=== PATIENT | female | born 1950 | race Caucasian/White ===

== ENCOUNTER 2020-05-06 20:04 | Inpatient (IN) | payer MEDICARE, BC ==
[2020-05-06] MEDS ORDERED: solu-MEDROL 125 MG IV ONE (20:13)
[2020-05-06] MEDS ORDERED: DUONEB 0.5-3 MG/3 ml Neb IH ONE ×2 (20:13→20:20)
--- NOTE | 2020-05-06 20:18 | ERPHSYRPT ---
- History of Present Illness Time Seen by Provider: 05/06/20 20:10 Source: patient, EMS Exam Limitations: no limitations Physician History: 69 years old female with history of atrial fibrillation, congestive heart failure, COPD presented to the ER with 2 days history of progressively increasing shortness of breath. Patient report initially started as a upper respiratory/nasal/sinus congestion followed by cough productive of initially clear but currently yellow-green sputum copious in amount with progressive worsening. She has been using neb treatments at home with no significant relief. She has subjective feeling of fever and chills. Because of repeated coughing her whole chest is feeling sore. Denies any extremity swelling or sick contact. Timing/Duration: day(s) (2), gradual onset, worse Activities at Onset: rest Severity of Dyspnea-Max: severe Severity of Dyspnea-Current: moderate Modifying Factors: Improves With: coughing Associated Symptoms: cough, chest pain/discomfort, wheezing, productive cough, No fever, No lightheadedness, No leg swelling, No muscle spasms feet, No muscle spasms hands, No painful breathing Allergies/Adverse Reactions: Sulfa (Sulfonamide Antibiotics) Allergy (Severe, Verified 05/06/20 20:15) Itching pollen extracts Allergy (Mild, Verified 05/06/20 20:15) Home Medications: Apixaban [Eliquis] 1 tab PO BID 05/06/20 [History] Atorvastatin Calcium 1 tab PO DAILY 05/06/20 [History] Brexpiprazole [Rexulti] 1 tab PO HS 05/06/20 [History] Diltiazem HCl [Cartia Xt] 0.5 tab PO DAILY 05/06/20 [History] Ergocalciferol (Vitamin D2) [Vitamin D] 1 cap PO WEEKLY 05/06/20 [History] Ezetimibe 10 mg [Zetia 10 MG] 1 tab PO DAILY 05/06/20 [History] Levothyroxine Sodium [Euthyrox] 1 tab PO DAILY 05/06/20 [History] Lisdexamfetamine Dimesylate [Vyvanse] 1 cap PO DAILY 05/06/20 [History] Ropinirole 2Mg [Requip 2Mg Tab] 1 tab PO HS 05/06/20 [History] Torsemide 20 mg [Demadex 20 mg] 1 tab PO DAILY 05/06/20 [History] Vilazodone HCl [Viibryd] 40 mg PO DAILY 05/06/20 [History] - Review of Systems Constitutional: Fever, Chills, Fatigue, Malaise Eyes: No Symptoms Ears, Nose, & Throat: Nose Congestion, Sinus Drainage Respiratory: Cough, Dyspnea, Wheezing Cardiac: Chest Pain Abdominal/Gastrointestinal: No Symptoms Genitourinary Symptoms: No Symptoms Musculoskeletal: No Symptoms Skin: No Symptoms Neurological: No Symptoms Psychological: No Symptoms Endocrine: No Symptoms Hematologic/Lymphatic: No Symptoms Immunological/Allergic: No Symptoms - Nursing Vital Signs Nursing Vital Signs: Initial Vital Signs Respiratory Rate 28 H 05/06/20 20:04 Blood Pressure 155/66 05/06/20 20:04 O2 Sat by Pulse Oximetry 98 05/06/20 20:04 Pain Scale Pain Intensity 4 - Physical Exam General Appearance: no apparent distress, alert Eye Exam: PERRL/EOMI, eyes nml inspection Ears, Nose, Throat Exam: hearing grossly normal, nasal congestion, pharyngeal erythema Neck Exam: normal inspection, non-tender, supple, full range of motion Respiratory Exam: accessory muscle use, rhonchi, wheezing Cardiovascular/Chest Exam: normal heart sounds Abdominal/Gastrointestinal Exam: soft, normal bowel sounds, No tenderness Extremity Exam: non-tender, normal range of motion Neurologic Exam: alert, oriented x 3, cooperative Skin Exam: normal color SpO2 Interpretation: normal O2 Delivery: Room Air - Course Nursing assessment & vital signs reviewed: Yes EKG Interpreted by Me: RATE ([id number]), A-fib, Right [place] Deviation, NORMAL INTERVALS, Non-specific ST Changes Ordered Tests: Active Orders 24 hr Category Date Time Status 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 Engineering 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 STAT Care 05/06/20 20:14 Active EKG-ER Only STAT Care 05/06/20 20:13 Active IV Insertion STAT Care 05/06/20 20:13 Active Oxygen-ED Only Nasal Cannula 2 lpm Care 05/06/20 20:13 Active CHEST 1 VIEW (PORTABLE) Stat Exams 05/06/20 20:14 Taken BLOOD CULTURE Stat Lab 05/06/20 20:38 Received CBC W DIFF Stat Lab 05/06/20 20:38 Completed CMP Stat Lab 05/06/20 20:38 Completed Lactic Acid Stat Lab 05/06/20 20:26 Completed MAGNESIUM Stat Lab 05/06/20 20:38 Completed NT PRO BNP Stat Lab 05/06/20 20:38 Completed TROPONIN Q3H Lab 05/06/20 20:38 Completed TROPONIN Q3H Lab 05/06/20 23:25 Completed TROPONIN Q3H Lab 05/07/20 02:15 Ordered TROPONIN Q3H Lab 05/07/20 05:15 Ordered TROPONIN Q3H Lab 05/07/20 08:15 Ordered UA W/RFX UR CULTURE Stat Lab 05/06/20 21:30 Completed Peak Expiratory Flow Rate ONCE RT 05/06/20 20:33 Active Respiratory Therapy Assessment DAILY RT 05/06/20 20:33 Active Transfer Order Routine Transfer 05/06/20 Ordered Medication Summary Discontinued Medications Generic Name Dose Route Start Last Admin Trade Name Freq PRN Reason Stop Dose Admin Albuterol/Ipratropium 3 ml 05/06/20 20:13 05/06/20 20:36 Duoneb 0.5-3 Mg/3 Ml Neb IH 05/06/20 20:14 3 ml STAT ONE Administration Albuterol/Ipratropium Confirm 05/06/20 20:20 Duoneb 0.5-3 Mg/3 Ml Neb Administered 05/06/20 20:21 Dose 3 ml IH .STK-MED ONE Aspirin 324 mg 05/06/20 21:29 05/06/20 21:46 Baby Aspirin 81 Mg Chew PO 05/06/20 21:30 324 mg STAT ONE Administration Aspirin Confirm 05/06/20 21:42 Baby Aspirin 81 Mg Chew Administered 05/06/20 21:43 Dose 81 mg .ROUTE .STK-MED ONE Ceftriaxone Sodium/Dextrose 1 g in 50 mls @ 100 mls/hr 05/06/20 21:38 05/06/20 22:26 Rocephin 1 Gm-D5w 50 Ml Bag IV 05/06/20 22:07 Infused STAT STA Infusion Azithromycin 500 mg in 250 mls @ 250 mls/hr 05/06/20 21:38 05/06/20 22:31 Zithromax 500 Mg/ 250 Ml Nacl Premix IV 05/06/20 22:37 250 mls/hr STAT STA 250 mls/hr Administration Azithromycin Confirm 05/06/20 21:42 Zithromax 500 Mg/ 250 Ml Nacl Premix Administered 05/06/20 21:43 Dose 500 mg in 250 mls @ ud IV .STK-MED ONE Ceftriaxone Sodium/Dextrose Confirm 05/06/20 21:42 Rocephin 1 Gm-D5w 50 Ml Bag Administered 05/06/20 21:43 Dose 1 g in 50 mls @ ud IV .STK-MED ONE Methylprednisolone Sodium Succinate 125 mg 05/06/20 20:13 05/06/20 20:24 Solu-Medrol 125 Mg IV 05/06/20 20:14 125 mg STAT ONE Administration Methylprednisolone Sodium Succinate Confirm 05/06/20 20:19 Solu-Medrol 125 Mg Administered 05/06/20 20:20 Dose 125 mg .ROUTE .STK-MED ONE Morphine Sulfate 4 mg 05/06/20 21:29 05/06/20 21:45 Morphine Sulfate 4 Mg Inj IV 05/06/20 21:30 4 mg STAT ONE Administration Morphine Sulfate Confirm 05/06/20 21:42 Morphine Sulfate 4 Mg Inj Administered 05/06/20 21:43 Dose 4 mg .ROUTE .STK-MED ONE Ondansetron HCl 4 mg 05/06/20 21:29 05/06/20 21:45 Zofran 4 Mg/2 Ml Vial IV 05/06/20 21:30 4 mg STAT ONE Administration Ondansetron HCl Confirm 05/06/20 21:42 Zofran 4 Mg/2 Ml Vial Administered 05/06/20 21:43 Dose 4 mg .ROUTE .STK-MED ONE Lab/Rad Data: Laboratory Result Diagrams 05/06/20 20:38 05/06/20 20:38 Laboratory Results 05/06/20 05/06/20 05/06/20 Range/Units 23:25 21:30 20:38 WBC (4.0-10.5) K/mm3 RBC (4.1-5.4) M/mm3 Hgb (12.0-16.0) gm/dl Hct (35-47) % MCV (78-100) fl MCH (26-32) pg MCHC (32-36) g/dl RDW (11.5-14.0) % Plt Count (150-450) K/mm3 MPV (7.5-11.0) fl Gran % (36.0-66.0) % Eos # (Auto) (0-0.5) Absolute Lymphs (auto) (1.0-4.6) Absolute Monos (auto) (0.0-1.3) Lymphocytes % (24.0-44.0) % Monocytes % (0.0-12.0) % Eosinophils % (0.00-5.0) % Basophils % (0.0-0.4) % Absolute Granulocytes (1.4-6.9) Basophils # (0-0.4) Sodium (137-145) mmol/L Potassium (3.5-5.1) mmol/L Chloride (98-107) mmol/L Carbon Dioxide (22-30) mmol/L Anion Gap (5-15) MEQ/L BUN (7-17) mg/dL Creatinine (0.52-1.04) mg/dL Estimated GFR ML/MIN Glucose (74-106) mg/dL Lactic Acid (0.4-2.0) Calcium (8.4-10.2) mg/dL Magnesium (1.6-2.3) mg/dL Total Bilirubin (0.2-1.3) mg/dL AST (14-36) U/L ALT (0-35) U/L Alkaline Phosphatase (38-126) U/L Troponin I < 0.012 (0.000-0.034) ng/mL NT-Pro-B Natriuret Pep (0-900) pg/mL Serum Total Protein (6.3-8.2) g/dL Albumin (3.5-5.0) g/dL Urine Color [place] (YELLOW) Urine Appearance CLEAR (CLEAR) Urine pH 6.0 (5-6) Ur Specific [place] 1.028 (1.005-1.025) Urine Protein 100 (Negative) Urine Ketones NEGATIVE (NEGATIVE) Urine Blood NEGATIVE (0-5) Tom/ul Urine Nitrite NEGATIVE (NEGATIVE) Urine Bilirubin NEGATIVE (NEGATIVE) Urine Urobilinogen 2 (0-1) mg/dL Ur Leukocyte Esterase NEGATIVE (NEGATIVE) Urine WBC (Auto) NONE (0-5) /HPF Urine RBC (Auto) 3-5 (0-2) /HPF U Epithel Cells (Auto) NONE (FEW) /HPF Urine Bacteria (Auto) NONE SEEN (NEGATIVE) /HPF Urine Mucus (Auto) SLIGHT (NEGATIVE) /HPF Urine Culture Reflexed NO (NO) Urine Glucose NEGATIVE (NEGATIVE) mg/dL Influenza Type A Ag NEGATIVE (NEGATIVE) Influenza Type B Ag NEGATIVE (NEGATIVE) RSV (PCR) NEGATIVE (Negative) SARS-CoV-2 (PCR) (NEGATIVE) 05/06/20 05/06/20 05/06/20 Range/Units 20:38 20:38 20:38 WBC 13.4 H (4.0-10.5) K/mm3 RBC 4.75 (4.1-5.4) M/mm3 Hgb 14.8 (12.0-16.0) gm/dl Hct 44.0 (35-47) % MCV 92.6 (78-100) fl MCH 31.2 (26-32) pg MCHC 33.6 (32-36) g/dl RDW 12.9 (11.5-14.0) % Plt Count 279 (150-450) K/mm3 MPV 9.9 (7.5-11.0) fl Gran % 83.9 H (36.0-66.0) % Eos # (Auto) 0.43 (0-0.5) Absolute Lymphs (auto) 1.09 (1.0-4.6) Absolute Monos (auto) 0.58 (0.0-1.3) Lymphocytes % 8.1 L (24.0-44.0) % Monocytes % 4.3 (0.0-12.0) % Eosinophils % 3.2 (0.00-5.0) % Basophils % 0.5 (0.0-0.4) % Absolute Granulocytes 11.24 H (1.4-6.9) Basophils # 0.07 (0-0.4) Sodium 128 L (137-145) mmol/L Potassium 3.8 (3.5-5.1) mmol/L Chloride 92 L (98-107) mmol/L Carbon Dioxide 28 (22-30) mmol/L Anion Gap 12.5 (5-15) MEQ/L BUN 9 (7-17) mg/dL Creatinine 0.59 (0.52-1.04) mg/dL Estimated GFR > 60.0 ML/MIN Glucose 133 H (74-106) mg/dL Lactic Acid (0.4-2.0) Calcium 9.4 (8.4-10.2) mg/dL Magnesium 1.5 L (1.6-2.3) mg/dL Total Bilirubin 1.10 (0.2-1.3) mg/dL AST 57 H (14-36) U/L ALT 47 H (0-35) U/L Alkaline Phosphatase 161 H (38-126) U/L Troponin I < 0.012 (0.000-0.034) ng/mL NT-Pro-B Natriuret Pep 520 (0-900) pg/mL Serum Total Protein 8.1 (6.3-8.2) g/dL Albumin 4.5 (3.5-5.0) g/dL Urine Color (YELLOW) Urine Appearance (CLEAR) Urine pH (5-6) Ur Specific [place] (1.005-1.025) Urine Protein (Negative) Urine Ketones (NEGATIVE) Urine Blood (0-5) Tom/ul Urine Nitrite (NEGATIVE) Urine Bilirubin (NEGATIVE) Urine Urobilinogen (0-1) mg/dL Ur Leukocyte Esterase (NEGATIVE) Urine WBC (Auto) (0-5) /HPF Urine RBC (Auto) (0-2) /HPF U Epithel Cells (Auto) (FEW) /HPF Urine Bacteria (Auto) (NEGATIVE) /HPF Urine Mucus (Auto) (NEGATIVE) /HPF Urine Culture Reflexed (NO) Urine Glucose (NEGATIVE) mg/dL Influenza Type A Ag (NEGATIVE) Influenza Type B Ag (NEGATIVE) RSV (PCR) (Negative) SARS-CoV-2 (PCR) (NEGATIVE) 05/06/20 05/06/20 Range/Units 20:30 20:26 WBC (4.0-10.5) K/mm3 RBC (4.1-5.4) M/mm3 Hgb (12.0-16.0) gm/dl Hct (35-47) % MCV (78-100) fl MCH (26-32) pg MCHC (32-36) g/dl RDW (11.5-14.0) % Plt Count (150-450) K/mm3 MPV (7.5-11.0) fl Gran % (36.0-66.0) % Eos # (Auto) (0-0.5) Absolute Lymphs (auto) (1.0-4.6) Absolute Monos (auto) (0.0-1.3) Lymphocytes % (24.0-44.0) % Monocytes % (0.0-12.0) % Eosinophils % (0.00-5.0) % Basophils % (0.0-0.4) % Absolute Granulocytes (1.4-6.9) Basophils # (0-0.4) Sodium (137-145) mmol/L Potassium (3.5-5.1) mmol/L Chloride (98-107) mmol/L Carbon Dioxide (22-30) mmol/L Anion Gap (5-15) MEQ/L BUN (7-17) mg/dL Creatinine (0.52-1.04) mg/dL Estimated GFR ML/MIN Glucose (74-106) mg/dL Lactic Acid 1.3 (0.4-2.0) Calcium (8.4-10.2) mg/dL Magnesium (1.6-2.3) mg/dL Total Bilirubin (0.2-1.3) mg/dL AST (14-36) U/L ALT (0-35) U/L Alkaline Phosphatase (38-126) U/L Troponin I (0.000-0.034) ng/mL NT-Pro-B Natriuret Pep (0-900) pg/mL Serum Total Protein (6.3-8.2) g/dL Albumin (3.5-5.0) g/dL Urine Color (YELLOW) Urine Appearance (CLEAR) Urine pH (5-6) Ur Specific [place] (1.005-1.025) Urine Protein (Negative) Urine Ketones (NEGATIVE) Urine Blood (0-5) Tom/ul Urine Nitrite (NEGATIVE) Urine Bilirubin (NEGATIVE) Urine Urobilinogen (0-1) mg/dL Ur Leukocyte Esterase (NEGATIVE) Urine WBC (Auto) (0-5) /HPF Urine RBC (Auto) (0-2) /HPF U Epithel Cells (Auto) (FEW) /HPF Urine Bacteria (Auto) (NEGATIVE) /HPF Urine Mucus (Auto) (NEGATIVE) /HPF Urine Culture Reflexed (NO) Urine Glucose (NEGATIVE) mg/dL Influenza Type A Ag (NEGATIVE) Influenza Type B Ag (NEGATIVE) RSV (PCR) (Negative) SARS-CoV-2 (PCR) NEGATIVE (NEGATIVE) - Progress Progress: improved, re-examined Air Movement: good Progress Note: 05/06/20 22:37 69 years old is evaluated for increasing shortness of breath and productive cough. Patient was using accessory muscle and mild respiratory distress on presentation. She is given DuoNeb and Solu-Medrol, on reevaluation feeling better. She has a white count of 13, lactate of 1.3. Chest x-ray showed left lower lobe pneumonia, started on Rocephin/Zithromax. She also has mild hyponatremia and will give gentle hydration. Discussed with Dr. Franklin and patient is being admitted Blood Culture(s) Obtained: Yes Antibiotics given: Yes Discussed with : Riki Will see patient in: hospital (observation) Counseled pt/family regarding: lab results, diagnosis, rad results - Departure Departure Disposition: Observation Clinical Impression: Hyponatremia Pneumonia Qualifiers: Pneumonia type: due to unspecified organism Laterality: left Lung location: lower lobe of lung Qualified Code(s): J18.9 - Pneumonia, unspecified organism Condition: Stable Critical Care Time: Yes Critical Care Time(excluding separately billable procedures): Critical 30-74 mins
[2020-05-06] MEDS ORDERED: solu-MEDROL 125 MG ONE (20:19)
[2020-05-06 20:42] LABS: Absolute Neutrophil Ct (ANC) 11.24 (1.4-6.9); BASOPHIL % 0.5 % (0.0-0.4); Basophil (Absolute #) 0.07 (0-0.4); Eosinophil % 3.2 % (0.00-5.0); Eosinophil (Absolute #) 0.43 (0-0.5); Hemoglobin 14.8 gm/dl (12.0-16.0); Lymphocyte (Absolute #) 1.09 (1.0-4.6); Lymphocytes % 8.1 % (24.0-44.0); Mean Cell Volume 92.6 fl (78-100); Mean Corpuscular Hemoglobin 31.2 pg (26-32); Mean Corpuscular Hgb Concent. 33.6 g/dl (32-36); Mean Platelet Volume 9.9 fl (7.5-11.0); Monocyte (Absolute #) 0.58 (0.0-1.3); Monocytes % 4.3 % (0.0-12.0); Neutrophil % 83.9 % (36.0-66.0); Platelet Count 279 K/mm3 (150-450); Red Blood Count 4.75 M/mm3 (4.1-5.4); Red Cell Distribution Width 12.9 % (11.5-14.0); White Blood Count 13.4 K/mm3 (4.0-10.5)
[2020-05-06 21:02] LABS: ALBUMIN 4.5 g/dL (3.5-5.0); ALKALINE PHOSPHATASE 161 U/L (38-126); ANION GAP 12.5 MEQ/L (5-15); BLOOD UREA NITROGEN 9 mg/dL (7-17); CHLORIDE 92 mmol/L (98-107); Calcium 9.4 mg/dL (8.4-10.2); Carbon Dioxide 28 mmol/L (22-30); Creatinine 1 0.59 mg/dL (0.52-1.04); EST GLOMERULAR FILTRATION RATE > 60.0 ML/MIN; Glucose 133 mg/dL (74-106); MAGNESIUM 1.5 mg/dL (1.6-2.3); NT PRO BNP 520 pg/mL (0-900); Potassium 3.8 mmol/L (3.5-5.1); SGOT/AST 57 U/L (14-36); SGPT/ALT 47 U/L (0-35); SODIUM 128 mmol/L (137-145); Total Protein 8.1 g/dL (6.3-8.2)
[2020-05-06 21:16] LABS: INFLUENZA A NEGATIVE (NEGATIVE); INFLUENZA B NEGATIVE (NEGATIVE); RESPIRATORY SYNCTIAL VIRUS NEGATIVE (Negative)
[2020-05-06] MEDS ORDERED: Zofran 4 MG/2 ML VIAL IV ONE (21:29)
[2020-05-06] MEDS ORDERED: MORPHINE SULFATE 4 MG INJ IV ONE (21:29)
[2020-05-06] MEDS ORDERED: BABY ASPIRIN 81 MG CHEW PO ONE (21:29)
[2020-05-06] MEDS ORDERED: Zithromax 500 MG/ 250 ML NaCl Premix 500 MG/250 ML IVPB IV STA (21:38)
[2020-05-06] MEDS ORDERED: ROCEPHIN 1 Gm-D5w 50 ml Bag** 1 G/50 ML IVPB IV STA (21:38)
[2020-05-06 21:42] LABS: Appearance CLEAR (CLEAR); Bacteria NONE SEEN /HPF (NEGATIVE); Bilirubin NEGATIVE (NEGATIVE); Blood NEGATIVE Ery/ul (0-5); Glucose NEGATIVE (NEGATIVE); Ketones NEGATIVE (NEGATIVE); Leukocyte Esterase NEGATIVE (NEGATIVE); Mucus SLIGHT /HPF (NEGATIVE); Nitrite NEGATIVE (NEGATIVE); Protein,Urine Dip 100 (Negative); Specific Gravity 1.028 (1.005-1.025); Urobilinogen 2 mg/dL (0-1)
[2020-05-06] MEDS ORDERED: Zofran 4 MG/2 ML VIAL ONE (21:42)
[2020-05-06] MEDS ORDERED: Zithromax 500 MG/ 250 ML NaCl Premix 500 MG/250 ML IVPB IV ONE (21:42)
[2020-05-06] MEDS ORDERED: MORPHINE SULFATE 4 MG INJ ONE (21:42)
[2020-05-06] MEDS ORDERED: ROCEPHIN 1 Gm-D5w 50 ml Bag** 1 G/50 ML IVPB IV ONE (21:42)
[2020-05-06] MEDS ORDERED: BABY ASPIRIN 81 MG CHEW ONE (21:42)
[2020-05-07] MEDS: solu-MEDROL 125 MG IV SCH ×5 (00:10→23:55)
[2020-05-07] MEDS: DUONEB 0.5-3 MG/3 ml Neb IH SCH ×4 (01:20→19:23)
[2020-05-07] MEDS: Tussionex Pennkinetic Susp PO PRN ×2 (03:38→15:40)
[2020-05-07] MEDS: Sodium Chloride 0.9% W/ 20 mEq KCl/LITER 1,000 ML IV SCH ×2 (03:40→07:17)
[2020-05-07] MEDS ORDERED: Sodium Chloride 0.9% 1000 ML 1,000 ML ONE (03:42)
[2020-05-07 06:29] LABS: Absolute Neutrophil Ct (ANC) 11.06 (1.4-6.9); BASOPHIL % 0.3 % (0.0-0.4); Basophil (Absolute #) 0.03 (0-0.4); Eosinophil (Absolute #) 0 (0-0.5); Hematocrit 41.9 % (35-47); Hemoglobin 13.8 gm/dl (12.0-16.0); Lymphocyte (Absolute #) 0.32 (1.0-4.6); Lymphocytes % 2.8 % (24.0-44.0); Mean Cell Volume 93.9 fl (78-100); Mean Corpuscular Hemoglobin 30.9 pg (26-32); Mean Corpuscular Hgb Concent. 32.9 g/dl (32-36); Mean Platelet Volume 10.1 fl (7.5-11.0); Monocyte (Absolute #) 0.05 (0.0-1.3); Monocytes % 0.4 % (0.0-12.0); Neutrophil % 96.5 % (36.0-66.0); Platelet Count 268 K/mm3 (150-450); Red Blood Count 4.46 M/mm3 (4.1-5.4); Red Cell Distribution Width 12.9 % (11.5-14.0); White Blood Count 11.5 K/mm3 (4.0-10.5)
[2020-05-07 06:43] LABS: ALBUMIN 4.3 g/dL (3.5-5.0); ALKALINE PHOSPHATASE 131 U/L (38-126); BLOOD UREA NITROGEN 10 mg/dL (7-17); Calcium 9.2 mg/dL (8.4-10.2); Carbon Dioxide 29 mmol/L (22-30); Creatinine 1 0.65 mg/dL (0.52-1.04); EST GLOMERULAR FILTRATION RATE > 60.0 ML/MIN; Glucose 232 mg/dL (74-106); Potassium 4.3 mmol/L (3.5-5.1); SGOT/AST 51 U/L (14-36); SGPT/ALT 41 U/L (0-35); SODIUM 131 mmol/L (137-145); Total Protein 7.8 g/dL (6.3-8.2)
[2020-05-07 06:44] LABS: CHLORIDE 95 mmol/L (98-107)
[2020-05-07 06:45] LABS: ANION GAP 11.3 MEQ/L (5-15)
[2020-05-07] MEDS: TYLENOL 325 MG PO PRN (07:21)
--- NOTE | 2020-05-07 07:47 | XRAY ---
Indication: Cough and congestion. CHF. Comparison: July 02, 2015. Portable chest again demonstrates chronic lung markings without focal infiltrate, consolidation, or large effusion. Heart is not enlarged for AP portable technique with stable left dual-lead pacemaker. Bony thorax intact again with mild osteopenia, degenerative changes, scoliosis, and bilateral calcified breast implants. Impression: Continued nonacute chest with chronic features.
[2020-05-07 08:21] LABS: Slide Review 1 YES
[2020-05-07] MEDS ORDERED: FLUZONE HIGH-DOSE QUAD 2020-21 IM ONE (10:00)
[2020-05-07] MEDS: NORCO 5/325 MG PO PRN ×3 (10:25→20:35)
[2020-05-07] MEDS: Pepcid 20 MG VIAL IV SCH ×2 (10:27→20:37)
[2020-05-07] MEDS ORDERED: MEDICATION INTERVENTION MC SCH ×2 (11:15)
[2020-05-07] MEDS: ELIQUIS 2.5 MG TABLET PO SCH ×2 (11:26→20:36)
[2020-05-07] MEDS: DEMADEX 20 MG PO SCH (11:26)
[2020-05-07] MEDS: Cardizem CD 120 MG PO SCH (11:26)
[2020-05-07] MEDS: SYNTHROID 112 MCG PO SCH (11:27)
--- NOTE | 2020-05-07 11:36 | PCM.HP ---
History of Present Illness - Chief Complaint Chief Complaint: LLL Pneumonia, hypo natrenia History of Present Illness: is a 69 year old female who presented with cough, chills and green sputum production. she has a history of chf, no severe swelling or other symptoms present, she is short of breath with her cough. Medications & Allergies Home Medications: Home Medication List Apixaban [Eliquis] 1 tab PO BID 05/06/20 [History Confirmed 05/06/20] Atorvastatin Calcium 1 tab PO DAILY 05/06/20 [History Confirmed 05/06/20] Brexpiprazole [Rexulti] 1 tab PO HS 05/06/20 [History Confirmed 05/06/20] Diltiazem HCl [Cartia Xt] 0.5 tab PO DAILY 05/06/20 [History Confirmed 05/06/20] Ergocalciferol (Vitamin D2) [Vitamin D] 1 cap PO WEEKLY 05/06/20 [History Confirmed 05/06/20] Ezetimibe 10 mg [Zetia 10 MG] 1 tab PO DAILY 05/06/20 [History Confirmed 05/06/20] Levothyroxine Sodium [Euthyrox] 1 tab PO DAILY 05/06/20 [History Confirmed 05/06/20] Lisdexamfetamine Dimesylate [Vyvanse] 1 cap PO DAILY 05/06/20 [History Confirmed 05/06/20] Ropinirole 2Mg [Requip 2Mg Tab] 1 tab PO HS 05/06/20 [History Confirmed 05/06/20] Torsemide 20 mg [Demadex 20 mg] 1 tab PO DAILY 05/06/20 [History Confirmed 05/06/20] Vilazodone HCl [Viibryd] 40 mg PO DAILY 05/06/20 [History Confirmed 05/06/20] Sodium Chloride [Saline Nasal [place]] 45 ml NS UD PRN 05/07/20 [History Confirmed 05/07/20] Allergies/Adverse Reactions: Allergies Allergy/AdvReac Type Severity Reaction Status Date / Time Sulfa (Sulfonamide Allergy Severe Itching Verified 05/06/20 20:15 Antibiotics) pollen extracts Allergy Mild Verified 05/06/20 20:15 - Past Medical History Past Medical History: Yes Neurological History: Migraines ENT History: No Pertinent History Cardiac History: Arrhythmia, Congestive Heart Failure, High Cholesterol, Hypertension Respiratory History: Bronchitis, CHF, Pneumonia Endocrine Medical History: Hypothyroidism Musculoskelatal History: Arthritis GI Medical History: No Pertinent History History: No Pertinent History Pyscho-Social History: Anxiety, Depression Reproductive Disorders: No Pertinent History Comment: pulmunary fibrosis - Female History Are you now?: No - Past Surgical History Past Surgical History: Yes Cardiac History: Pacemaker, Other GI Surgical History: No Pertinent History Genitourinary Surgical Hx: No Pertinent History Musculskeletal Surgical Hx: No Pertinent History Female Surgical History: No Pertinent History Other Surgical History: ablasion not completed due to complications, had pacemaker placed instead, (cardiac arrest during heart surgery) - Social History Smoking Status: Former smoker Exposure to second hand smoke: No Alcohol: None Drug Use: none - Physical Exam Vital Signs: Vital Signs - 24 hr Temp Pulse Resp BP Pulse Ox 05/07/20 07:50 72 18 93 L 05/07/20 07:12 98.1 F 67 18 136/63 92 L 05/07/20 04:00 98.0 F 66 18 124/60 93 L 05/07/20 01:20 64 20 92 L 05/07/20 00:49 98.3 F 74 20 133/60 94 L 05/07/20 00:01 68 16 95 05/06/20 22:28 67 122/54 95 05/06/20 21:15 65 20 111/62 96 05/06/20 20:36 66 18 99 05/06/20 20:04 28 H 155/66 98 General Appearance: no apparent distress, obese Neurologic Exam: alert, oriented x 3 Neck Exam: normal inspection, non-tender, supple, full range of motion Respiratory Exam: rhonchi Cardiovascular Exam: regular rate/rhythm, normal heart sounds, normal peripheral pulses Gastrointestinal/Abdomen Exam: soft, normal bowel sounds, No tenderness, No mass Extremity Exam: normal inspection, normal range of motion, pelvis stable Skin Exam: normal color, warm, dry, No rash Results - Labs Lab/Micro Results: Lab Results-Last 24 Hours 05/06/20 05/06/20 05/06/20 Range/Units 20:26 20:30 20:38 WBC 13.4 H (4.0-10.5) K/mm3 RBC 4.75 (4.1-5.4) M/mm3 Hgb 14.8 (12.0-16.0) gm/dl Hct 44.0 (35-47) % MCV 92.6 (78-100) fl MCH 31.2 (26-32) pg MCHC 33.6 (32-36) g/dl RDW 12.9 (11.5-14.0) % Plt Count 279 (150-450) K/mm3 MPV 9.9 (7.5-11.0) fl Gran % 83.9 H (36.0-66.0) % Eos # (Auto) 0.43 (0-0.5) Absolute Lymphs (auto) 1.09 (1.0-4.6) Absolute Monos (auto) 0.58 (0.0-1.3) Lymphocytes % 8.1 L (24.0-44.0) % Monocytes % 4.3 (0.0-12.0) % Eosinophils % 3.2 (0.00-5.0) % Basophils % 0.5 (0.0-0.4) % Absolute Granulocytes 11.24 H (1.4-6.9) Basophils # 0.07 (0-0.4) Sodium (137-145) mmol/L Potassium (3.5-5.1) mmol/L Chloride (98-107) mmol/L Carbon Dioxide (22-30) mmol/L Anion Gap (5-15) MEQ/L BUN (7-17) mg/dL Creatinine (0.52-1.04) mg/dL Estimated GFR ML/MIN Glucose (74-106) mg/dL Lactic Acid 1.3 (0.4-2.0) Calcium (8.4-10.2) mg/dL Magnesium (1.6-2.3) mg/dL Total Bilirubin (0.2-1.3) mg/dL AST (14-36) U/L ALT (0-35) U/L Alkaline Phosphatase (38-126) U/L Troponin I (0.000-0.034) ng/mL NT-Pro-B Natriuret Pep (0-900) pg/mL Serum Total Protein (6.3-8.2) g/dL Albumin (3.5-5.0) g/dL Urine Color (YELLOW) Urine Appearance (CLEAR) Urine pH (5-6) Ur Specific Goessel (1.005-1.025) Urine Protein (Negative) Urine Ketones (NEGATIVE) Urine Blood (0-5) Tom/ul Urine Nitrite (NEGATIVE) Urine Bilirubin (NEGATIVE) Urine Urobilinogen (0-1) mg/dL Ur Leukocyte Esterase (NEGATIVE) Urine WBC (Auto) (0-5) /HPF Urine RBC (Auto) (0-2) /HPF U Epithel Cells (Auto) (FEW) /HPF Urine Bacteria (Auto) (NEGATIVE) /HPF Urine Mucus (Auto) (NEGATIVE) /HPF Urine Culture Reflexed (NO) Urine Glucose (NEGATIVE) mg/dL Influenza Type A Ag (NEGATIVE) Influenza Type B Ag (NEGATIVE) RSV (PCR) (Negative) SARS-CoV-2 (PCR) NEGATIVE (NEGATIVE) Slides for Path Review 05/06/20 05/06/20 05/06/20 Range/Units 20:38 20:38 20:38 WBC (4.0-10.5) K/mm3 RBC (4.1-5.4) M/mm3 Hgb (12.0-16.0) gm/dl Hct (35-47) % MCV (78-100) fl MCH (26-32) pg MCHC (32-36) g/dl RDW (11.5-14.0) % Plt Count (150-450) K/mm3 MPV (7.5-11.0) fl Gran % (36.0-66.0) % Eos # (Auto) (0-0.5) Absolute Lymphs (auto) (1.0-4.6) Absolute Monos (auto) (0.0-1.3) Lymphocytes % (24.0-44.0) % Monocytes % (0.0-12.0) % Eosinophils % (0.00-5.0) % Basophils % (0.0-0.4) % Absolute Granulocytes (1.4-6.9) Basophils # (0-0.4) Sodium 128 L (137-145) mmol/L Potassium 3.8 (3.5-5.1) mmol/L Chloride 92 L (98-107) mmol/L Carbon Dioxide 28 (22-30) mmol/L Anion Gap 12.5 (5-15) MEQ/L BUN 9 (7-17) mg/dL Creatinine 0.59 (0.52-1.04) mg/dL Estimated GFR > 60.0 ML/MIN Glucose 133 H (74-106) mg/dL Lactic Acid (0.4-2.0) Calcium 9.4 (8.4-10.2) mg/dL Magnesium 1.5 L (1.6-2.3) mg/dL Total Bilirubin 1.10 (0.2-1.3) mg/dL AST 57 H (14-36) U/L ALT 47 H (0-35) U/L Alkaline Phosphatase 161 H (38-126) U/L Troponin I < 0.012 (0.000-0.034) ng/mL NT-Pro-B Natriuret Pep 520 (0-900) pg/mL Serum Total Protein 8.1 (6.3-8.2) g/dL Albumin 4.5 (3.5-5.0) g/dL Urine Color (YELLOW) Urine Appearance (CLEAR) Urine pH (5-6) Ur Specific Goessel (1.005-1.025) Urine Protein (Negative) Urine Ketones (NEGATIVE) Urine Blood (0-5) Tom/ul Urine Nitrite (NEGATIVE) Urine Bilirubin (NEGATIVE) Urine Urobilinogen (0-1) mg/dL Ur Leukocyte Esterase (NEGATIVE) Urine WBC (Auto) (0-5) /HPF Urine RBC (Auto) (0-2) /HPF U Epithel Cells (Auto) (FEW) /HPF Urine Bacteria (Auto) (NEGATIVE) /HPF Urine Mucus (Auto) (NEGATIVE) /HPF Urine Culture Reflexed (NO) Urine Glucose (NEGATIVE) mg/dL Influenza Type A Ag NEGATIVE (NEGATIVE) Influenza Type B Ag NEGATIVE (NEGATIVE) RSV (PCR) NEGATIVE (Negative) SARS-CoV-2 (PCR) (NEGATIVE) Slides for Path Review 05/06/20 05/06/20 05/07/20 Range/Units 21:30 23:25 02:23 WBC (4.0-10.5) K/mm3 RBC (4.1-5.4) M/mm3 Hgb (12.0-16.0) gm/dl Hct (35-47) % MCV (78-100) fl MCH (26-32) pg MCHC (32-36) g/dl RDW (11.5-14.0) % Plt Count (150-450) K/mm3 MPV (7.5-11.0) fl Gran % (36.0-66.0) % Eos # (Auto) (0-0.5) Absolute Lymphs (auto) (1.0-4.6) Absolute Monos (auto) (0.0-1.3) Lymphocytes % (24.0-44.0) % Monocytes % (0.0-12.0) % Eosinophils % (0.00-5.0) % Basophils % (0.0-0.4) % Absolute Granulocytes (1.4-6.9) Basophils # (0-0.4) Sodium (137-145) mmol/L Potassium (3.5-5.1) mmol/L Chloride (98-107) mmol/L Carbon Dioxide (22-30) mmol/L Anion Gap (5-15) MEQ/L BUN (7-17) mg/dL Creatinine (0.52-1.04) mg/dL Estimated GFR ML/MIN Glucose (74-106) mg/dL Lactic Acid (0.4-2.0) Calcium (8.4-10.2) mg/dL Magnesium (1.6-2.3) mg/dL Total Bilirubin (0.2-1.3) mg/dL AST (14-36) U/L ALT (0-35) U/L Alkaline Phosphatase (38-126) U/L Troponin I < 0.012 < 0.012 (0.000-0.034) ng/mL NT-Pro-B Natriuret Pep (0-900) pg/mL Serum Total Protein (6.3-8.2) g/dL Albumin (3.5-5.0) g/dL Urine Color NAMITA (YELLOW) Urine Appearance CLEAR (CLEAR) Urine pH 6.0 (5-6) Ur Specific Goessel 1.028 (1.005-1.025) Urine Protein 100 (Negative) Urine Ketones NEGATIVE (NEGATIVE) Urine Blood NEGATIVE (0-5) Tom/ul Urine Nitrite NEGATIVE (NEGATIVE) Urine Bilirubin NEGATIVE (NEGATIVE) Urine Urobilinogen 2 (0-1) mg/dL Ur Leukocyte Esterase NEGATIVE (NEGATIVE) Urine WBC (Auto) NONE (0-5) /HPF Urine RBC (Auto) 3-5 (0-2) /HPF U Epithel Cells (Auto) NONE (FEW) /HPF Urine Bacteria (Auto) NONE SEEN (NEGATIVE) /HPF Urine Mucus (Auto) SLIGHT (NEGATIVE) /HPF Urine Culture Reflexed NO (NO) Urine Glucose NEGATIVE (NEGATIVE) mg/dL Influenza Type A Ag (NEGATIVE) Influenza Type B Ag (NEGATIVE) RSV (PCR) (Negative) SARS-CoV-2 (PCR) (NEGATIVE) Slides for Path Review 05/07/20 05/07/20 05/07/20 Range/Units 06:20 06:20 06:20 WBC 11.5 H (4.0-10.5) K/mm3 RBC 4.46 (4.1-5.4) M/mm3 Hgb 13.8 (12.0-16.0) gm/dl Hct 41.9 (35-47) % MCV 93.9 (78-100) fl MCH 30.9 (26-32) pg MCHC 32.9 (32-36) g/dl RDW 12.9 (11.5-14.0) % Plt Count 268 (150-450) K/mm3 MPV 10.1 (7.5-11.0) fl Gran % 96.5 H (36.0-66.0) % Eos # (Auto) 0 (0-0.5) Absolute Lymphs (auto) 0.32 L (1.0-4.6) Absolute Monos (auto) 0.05 (0.0-1.3) Lymphocytes % 2.8 L (24.0-44.0) % Monocytes % 0.4 (0.0-12.0) % Eosinophils % 0.0 (0.00-5.0) % Basophils % 0.3 (0.0-0.4) % Absolute Granulocytes 11.06 H (1.4-6.9) Basophils # 0.03 (0-0.4) Sodium 131 L (137-145) mmol/L Potassium 4.3 (3.5-5.1) mmol/L Chloride 95 L (98-107) mmol/L Carbon Dioxide 29 (22-30) mmol/L Anion Gap 11.3 (5-15) MEQ/L BUN 10 (7-17) mg/dL Creatinine 0.65 (0.52-1.04) mg/dL Estimated GFR > 60.0 ML/MIN Glucose 232 H (74-106) mg/dL Lactic Acid (0.4-2.0) Calcium 9.2 (8.4-10.2) mg/dL Magnesium (1.6-2.3) mg/dL Total Bilirubin 0.40 (0.2-1.3) mg/dL AST 51 H (14-36) U/L ALT 41 H (0-35) U/L Alkaline Phosphatase 131 H (38-126) U/L Troponin I < 0.012 (0.000-0.034) ng/mL NT-Pro-B Natriuret Pep (0-900) pg/mL Serum Total Protein 7.8 (6.3-8.2) g/dL Albumin 4.3 (3.5-5.0) g/dL Urine Color (YELLOW) Urine Appearance (CLEAR) Urine pH (5-6) Ur Specific Goessel (1.005-1.025) Urine Protein (Negative) Urine Ketones (NEGATIVE) Urine Blood (0-5) Tom/ul Urine Nitrite (NEGATIVE) Urine Bilirubin (NEGATIVE) Urine Urobilinogen (0-1) mg/dL Ur Leukocyte Esterase (NEGATIVE) Urine WBC (Auto) (0-5) /HPF Urine RBC (Auto) (0-2) /HPF U Epithel Cells (Auto) (FEW) /HPF Urine Bacteria (Auto) (NEGATIVE) /HPF Urine Mucus (Auto) (NEGATIVE) /HPF Urine Culture Reflexed (NO) Urine Glucose (NEGATIVE) mg/dL Influenza Type A Ag (NEGATIVE) Influenza Type B Ag (NEGATIVE) RSV (PCR) (Negative) SARS-CoV-2 (PCR) (NEGATIVE) Slides for Path Review YES 05/07/20 Range/Units 07:50 WBC (4.0-10.5) K/mm3 RBC (4.1-5.4) M/mm3 Hgb (12.0-16.0) gm/dl Hct (35-47) % MCV (78-100) fl MCH (26-32) pg MCHC (32-36) g/dl RDW (11.5-14.0) % Plt Count (150-450) K/mm3 MPV (7.5-11.0) fl Gran % (36.0-66.0) % Eos # (Auto) (0-0.5) Absolute Lymphs (auto) (1.0-4.6) Absolute Monos (auto) (0.0-1.3) Lymphocytes % (24.0-44.0) % Monocytes % (0.0-12.0) % Eosinophils % (0.00-5.0) % Basophils % (0.0-0.4) % Absolute Granulocytes (1.4-6.9) Basophils # (0-0.4) Sodium (137-145) mmol/L Potassium (3.5-5.1) mmol/L Chloride (98-107) mmol/L Carbon Dioxide (22-30) mmol/L Anion Gap (5-15) MEQ/L BUN (7-17) mg/dL Creatinine (0.52-1.04) mg/dL Estimated GFR ML/MIN Glucose (74-106) mg/dL Lactic Acid (0.4-2.0) Calcium (8.4-10.2) mg/dL Magnesium (1.6-2.3) mg/dL Total Bilirubin (0.2-1.3) mg/dL AST (14-36) U/L ALT (0-35) U/L Alkaline Phosphatase (38-126) U/L Troponin I < 0.012 (0.000-0.034) ng/mL NT-Pro-B Natriuret Pep (0-900) pg/mL Serum Total Protein (6.3-8.2) g/dL Albumin (3.5-5.0) g/dL Urine Color (YELLOW) Urine Appearance (CLEAR) Urine pH (5-6) Ur Specific Goessel (1.005-1.025) Urine Protein (Negative) Urine Ketones (NEGATIVE) Urine Blood (0-5) Tom/ul Urine Nitrite (NEGATIVE) Urine Bilirubin (NEGATIVE) Urine Urobilinogen (0-1) mg/dL Ur Leukocyte Esterase (NEGATIVE) Urine WBC (Auto) (0-5) /HPF Urine RBC (Auto) (0-2) /HPF U Epithel Cells (Auto) (FEW) /HPF Urine Bacteria (Auto) (NEGATIVE) /HPF Urine Mucus (Auto) (NEGATIVE) /HPF Urine Culture Reflexed (NO) Urine Glucose (NEGATIVE) mg/dL Influenza Type A Ag (NEGATIVE) Influenza Type B Ag (NEGATIVE) RSV (PCR) (Negative) SARS-CoV-2 (PCR) (NEGATIVE) Slides for Path Review - Radiology Impressions Radiology Exams & Impressions: Radiology Procedures Category Date Time Status CHEST 1 VIEW (PORTABLE) Stat Exams 05/06/20 20:14 Completed - Other Procedures and Tests Respiratory Therapy 05/06/20 20:33 Peak Expiratory Flow Rate ONCE Respiratory Therapy Assessment DAILY 05/07/20 01:28 RT Screen per Nursing Assess ONCE Assessment/Plan (1) Pneumonia Current Visit: Yes Status: Acute Qualifiers: Pneumonia type: due to unspecified organism Laterality: left Lung location: lower lobe of lung Qualified Code(s): J18.9 - Pneumonia, unspecified organism Assessment & Plan: on rocephin and zithromax, oxygen as needed, nebs and supportive care Code(s): J18.9 - PNEUMONIA, UNSPECIFIED ORGANISM
[2020-05-07] MEDS: REQUIP 2MG TAB PO SCH (20:36)
[2020-05-07] MEDS: ZOCOR 20MG PO SCH (20:37)
[2020-05-07] MEDS: ROCEPHIN 1 Gm-D5w 50 ml Bag** 1 G/50 ML IVPB IV SCH (20:37)
[2020-05-07] MEDS ORDERED: BREXPIPRAZOLE PO SCH (22:00)
[2020-05-07] MEDS ORDERED: APIXABAN PO SCH (22:00)
[2020-05-07] MEDS: Zithromax 500 MG/ 250 ML NaCl Premix 500 MG/250 ML IVPB IV SCH (22:45)
[2020-05-08] MEDS: NORCO 5/325 MG PO PRN ×4 (00:04→22:22)
[2020-05-08] MEDS: Sodium Chloride 0.9% W/ 20 mEq KCl/LITER 1,000 ML IV SCH ×2 (01:22→01:23)
[2020-05-08] MEDS: solu-MEDROL 125 MG IV SCH ×3 (05:18→17:20)
[2020-05-08 05:34] LABS: Absolute Neutrophil Ct (ANC) 14.08 (1.4-6.9); BASOPHIL % 0.1 % (0.0-0.4); Basophil (Absolute #) 0.02 (0-0.4); Eosinophil % 0.1 % (0.00-5.0); Eosinophil (Absolute #) 0.01 (0-0.5); Hematocrit 39.2 % (35-47); Hemoglobin 12.8 gm/dl (12.0-16.0); Lymphocyte (Absolute #) 0.49 (1.0-4.6); Lymphocytes % 3.3 % (24.0-44.0); Mean Cell Volume 95.8 fl (78-100); Mean Corpuscular Hemoglobin 31.3 pg (26-32); Mean Corpuscular Hgb Concent. 32.7 g/dl (32-36); Mean Platelet Volume 10.1 fl (7.5-11.0); Monocytes % 2.7 % (0.0-12.0); Neutrophil % 93.8 % (36.0-66.0); Platelet Count 294 K/mm3 (150-450); Red Blood Count 4.09 M/mm3 (4.1-5.4)
[2020-05-08] MEDS: Tussionex Pennkinetic Susp PO PRN (05:44)
[2020-05-08 05:49] LABS: ANION GAP 12.2 MEQ/L (5-15); BLOOD UREA NITROGEN 16 mg/dL (7-17); CHLORIDE 94 mmol/L (98-107); Calcium 8.8 mg/dL (8.4-10.2); Carbon Dioxide 31 mmol/L (22-30); Creatinine 1 0.69 mg/dL (0.52-1.04); EST GLOMERULAR FILTRATION RATE > 60.0 ML/MIN; Glucose 273 mg/dL (74-106); Potassium 4.8 mmol/L (3.5-5.1); SODIUM 132 mmol/L (137-145)
[2020-05-08 06:31] LABS: Slide Review 1 YES
[2020-05-08] MEDS: DUONEB 0.5-3 MG/3 ml Neb IH SCH ×4 (06:41→18:44)
--- NOTE | 2020-05-08 09:43 | XRAY ---
Indication: Pneumonia. Comparison: May 06, 2020. PA/lateral chest again hyperinflated with chronic lung markings, borderline cardiomegaly, left pacemaker, bilateral calcified breast implants, and chronic bony findings. No new/acute cardiopulmonary abnormalities.
[2020-05-08] MEDS: Tessalon Perles 100 MG PO SCH ×3 (09:49→21:43)
[2020-05-08] MEDS: SYNTHROID 112 MCG PO SCH (09:49)
[2020-05-08] MEDS: DEMADEX 20 MG PO SCH (09:50)
[2020-05-08] MEDS: Cardizem CD 120 MG PO SCH (09:50)
[2020-05-08] MEDS: ELIQUIS 2.5 MG TABLET PO SCH ×2 (09:50→21:43)
[2020-05-08] MEDS: Pepcid 20 MG VIAL IV SCH ×2 (09:50→21:43)
[2020-05-08] MEDS ORDERED: NON-FORMULARY ITEM (Atorvastatin Calcium [Atorvastatin Calcium] 1 TAB) PO SCH (10:00)
[2020-05-08] MEDS ORDERED: DILTIAZEM HCL PO SCH (10:00)
[2020-05-08] MEDS: Robitussin AC Syrup Unit Dose Cup PO PRN ×2 (10:00→14:46)
[2020-05-08] MEDS ORDERED: VILAZODONE HCL 40 MG PO SCH (10:00)
--- NOTE | 2020-05-08 10:08 | PCM.NOTE ---
Date and Time: 05/08/20 1008 Subjective Assessment: Patient reports that she is very short of breath this am. She reports that she was doing better yesterday. She has been coughing more and its been productive. She reports feeling sweaty overnight. She was unsure if she had fevers overnight. Patient denies any chest pain but does report pain with coughing. No other reported concerns. - Review of Systems Constitutional: Night Sweats, No Fever Eyes: No Symptoms Respiratory: Cough, Short Of Breath, No Wheezing Cardiac: No Symptoms, No Chest Pain, No Edema Abdominal/Gastrointestinal: No Abdominal Pain, No Nausea, No Vomiting, No Diarrhea, No Constipation Musculoskeletal: No Symptoms Skin: No Symptoms Neurological: No Symptoms Psychological: No Symptoms Objective Exam General Appearance: moderate distress, alert, anxiety, obese Neurologic Exam: alert, oriented x 3, cooperative, depressed mood/affect Skin Exam: normal color, warm, dry, No rash Respiratory Exam: respiratory distress, diminished breath sounds, accessory muscle use, No crackles/rales, No wheezing Cardiovascular Exam: regular rate/rhythm, normal heart sounds, murmur, No friction rub, No gallop Gastrointestinal/Abdomen Exam: soft, normal bowel sounds, No tenderness, No distention Extremity Exam: normal inspection, No pedal edema, No swelling OBJECTIVE DATA Vital Signs: Vital Signs - 24 hr Temp Pulse Resp BP Pulse Ox 05/08/20 08:00 98.0 F 65 16 155/69 93 L 05/08/20 06:46 64 14 90 L 05/08/20 04:57 97.9 F 73 20 132/74 98 05/08/20 00:00 98.2 F 65 20 109/52 94 L 05/07/20 20:00 98.1 F 66 17 120/61 93 L 05/07/20 19:23 64 14 93 L 05/07/20 16:00 98.0 F 69 18 123/56 96 05/07/20 13:09 74 18 95 05/07/20 12:00 98.0 F 67 18 131/61 94 L Pain Assessment - Last Documented Pain Intensity 7 Pain Scale Used 0-10 Pain Scale Intake and Output: Intake & Output 05/05/20 05/06/20 05/07/20 05/08/20 11:59 11:59 11:59 11:59 Intake Total 960 3812 Balance 960 3812 Weight 83.6 kg Lab Results: Lab Results-Last 24 Hours 05/08/20 05/08/20 Range/Units 05:10 05:10 WBC 15.0 H (4.0-10.5) K/mm3 RBC 4.09 L (4.1-5.4) M/mm3 Hgb 12.8 (12.0-16.0) gm/dl Hct 39.2 (35-47) % MCV 95.8 (78-100) fl MCH 31.3 (26-32) pg MCHC 32.7 (32-36) g/dl RDW 13.0 (11.5-14.0) % Plt Count 294 (150-450) K/mm3 MPV 10.1 (7.5-11.0) fl Gran % 93.8 H (36.0-66.0) % Eos # (Auto) 0.01 (0-0.5) Absolute Lymphs (auto) 0.49 L (1.0-4.6) Absolute Monos (auto) 0.40 (0.0-1.3) Lymphocytes % 3.3 L (24.0-44.0) % Monocytes % 2.7 (0.0-12.0) % Eosinophils % 0.1 (0.00-5.0) % Basophils % 0.1 (0.0-0.4) % Absolute Granulocytes 14.08 H (1.4-6.9) Basophils # 0.02 (0-0.4) Sodium 132 L (137-145) mmol/L Potassium 4.8 (3.5-5.1) mmol/L Chloride 94 L (98-107) mmol/L Carbon Dioxide 31 H (22-30) mmol/L Anion Gap 12.2 (5-15) MEQ/L BUN 16 (7-17) mg/dL Creatinine 0.69 (0.52-1.04) mg/dL Estimated GFR > 60.0 ML/MIN Glucose 273 H (74-106) mg/dL Calcium 8.8 (8.4-10.2) mg/dL Slides for Path Review YES Radiology Exams: Radiology Procedures Category Date Time Status CHEST 1 VIEW (PORTABLE) Stat Exams 05/06/20 20:14 Completed CHEST 2 VIEWS (PA AND LAT) Urgent Exams 05/08/20 09:33 Completed Assessment/Plan (1) Pneumonia Current Visit: Yes Status: Acute Qualifiers: Pneumonia type: due to unspecified organism Laterality: left Lung location: lower lobe of lung Qualified Code(s): J18.9 - Pneumonia, unspecified organism Assessment & Plan: 69 yr old female with pneumonia. Patient was started on azith and rocephin. Due to worsening SOB will get a repeat chest xray. Will readdress antibiotics if necessary. Code(s): J18.9 - PNEUMONIA, UNSPECIFIED ORGANISM (2) COPD exacerbation Current Visit: Yes Status: Acute Assessment & Plan: Patient appears to be having acute on chronic copd exacerbation. She is on steroids q6h and duonebs QID. Will add flutter therapy and incentive spirometry. Code(s): J44.1 - CHRONIC OBSTRUCTIVE PULMONARY DISEASE W (ACUTE) EXACERBATION (3) Hyponatremia Current Visit: Yes Status: Acute Assessment & Plan: Sodium has been trending up. Will get repeat BMP in am. Patient was on NS at 100 ml/hour which has since been discontinued due to concerns for patient becoming fluid overloaded. Will continue to trend NA Code(s): E87.1 - HYPO-OSMOLALITY AND HYPONATREMIA
[2020-05-08] MEDS: ROCEPHIN 1 Gm-D5w 50 ml Bag** 1 G/50 ML IVPB IV SCH (21:43)
[2020-05-08] MEDS: ZOCOR 20MG PO SCH (21:43)
[2020-05-08] MEDS: REQUIP 2MG TAB PO SCH (21:43)
[2020-05-08] MEDS: Zithromax 500 MG/ 250 ML NaCl Premix 500 MG/250 ML IVPB IV SCH (21:49)
[2020-05-09] MEDS: solu-MEDROL 125 MG IV SCH ×5 (00:33→23:21)
[2020-05-09] MEDS: Robitussin AC Syrup Unit Dose Cup PO PRN ×5 (01:16→20:47)
[2020-05-09] MEDS: DUONEB 0.5-3 MG/3 ml Neb IH SCH ×4 (07:05→19:16)
[2020-05-09] MEDS: NORCO 5/325 MG PO PRN ×4 (08:06→21:09)
[2020-05-09] MEDS: Tessalon Perles 100 MG PO SCH ×3 (10:20→20:53)
[2020-05-09] MEDS: SYNTHROID 112 MCG PO SCH (10:20)
[2020-05-09] MEDS: Pepcid 20 MG VIAL IV SCH ×2 (10:21→20:55)
[2020-05-09] MEDS: ELIQUIS 2.5 MG TABLET PO SCH ×2 (10:21→20:53)
[2020-05-09] MEDS: DEMADEX 20 MG PO SCH (10:21)
[2020-05-09] MEDS: Cardizem CD 120 MG PO SCH (10:21)
[2020-05-09] MEDS: MOTRIN 600 MG PO PRN ×2 (10:26→20:54)
--- NOTE | 2020-05-09 19:35 | PCM.NOTE ---
Date and Time: 05/09/201932 Subjective Assessment: 69 yr female seen and examined this am. Patient reports that she still does not feel well today. She reports she is coughing and short of breath. She reports she is anxious. OBJECTIVE DATA Vital Signs: Vital Signs - 24 hr Temp Pulse Resp BP Pulse Ox 05/09/20 19:20 79 20 90 L 05/09/20 15:36 98.0 F 65 18 139/62 94 L 05/09/20 14:56 68 20 05/09/20 12:00 97.6 F 65 17 144/70 92 L 05/09/20 10:14 79 22 94 L 05/09/20 07:37 98.0 F 68 16 157/70 92 L 05/09/20 07:09 76 18 91 L 05/09/20 04:00 98.1 F 65 22 138/63 93 L 05/09/20 00:00 98.9 F 64 24 127/59 92 L 05/08/20 20:00 98.3 F 69 145/61 93 L Pain Assessment - Last Documented Pain Intensity 4 Pain Scale Used 0-10 Pain Scale Intake and Output: Intake & Output 05/07/20 05/08/20 05/09/20 05/10/20 11:59 11:59 11:59 11:59 Intake Total 960 4292 2847 860 Balance 960 4292 2847 860 Weight 83.6 kg Radiology Exams: Radiology Procedures Category Date Time Status CHEST 2 VIEWS (PA AND LAT) Urgent Exams 05/08/20 09:33 Completed Multi-Disciplinary Progress Notes: Multi-Disciplinary Progress Notes 05/09/20 10:26 Case Management Note by Emerald Alberts PER NURSING REPORT PATIENT NOT FEELING WELL TODAY. WILL CONTINUE TO FOLLOW FOR ANY DC NEEDS. STILL DO NOT ANTICIPATE ANY NEEDS AT THIS TIME Initialized on 05/09/20 10:26 - END OF NOTE Assessment/Plan (1) Pneumonia Current Visit: Yes Status: Acute Qualifiers: Pneumonia type: due to unspecified organism Laterality: left Lung location: lower lobe of lung Qualified Code(s): J18.9 - Pneumonia, unspecified organism Code(s): J18.9 - PNEUMONIA, UNSPECIFIED ORGANISM (2) COPD exacerbation Current Visit: Yes Status: Acute Code(s): J44.1 - CHRONIC OBSTRUCTIVE PULMONARY DISEASE W (ACUTE) EXACERBATION (3) Hyponatremia Current Visit: Yes Status: Acute Code(s): E87.1 - HYPO-OSMOLALITY AND HYPONATREMIA
[2020-05-09] MEDS: ZOCOR 20MG PO SCH (20:54)
[2020-05-09] MEDS: REQUIP 2MG TAB PO SCH (20:54)
[2020-05-09] MEDS: ROCEPHIN 1 Gm-D5w 50 ml Bag** 1 G/50 ML IVPB IV SCH (21:04)
[2020-05-09] MEDS: Zithromax 500 MG/ 250 ML NaCl Premix 500 MG/250 ML IVPB IV SCH (21:58)
[2020-05-10] MEDS: NORCO 5/325 MG PO PRN (04:54)
[2020-05-10] MEDS: solu-MEDROL 125 MG IV SCH ×3 (04:54→18:06)
[2020-05-10] MEDS ORDERED: Robitussin AC Syrup Unit Dose Cup ONE (04:56)
[2020-05-10] MEDS: Robitussin AC Syrup Unit Dose Cup PO PRN (05:04)
[2020-05-10] MEDS: DUONEB 0.5-3 MG/3 ml Neb IH SCH ×4 (06:27→20:22)
[2020-05-10] MEDS ORDERED: PHARMACY DOSING REQUEST MC ONE (08:45)
[2020-05-10] MEDS ORDERED: Aminophylline 500 MG/20 ML*** 500 MG in Sodium Chloride 0.9% 500 ML 500 ML IV SCH (09:00)
--- NOTE | 2020-05-10 09:46 | PCM.NOTE ---
Date and Time: 05/10/20945 Subjective Assessment: 69 yr old female seen this am. She still reports she is not feeling well. She continue to have cough and shortness of breath. She continues to have KIRK. She reports increasing anxiety and reports she needs to have her medication for ADHD. - Review of Systems Constitutional: No Fever, No Weakness Eyes: No Symptoms Ears, Nose, & Throat: No Symptoms Respiratory: Cough, Short Of Breath, No Wheezing Cardiac: No Chest Pain, No Edema Abdominal/Gastrointestinal: No Abdominal Pain, No Nausea, No Vomiting, No Diarrhea, No Constipation, No Appetite Changes Genitourinary Symptoms: No Symptoms Musculoskeletal: Back Pain (chronic) Neurological: Headache Psychological: Anxiety, Depression, Mood Changes Objective Exam General Appearance: moderate distress, obese Neurologic Exam: alert, oriented x 3, cooperative, depressed mood/affect (patient was teary eyed during exam today) Skin Exam: normal color, warm, dry, No rash Eye Exam: No scleral icterus Ears, Nose, Throat Exam: moist mucous membranes Neck Exam: normal inspection Respiratory Exam: diminished breath sounds, crackles/rales, wheezing, No chest tenderness Cardiovascular Exam: regular rate/rhythm (pacemaker), normal heart sounds, No murmur, No friction rub, No gallop, No edema Gastrointestinal/Abdomen Exam: soft, normal bowel sounds, No tenderness, No distention Extremity Exam: No pedal edema, No swelling OBJECTIVE DATA Vital Signs: Vital Signs - 24 hr Temp Pulse Resp BP BP Pulse Ox 05/10/20 07:45 98.6 F 65 16 138/66 93 L 05/10/20 06:27 80 18 92 L 05/10/20 04:00 97.9 F 78 20 170/77 93 L 05/09/20 23:36 98.2 F 69 20 138/69 92 L 05/09/20 19:55 98.2 F 65 20 147/70 96 05/09/20 19:20 79 20 90 L 05/09/20 15:36 98.0 F 65 18 139/62 94 L 05/09/20 14:56 68 20 05/09/20 12:00 97.6 F 65 17 144/70 92 L 05/09/20 10:14 79 22 94 L Pain Assessment - Last Documented Pain Intensity 2 Pain Scale Used 0-10 Pain Scale Intake and Output: Intake & Output 0905/08/20 05/09/20 05/10/20 11:59 11:59 11:59 11:59 Intake Total 960 4292 2847 1560 Balance 960 4292 2847 1560 Weight 83.6 kg Radiology Exams: Radiology Procedures Category Date Time Status CHEST 2 VIEWS (PA AND LAT) Urgent Exams 05/08/20 09:33 Completed Multi-Disciplinary Progress Notes: Multi-Disciplinary Progress Notes 05/09/20 10:26 Case Management Note by Emerald Alberts PER NURSING REPORT PATIENT NOT FEELING WELL TODAY. WILL CONTINUE TO FOLLOW FOR ANY DC NEEDS. STILL DO NOT ANTICIPATE ANY NEEDS AT THIS TIME Initialized on 05/09/20 10:26 - END OF NOTE Assessment/Plan (1) Pneumonia Current Visit: Yes Status: Acute Qualifiers: Pneumonia type: due to unspecified organism Laterality: left Lung location: lower lobe of lung Qualified Code(s): J18.9 - Pneumonia, unspecified organism Assessment & Plan: Patient will continue on antibiotics. Repeat cxr did not show a pneumonia. Patient has been afebrile. She does have a cough which she reports as dry. Code(s): J18.9 - PNEUMONIA, UNSPECIFIED ORGANISM (2) COPD exacerbation Current Visit: Yes Status: Acute Code(s): J44.1 - CHRONIC OBSTRUCTIVE PULMONARY DISEASE W (ACUTE) EXACERBATION (3) Hyponatremia Current Visit: Yes Status: Acute Code(s): E87.1 - HYPO-OSMOLALITY AND HYPO NATREMIA (4) Afib Current Visit: Yes Status: Acute Assessment & Plan: Patient has pacemaker and is on eliquis. She is rate and rhythm controlled. Code(s): I48.91 - UNSPECIFIED ATRIAL FIBRILLATION (5) CHF (congestive heart failure) Current Visit: Yes Status: Acute Assessment & Plan: Patient is on medication for chf at home. She does not have lower extremity edema. Code(s): I50.9 - HEART FAILURE, UNSPECIFIED (6) Headache Current Visit: Yes Status: Acute Assessment & Plan: Patient has been getting ibuprofen and tylenol for HAs. Code(s): R51 - HEADACHE (7) Hypertension Current Visit: Yes Status: Acute Code(s): I10 - ESSENTIAL (PRIMARY) HYPERTENSION (8) Hypokalemia Current Visit: Yes Status: Acute Code(s): E87.6 - HYPOKALEMIA (9) Leukocytosis Current Visit: Yes Status: Acute Code(s): D72.829 - ELEVATED WHITE BLOOD CELL COUNT, UNSPECIFIED (10) Pulmonary fibrosis Current Visit: Yes Status: Acute Code(s): J84.10 - PULMONARY FIBROSIS, UNSPECIFIED
[2020-05-10] MEDS ORDERED: NON-FORMULARY BULK ITEM PO SCH (10:00)
[2020-05-10] MEDS ORDERED: NON-FORMULARY ITEM PO SCH (10:00)
[2020-05-10] MEDS: Tessalon Perles 100 MG PO SCH ×3 (10:32→20:55)
[2020-05-10] MEDS: SYNTHROID 112 MCG PO SCH (10:32)
[2020-05-10] MEDS: DEMADEX 20 MG PO SCH (10:33)
[2020-05-10] MEDS: Cardizem CD 120 MG PO SCH (10:33)
[2020-05-10] MEDS: COUGH DM PO SCH ×2 (10:33→20:54)
[2020-05-10] MEDS: ELIQUIS 2.5 MG TABLET PO SCH ×2 (10:33→20:55)
[2020-05-10] MEDS: Pepcid 20 MG VIAL IV SCH ×2 (10:46→20:58)
[2020-05-10] MEDS ORDERED: Sodium Chloride 0.9% 1000 ML 1,000 ML IV SCH (11:00)
[2020-05-10] MEDS ORDERED: Sodium Chloride 0.9% 500 ML 500 ML IV ONE (11:06)
[2020-05-10] MEDS: HUMALOG SQ PRN ×2 (12:43→21:31)
[2020-05-10] MEDS: MOTRIN 600 MG PO PRN (13:52)
[2020-05-10] MEDS: PATIENT OWN MEDICATION PO SCH ×2 (13:53→20:57)
[2020-05-10] MEDS: ZOCOR 20MG PO SCH (20:55)
[2020-05-10] MEDS: REQUIP 2MG TAB PO SCH (20:55)
[2020-05-10] MEDS: ROCEPHIN 1 Gm-D5w 50 ml Bag** 1 G/50 ML IVPB IV SCH (20:58)
[2020-05-11] MEDS: solu-MEDROL 125 MG IV SCH ×2 (00:20→05:52)
[2020-05-11] MEDS: PATIENT OWN MEDICATION PO SCH ×4 (00:21→21:54)
[2020-05-11] MEDS: Zithromax 500 MG/ 250 ML NaCl Premix 500 MG/250 ML IVPB IV SCH (00:22)
[2020-05-11] MEDS: Robitussin AC Syrup Unit Dose Cup PO PRN ×3 (00:36→18:52)
[2020-05-11] MEDS: PROVENTIL 2.5 MG/3 ML NEB IH PRN (01:09)
[2020-05-11 05:07] LABS: Hematocrit 42.2 % (35-47); Hemoglobin 14.2 gm/dl (12.0-16.0); Mean Cell Volume 92.1 fl (78-100); Mean Corpuscular Hgb Concent. 33.6 g/dl (32-36); Mean Platelet Volume 10.3 fl (7.5-11.0); Platelet Count 307 K/mm3 (150-450); Red Blood Count 4.58 M/mm3 (4.1-5.4); Red Cell Distribution Width 12.4 % (11.5-14.0)
[2020-05-11 05:22] LABS: ANION GAP 12.7 MEQ/L (5-15); BLOOD UREA NITROGEN 27 mg/dL (7-17); CHLORIDE 81 mmol/L (98-107); Calcium 8.6 mg/dL (8.4-10.2); Carbon Dioxide 38 mmol/L (22-30); Creatinine 1 0.62 mg/dL (0.52-1.04); EST GLOMERULAR FILTRATION RATE > 60.0 ML/MIN; Glucose 313 mg/dL (74-106); NT PRO BNP 1890 pg/mL (0-900); SODIUM 128 mmol/L (137-145)
[2020-05-11 05:25] LABS: Potassium 2.5 mmol/L (3.5-5.1)
[2020-05-11] MEDS ORDERED: POTASSIUM CHLORIDE 20 mEq IN WATER 100ML 200 ML IV ONE (05:43)
[2020-05-11] MEDS: POTASSIUM CHLORIDE 20 mEq IN WATER 100ML 20 MEQ/100 ML BAG IV SCH ×2 (05:56→07:52)
[2020-05-11] MEDS: MOTRIN 600 MG PO PRN ×3 (06:05→20:49)
[2020-05-11] MEDS: DUONEB 0.5-3 MG/3 ml Neb IH SCH ×4 (07:19→19:03)
[2020-05-11] MEDS: HUMALOG SQ PRN ×4 (07:47→21:02)
[2020-05-11] MEDS ORDERED: Klor Con 10 MEQ PO ONE (08:02)
[2020-05-11] MEDS ORDERED: Zofran 4 MG/2 ML VIAL IV PRN (08:02)
[2020-05-11] MEDS ORDERED: Lasix 20 MG/2 ML IV ONE (08:04)
[2020-05-11] MEDS: TYLENOL 325 MG PO PRN ×2 (08:05→17:08)
[2020-05-11] MEDS ORDERED: MORPHINE SULFATE 2 MG INJ IV ONE (08:11)
[2020-05-11] MEDS: COUGH DM PO SCH ×2 (09:00→21:50)
[2020-05-11] MEDS: ELIQUIS 2.5 MG TABLET PO SCH ×2 (09:01→21:50)
[2020-05-11] MEDS: Pepcid 20 MG VIAL IV SCH ×2 (09:01→21:50)
[2020-05-11] MEDS: SYNTHROID 112 MCG PO SCH (09:01)
[2020-05-11] MEDS: DEMADEX 20 MG PO SCH (09:01)
[2020-05-11] MEDS: Tessalon Perles 100 MG PO SCH ×3 (09:01→21:49)
[2020-05-11] MEDS: Cardizem CD 120 MG PO SCH (09:02)
[2020-05-11] MEDS: solu-MEDROL 40 MG IV SCH ×2 (11:43→18:10)
--- NOTE | 2020-05-11 12:15 | PCM.NOTE ---
Date and Time: 05/11/20 1207 Subjective Assessment: 69 yr old female seen and examined this am. She reports that she feels that she is slowly improving. She reports that the chest pressure she was having this am has improved. She reports that she hasnt been coughing as much but when she lays down she coughs a lot which prevents her from sleeping. She continues to have headaches. - Review of Systems Constitutional: No Fever, No Chills Eyes: No Symptoms Respiratory: Cough (Dry ), Wheezing, No Short Of Breath Cardiac: Chest Pain, No Edema Abdominal/Gastrointestinal: No Abdominal Pain, No Nausea, No Vomiting, No Herlinda rrhea, No Constipation Genitourinary Symptoms: No Symptoms Skin: No Rash Neurological: Headache Psychological: Anxiety, Depression, Mood Changes, Other (ADHD) Objective Exam General Appearance: mild distress, alert, anxiety Neurologic Exam: alert, oriented x 3, cooperative, normal mood/affect Skin Exam: normal color, warm, dry, No rash Eye Exam: No scleral icterus Ears, Nose, Throat Exam: moist mucous membranes Neck Exam: normal inspection Respiratory Exam: crackles/rales, wheezing, other (cough dry persistant), No normal breath sounds, No lungs clear Cardiovascular Exam: other (distant heart sounds), No murmur, No friction rub, No gallop, No edema Gastrointestinal/Abdomen Exam: soft, normal bowel sounds, No tenderness, No distention Extremity Exam: No pedal edema, No swelling, No tenderness OBJECTIVE DATA Vital Signs: Vital Signs - 24 hr Temp Pulse Resp BP Pulse Ox 05/11/20 11:50 173/87 05/11/20 11:16 97.5 F 84 20 180/86 90 L 05/11/20 11:14 69 22 90 L 05/11/20 07:22 64 18 91 L 05/11/20 07:13 98.1 F 65 14 165/78 90 L 05/11/20 04:00 98.0 F 67 19 175/82 93 L 05/11/20 01:09 72 16 92 L 05/10/20 23:47 97.7 F 65 18 140/78 94 L 05/10/20 20:22 82 17 92 L 05/10/20 20:00 97.8 F 66 20 169/77 93 L 05/10/20 16:00 97.9 F 61 16 145/75 94 L 05/10/20 14:39 67 20 92 L Pain Assessment - Last Documented Pain Intensity 0 Pain Scale Used 0-10 Pain Scale Intake and Output: Intake & Output 05/09/20 05/10/20 05/11/20 05/12/20 11:59 11:59 11:59 11:59 Intake Total 2840 3355 Output Total 1450 Balance [id number] 1905 Weight 86.8 kg Lab Results: Lab Results-Last 24 Hours 05/10/20 05/10/20 05/10/20 Range/Units 12:15 16:42 20:35 WBC (4.0-10.5) K/mm3 RBC (4.1-5.4) M/mm3 Hgb (12.0-16.0) gm/dl Hct (35-47) % MCV (78-100) fl MCH (26-32) pg MCHC (32-36) g/dl RDW (11.5-14.0) % Plt Count (150-450) K/mm3 MPV (7.5-11.0) fl Sodium (137-145) mmol/L Potassium (3.5-5.1) mmol/L Chloride (98-107) mmol/L Carbon Dioxide (22-30) mmol/L Anion Gap (5-15) MEQ/L BUN (7-17) mg/dL Creatinine (0.52-1.04) mg/dL Estimated GFR ML/MIN Glucose (74-106) mg/dL POC Glucometer 273 H 281 H 274 H (74 to 106) mg/dL Calcium (8.4-10.2) mg/dL Magnesium (1.6-2.3) mg/dL Troponin I (0.000-0.034) ng/mL NT-Pro-B Natriuret Pep (0-900) pg/mL Theophylline (10-20) ug/mL 05/11/20 05/11/20 05/11/20 Range/Units 04:20 04:30 04:45 WBC 13.0 H (4.0-10.5) K/mm3 RBC 4.58 (4.1-5.4) M/mm3 Hgb 14.2 (12.0-16.0) gm/dl Hct 42.2 (35-47) % MCV 92.1 (78-100) fl MCH 31.0 (26-32) pg MCHC 33.6 (32-36) g/dl RDW 12.4 (11.5-14.0) % Plt Count 307 (150-450) K/mm3 MPV 10.3 (7.5-11.0) fl Sodium 128 L (137-145) mmol/L Potassium 2.5 L* (3.5-5.1) mmol/L Chloride 81 L (98-107) mmol/L Carbon Dioxide 38 H (22-30) mmol/L Anion Gap 12.7 (5-15) MEQ/L BUN 27 H (7-17) mg/dL Creatinine 0.62 (0.52-1.04) mg/dL Estimated GFR > 60.0 ML/MIN Glucose 313 H (74-106) mg/dL POC Glucometer (74 to 106) mg/dL Calcium 8.6 (8.4-10.2) mg/dL Magnesium 1.8 (1.6-2.3) mg/dL Troponin I (0.000-0.034) ng/mL NT-Pro-B Natriuret Pep 1890 H (0-900) pg/mL Theophylline (10-20) ug/mL 05/11/20 05/11/20 05/11/20 Range/Units 04:45 06:53 08:14 WBC (4.0-10.5) K/mm3 RBC (4.1-5.4) M/mm3 Hgb (12.0-16.0) gm/dl Hct (35-47) % MCV (78-100) fl MCH (26-32) pg MCHC (32-36) g/dl RDW (11.5-14.0) % Plt Count (150-450) K/mm3 MPV (7.5-11.0) fl Sodium (137-145) mmol/L Potassium (3.5-5.1) mmol/L Chloride (98-107) mmol/L Carbon Dioxide (22-30) mmol/L Anion Gap (5-15) MEQ/L BUN (7-17) mg/dL Creatinine (0.52-1.04) mg/dL Estimated GFR ML/MIN Glucose (74-106) mg/dL POC Glucometer 246 H (74 to 106) mg/dL Calcium (8.4-10.2) mg/dL Magnesium (1.6-2.3) mg/dL Troponin I 0.023 (0.000-0.034) ng/mL NT-Pro-B Natriuret Pep (0-900) pg/mL Theophylline 5.7 L (10-20) ug/mL 05/11/20 Range/Units 11:12 WBC (4.0-10.5) K/mm3 RBC (4.1-5.4) M/mm3 Hgb (12.0-16.0) gm/dl Hct (35-47) % MCV (78-100) fl MCH (26-32) pg MCHC (32-36) g/dl RDW (11.5-14.0) % Plt Count (150-450) K/mm3 MPV (7.5-11.0) fl Sodium (137-145) mmol/L Potassium (3.5-5.1) mmol/L Chloride (98-107) mmol/L Carbon Dioxide (22-30) mmol/L Anion Gap (5-15) MEQ/L BUN (7-17) mg/dL Creatinine (0.52-1.04) mg/dL Estimated GFR ML/MIN Glucose (74-106) mg/dL POC Glucometer 270 H (74 to 106) mg/dL Calcium (8.4-10.2) mg/dL Magnesium (1.6-2.3) mg/dL Troponin I (0.000-0.034) ng/mL NT-Pro-B Natriuret Pep (0-900) pg/mL Theophylline (10-20) ug/mL Radiology Exams: Radiology Procedures Category Date Time Status ECHO W/2D AND DOPPLER [US] Routine Exams 05/11/20 08:05 Taken Multi-Disciplinary Progress Notes: Multi-Disciplinary Progress Notes 05/11/20 08:48 Case Management Note by Emerald Alberts PATIENT STILL ACUTELY ILL, PLANS TO SWING WHEN MEDICALLY READY Initialized on 05/11/20 08:48 - END OF NOTE Assessment/Plan (1) Pneumonia Status: Acute Qualifiers: Pneumonia type: due to unspecified organism Laterality: left Lung location: lower lobe of lung Qualified Code(s): J18.9 - Pneumonia, unspecified organism Code(s): J18.9 - PNEUMONIA, UNSPECIFIED ORGANISM (2) COPD exacerbation Status: Acute Code(s): J44.1 - CHRONIC OBSTRUCTIVE PULMONARY DISEASE W (ACUTE) EXACERBATION (3) Hyponatremia Status: Acute Code(s): E87.1 - HYPO-OSMOLALITY AND HYPONATREMIA (4) Hypokalemia Status: Acute Assessment & Plan: This could be related to patient being on torsemide without potassium supplementation or theophylline. Patient got 40 meq IV and additional 20 meq PO Code(s): E87.6 - HYPOKALEMIA (5) CHF exacerbation Status: Acute Assessment & Plan: Patient had elevated bnp. Will get echo start on IV lasix. Patient is on torsemide as home medication. Will continue to monitor VS. Will get repeat labs in am. Code(s): I50.9 - HEART FAILURE, UNSPECIFIED (6) Afib Status: Acute Code(s): I48.91 - UNSPECIFIED ATRIAL FIBRILLATION (7) Anxiety Status: Acute Code(s): F41.9 - ANXIETY DISORDER, UNSPECIFIED (8) Headache Status: Acute Code(s): R51 - HEADACHE (9) Hypertension Status: Acute Code(s): I10 - ESSENTIAL (PRIMARY) HYPERTENSION (10) Pulmonary fibrosis Status: Acute Code(s): J84.10 - PULMONARY FIBROSIS, UNSPECIFIED
[2020-05-11] MEDS: Colace 100 MG PO SCH ×2 (16:09→21:49)
--- NOTE | 2020-05-11 16:41 | XRAY ---
Exam: CT of the chest with IV contrast per PE protocol from 05/11/2020. CTDI: 17.43 mGy Comparison: 2 view chest radiograph series from 05/08/2020. Indication: Rule out PE, mildly elevated d-dimer of 573. Findings: Post-IV contrast axial images were obtained through the chest using the PE protocol. Reconstructed coronal and sagittal images were created and reviewed. The pulmonary arteries are well-opacified revealing no filling defects to suggest clot/emboli. Nor do I see evidence of thoracic aortic dissection or aneurysm. The heart size is mildly enlarged. No definite pericardial effusion is seen. A left-sided cardiac pacemaker is seen with dual transvenous leads in place. There appears to be some mild left atrial enlargement. No abnormal lymphadenopathy is seen within the mediastinum or monika. The peripheral lung martino reveal minimal subpleural fibrosis within the upper lobes anteriorly. I also note mild bronchiectasis extending into the lower lobes with some bullous changes and fibrotic scarring. I see no pneumothorax, suspicious soft tissue lung nodule, or pleural effusion. Bilateral breast implants with intense surface calcifications are seen. The bone window images reveal a mild anterior wedge compression fracture deformity of T6. There is also moderate focal central compression of the superior vertebral endplate of T6. There is a more pronounced at least moderate wedge fracture deformity involving T8 which is likely old. I note a mild anterior wedge fracture deformity of T12 which I believe is old. Degenerative disc disease with vacuum disc phenomena is seen at T7-T8, T8-T9, T9-T10, T11-T12, and T12-L1. A posterior lateral right seventh rib fracture deformity is seen. This appears old. Impression: 1. I see no evidence of acute pulmonary embolus, thoracic aortic aneurysm, or thoracic aortic dissection. 2. The heart size size is mildly enlarged with left atrial enlargement. No pericardial effusion or acute cardiac decompensation is seen. A left-sided cardiac pacemaker is noted. 3. I see some pulmonary fibrosis, predominantly at the posterior lung bases. I also note some bronchiectasis and occasional bulla/blebs within both lower lobes. 4. No other active lung disease is seen. 5. Lower thoracic spondylosis with some chronic-appearing compression fracture deformities involving T6, T8, and T12. I also note an apparent old fracture deformity of the posterior-lateral right seventh rib. 6. Heavy surface calcification is seen on bilateral breast implants.
[2020-05-11] MEDS: Klor Con 10 MEQ PO SCH (17:03)
[2020-05-11] MEDS: ZOCOR 20MG PO SCH (21:49)
[2020-05-11] MEDS: REQUIP 2MG TAB PO SCH (21:49)
[2020-05-12] MEDS: solu-MEDROL 40 MG IV SCH ×4 (00:31→18:00)
[2020-05-12] MEDS: TYLENOL 325 MG PO PRN ×3 (00:33→20:03)
[2020-05-12] MEDS: MOTRIN 600 MG PO PRN (03:20)
[2020-05-12 05:26] LABS: MAGNESIUM 2.1 mg/dL (1.6-2.3); Potassium 3.4 mmol/L (3.5-5.1)
[2020-05-12] MEDS: Robitussin AC Syrup Unit Dose Cup PO PRN ×2 (06:06→16:02)
[2020-05-12] MEDS: DUONEB 0.5-3 MG/3 ml Neb IH SCH ×4 (07:05→19:33)
[2020-05-12] MEDS: Klor Con 10 MEQ PO SCH ×2 (08:46→22:19)
[2020-05-12] MEDS: Cardizem CD 120 MG PO SCH ×2 (08:46→22:17)
[2020-05-12] MEDS: Colace 100 MG PO SCH ×2 (08:47→22:17)
[2020-05-12] MEDS: ELIQUIS 2.5 MG TABLET PO SCH ×2 (08:47→22:19)
[2020-05-12] MEDS: SYNTHROID 112 MCG PO SCH (08:47)
[2020-05-12] MEDS: Tessalon Perles 100 MG PO SCH ×3 (08:47→22:19)
[2020-05-12] MEDS: COUGH DM PO SCH ×2 (08:47→22:18)
[2020-05-12] MEDS: DEMADEX 20 MG PO SCH (08:47)
[2020-05-12] MEDS: Pepcid 20 MG VIAL IV SCH ×2 (08:48→22:19)
[2020-05-12] MEDS: PATIENT OWN MEDICATION PO SCH ×2 (08:48)
[2020-05-12] MEDS: HUMALOG SQ PRN ×4 (08:57→22:20)
[2020-05-12 09:00] LABS: Hematocrit 40.8 % (35-47); Hemoglobin 13.6 gm/dl (12.0-16.0); Mean Cell Volume 93.4 fl (78-100); Mean Corpuscular Hemoglobin 31.1 pg (26-32); Mean Corpuscular Hgb Concent. 33.3 g/dl (32-36); Platelet Count 315 K/mm3 (150-450); Red Blood Count 4.37 M/mm3 (4.1-5.4); Red Cell Distribution Width 12.4 % (11.5-14.0); White Blood Count 15.9 K/mm3 (4.0-10.5)
[2020-05-12 09:17] LABS: BAND 1 % (0.0-2.0); Lymphocytes 11 % (24-44); Monocyte 2 % (0.0-12.0); Neutrophils 86 % (36.0-66.0); Platelet Estimate NORMAL (NORMAL); Total Cells Counted 100
--- NOTE | 2020-05-12 09:30 | PCM.NOTE ---
Date and Time: 05/12/20905 Subjective Assessment: 69 yr old female seen an examined this am. She reports she still feels some chest tightness. She reports that she is unable to sleep due to cough. She reports that she is coughing up some sputum now but it is clear in color. She reports that she has had daily headaches. She feels she has some lower extremity edema which is not normal for her. She reports that she also does not normally require oxygen. She still has not had all of her home medications for anxiety and depression. Still feels short of breath and breathing tx do not help - Review of Systems Constitutional: No Fever Eyes: No Symptoms Ears, Nose, & Throat: No Symptoms Respiratory: Cough (productive of clear sputum), Short Of Breath, No Wheezing Cardiac: Chest Pain, Edema, Other (hx of afib with defib) Abdominal/Gastrointestinal: No Symptoms Genitourinary Symptoms: No Symptoms Musculoskeletal: Back Pain Skin: No Symptoms Neurological: Headache Psychological: Anxiety, Depression, Mood Changes Objective Exam General Appearance: moderate distress, obese Neurologic Exam: alert, oriented x 3, cooperative, depressed mood/affect, No confusion, No agitation, No uncooperative Skin Exam: normal color, warm, dry Eye Exam: No scleral icterus Ears, Nose, Throat Exam: moist mucous membranes Neck Exam: normal inspection Respiratory Exam: diminished breath sounds, No accessory muscle use, No crackles/rales, No wheezing Cardiovascular Exam: regular rate/rhythm, normal heart sounds, edema (+1), No murmur, No friction rub, No gallop Gastrointestinal/Abdomen Exam: soft, normal bowel sounds, No tenderness, No di stention, No mass, No guarding Extremity Exam: pedal edema, No swelling OBJECTIVE DATA Vital Signs: Vital Signs - 24 hr Temp Pulse Resp BP Pulse Ox 05/12/20 07:28 80 18 96 05/12/20 07:00 98.1 F 94 H 17 143/92 94 L 05/12/20 03:00 98.3 F 65 19 172/86 96 05/11/20 23:00 98.2 F 67 19 172/83 97 05/11/20 20:00 22 05/11/20 19:03 64 18 95 05/11/20 15:35 98.6 F 84 18 139/71 98 05/11/20 15:25 78 18 95 05/11/20 11:50 173/87 05/11/20 11:16 97.5 F 84 20 180/86 90 L 05/11/20 11:14 69 22 90 L Oxygen-Last 24 hours Oxygen Flowrate (L/min)-RT 2 Pain Assessment - Last Documented Pain Intensity 3 Pain Scale Used 0-10 Pain Scale Intake and Output: Intake & Output 05/09/20 05/10/20 05/11/20 05/12/20 11:59 11:59 11:59 11:59 Intake Total 2847 2040 3355 600 Output Total 1450 Balance 2847 2040 1905 600 Weight 86.8 kg 88.3 kg Lab Results: Lab Results-Last 24 Hours 05/11/20 05/11/20 05/11/20 Range/Units 05:00 11:12 13:20 WBC (4.0-10.5) K/mm3 RBC (4.1-5.4) M/mm3 Hgb (12.0-16.0) gm/dl Hct (35-47) % MCV (78-100) fl MCH (26-32) pg MCHC (32-36) g/dl RDW (11.5-14.0) % Plt Count (150-450) K/mm3 MPV (7.5-11.0) fl D-Dimer 573 H* (215-500) ng/mL Potassium 3.2 L D (3.5-5.1) mmol/L POC Glucometer 270 H (74 to 106) mg/dL Magnesium (1.6-2.3) mg/dL Theophylline (10-20) ug/mL 05/11/20 05/11/20 05/12/20 Range/Units 16:08 20:29 04:47 WBC (4.0-10.5) K/mm3 RBC (4.1-5.4) M/mm3 Hgb (12.0-16.0) gm/dl Hct (35-47) % MCV (78-100) fl MCH (26-32) pg MCHC (32-36) g/dl RDW (11.5-14.0) % Plt Count (150-450) K/mm3 MPV (7.5-11.0) fl D-Dimer (215-500) ng/mL Potassium (3.5-5.1) mmol/L POC Glucometer 270 H 287 H (74 to 106) mg/dL Magnesium (1.6-2.3) mg/dL Theophylline 3.6 L (10-20) ug/mL 05/12/20 05/12/20 05/12/20 Range/Units 04:47 06:30 07:30 WBC 15.9 H (4.0-10.5) K/mm3 RBC 4.37 (4.1-5.4) M/mm3 Hgb 13.6 (12.0-16.0) gm/dl Hct 40.8 (35-47) % MCV 93.4 (78-100) fl MCH 31.1 (26-32) pg MCHC 33.3 (32-36) g/dl RDW 12.4 (11.5-14.0) % Plt Count 315 (150-450) K/mm3 MPV 11.0 (7.5-11.0) fl D-Dimer (215-500) ng/mL Potassium 3.4 L (3.5-5.1) mmol/L POC Glucometer 233 H (74 to 106) mg/dL Magnesium 2.1 (1.6-2.3) mg/dL Theophylline (10-20) ug/mL Radiology Exams: Radiology Procedures Category Date Time Status CHEST WITH CONTRAST [CT] Stat Exams 05/11/20 14:54 Completed ECHO W/2D AND DOPPLER [US] Routine Exams 05/11/20 08:05 Taken Assessment/Plan (1) Pulmonary fibrosis Current Visit: Yes Status: Acute Assessment & Plan: Patient reports hx of pulm fibrosis and was seeing a interlacer in [facility] for this. She reports that re-evaluation had shown her PF was stable. CT evaluation for PE showed blebs and bronchiectasis. Patient had been on treatment for COPD exacerbation which patient denies. Patient is now requiring oxygen in hospital which is not baseline for her. Requested for records from pul. Will get pulm consult and follow recs. Patient may require swing bed if improved but not well enough to go home. Code(s): J84.10 - PULMONARY FIBROSIS, UNSPECIFIED (2) Pneumonia Current Visit: Yes Status: Acute Qualifiers: Pneumonia type: due to unspecified organism Laterality: left Lung location: lower lobe of lung Qualified Code(s): J18.9 - Pneumonia, unspecified organism Assessment & Plan: Patient has since completed course of antibiotics. She has had repeat imaging that does not demonstrate a pneumonia. Patient has been afebrile. Will continue to monitor for fevers or worsening symptoms. Code(s): J18.9 - PNEUMONIA, UNSPECIFIED ORGANISM (3) COPD exacerbation Current Visit: Yes Status: Acute Assessment & Plan: Patient indicates she has not been diagnosed with copd. She has been getting breathing tx and steroids as well. We started tapering steroids from 80 mg every 6 hours to 40 every 6 hours. Will continue to taper steroids. Code(s): J44.1 - CHRONIC OBSTRUCTIVE PULMONARY DISEASE W (ACUTE) EXACERBATION (4) Hyponatremia Current Visit: Yes Status: Acute Assessment & Plan: Patient was getting IV fluids for hyponatremia. She became fluid overloaded and they were discontinued. She was also started on heart healthy diet which has since been discontinued. We will likely have to start her on salt tablets as patient is complaining of edema this am and starting even on gentle hydration may exacerbate this. Code(s): E87.1 - HYPO-OSMOLALITY AND HYPONATREMIA (5) Hypokalemia Current Visit: Yes Status: Acute Assessment & Plan: Patient is on torsemide at home and denies being on potassium supplementation. Patient was started on Theophylline for suspected worsening COPD however this can cause some electrolyte abnormalities. It was discontinued. Patient was given potassium repletion IV and PO. Will continue to trend Code(s): E87.6 - HYPOKALEMIA (6) CHF exacerbation Current Visit: Yes Status: Acute Assessment & Plan: Patient was initially started on IV fluids for hyponatremia. These were discontinued. She had crackles on exam. Echo was performed results still pending. Bnp was elevated. Patient given one dose of lasix. Repeat bnp showed improvement. Will continue to trend. Patient is reporting lower extremity edema this am. Code(s): I50.9 - HEART FAILURE, UNSPECIFIED (7) Afib Current Visit: Yes Status: Acute Assessment & Plan: Patient is on eliquis and has a pacemaker. Code(s): I48.91 - UNSPECIFIED ATRIAL FIBRILLATION (8) Hypertension Current Visit: Yes Status: Acute Assessment & Plan: Patient has had elevated bp likely due to the steroids she is being given. Patient will get an additional dose of carvedilol daily until bp trends down. She will likely go home on her routine home dose. Code(s): I10 - ESSENTIAL (PRIMARY) HYPERTENSION (9) Headache Current Visit: Yes Status: Acute Assessment & Plan: More likely related to elevated bp due to steroids that patient was started on for COPD exacerbation. Patient is tapering on steroids. Her carvedilol was increased temporarily. She has PRN medication for headaches. Code(s): R51 - HEADACHE (10) Anxiety Current Visit: Yes Status: Acute Assessment & Plan: Patient has been very anxious and has been needing her medications from home which we have been trying to family bring to the hospital.Will resume home meds for anxiety Code(s): F41.9 - ANXIETY DISORDER, UNSPECIFIED
[2020-05-12 09:36] LABS: BLOOD UREA NITROGEN 27 mg/dL (7-17); CHLORIDE 80 mmol/L (98-107); Calcium 8.8 mg/dL (8.4-10.2); Creatinine 1 0.74 mg/dL (0.52-1.04); EST GLOMERULAR FILTRATION RATE > 60.0 ML/MIN; Glucose 243 mg/dL (74-106); NT PRO BNP 677 pg/mL (0-900); Potassium 3.4 mmol/L (3.5-5.1); SODIUM 129 mmol/L (137-145)
[2020-05-12 09:53] LABS: Carbon Dioxide 38 mmol/L (22-30)
[2020-05-12 09:55] LABS: ANION GAP 14.4 MEQ/L (5-15)
--- NOTE | 2020-05-12 15:16 | CONS ---
CONSULT DATE: 05/12/2020 REASON FOR CONSULT: Evaluation of shortness of breath, abnormal CT scan with pulmonary fibrosis/bronchiectasis. HISTORY: Luma Sebastian is a 69 year old [place] woman who has been hospitalized under the care of Dr. Brewer. The patient reportedly came to the emergency room at [facility] with complaints of cough and shortness of breath that was gradually getting worse for two days. The patient has been hospitalized and is currently being treated with antibiotics along with other supportive care. Her lab work showed a mildly positive D-dimer. A CT chest was obtained that was negative for pulmonary embolism but did show evidence of pulmonary fibrosis predominantly involving lower lobe, mild bronchiectatic changes were also noted. The patient has been requiring supplemental oxygen at 2 liters. The patient reports that she was diagnosed as having pulmonary fibrosis in [address] Mandujano at [facility]. She also has significant cardiac problems. She has not followed up with Dr. Mandujano since. She has seen a winder hand [facility] [place] who implanted a pacemaker about a year and a half ago. She has been poor with cardiac follow up as well. She has also been experiencing progressive decline in her effort tolerance along with leg swelling. She had an echo performed yesterday the results of which are currently pending. PAST MEDICAL HISTORY: Besides history of pulmonary problems, she has history of atrial fibrillation, hypertension, diabetes and restless leg syndrome. PAST SURGICAL HISTORY: No recent surgery. PERSONAL AND SOCIAL HISTORY: The patient is a former smoker who quit smoking 22 years ago. She currently lives alone but is fairly independent although does get winded and tired with activity. MEDICATIONS: Her home medications showed she was on Eliquis, atorvastatin, Rexulti, Cartia XT, vitamin D2, Zetia, Vyvanse, Requip, Demadex, Viibryd. Her current medications were reviewed. ALLERGIES: SULFA. PHYSICAL EXAMINATION: This is an elderly woman who appears comfortable, able to speak without difficulty. Vital signs noted. HEENT: Normocephalic. The patient is edentulous. NECK: Supple. CVS: First and second heart sounds mildly irregular. RESPIRATORY: Diminished breath sounds, crackles are heard at lung base. ABDOMEN: Obese. EXTREMITIES: 1 to +2 leg edema is noted. LABORATORY DATA AND TESTS: Sodium 129, potassium 3.4, chloride 80, bicarb 38, glucose 243, BUN 27, creatinine 0.7. White count 15.9, hemoglobin 13.6, hematocrit 40.8, PLT 315,000. Theophylline level 3.6. D-dimer 573. CT chest report reviewed, actual films reviewed as well. Echo is pending. ASSESSMENT: This is a 69 year old woman diagnosed with pulmonary fibrosis, appears to have gradually declining pulmonary effort tolerance is now admitted with: 1) Acute exacerbation of idiopathic pulmonary fibrosis. 2) Acute bronchitis. 3) Hypoxemia and also chemistry suggests possible hypercapnia. 4) History of atrial fibrillation. 5) Coronary artery disease. 6) Hypertension. 7) Diabetes. 8) Comorbid as listed above. RECOMMENDATIONS: 1) The patient appears to be improving on current therapy. 2) Gradually reduce steroids. 3) The patient does not have significant clinical bronchospasm and maybe taken off of Theophylline which particularly with underlying atrial fibrillation can only make cardiac rhythm worse. 4) I explained to the patient that she will probably need to be evaluated to qualify for home oxygen therapy. 5) Polysomnography in view of hypercapnia? 6) PFT as outpatient. 7) Cautious diuresis. Will benefit from changing Demadex to p.o./IV Bumex. 8) Correction of electrolytes. 9) Deep venous thrombosis. The patient is on anticoagulation with Eliquis. 10) Further recommendations with clinical improvement. I will follow up in outpatient setting upon discharge. Discussed the plan of care with patient. Thank you, Dr. Brewer, for allowing me to participate in the care of Miss Sebastian.
[2020-05-12] MEDS: ROCEPHIN 1 Gm-D5w 50 ml Bag** 1 G/50 ML IVPB IV SCH (15:55)
[2020-05-12] MEDS: BUMEX 1 MG IV SCH (18:00)
[2020-05-12] MEDS: Advair Hfa 230/21 Mcg COMMON CANISTER IH SCH (19:33)
[2020-05-12] MEDS: Abilify 10 MG PO SCH (22:16)
[2020-05-12] MEDS: REQUIP 2MG TAB PO SCH (22:19)
[2020-05-12] MEDS: ZOCOR 20MG PO SCH (22:20)
[2020-05-13] MEDS: solu-MEDROL 40 MG IV SCH ×4 (00:05→21:38)
[2020-05-13] MEDS: Robitussin AC Syrup Unit Dose Cup PO PRN ×2 (00:10→11:08)
[2020-05-13] MEDS: BUMEX 1 MG IV SCH ×2 (05:59→17:47)
[2020-05-13] MEDS: Advair Hfa 230/21 Mcg COMMON CANISTER IH SCH ×2 (06:53→19:35)
[2020-05-13] MEDS: DUONEB 0.5-3 MG/3 ml Neb IH SCH ×4 (06:53→19:35)
[2020-05-13] MEDS: Klor Con 10 MEQ PO SCH ×2 (09:04→21:40)
[2020-05-13] MEDS: Tessalon Perles 100 MG PO SCH ×3 (09:05→21:41)
[2020-05-13] MEDS: Pepcid 20 MG VIAL IV SCH ×2 (09:05→21:38)
[2020-05-13] MEDS: Colace 100 MG PO SCH ×2 (09:05→21:40)
[2020-05-13] MEDS: ELIQUIS 2.5 MG TABLET PO SCH ×2 (09:05→21:41)
[2020-05-13] MEDS: Cardizem CD 120 MG PO SCH ×2 (09:06→21:40)
[2020-05-13] MEDS: COUGH DM PO SCH ×2 (09:08→21:38)
[2020-05-13] MEDS: PATIENT OWN MEDICATION PO SCH (09:09)
[2020-05-13] MEDS: SYNTHROID 112 MCG PO SCH (09:09)
[2020-05-13] MEDS: ROCEPHIN 1 Gm-D5w 50 ml Bag** 1 G/50 ML IVPB IV SCH (09:10)
[2020-05-13] MEDS: MOTRIN 600 MG PO PRN ×2 (09:17→17:57)
[2020-05-13] MEDS: Zithromax 500 MG/ 250 ML NaCl Premix 500 MG/250 ML IVPB IV SCH (11:08)
[2020-05-13] MEDS: HUMALOG SQ PRN ×3 (11:08→21:35)
[2020-05-13] MEDS: Nystatin SUSPENSION 60 ML PO SCH ×3 (12:36→21:39)
[2020-05-13] MEDS: TYLENOL 325 MG PO PRN (18:52)
[2020-05-13] MEDS: REQUIP 2MG TAB PO SCH (21:40)
[2020-05-13] MEDS: ZOCOR 20MG PO SCH (21:41)
[2020-05-13] MEDS: Abilify 10 MG PO SCH (21:41)
[2020-05-14] MEDS: Robitussin AC Syrup Unit Dose Cup PO PRN (02:04)
[2020-05-14] MEDS: BUMEX 1 MG IV SCH ×2 (05:39→18:04)
[2020-05-14] MEDS: solu-MEDROL 40 MG IV SCH (05:39)
[2020-05-14] MEDS: MOTRIN 600 MG PO PRN (06:04)
[2020-05-14 06:15] LABS: Hematocrit 34.6 % (35-47); Hemoglobin 11.5 gm/dl (12.0-16.0); Mean Corpuscular Hemoglobin 31.3 pg (26-32); Mean Corpuscular Hgb Concent. 33.2 g/dl (32-36); Mean Platelet Volume 10.2 fl (7.5-11.0); Platelet Count 242 K/mm3 (150-450); Red Blood Count 3.68 M/mm3 (4.1-5.4); Red Cell Distribution Width 12.3 % (11.5-14.0); White Blood Count 15.4 K/mm3 (4.0-10.5)
[2020-05-14 06:24] LABS: ALBUMIN 3.3 g/dL (3.5-5.0); ALKALINE PHOSPHATASE 65 U/L (38-126); BLOOD UREA NITROGEN 25 mg/dL (7-17); CHLORIDE 80 mmol/L (98-107); Calcium 8.2 mg/dL (8.4-10.2); Creatinine 1 0.63 mg/dL (0.52-1.04); EST GLOMERULAR FILTRATION RATE > 60.0 ML/MIN; Glucose 235 mg/dL (74-106); Potassium 3.5 mmol/L (3.5-5.1); SGOT/AST 44 U/L (14-36); SGPT/ALT 46 U/L (0-35); SODIUM 127 mmol/L (137-145); Total Protein 5.7 g/dL (6.3-8.2)
[2020-05-14 06:32] LABS: Carbon Dioxide 43 mmol/L (22-30)
[2020-05-14 06:35] LABS: ANION GAP 7.5 MEQ/L (5-15)
[2020-05-14] MEDS: DUONEB 0.5-3 MG/3 ml Neb IH SCH ×4 (06:56→18:54)
[2020-05-14] MEDS: Advair Hfa 230/21 Mcg COMMON CANISTER IH SCH ×2 (06:56→18:55)
[2020-05-14 07:21] LABS: BAND 2 % (0.0-2.0); Lymphocytes 9 % (24-44); Monocyte 6 % (0.0-12.0); Neutrophils 83 % (36.0-66.0); Platelet Estimate NORMAL (NORMAL); Total Cells Counted 100
[2020-05-14] MEDS: HUMALOG SQ PRN ×3 (09:23→18:05)
[2020-05-14] MEDS: Klor Con 10 MEQ PO SCH ×2 (09:25→22:25)
[2020-05-14] MEDS: Pepcid 20 MG VIAL IV SCH ×2 (09:25→22:25)
[2020-05-14] MEDS: Tessalon Perles 100 MG PO SCH ×3 (09:26→22:28)
[2020-05-14] MEDS: Cardizem CD 120 MG PO SCH ×2 (09:26→22:33)
[2020-05-14] MEDS: Colace 100 MG PO SCH ×2 (09:26→22:28)
[2020-05-14] MEDS: ELIQUIS 2.5 MG TABLET PO SCH ×2 (09:26→22:28)
[2020-05-14] MEDS: ROCEPHIN 1 Gm-D5w 50 ml Bag** 1 G/50 ML IVPB IV SCH (09:27)
[2020-05-14] MEDS: Zithromax 500 MG/ 250 ML NaCl Premix 500 MG/250 ML IVPB IV SCH (10:06)
[2020-05-14] MEDS: Nystatin SUSPENSION 60 ML PO SCH ×4 (10:22→22:28)
[2020-05-14] MEDS: COUGH DM PO SCH ×2 (10:22→22:29)
[2020-05-14] MEDS: PATIENT OWN MEDICATION PO SCH ×2 (10:23→22:30)
[2020-05-14] MEDS: SYNTHROID 112 MCG PO SCH (10:23)
[2020-05-14] MEDS: DELTASONE 10 MG PO SCH (12:34)
[2020-05-14] MEDS ORDERED: DULCOLAX 5 MG PO ONE (16:22)
[2020-05-14] MEDS: REQUIP 2MG TAB PO SCH (22:26)
[2020-05-14] MEDS: Abilify 10 MG PO SCH (22:26)
[2020-05-14] MEDS: ZOCOR 20MG PO SCH (22:27)
[2020-05-15] MEDS: Robitussin AC Syrup Unit Dose Cup PO PRN ×3 (04:45→21:44)
[2020-05-15 05:56] LABS: Hematocrit 34.6 % (35-47); Hemoglobin 11.5 gm/dl (12.0-16.0); Mean Cell Volume 94.5 fl (78-100); Mean Corpuscular Hemoglobin 31.4 pg (26-32); Mean Corpuscular Hgb Concent. 33.2 g/dl (32-36); Mean Platelet Volume 10.5 fl (7.5-11.0); Platelet Count 249 K/mm3 (150-450); Red Blood Count 3.66 M/mm3 (4.1-5.4); Red Cell Distribution Width 12.4 % (11.5-14.0); White Blood Count 22.7 K/mm3 (4.0-10.5)
[2020-05-15] MEDS: BUMEX 1 MG IV SCH ×2 (05:56→17:18)
[2020-05-15] MEDS: Sodium Chloride 0.9% 10 ML FLUSH Syringe IV SCH ×3 (05:56→21:31)
[2020-05-15 06:11] LABS: BLOOD UREA NITROGEN 27 mg/dL (7-17); CHLORIDE 80 mmol/L (98-107); Calcium 8.8 mg/dL (8.4-10.2); Creatinine 1 0.71 mg/dL (0.52-1.04); EST GLOMERULAR FILTRATION RATE > 60.0 ML/MIN; Glucose 203 mg/dL (74-106); Potassium 3.7 mmol/L (3.5-5.1); SODIUM 128 mmol/L (137-145)
[2020-05-15 06:22] LABS: ANION GAP 10.7 MEQ/L (5-15); Carbon Dioxide 41 mmol/L (22-30)
[2020-05-15] MEDS: DUONEB 0.5-3 MG/3 ml Neb IH SCH ×4 (06:45→18:58)
[2020-05-15] MEDS: Advair Hfa 230/21 Mcg COMMON CANISTER IH SCH ×2 (06:52→19:00)
[2020-05-15] MEDS: HUMALOG SQ PRN ×4 (07:32→21:28)
--- NOTE | 2020-05-15 08:41 | PCM.NOTE ---
Date and Time: 05/15/20839 Subjective Assessment: 69 yr old female seen and examined this am. Patient reports that she is doing better but is unsure she feels well enough to go home. She reports her headache is gone. No reported swelling in lower extremities or cough. No reports of feeling short of breath. - Review of Systems Constitutional: No Fever Eyes: No Symptoms Ears, Nose, & Throat: No Symptoms Respiratory: Cough, Short Of Breath, No Wheezing Cardiac: No Chest Pain, No Edema Abdominal/Gastrointestinal: Abdominal Pain, Constipation, No Vomiting, No Diarrhea Genitourinary Symptoms: No Symptoms Musculoskeletal: No Symptoms Skin: No Symptoms Neurological: No Headache Psychological: Anxiety, Depression, Mood Changes Objective Exam General Appearance: no apparent distress (Patient was resting comfortably in bed. She had to be woken up for exam. No coughing noted during exam.) Neurologic Exam: alert, oriented x 3, cooperative, depressed mood/affect Skin Exam: normal color, warm, dry, No rash Ears, Nose, Throat Exam: moist mucous membranes Respiratory Exam: diminished breath sounds, No normal breath sounds, No respiratory distress, No wheezing Cardiovascular Exam: regular rate/rhythm (Patient has pacemaker.), normal heart sounds, No murmur, No friction rub, No gallop Gastrointestinal/Abdomen Exam: soft, normal bowel sounds, tenderness (mild with palpation), No distention, No mass, No guarding, No rebound OBJECTIVE DATA Vital Signs: Vital Signs - 24 hr Temp Pulse Resp BP Pulse Ox 05/15/20 07:38 97.8 F 66 18 117/57 95 05/15/20 06:45 64 18 95 05/15/20 04:00 98.5 F 85 20 144/87 97 05/14/20 23:49 97.9 F 76 20 157/84 97 05/14/20 19:53 97.8 F 74 24 131/80 93 L 05/14/20 18:54 72 24 93 L 05/14/20 16:00 98.3 F 73 18 169/75 97 05/14/20 14:53 67 18 94 L 05/14/20 12:00 98.2 F 71 18 140/66 94 L 05/14/20 11:11 71 18 98 Pain Assessment - Last Documented Pain Intensity 0 Pain Scale Used 0-10 Pain Scale Intake and Output: Intake & Output 09/2505/13/20 05/14/20 05/15/20 11:59 11:59 11:59 11:59 Intake Total 600 9858 1849 840 Output Total 1400 450 Balance 090 961 1104 840 Weight 88.3 kg 89.3 kg 91.7 kg Lab Results: Lab Results-Last 24 Hours 05/14/20 05/14/20 05/14/20 Range/Units 11:28 15:36 21:02 WBC (4.0-10.5) K/mm3 RBC (4.1-5.4) M/mm3 Hgb (12.0-16.0) gm/dl Hct (35-47) % MCV (78-100) fl MCH (26-32) pg MCHC (32-36) g/dl RDW (11.5-14.0) % Plt Count (150-450) K/mm3 MPV (7.5-11.0) fl Sodium (137-145) mmol/L Potassium (3.5-5.1) mmol/L Chloride (98-107) mmol/L Carbon Dioxide (22-30) mmol/L Anion Gap (5-15) MEQ/L BUN (7-17) mg/dL Creatinine (0.52-1.04) mg/dL Estimated GFR ML/MIN Glucose (74-106) mg/dL POC Glucometer 318 H 265 H 253 H (74 to 106) mg/dL Calcium (8.4-10.2) mg/dL 05/15/20 05/15/20 05/15/20 Range/Units 05:08 05:08 07:08 WBC 22.7 H (4.0-10.5) K/mm3 RBC 3.66 L (4.1-5.4) M/mm3 Hgb 11.5 L (12.0-16.0) gm/dl Hct 34.6 L (35-47) % MCV 94.5 (78-100) fl MCH 31.4 (26-32) pg MCHC 33.2 (32-36) g/dl RDW 12.4 (11.5-14.0) % Plt Count 249 (150-450) K/mm3 MPV 10.5 (7.5-11.0) fl Sodium 128 L (137-145) mmol/L Potassium 3.7 (3.5-5.1) mmol/L Chloride 80 L (98-107) mmol/L Carbon Dioxide 41 H (22-30) mmol/L Anion Gap 10.7 (5-15) MEQ/L BUN 27 H (7-17) mg/dL Creatinine 0.71 (0.52-1.04) mg/dL Estimated GFR > 60.0 ML/MIN Glucose 203 H (74-106) mg/dL POC Glucometer 203 H (74 to 106) mg/dL Calcium 8.8 (8.4-10.2) mg/dL Assessment/Plan (1) Pulmonary fibrosis Current Visit: Yes Status: Acute Assessment & Plan: Patient will follow up with Dr Freeman as outpatient for pulm fibrosis. She is requiring oxygen by DC and may need to go home on oxygen. Code(s): J84.10 - PULMONARY FIBROSIS, UNSPECIFIED (2) Pneumonia Current Visit: Yes Status: Acute Qualifiers: Pneumonia type: due to unspecified organism Laterality: left Lung location: lower lobe of lung Qualified Code(s): J18.9 - Pneumonia, unspecified organism Assessment & Plan: Patient's was started on antibiotics for suspected pneumonia. Antibiotics were then discontinued as her imaging did not mention infiltrate. Patient did have an elevated white count and it was trending down and then spiked again this am. Patient had been on azith and rocephin. She was put back on azith yesterday and her white jumped up. Patient was switched to levaquin. Will monitor patient's tele as this can affect patient's heart rhythm. Code(s): J18.9 - PNEUMONIA, UNSPECIFIED ORGANISM (3) COPD exacerbation Current Visit: Yes Status: Acute Assessment & Plan: Patient denies hx of COPD. Will continue tx for COPD until patient can follow up with pulm as outpatient to have additional testing to evaluate for COPD. Then patient will need to start on medication for this as outpatient Code(s): J44.1 - CHRONIC OBSTRUCTIVE PULMONARY DISEASE W (ACUTE) EXACERBATION (4) Hyponatremia Current Visit: Yes Status: Acute Assessment & Plan: Unsure what is causing patient's hyponatremia. She was on NS which caused fluid overload. This was discontinued but patient's sodium has stayed the about the same. She will be getting salt tablets. Will get repeat labs in am. She may need further work up for causes of hyponatremia. Code(s): E87.1 - HYPO-OSMOLALITY AND HYPONATREMIA (5) Hypokalemia Current Visit: Yes Status: Acute Assessment & Plan: Patient was treated for hypokalemia. She is on bumex. She is on potassium supplementation. Will continue monitoring this. Code(s): E87.6 - HYPOKALEMIA (6) CHF exacerbation Current Visit: Yes Status: Acute Assessment & Plan: Still awaiting echo results. Patient is on medication for CHF. Will continue to monitor for SOB and swelling. Code(s): I50.9 - HEART FAILURE, UNSPECIFIED (7) Afib Current Visit: Yes Status: Acute Assessment & Plan: Patient has afib. She has a defibrillator. She is on blood thinner. Code(s): I48.91 - UNSPECIFIED ATRIAL FIBRILLATION (8) Hypertension Current Visit: Yes Status: Acute Assessment & Plan: Patient has had to have increase in her bp meds. Code(s): I10 - ESSENTIAL (PRIMARY) HYPERTENSION (9) Headache Current Visit: Yes Status: Acute Assessment & Plan: Patient's bp has been elevated. Will increase her dose of bp meds to see if that helps correct her KIRK Code(s): R51 - HEADACHE
[2020-05-15] MEDS: DELTASONE 10 MG PO SCH (09:28)
[2020-05-15] MEDS: Tessalon Perles 100 MG PO SCH ×4 (09:28→21:45)
[2020-05-15] MEDS: Cardizem CD 120 MG PO SCH ×2 (09:28→21:29)
[2020-05-15] MEDS: Klor Con 10 MEQ PO SCH ×2 (09:28→21:29)
[2020-05-15] MEDS: SYNTHROID 112 MCG PO SCH (09:28)
[2020-05-15] MEDS: Colace 100 MG PO SCH ×2 (09:29→21:29)
[2020-05-15] MEDS: Pepcid 20 MG VIAL IV SCH ×2 (09:29→21:28)
[2020-05-15] MEDS: COUGH DM PO SCH ×2 (09:29→21:31)
[2020-05-15] MEDS: PATIENT OWN MEDICATION PO SCH ×2 (09:30→21:30)
[2020-05-15] MEDS: Nystatin SUSPENSION 60 ML PO SCH ×4 (09:31→21:28)
[2020-05-15] MEDS: NON-FORMULARY ITEM PO SCH (09:43)
[2020-05-15] MEDS: Levofloxacin 500MG/100ML D5W 500 MG/100 ML BAG IV SCH (09:43)
[2020-05-15] MEDS: ELIQUIS 2.5 MG TABLET PO SCH ×2 (09:43→21:30)
[2020-05-15] MEDS: solu-MEDROL 40 MG IV SCH ×2 (10:09→17:18)
[2020-05-15 10:41] LABS: Lymphocytes 14 % (24-44); Monocyte 1 % (0.0-12.0); Neutrophils 85 % (36.0-66.0); Platelet Estimate NORMAL (NORMAL); Total Cells Counted 100
[2020-05-15] MEDS: MOTRIN 600 MG PO PRN ×2 (13:44→23:58)
[2020-05-15] MEDS: REQUIP 2MG TAB PO SCH (21:28)
[2020-05-15] MEDS: Abilify 10 MG PO SCH (21:29)
[2020-05-15] MEDS: ZOCOR 20MG PO SCH (21:29)
[2020-05-15] MEDS: PROVENTIL 2.5 MG/3 ML NEB IH PRN (22:41)
[2020-05-16] MEDS: solu-MEDROL 40 MG IV SCH ×3 (01:26→18:04)
[2020-05-16] MEDS: TYLENOL 325 MG PO PRN (03:13)
[2020-05-16] MEDS: BUMEX 1 MG IV SCH ×2 (05:10→18:05)
[2020-05-16] MEDS: Sodium Chloride 0.9% 10 ML FLUSH Syringe IV SCH ×3 (05:10→22:00)
[2020-05-16] MEDS: Tessalon Perles 100 MG PO SCH ×3 (05:15→21:53)
[2020-05-16] MEDS: DUONEB 0.5-3 MG/3 ml Neb IH SCH ×4 (07:13→19:36)
[2020-05-16] MEDS: Advair Hfa 230/21 Mcg COMMON CANISTER IH SCH ×2 (07:15→19:37)
[2020-05-16] MEDS: HUMALOG SQ PRN ×3 (08:36→21:55)
[2020-05-16] MEDS: Cardizem CD 120 MG PO SCH ×2 (08:53→21:53)
[2020-05-16] MEDS: ELIQUIS 2.5 MG TABLET PO SCH ×2 (08:54→21:53)
[2020-05-16] MEDS: Colace 100 MG PO SCH ×2 (08:54→21:53)
[2020-05-16] MEDS: COUGH DM PO SCH ×2 (08:54→21:54)
[2020-05-16] MEDS: Klor Con 10 MEQ PO SCH ×2 (08:54→21:11)
[2020-05-16] MEDS: DELTASONE 10 MG PO SCH (08:54)
[2020-05-16] MEDS: NON-FORMULARY ITEM PO SCH (08:55)
[2020-05-16] MEDS: Nystatin SUSPENSION 60 ML PO SCH ×4 (08:55→21:54)
[2020-05-16] MEDS: Pepcid 20 MG VIAL IV SCH ×2 (08:56→21:54)
[2020-05-16] MEDS: PATIENT OWN MEDICATION PO SCH ×2 (08:56→21:54)
[2020-05-16] MEDS: SYNTHROID 112 MCG PO SCH (08:57)
[2020-05-16 09:20] LABS: Hematocrit 31.4 % (35-47); Hemoglobin 10.2 gm/dl (12.0-16.0); Mean Cell Volume 96.6 fl (78-100); Mean Corpuscular Hemoglobin 31.4 pg (26-32); Mean Corpuscular Hgb Concent. 32.5 g/dl (32-36); Mean Platelet Volume 10.5 fl (7.5-11.0); Platelet Count 134 K/mm3 (150-450); Red Blood Count 3.25 M/mm3 (4.1-5.4); Red Cell Distribution Width 12.8 % (11.5-14.0)
[2020-05-16 09:26] LABS: White Blood Count 26.7 K/mm3 (4.0-10.5)
[2020-05-16 09:42] LABS: Lymphocytes 17 % (24-44); Neutrophils 83 % (36.0-66.0); Platelet Estimate NORMAL (NORMAL); Total Cells Counted 100
[2020-05-16 10:01] LABS: ANION GAP 12.5 MEQ/L (5-15); BLOOD UREA NITROGEN 22 mg/dL (7-17); CHLORIDE 82 mmol/L (98-107); Calcium 8.5 mg/dL (8.4-10.2); Carbon Dioxide 35 mmol/L (22-30); Creatinine 1 0.69 mg/dL (0.52-1.04); EST GLOMERULAR FILTRATION RATE > 60.0 ML/MIN; Glucose 264 mg/dL (74-106); Potassium 3.4 mmol/L (3.5-5.1); SODIUM 126 mmol/L (137-145)
[2020-05-16] MEDS: Sodium Chloride 0.9% 500 ML 500 ML IV SCH ×2 (11:27→22:27)
[2020-05-16] MEDS: Levofloxacin 500MG/100ML D5W 500 MG/100 ML BAG IV SCH (11:31)
--- NOTE | 2020-05-16 13:23 | ECHO ---
Transthoracic echocardiographic examination and color Doppler was done on 05/11/2020. INDICATION: History of hypertension, hyperlipidemia. IMPRESSION: 1) NO DEFINITE REGIONAL WALL MOTION ABNORMALITY. ESTIMATED GLOBAL LEFT VENTRICULAR EJECTION FRACTION OF AROUND 50-55%. 2) TRACE TRICUSPID REGURGITATION. RIGHT VENTRICULAR SYSTOLIC PRESSURE OF 41 MM OF MERCURY. 3) TRACE MITRAL REGURGITATION. 4) BIATRIAL ENLARGEMENT. 5) LEFT VENTRICULAR HYPERTROPHY. The left ventricle was partially visualized but this demonstrated adequate contractility. Estimated global left ventricular ejection fraction around 50-55%. There is mild left ventricular hypertrophy. The mitral valve is thickened but opens adequately. There is trace mitral regurgitation. Left atrium is normal. The aortic valve is also sclerotic. There is no significant gradient across the left ventricular outflow tract. The right side chambers are normal. There is trace to mild tricuspid regurgitation. The right ventricular systolic pressure of 41 mm of Mercury. The right atrium is mildly enlarged.
[2020-05-16] MEDS: MOTRIN 600 MG PO PRN (16:09)
[2020-05-16] MEDS ORDERED: NORCO 5/325 MG PO ONE (17:50)
[2020-05-16 20:19] LABS: Appearance CLEAR (CLEAR); Bilirubin NEGATIVE (NEGATIVE); Blood NEGATIVE Ery/ul (0-5); Glucose 50 mg/dL (NEGATIVE); Ketones NEGATIVE (NEGATIVE); Leukocyte Esterase NEGATIVE (NEGATIVE); Mucus SLIGHT /HPF (NEGATIVE); Nitrite NEGATIVE (NEGATIVE); Protein,Urine Dip NEGATIVE (Negative); Specific Gravity 1.011 (1.005-1.025); Urobilinogen NEGATIVE mg/dL (0-1)
[2020-05-16 20:23] LABS: Bacteria NONE SEEN /HPF (NEGATIVE)
[2020-05-16] MEDS ORDERED: Klor Con 10 MEQ PO ONE (21:08)
[2020-05-16] MEDS: REQUIP 2MG TAB PO SCH (21:53)
[2020-05-16] MEDS: Abilify 10 MG PO SCH (21:53)
[2020-05-16] MEDS: ZOCOR 20MG PO SCH (21:54)
[2020-05-17] MEDS: solu-MEDROL 40 MG IV SCH (02:08)
[2020-05-17] MEDS: TYLENOL 325 MG PO PRN ×2 (04:55→18:31)
[2020-05-17] MEDS: Sodium Chloride 0.9% 10 ML FLUSH Syringe IV SCH ×3 (05:05→21:14)
[2020-05-17] MEDS: DUONEB 0.5-3 MG/3 ml Neb IH SCH ×4 (06:49→19:40)
[2020-05-17] MEDS: Advair Hfa 230/21 Mcg COMMON CANISTER IH SCH ×2 (06:50→19:40)
[2020-05-17 07:54] LABS: Hemoglobin 8.6 gm/dl (12.0-16.0); Mean Cell Volume 95.2 fl (78-100); Mean Corpuscular Hemoglobin 31.5 pg (26-32); Mean Corpuscular Hgb Concent. 33.1 g/dl (32-36); Mean Platelet Volume 10.5 fl (7.5-11.0); Platelet Count 208 K/mm3 (150-450); Red Blood Count 2.73 M/mm3 (4.1-5.4); Red Cell Distribution Width 12.5 % (11.5-14.0)
[2020-05-17] MEDS: HUMALOG SQ PRN ×3 (08:12→21:13)
[2020-05-17 08:20] LABS: White Blood Count 26.3 K/mm3 (4.0-10.5)
[2020-05-17] MEDS ORDERED: DULCOLAX 5 MG PO PRN (08:53)
[2020-05-17] MEDS ORDERED: Mucinex 600MG ER Tabs PO PRN (08:55)
[2020-05-17 09:37] LABS: ALBUMIN 3.5 g/dL (3.5-5.0); ALKALINE PHOSPHATASE 58 U/L (38-126); ANION GAP 10.8 MEQ/L (5-15); BLOOD UREA NITROGEN 22 mg/dL (7-17); CHLORIDE 88 mmol/L (98-107); Calcium 8.7 mg/dL (8.4-10.2); Carbon Dioxide 32 mmol/L (22-30); Creatinine 1 0.59 mg/dL (0.52-1.04); EST GLOMERULAR FILTRATION RATE > 60.0 ML/MIN; Glucose 242 mg/dL (74-106); MAGNESIUM 1.9 mg/dL (1.6-2.3); Potassium 4.6 mmol/L (3.5-5.1); SGOT/AST 35 U/L (14-36); SGPT/ALT 30 U/L (0-35); SODIUM 126 mmol/L (137-145); TSH, 3RD Generation 0.057 mIU/L (0.47-4.68); Total Protein 5.6 g/dL (6.3-8.2)
--- NOTE | 2020-05-17 09:50 | CONS ---
CONSULT DATE: 05/16/2020 REASON FOR CONSULT: Hyponatremia. HISTORY: The patient is a 69 year old lady who apparently has been hospitalized for the last ten days. She presented to [facility] with increased problems with shortness of breath and was gradually getting worse for two days. She has been hospitalized and treated with antibiotics and supportive care. Her lab work showed sodium of 126 today so nephrology was consulted. Over the last few days since she has been hospitalized her sodium has been between 128 and 126 and down from about 130. She also had some mildly positive D-dimer. CT chest was obtained which was negative for pulmonary embolism and did show evidence of pulmonary fibrosis. She has been on supplemental oxygen 2 liters. The patient said she was diagnosed with pulmonary fibrosis in 2016. She gives some vague cardiac history and has seen [facility]. She had a pacemaker placed in the past and close follow up. She had progressive decline in her effort tolerance and leg swelling. She had an echo which showed normal ejection fraction. She has been on Torsemide at home and NSAID PRN here. Her Torsemide was reduced. She denies any urinary difficulties, any chest pain, active vomiting or diarrhea. She was started on fluids this evening. REVIEW OF SYSTEMS: Increasing shortness of breath, increased generalized weakness. No vomiting or diarrhea. All other systems were reviewed and negative except as stated above. PAST MEDICAL HISTORY: Pulmonary fibrosis. Atrial fibrillation. Hypertension. Diabetes mellitus type II. Restless leg syndrome. PAST SURGICAL HISTORY: No recent surgery. MEDICATIONS: Home medications and medicines in the hospital were reviewed per the medication sheet. The home medicines included Demadex, Viibryd along with other medications were reviewed. ALLERGIES: SULFA. SOCIAL HISTORY: Former smoker quit smoking a few years ago, lives alone. Denies any substance abuse. FAMILY HISTORY: She denies any history of kidney problem in the family. PHYSICAL EXAMINATION: The patient is awake, alert, oriented, not in any acute distress. Vital signs reviewed at bedside. HEENT: Head normocephalic. Eyes nonicteric. ENT mucosa moist. NECK: No JVD. CHEST: Occasional rhonchi and wheeze. No respiratory distress. CVS: Appears regular. EXTREMITIES: No peripheral edema. ABDOMEN: Soft, nontender, positive bowel sounds. No palpable edema. NEUROLOGIC: Awake, alert, oriented x3. Following commands and answering all questions appropriately. PSYCHIATRIC: Appropriate mood and affect. SKIN: Warm and dry. LAB DATA AND TESTS: Sodium 126, potassium 3.4, BUN 27, creatinine 0.6. Hemoglobin 13.6. Chest CT and echo reviewed. D-dimer was 573. ASSESSMENT AND PLAN: A 69 year old lady with medical problems: 1) Hyponatremia likely due to combination of increased ADH (antidiuretic hormone) due to pulmonary fibrosis, some due to diuresis with Demadex, some due to NSAID's of Motrin and some mild pseudo-hyponatremia component due to high blood sugars as well. At this time I will hold her diuretics. I agree with gentle hydration. If her sodium does not improve she will likely require SAMSCA. I will check urine sodium osmolality, TSH and serum cortisol level. I recommend stopping NSAID's. I will monitor sodium level closely as this may be contributing to her hyponatremia as well. 2) Acute exacerbation of idiopathic pulmonary fibrosis. 3) Acute bronchitis with hypoxemia, management per pulmonology. 4) Atrial fibrillation. 5) Coronary artery disease with history of pacemaker, management per cardiology. 6) Hypertension, continue present medication. Avoid hydrochlorothiazide. 7) Diabetes mellitus type II, well controlled, per primary team. 8) Hypokalemia, replace potassium and monitor closely. Thank you for this consultation on this patient. Please do not hesitate to contact me if there are any questions.
--- NOTE | 2020-05-17 09:52 | XRAY ---
Indication: Productive cough. Comparison: May 08, 2020. PA/lateral chest again demonstrates scattered fibrosis/scarring greatest lung bases. No focal infiltrate, consolidation, or large effusion. Heart remains borderline enlarged again with left dual-lead pacemaker. Bony thorax intact again with osteopenia, degenerative changes, scoliosis, and bilateral calcified breast implants. Impression: Continued nonacute chest with chronic features.
[2020-05-17] MEDS: PROTONIX 40 MG IV IV SCH (10:19)
[2020-05-17] MEDS: Levofloxacin 500MG/100ML D5W 500 MG/100 ML BAG IV SCH (10:21)
[2020-05-17] MEDS: Tessalon Perles 100 MG PO SCH ×3 (10:21→21:12)
[2020-05-17] MEDS: Klor Con 10 MEQ PO SCH (10:22)
[2020-05-17] MEDS: Cardizem CD 120 MG PO SCH ×2 (10:22→21:13)
[2020-05-17] MEDS: DELTASONE 10 MG PO SCH (10:22)
[2020-05-17] MEDS: FEOSOL 325 MG PO SCH (10:22)
[2020-05-17] MEDS: ELIQUIS 2.5 MG TABLET PO SCH ×2 (10:22→21:12)
[2020-05-17] MEDS: Colace 100 MG PO SCH ×2 (10:22→21:23)
[2020-05-17] MEDS: Pepcid 20 MG VIAL IV SCH ×2 (10:23→21:11)
[2020-05-17] MEDS: PATIENT OWN MEDICATION PO SCH ×2 (10:24→21:10)
[2020-05-17] MEDS: NON-FORMULARY ITEM PO SCH (10:32)
[2020-05-17] MEDS: Nystatin SUSPENSION 60 ML PO SCH ×4 (10:34→21:09)
[2020-05-17] MEDS: SYNTHROID 112 MCG PO SCH (10:34)
[2020-05-17] MEDS: Carafate 1 GM PO SCH ×3 (11:42→21:12)
[2020-05-17 14:22] LABS: ANISOCYTOSIS 1+; Lymphocytes 17 % (24-44); Monocyte 1 % (0.0-12.0); Neutrophils 82 % (36.0-66.0); Platelet Estimate NORMAL (NORMAL); Total Cells Counted 100
[2020-05-17] MEDS: COUGH DM PO SCH ×2 (14:22→21:10)
[2020-05-17] MEDS ORDERED: NON-FORMULARY ITEM PO SCH (16:00)
[2020-05-17] MEDS ORDERED: SAMSCA 15 MG PO ONE (16:00)
[2020-05-17] MEDS: Abilify 10 MG PO SCH (21:11)
[2020-05-17] MEDS: REQUIP 2MG TAB PO SCH (21:12)
[2020-05-17] MEDS: ZOCOR 20MG PO SCH (21:13)
--- NOTE | 2020-05-17 21:21 | PCM.NOTE ---
Date and Time: 05/17/202120 Subjective Assessment: 69 yr old female seen and examined this am. Patient reports that she is less short of breath. She denies chest pain. She denies productive cough. She reports that she is feeling better. She has some bruising on her left torso that she states has happened before when she has had severe cough. Patient denies swelling in her legs. No other reported concerns - Review of Systems Constitutional: No Fever Eyes: No Symptoms Ears, Nose, & Throat: No Symptoms Respiratory: Cough (improved non productive), Short Of Breath (improved), No Stridor, No Wheezing Cardiac: No Chest Pain, No Edema Abdominal/Gastrointestinal: Abdominal Pain, Constipation, No Nausea, No Vomiting, No Diarrhea, No Appetite Changes Genitourinary Symptoms: No Symptoms Musculoskeletal: Back Pain (chronic) Skin: Other (ecchymosis) Neurological: No Headache Psychological: Anxiety, Depression, Mood Changes Hematologic/Lymphatic: Easy Bruising Objective Exam General Appearance: no apparent distress (Patient sitting up eating breakfast), obese Neurologic Exam: alert, oriented x 3, cooperative, normal mood/affect, No disoriented, No confusion, No agitation Skin Exam: warm, dry, ecchymosis (large ecchymosis on torso) Ears, Nose, Throat Exam: moist mucous membranes Neck Exam: normal inspection Respiratory Exam: diminished breath sounds, No lungs clear, No respiratory distress, No accessory muscle use, No crackles/rales, No wheezing Cardiovascular Exam: regular rate/rhythm (pacemaker), normal heart sounds, No murmur, No friction rub, No gallop, No edema Gastrointestinal/Abdomen Exam: normal bowel sounds, tenderness (mildly tender with palpation) Extremity Exam: No pedal edema, No swelling Back Exam: other (Ecchymosis on torso) OBJECTIVE DATA Vital Signs: Vital Signs - 24 hr Temp Pulse Resp BP Pulse Ox 05/17/20 20:01 98.2 F 70 18 132/60 96 05/17/20 19:41 65 18 95 05/17/20 16:00 97.6 F 66 18 138/63 96 05/17/20 12:00 98.7 F 63 17 119/84 95 05/17/20 11:12 65 18 95 05/17/20 07:30 97.7 F 78 18 135/59 98 05/17/20 06:56 78 18 98 05/17/20 04:10 98.6 F 66 22 130/60 94 L 05/16/20 23:39 98.3 F 65 20 118/57 93 L Pain Assessment - Last Documented Pain Intensity 6 Pain Scale Used 0-10 Pain Scale Intake and Output: Intake & Output 05/15/20 05/16/20 05/17/20 05/18/20 11:59 11:59 11:59 11:59 Intake Total 916 876 9603 540 Output Total 1900 1000 Balance 840 840 -03 -460 Weight 91.7 kg 90 kg 88.7 kg Lab Results: Lab Results-Last 24 Hours 05/16/20 05/17/20 05/17/20 Range/Units 18:25 04:00 04:00 WBC 26.3 H* (4.0-10.5) K/mm3 RBC 2.73 L (4.1-5.4) M/mm3 Hgb 8.6 L (12.0-16.0) gm/dl Hct 26.0 L (35-47) % MCV 95.2 (78-100) fl MCH 31.5 (26-32) pg MCHC 33.1 (32-36) g/dl RDW 12.5 (11.5-14.0) % Plt Count 208 D (150-450) K/mm3 MPV 10.5 (7.5-11.0) fl Segmented Neutrophils 82 H (36.0-66.0) % Lymphocytes (Manual) 17 L (24-44) % Monocytes (Manual) 1 (0.0-12.0) % Platelet Estimate NORMAL (NORMAL) RBC Morphology ABNORMAL Anisocytosis 1+ Sodium 126 L (137-145) mmol/L Potassium 4.6 D (3.5-5.1) mmol/L Chloride 88 L (98-107) mmol/L Carbon Dioxide 32 H (22-30) mmol/L Anion Gap 10.8 (5-15) MEQ/L BUN 22 H (7-17) mg/dL Creatinine 0.59 (0.52-1.04) mg/dL Estimated GFR > 60.0 ML/MIN Glucose 242 H (74-106) mg/dL POC Glucometer (74 to 106) mg/dL Calcium 8.7 (8.4-10.2) mg/dL Magnesium 1.9 (1.6-2.3) mg/dL Total Bilirubin 1.20 (0.2-1.3) mg/dL AST 35 (14-36) U/L ALT 30 (0-35) U/L Alkaline Phosphatase 58 (38-126) U/L Serum Total Protein 5.6 L (6.3-8.2) g/dL Albumin 3.5 (3.5-5.0) g/dL TSH 3rd Generation 0.057 L (0.47-4.68) mIU/L Urine Sodium 88 (30-90) mmol/L 05/17/20 05/17/20 05/17/20 Range/Units 07:09 11:23 16:42 WBC (4.0-10.5) K/mm3 RBC (4.1-5.4) M/mm3 Hgb (12.0-16.0) gm/dl Hct (35-47) % MCV (78-100) fl MCH (26-32) pg MCHC (32-36) g/dl RDW (11.5-14.0) % Plt Count (150-450) K/mm3 MPV (7.5-11.0) fl Segmented Neutrophils (36.0-66.0) % Lymphocytes (Manual) (24-44) % Monocytes (Manual) (0.0-12.0) % Platelet Estimate (NORMAL) RBC Morphology Anisocytosis Sodium (137-145) mmol/L Potassium (3.5-5.1) mmol/L Chloride (98-107) mmol/L Carbon Dioxide (22-30) mmol/L Anion Gap (5-15) MEQ/L BUN (7-17) mg/dL Creatinine (0.52-1.04) mg/dL Estimated GFR ML/MIN Glucose (74-106) mg/dL POC Glucometer 245 H 217 H 253 H (74 to 106) mg/dL Calcium (8.4-10.2) mg/dL Magnesium (1.6-2.3) mg/dL Total Bilirubin (0.2-1.3) mg/dL AST (14-36) U/L ALT (0-35) U/L Alkaline Phosphatase (38-126) U/L Serum Total Protein (6.3-8.2) g/dL Albumin (3.5-5.0) g/dL TSH 3rd Generation (0.47-4.68) mIU/L Urine Sodium (30-90) mmol/L 05/17/20 Range/Units 20:56 WBC (4.0-10.5) K/mm3 RBC (4.1-5.4) M/mm3 Hgb (12.0-16.0) gm/dl Hct (35-47) % MCV (78-100) fl MCH (26-32) pg MCHC (32-36) g/dl RDW (11.5-14.0) % Plt Count (150-450) K/mm3 MPV (7.5-11.0) fl Segmented Neutrophils (36.0-66.0) % Lymphocytes (Manual) (24-44) % Monocytes (Manual) (0.0-12.0) % Platelet Estimate (NORMAL) RBC Morphology Anisocytosis Sodium (137-145) mmol/L Potassium (3.5-5.1) mmol/L Chloride (98-107) mmol/L Carbon Dioxide (22-30) mmol/L Anion Gap (5-15) MEQ/L BUN (7-17) mg/dL Creatinine (0.52-1.04) mg/dL Estimated GFR ML/MIN Glucose (74-106) mg/dL POC Glucometer 267 H (74 to 106) mg/dL Calcium (8.4-10.2) mg/dL Magnesium (1.6-2.3) mg/dL Total Bilirubin (0.2-1.3) mg/dL AST (14-36) U/L ALT (0-35) U/L Alkaline Phosphatase (38-126) U/L Serum Total Protein (6.3-8.2) g/dL Albumin (3.5-5.0) g/dL TSH 3rd Generation (0.47-4.68) mIU/L Urine Sodium (30-90) mmol/L Radiology Exams: Radiology Procedures Category Date Time Status CHEST 2 VIEWS (PA AND LAT) Urgent Exams 05/17/20 09:27 Completed Multi-Disciplinary Progress Notes: Multi-Disciplinary Progress Notes 05/17/20 16:29 Nutrition Note by Allison Allen F/u note: House regular diet con't with 75-100% po intake. adm weight 88.3kg; current weight 88.7kg. Labs: Na 126, BUN 22, glu 217, alb wnl, hgb 8.6, hct 26.0. Goal of po intake >=75% met and ongoing; goal of decreasing +fluid balance met - currently 600 mls. Recommend to con't with current diet. Will con't to monitor and f/u prn. [id number] Initialized on 05/17/20 16:29 - END OF NOTE 05/17/20 10:36 Case Management Note by Emerald Alberts DR. REPORTS THIS AM- SHE BELIEVES THE CRITICAL WBC COUNT IS D/T STEROIDS. SHE S/W HOSPITALIST AT [facility] AND PATIENT IS NOT A CANIDATE FOR TRANSFER D/T BEING STABLE Initialized on 05/17/20 10:36 - END OF NOTE 05/17/20 10:34 Case Management Note by Emerald Alberts PATIENT TO WORK WITH PT TODAY. WILL SEE WHAT THEIR EVAL SAYS TO SEE ID PATIENT WILL NEED SWINGBED AT THIS TIME TIME OR IF SAFE TO RETURN HOME. WBC ALSO STILL CRITICAL- WILL CONTINUE TO MONITOR Initialized on 05/17/20 10:34 - END OF NOTE Assessment/Plan (1) Pulmonary fibrosis Current Visit: Yes Status: Acute Assessment & Plan: Patient was evaluated for this in [facility] by pulmonogist as reported by patient in 2016. Patient reported 1 follow up where she was told that her lungs were unchanged. She did not continue with follow up. Patient is not on any treatment and has not been following with any pulmonologists. Plan for patient to follow up with Dr Freeman following discharge. Patient has been weened off of her oxygen Code(s): J84.10 - PULMONARY FIBROSIS, UNSPECIFIED (2) Pneumonia Current Visit: Yes Status: Acute Qualifiers: Pneumonia type: due to unspecified organism Laterality: left Lung location: lower lobe of lung Qualified Code(s): J18.9 - Pneumonia, unspecified organism Assessment & Plan: Patient is on levaquin. WBC is trending down slowly. She is afebrile. Non productive cough. Not require oxygen. CXR and CT did not demonstrate infiltrate or lobar pneumonia. Will continue on levaquin to complete course Code(s): J18.9 - PNEUMONIA, UNSPECIFIED ORGANISM (3) COPD exacerbation Current Visit: Yes Status: Acute Assessment & Plan: Patient will need to follow up with Pulm to be evaluated for COPD. Code(s): J44.1 - CHRONIC OBSTRUCTIVE PULMONARY DISEASE W (ACUTE) EXACERBATION (4) Hyponatremia Current Visit: Yes Status: Acute Assessment & Plan: Nephrology consulted. Patient was discontinued on IV fluids and diuretics. He r ecommended samsca x2 doses. He recommended additional labs as well. Will follow recs. Code(s): E87.1 - HYPO-OSMOLALITY AND HYPONATREMIA (5) Hypokalemia Current Visit: Yes Status: Acute Assessment & Plan: resolved. Patient will be discontinued on potassium as her diuretic is being held. Code(s): E87.6 - HYPOKALEMIA (6) CHF exacerbation Current Visit: Yes Status: Acute Assessment & Plan: Echo showed normal EF. Patient is on torsemide at home. Will resume home med upon discharge Code(s): I50.9 - HEART FAILURE, UNSPECIFIED (7) Afib Current Visit: Yes Status: Acute Assessment & Plan: Patient has been rhythm and rate controlled. She has pacemaker and is on eliquis at home. Code(s): I48.91 - UNSPECIFIED ATRIAL FIBRILLATION (8) Hypertension Current Visit: Yes Status: Acute Assessment & Plan: Patient's HTN has improved with increasing her bp meds while in hospital. Will need to reassess on discharge as patient's bp was likely affected by steroids. Code(s): I10 - ESSENTIAL (PRIMARY) HYPERTENSION (9) Headache Current Visit: Yes Status: Acute Assessment & Plan: Resolved following corrected of her elevated bp Code(s): R51 - HEADACHE (10) Anemia Current Visit: Yes Status: Acute Assessment & Plan: Will continue to trend. Patient is likely having bleeding as she is on eliquis and steroids. She has large ecchymosis on torso. Patient was started on protonix and carafate for GI prophylaxis Code(s): D64.9 - ANEMIA, UNSPECIFIED (11) Constipation Current Visit: Yes Status: Acute Code(s): K59.00 - CONSTIPATION, UNSPECIFIED (12) Elevated d-dimer Current Visit: Yes Status: Acute Assessment & Plan: CTA done and PE was ruled out Code(s): R79.89 - OTHER SPECIFIED ABNORMAL FINDINGS OF BLOOD CHEMISTRY (13) Leukocytosis Current Visit: Yes Status: Acute Assessment & Plan: Patient's white count is starting to trend down slowly. Will continue to trend. She is still on steroid taper to avoid adrenal crisis and is still on antibiotics. She is afebrile. Repeat CXR blood cultures and urine neg for infectious process. Code(s): D72.829 - ELEVATED WHITE BLOOD CELL COUNT, UNSPECIFIED
[2020-05-18] MEDS: TYLENOL 325 MG PO PRN ×3 (00:32→15:26)
[2020-05-18 05:31] LABS: Hematocrit 24.4 % (35-47); Hemoglobin 7.8 gm/dl (12.0-16.0); Mean Cell Volume 97.2 fl (78-100); Mean Corpuscular Hemoglobin 31.1 pg (26-32); Mean Platelet Volume 9.9 fl (7.5-11.0); Platelet Count 225 K/mm3 (150-450); Red Blood Count 2.51 M/mm3 (4.1-5.4)
[2020-05-18 05:57] LABS: ALBUMIN 3.2 g/dL (3.5-5.0); ALKALINE PHOSPHATASE 49 U/L (38-126); ANION GAP 6.4 MEQ/L (5-15); BLOOD UREA NITROGEN 20 mg/dL (7-17); CHLORIDE 95 mmol/L (98-107); Calcium 8.7 mg/dL (8.4-10.2); Carbon Dioxide 32 mmol/L (22-30); Creatinine 1 0.61 mg/dL (0.52-1.04); EST GLOMERULAR FILTRATION RATE > 60.0 ML/MIN; Glucose 208 mg/dL (74-106); Potassium 3.7 mmol/L (3.5-5.1); SGOT/AST 33 U/L (14-36); SGPT/ALT 26 U/L (0-35); SODIUM 130 mmol/L (137-145); Total Protein 5.5 g/dL (6.3-8.2)
[2020-05-18] MEDS: Sodium Chloride 0.9% 10 ML FLUSH Syringe IV SCH ×3 (05:58→21:06)
[2020-05-18 06:05] LABS: White Blood Count 25.4 K/mm3 (4.0-10.5)
[2020-05-18 06:16] LABS: Eosinophil 1 % (0.00-3.0); Lymphocytes 14 % (24-44); Monocyte 7 % (0.0-12.0); Neutrophils 78 % (36.0-66.0); Total Cells Counted 100
[2020-05-18 06:17] LABS: ANISOCYTOSIS 1+; Nucleated Red Blood Cell 1 %; Platelet Estimate NORMAL (NORMAL); Poikilocytosis 1+; Polychromasia 1+
[2020-05-18] MEDS: Carafate 1 GM PO SCH ×5 (06:24→21:04)
[2020-05-18] MEDS: DUONEB 0.5-3 MG/3 ml Neb IH SCH ×4 (07:10→19:30)
[2020-05-18] MEDS: Advair Hfa 230/21 Mcg COMMON CANISTER IH SCH ×2 (07:10→19:31)
--- NOTE | 2020-05-18 09:08 | PCM.NOTE ---
Date and Time: 05/18/20900 Subjective Assessment: 69 yr old female seen and examined this am. Patient reports that she feels much better today. She did get up with PT yesterday and reports shortness of breath with ambulation. She denies fatigue. She reports constipation and would like something for her bowels. - Review of Systems Constitutional: Weakness, No Fever Eyes: No Symptoms Ears, Nose, & Throat: No Symptoms Respiratory: Cough (improved non productive), Short Of Breath (Mainly with walking) Cardiac: Other (afib with pacemaker), No Chest Pain, No Edema Abdominal/Gastrointestinal: Abdominal Pain, Constipation, No Nausea, No Vomiting, No Appetite Changes Genitourinary Symptoms: No Symptoms Musculoskeletal: Back Pain (chronic) Skin: Other (Ecchymosis left side abdomen/back which patient states has happened when she coughs a lot) Neurological: No Headache Psychological: Anxiety, Depression, Mood Changes Endocrine: No Symptoms Hematologic/Lymphatic: Easy Bruising Objective Exam General Appearance: no apparent distress, obese Neurologic Exam: alert, oriented x 3, cooperative, normal mood/affect, No disoriented, No confusion Skin Exam: normal color, warm, dry, ecchymosis (Significant ecchymosis left sided abdomen and back. Likely dependent as patient is laying on left side anytime she is in bed) Eye Exam: EOMI, No scleral icterus Ears, Nose, Throat Exam: normal ENT inspection, moist mucous membranes, other (poor dentition) Neck Exam: normal inspection Respiratory Exam: diminished breath sounds, No normal breath sounds, No respiratory distress, No accessory muscle use, No crackles/rales, No rhonchi, No wheezing, No stridor Cardiovascular Exam: regular rate/rhythm (pacemaker), normal heart sounds, No murmur, No friction rub, No gallop Gastrointestinal/Abdomen Exam: normal bowel sounds, tenderness (mild with palpation), distention, ecchymosis, No mass, No guarding Extremity Exam: normal inspection, No pedal edema, No swelling Back Exam: other (Ecchymosis on left side of back) OBJECTIVE DATA Vital Signs: Vital Signs - 24 hr Temp Pulse Resp BP Pulse Ox 05/18/20 07:46 98.3 F 66 18 132/61 92 L 05/18/20 07:12 63 18 93 L 05/18/20 03:49 98.5 F 65 22 137/58 94 L 05/17/20 23:35 98.1 F 80 20 119/57 94 L 05/17/20 20:01 98.2 F 70 18 132/60 96 05/17/20 19:41 65 18 95 05/17/20 16:00 97.6 F 66 18 138/63 96 05/17/20 12:00 98.7 F 63 17 119/84 95 05/17/20 11:12 65 18 95 Pain Assessment - Last Documented Pain Intensity 6 Pain Scale Used 0-10 Pain Scale Intake and Output: Intake & Output 05/15/20 05/16/20 05/17/20 05/18/20 11:59 11:59 11:59 11:59 Intake Total 429 175 9036 940 Output Total 1900 3000 Balance 840 Weight 91.7 kg 90 kg 88.7 kg Lab Results: Lab Results-Last 24 Hours 05/17/20 05/17/20 05/17/20 Range/Units 04:00 04:00 11:23 WBC (4.0-10.5) K/mm3 RBC (4.1-5.4) M/mm3 Hgb (12.0-16.0) gm/dl Hct (35-47) % MCV (78-100) fl MCH (26-32) pg MCHC (32-36) g/dl RDW (11.5-14.0) % Plt Count (150-450) K/mm3 MPV (7.5-11.0) fl Segmented Neutrophils 82 H (36.0-66.0) % Lymphocytes (Manual) 17 L (24-44) % Monocytes (Manual) 1 (0.0-12.0) % Eosinophils (Manual) (0.00-3.0) % Nucleated RBCs % Platelet Estimate NORMAL (NORMAL) RBC Morphology ABNORMAL Polychromasia Poikilocytosis Anisocytosis 1+ Sodium 126 L (137-145) mmol/L Potassium 4.6 D (3.5-5.1) mmol/L Chloride 88 L (98-107) mmol/L Carbon Dioxide 32 H (22-30) mmol/L Anion Gap 10.8 (5-15) MEQ/L BUN 22 H (7-17) mg/dL Creatinine 0.59 (0.52-1.04) mg/dL Estimated GFR > 60.0 ML/MIN Glucose 242 H (74-106) mg/dL POC Glucometer 217 H (74 to 106) mg/dL Calcium 8.7 (8.4-10.2) mg/dL Magnesium 1.9 (1.6-2.3) mg/dL Total Bilirubin 1.20 (0.2-1.3) mg/dL AST 35 (14-36) U/L ALT 30 (0-35) U/L Alkaline Phosphatase 58 (38-126) U/L Serum Total Protein 5.6 L (6.3-8.2) g/dL Albumin 3.5 (3.5-5.0) g/dL TSH 3rd Generation 0.057 L (0.47-4.68) mIU/L 05/17/20 05/17/20 05/18/20 Range/Units 16:42 20:56 05:10 WBC 25.4 H* (4.0-10.5) K/mm3 RBC 2.51 L (4.1-5.4) M/mm3 Hgb 7.8 L (12.0-16.0) gm/dl Hct 24.4 L (35-47) % MCV 97.2 (78-100) fl MCH 31.1 (26-32) pg MCHC 32.0 (32-36) g/dl RDW 13.0 (11.5-14.0) % Plt Count 225 (150-450) K/mm3 MPV 9.9 (7.5-11.0) fl Segmented Neutrophils 78 H (36.0-66.0) % Lymphocytes (Manual) 14 L (24-44) % Monocytes (Manual) 7 (0.0-12.0) % Eosinophils (Manual) 1 (0.00-3.0) % Nucleated RBCs 1 % Platelet Estimate NORMAL (NORMAL) RBC Morphology ABNORMAL Polychromasia 1+ Poikilocytosis 1+ Anisocytosis 1+ Sodium (137-145) mmol/L Potassium (3.5-5.1) mmol/L Chloride (98-107) mmol/L Carbon Dioxide (22-30) mmol/L Anion Gap (5-15) MEQ/L BUN (7-17) mg/dL Creatinine (0.52-1.04) mg/dL Estimated GFR ML/MIN Glucose (74-106) mg/dL POC Glucometer 253 H 267 H (74 to 106) mg/dL Calcium (8.4-10.2) mg/dL Magnesium (1.6-2.3) mg/dL Total Bilirubin (0.2-1.3) mg/dL AST (14-36) U/L ALT (0-35) U/L Alkaline Phosphatase (38-126) U/L Serum Total Protein (6.3-8.2) g/dL Albumin (3.5-5.0) g/dL TSH 3rd Generation (0.47-4.68) mIU/L 05/18/20 05/18/20 Range/Units 05:10 07:14 WBC (4.0-10.5) K/mm3 RBC (4.1-5.4) M/mm3 Hgb (12.0-16.0) gm/dl Hct (35-47) % MCV (78-100) fl MCH (26-32) pg MCHC (32-36) g/dl RDW (11.5-14.0) % Plt Count (150-450) K/mm3 MPV (7.5-11.0) fl Segmented Neutrophils (36.0-66.0) % Lymphocytes (Manual) (24-44) % Monocytes (Manual) (0.0-12.0) % Eosinophils (Manual) (0.00-3.0) % Nucleated RBCs % Platelet Estimate (NORMAL) RBC Morphology Polychromasia Poikilocytosis Anisocytosis Sodium 130 L (137-145) mmol/L Potassium 3.7 (3.5-5.1) mmol/L Chloride 95 L (98-107) mmol/L Carbon Dioxide 32 H (22-30) mmol/L Anion Gap 6.4 (5-15) MEQ/L BUN 20 H (7-17) mg/dL Creatinine 0.61 (0.52-1.04) mg/dL Estimated GFR > 60.0 ML/MIN Glucose 208 H (74-106) mg/dL POC Glucometer 164 H (74 to 106) mg/dL Calcium 8.7 (8.4-10.2) mg/dL Magnesium (1.6-2.3) mg/dL Total Bilirubin 1.00 (0.2-1.3) mg/dL AST 33 (14-36) U/L ALT 26 (0-35) U/L Alkaline Phosphatase 49 (38-126) U/L Serum Total Protein 5.5 L (6.3-8.2) g/dL Albumin 3.2 L (3.5-5.0) g/dL TSH 3rd Generation (0.47-4.68) mIU/L Radiology Exams: Radiology Procedures Category Date Time Status ABDOMEN AND PELVIS W CONTRAST [CT] DAILY Exams 05/18/20 08:45 Ordered CHEST 2 VIEWS (PA AND LAT) Urgent Exams 05/17/20 09:27 Completed Multi-Disciplinary Progress Notes: Multi-Disciplinary Progress Notes 05/17/20 16:29 Nutrition Note by Allison Allen F/u note: House regular diet con't with 75-100% po intake. adm weight 88.3kg; current weight 88.7kg. Labs: Na 126, BUN 22, glu 217, alb wnl, hgb 8.6, hct 26.0. Goal of po intake >=75% met and ongoing; goal of decreasing +fluid balance met - currently 600 mls. Recommend to con't with current diet. Will con't to monitor and f/u prn. T.WILBERTO AllenCD Initialized on 05/17/20 16:29 - END OF NOTE 05/17/20 10:36 Case Management Note by Emerald Alberts DR. REPORTS THIS AM- SHE BELIEVES THE CRITICAL WBC COUNT IS D/T STEROIDS. SHE S/W HOSPITALIST AT [facility] AND PATIENT IS NOT A CANIDATE FOR TRANSFER D/T BEING STABLE Initialized on 05/17/20 10:36 - END OF NOTE 05/17/20 10:34 Case Management Note by Emerald Alberts PATIENT TO WORK WITH PT TODAY. WILL SEE WHAT THEIR EVAL SAYS TO SEE ID PATIENT WILL NEED SWINGBED AT THIS TIME TIME OR IF SAFE TO RETURN HOME. WBC ALSO STILL CRITICAL- WILL CONTINUE TO MONITOR Initialized on 05/17/20 10:34 - END OF NOTE Assessment/Plan (1) Pulmonary fibrosis Current Visit: Yes Status: Acute Assessment & Plan: Patient is actually feeling better. She reports less shortness of breath. Patient was evaluated for this in [facility] by pulmonogist as reported by patient in 2016. Patient reported 1 follow up where she was told that her lungs were unchanged. She did not continue with follow up. Patient is not on any treatment and has not been routinely following with pulmonologists. Plan for patient to follow up with Dr Freeman following discharge. Code(s): J84.10 - PULMONARY FIBROSIS, UNSPECIFIED (2) Pneumonia Current Visit: Yes Status: Acute Qualifiers: Pneumonia type: due to unspecified organism Laterality: left Lung location: lower lobe of lung Qualified Code(s): J18.9 - Pneumonia, unspecified organism Assessment & Plan: Patient was diagnosed with pneumonia on admission. Was started on rocephin and azith. She was then transitioned to levaquin. She is on day 4 of levaquin. She has been afebrile and non productive cough. Repeat cxr and CT do not demonstrate a pneumonia. Would continue on levaquin for 3 more days then discontinue. Sputum culture sample was rejected due to contamination Code(s): J18.9 - PNEUMONIA, UNSPECIFIED ORGANISM (3) COPD exacerbation Current Visit: Yes Status: Acute Assessment & Plan: Patient denies diagnosis of COPD. She is not on routine home meds for COPD that I can see but reported to ER doctor her breathing tx werent helping. She will need to follow up with Dr Freeman for PFT testing as outpatient. She was a former smoker. She has been on duonebs steroids and antibiotics for this however she is reporting the duonebs dont help much. She is tapering off of steroids. She is now on 20 mg PO predisone. She will continue to taper on steroids Code(s): J44.1 - CHRONIC OBSTRUCTIVE PULMONARY DISEASE W (ACUTE) EXACERBATION (4) Hyponatremia Current Visit: Yes Status: Acute Assessment & Plan: Patient was not responding to normal saline or increasing PO sodium to correct hyponatremia. Nephro consulted and following discussion with Dr Nunez her hyponatremia was felt to be the result of abnormal levels of ADH related to her pulmonary fibrosis exacerbation. Patient was started on Samsca and received 2 doses. This improved patient's sodium level from 126 to 130 and has remained stable at 130. Additional workup for hyponatremia including urine/serum sodium studies were ordered as well. Nephro also recommended testing for thyroid and cortisol levels. TSH was low and will need to be worked up further which can be done as outpatient. Code(s): E87.1 - HYPO-OSMOLALITY AND HYPONATREMIA (5) Hypokalemia Current Visit: Yes Status: Acute Assessment & Plan: Resolved. Patient was getting home medication of torsemide and did not have potassium supplementation. She was repleted with IV potassium and PO potassium. She was also started on medication that likely lowered her potassium which was discontinued. She will need to go home on potassium along with torsemide for routine home meds. Code(s): E87.6 - HYPOKALEMIA (6) CHF exacerbation Current Visit: Yes Status: Acute Assessment & Plan: Echo did not show reduced EF. Patient was complaining of edema which was likely related to IV fluids and fluid retention from increasing PO sodium. Patient was started on Bumex at the hospital. Patient is on torsemide at home. Code(s): I50.9 - HEART FAILURE, UNSPECIFIED (7) Afib Current Visit: Yes Status: Acute Assessment & Plan: Rate and rhythm controlled. Patient has pacemaker and is on eliquis. Eliquis was held today as patient has low hgb and has large ecchymosis on left side of torso. Code(s): I48.91 - UNSPECIFIED ATRIAL FIBRILLATION (8) Hypertension Current Visit: Yes Status: Acute Assessment & Plan: Patient is on routine home meds for HTN. Increased her dose of bp meds as patient was having elevated bps likely as a result of steroids. Patient's bp has been closer to wnl on higher dosing. Will consider lowering dose back to her usual dosing if bps start are lower than desired. Code(s): I10 - ESSENTIAL (PRIMARY) HYPERTENSION (9) Headache Current Visit: Yes Status: Acute Assessment & Plan: Patient had some elevated bps which were likely causing the HAs. BP meds were increased and patient has not had a KIRK since. Code(s): R51 - HEADACHE (10) Anemia Current Visit: Yes Status: Acute Assessment & Plan: Anemia is related to some bleeding that she has had again related to steroids and being on eliquis. Patient was transfused one unit today. Eliquis was held. Hgb trended up after unit of blood. Second unit on hold and will be given if hgb trends down. Patient was also started on iron PO. Patient denied fatigued however after unit of blood was given she reports feeling much better. Code(s): D64.9 - ANEMIA, UNSPECIFIED (11) Leukocytosis Current Visit: Yes Status: Acute Assessment & Plan: This is likely caused by steroids however patient had CT abdomen/pel today that showed some colitis possibly inflammatory or infectious. Will trend CBC with diff. If still trending down we can plan to transfer patient to swing bed. If trending up then will need to order cdiff. Patient remains afebrile. Blood cultures neg x2. Urine neg. Sputum culture was rejected. VSS patient is not septic or toxic appearing Code(s): D72.829 - ELEVATED WHITE BLOOD CELL COUNT, UNSPECIFIED (12) Elevated d-dimer Current Visit: Yes Status: Acute Assessment & Plan: CTA done and was neg for PE Code(s): R79.89 - OTHER SPECIFIED ABNORMAL FINDINGS OF BLOOD CHEMISTRY (13) Constipation Current Visit: Yes Status: Acute Assessment & Plan: Patient was complaining of constipation. She was on stool softener prn. She was given mag citrate which was successful for patient. Code(s): K59.00 - CONSTIPATION, UNSPECIFIED (14) Abdominal pain Current Visit: Yes Status: Acute Assessment & Plan: Patient's abdomen was tender with palpation. Will ct abd/pel with contrast. Concern that patient is constipated and with steroids she is at risk for perforation Code(s): R10.9 - UNSPECIFIED ABDOMINAL PAIN
[2020-05-18] MEDS: Robitussin AC Syrup Unit Dose Cup PO PRN ×2 (09:12→21:19)
[2020-05-18] MEDS: PROTONIX 40 MG IV IV SCH (09:13)
[2020-05-18] MEDS: Levofloxacin 500MG/100ML D5W 500 MG/100 ML BAG IV SCH (09:14)
[2020-05-18] MEDS: Pepcid 20 MG VIAL IV SCH ×2 (09:15→21:05)
[2020-05-18] MEDS: Tessalon Perles 100 MG PO SCH ×3 (09:16→21:06)
[2020-05-18] MEDS: DELTASONE 10 MG PO SCH (09:16)
[2020-05-18] MEDS: SYNTHROID 75 MCG PO SCH (09:16)
[2020-05-18] MEDS: Colace 100 MG PO SCH ×2 (09:16→21:05)
[2020-05-18] MEDS: Cardizem CD 120 MG PO SCH ×2 (09:16→21:05)
[2020-05-18] MEDS: ELIQUIS 2.5 MG TABLET PO SCH ×2 (09:17→21:11)
[2020-05-18] MEDS: FEOSOL 325 MG PO SCH (09:17)
[2020-05-18] MEDS: COUGH DM PO SCH ×2 (09:18→21:27)
[2020-05-18] MEDS: PATIENT OWN MEDICATION PO SCH ×2 (09:18→21:11)
[2020-05-18] MEDS: Nystatin SUSPENSION 60 ML PO SCH ×4 (09:18→21:11)
[2020-05-18] MEDS: NON-FORMULARY ITEM PO SCH (09:18)
[2020-05-18 11:52] LABS: ABO TYPING A; Antibody Screen NEGATIVE (NEGATIVE); RH TYPING POSITIVE
[2020-05-18 11:56] LABS: CROSS MATCH (PRBC) COMPATIBLE (COMPATIBLE)
[2020-05-18] MEDS ORDERED: Sodium Chloride 0.9% 500 ML 500 ML IV ONE (11:57)
--- NOTE | 2020-05-18 12:10 | XRAY ---
Indication: Left abdomen/pelvis/back hematoma. Constipation. Multiple contiguous axial images obtained through the abdomen and pelvis using 80 cc Isovue 370 contrast only. Comparison: None Lung bases demonstrates scattered bilateral fibrosis/scarring and bibasilar dependent atelectasis. Heart is enlarged with incompletely visualized pacer leads. Partially visualized bilateral calcified breast implants. Stomach is distended with food/fluid. Noncontrasted stomach and bowel loops appear nonobstructed. There is mild/moderate diffuse scattered colonic fecal debris throughout including rectum. 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 No free fluid/air. Both kidneys enhance and excrete with left upper renal cortical scarring. Urinary bladder markedly distended concerning for neurogenic bladder versus outlet obstruction. Gallbladder moderately distended without gallstones or biliary distention. Remaining liver, gallbladder, pancreas, spleen, adrenal glands, kidneys, ureters, and uterus appear unremarkable. Minimal aortic calcifications. No AAA or pathologic retroperitoneal lymphadenopathy. Osseous structures demonstrate osteopenia, mild/moderate multilevel thoracolumbar degenerative spondylosis, and 7 mm L5 spondylolisthesis without spondylolysis. Also remote appearing superior T9 endplate fracture with 25-50% height loss and old ununited right 7 rib fracture. Mid to lower anterior abdominal wall demonstrates cutaneous/subcutaneous induration presumed inflammatory/infectious. No suspicious fluid collection or subcutaneous emphysema. Incidental small fatty umbilical hernia. Impression: 1. Diffuse fecal stasis without obstruction. 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 2. Markedly distended urinary bladder. Rule out neurogenic bladder versus outlet obstruction. 3. Distended gallbladder without gallstones. Gallbladder sonogram may yield further information if clinically warranted. 4. Mid to lower anterior abdominal wall cutaneous/subcutaneous changes induration presumed inflammatory/infectious. Incidental small fatty umbilical hernia. 5. Osteopenia, multilevel degenerative spondylosis, grade 1 L5 spondylolisthesis, remote T9 endplate fracture, and remote right 7 rib fracture. 6. Cardiomegaly.
[2020-05-18 16:54] LABS: Hematocrit 29.9 % (35-47)
[2020-05-18 16:58] LABS: Hemoglobin 9.9 gm/dl (12.0-16.0)
[2020-05-18] MEDS ORDERED: CITROMA 296 ML PO ONE (17:07)
[2020-05-18] MEDS: HUMALOG SQ PRN (21:02)
[2020-05-18] MEDS: REQUIP 2MG TAB PO SCH (21:05)
[2020-05-18] MEDS: ZOCOR 20MG PO SCH (21:06)
[2020-05-18] MEDS ORDERED: PATIENT OWN MEDICATION PO SCH (22:00)
[2020-05-19] MEDS: TYLENOL 325 MG PO PRN ×2 (03:53→16:50)
[2020-05-19] MEDS: Sodium Chloride 0.9% 10 ML FLUSH Syringe IV SCH ×2 (05:35→13:32)
[2020-05-19 05:44] LABS: ALBUMIN 3.4 g/dL (3.5-5.0); ALKALINE PHOSPHATASE 58 U/L (38-126); ANION GAP 7.7 MEQ/L (5-15); BLOOD UREA NITROGEN 16 mg/dL (7-17); CHLORIDE 97 mmol/L (98-107); Calcium 8.6 mg/dL (8.4-10.2); Carbon Dioxide 29 mmol/L (22-30); Creatinine 1 0.53 mg/dL (0.52-1.04); EST GLOMERULAR FILTRATION RATE > 60.0 ML/MIN; Glucose 183 mg/dL (74-106); Potassium 4.2 mmol/L (3.5-5.1); SGOT/AST 39 U/L (14-36); SGPT/ALT 27 U/L (0-35); SODIUM 130 mmol/L (137-145); Total Protein 5.7 g/dL (6.3-8.2)
[2020-05-19] MEDS: Advair Hfa 230/21 Mcg COMMON CANISTER IH SCH (07:05)
[2020-05-19] MEDS: DUONEB 0.5-3 MG/3 ml Neb IH SCH ×3 (07:05→15:03)
[2020-05-19] MEDS: Carafate 1 GM PO SCH ×2 (08:00→11:31)
[2020-05-19 08:35] LABS: Hematocrit 30.1 % (35-47); Hemoglobin 9.8 gm/dl (12.0-16.0); Mean Cell Volume 96.2 fl (78-100); Mean Corpuscular Hemoglobin 31.3 pg (26-32); Mean Corpuscular Hgb Concent. 32.6 g/dl (32-36); Mean Platelet Volume 9.6 fl (7.5-11.0); Platelet Count 235 K/mm3 (150-450); Red Blood Count 3.13 M/mm3 (4.1-5.4); Red Cell Distribution Width 13.9 % (11.5-14.0)
[2020-05-19 08:40] LABS: White Blood Count 28.4 K/mm3 (4.0-10.5)
[2020-05-19 08:59] LABS: BAND 7 % (0.0-2.0); Lymphocytes 17 % (24-44); Metamyelocyte 2 %; Neutrophils 74 % (36.0-66.0); Nucleated Red Blood Cell 2 %; Total Cells Counted 100
[2020-05-19 09:00] LABS: ANISOCYTOSIS 1+; Macrocytosis 1+; Platelet Estimate NORMAL (NORMAL); Polychromasia 2+
[2020-05-19 09:01] LABS: Absolute Neutrophil Ct (ANC) 23.03 (1.4-6.9)
[2020-05-19] MEDS: Colace 100 MG PO SCH (09:32)
[2020-05-19] MEDS: FEOSOL 325 MG PO SCH (09:32)
[2020-05-19] MEDS: Cardizem CD 120 MG PO SCH (09:32)
[2020-05-19] MEDS: SYNTHROID 75 MCG PO SCH (09:33)
[2020-05-19] MEDS: Tessalon Perles 100 MG PO SCH (09:33)
[2020-05-19] MEDS: ELIQUIS 2.5 MG TABLET PO SCH (09:33)
[2020-05-19] MEDS: PROTONIX 40 MG IV IV SCH (09:34)
[2020-05-19] MEDS: Pepcid 20 MG VIAL IV SCH (09:34)
[2020-05-19] MEDS: PATIENT OWN MEDICATION PO SCH (09:34)
[2020-05-19] MEDS: Levofloxacin 500MG/100ML D5W 500 MG/100 ML BAG IV SCH (09:35)
[2020-05-19] MEDS: COUGH DM PO SCH (09:35)
[2020-05-19] MEDS: NON-FORMULARY ITEM PO SCH (09:35)
[2020-05-19] MEDS: Nystatin SUSPENSION 60 ML PO SCH ×2 (09:40→13:31)
[2020-05-19] MEDS ORDERED: DELTASONE 10 MG PO SCH (10:00)
--- NOTE | 2020-05-19 10:34 | PCM.DS ---
Discharge Summary Date of Admission: 05/08/20 10:08 Date of Discharge: 05/19/2020 Admitting Physician: ASHLEY CLARK MD Consults: Consults on Case 05/12/20 08:49 Consult Pulmonology ROUTINE 05/16/20 15:12 Consult Nephrology ROUTINE Primary Care Provider: ASHLEY CLARK MD Allergies Allergies Sulfa (Sulfonamide Antibiotics) Allergy (Severe, Verified 05/06/20 20:15) Itching pollen extracts Allergy (Mild, Verified 05/06/20 20:15) Hospital Summary - Hospital Course Hospital Course: 69 years old female with history of atrial fibrillation, congestive heart failure, idiopathic pulmonary fibrosis presented to the ER with 2 days history of progressively increasing shortness of breath. Patient report initially started as a upper respiratory/nasal/sinus congestion followed by cough pro ductive of initially clear but currently yellow-green sputum copious in amount with progressive worsening. She has been using neb treatments at home with no significant relief. She has subjective feeling of fever and chills. Denies any extremity swelling or sick contact. Patient was admitted for COPD pneumonia and hyponatremia. Patient was started on breathing treatments and IV steroids and was continued on antibiotics. She was also started on tessalon perles, dextromethorphan and mucinex with codeine. Patient was reporting more of a dry cough vs productive following admission. She was started on chest physiotherapy and incentive spirometry. Repeat chest xray did not indicate pneumonia. Patient had gotten 5 days of rocephin and azith so they were discontinued. IV fluids were discontinued as patient started reporting swelling and patient had crackles on lung exam. Patient developed hypokalemia from diuresis which was repleted and has remained corrected. Patient had bumex added for diuresis as her home torsemide did not appear to be helping. She was started on theophylline for geovanna pected COPD that was not improving which was then discontinued due to concerns of afib comorbidity. Patient was still reporting shortness of breath so d-dimer was ordered. D-dimer was elevated and CT scan was performed to rule out PE. CT scan indicated bronchiectasis, blebs and did not comment on presence of pneumonia. PE was ruled out. Pulmonology was consulted please refer to Dr Freeman's note. Again due to shortness of breath Echo was ordered and EF was wnl. Attempted to start weening off IV steroids however patient was seen by different provider over the weekend and was restarted on azith and additional PO steroids. Patient had [place] [address] [place] [address] which was lik migel related to PO steroids. Patient was switched to levaquin and continued taper off of IV steroids. Patient was also being treated for hyponatremia during this admission and was started on NS and salt tablets. Sodium did not correct and was trending down. Nephrology was consulted. Diuretics were discontinued as well as IV fluids and salt tablets. Patient was then started on samsca x2 doses. Patient was feeling better. She then started trending down with her hemoglobin and developed a significant ecchymosis on the left side of torso likely from steroids coughing and laying on left side. She was transfused one unit of PRBCs which brought her hgb up from 7 to 9. [place] [address]. Blood cultures were redrawn UA was obtained which were neg. Patient was already on levaquin[place] [address] [place] [address] abd and pelvis obtained yesterday indicated possible colitis of unknown etiology. Cdiff was ordered this am. Patient's sodium has stayed stable at 130 following samsca. Patient's vitals signs have been stable and patient has reported feeling better and less short of breath. PT and OT were ordered for deconditioning. Protonix and carafate were ordered as well for GI prophylaxis. PO steroids were being still being tapered down. Probiotic was ordered this am. Eliquis was held yesterday due to drop in hgb. Patient has hx of anxiety and depression and mood disorder treated with meds that had to be brought from home. Due to worsening leukocytosis plan is to transfer patient to tertiary hospital for further workup and management. - Vitals & Intake/Output Vital Signs: Vital Signs Temperature 98 F 05/19/20 06:57 Pulse Rate 68 05/19/20 07:07 Respiratory Rate 20 05/19/20 07:07 Blood Pressure 136/61 05/19/20 06:57 O2 Sat by Pulse Oximetry 95 05/19/20 07:07 Intake & Output: Intake & Output 05/16/20 05/17/20 05/18/20 05/19/20 11:59 11:59 11:59 11:59 Intake Total 840 6759 099 4850 Output Total 1900 3000 1000 Balance 260 Weight 90 kg 88.7 kg 90.1 kg 89.6 kg - Lab Result Diagrams: 05/19/20 08:25 05/19/20 04:00 Lab Results-Last 24 Hrs: Lab Results-Last 24 Hours 05/18/20 05/18/20 05/18/20 Range/Units 06:55 06:55 06:55 WBC (4.0-10.5) K/mm3 RBC (4.1-5.4) M/mm3 Hgb (12.0-16.0) gm/dl Hct (35-47) % MCV (78-100) fl MCH (26-32) pg MCHC (32-36) g/dl RDW (11.5-14.0) % Plt Count (150-450) K/mm3 MPV (7.5-11.0) fl Absolute Granulocytes (1.4-6.9) Segmented Neutrophils (36.0-66.0) % Band Neutrophils (0.0-2.0) % Lymphocytes (Manual) (24-44) % Metamyelocytes % Nucleated RBCs % Platelet Estimate (NORMAL) RBC Morphology Polychromasia Anisocytosis Macrocytosis Smear Path Review Sodium (137-145) mmol/L Potassium (3.5-5.1) mmol/L Chloride (98-107) mmol/L Carbon Dioxide (22-30) mmol/L Anion Gap (5-15) MEQ/L BUN (7-17) mg/dL Creatinine (0.52-1.04) mg/dL Estimated GFR ML/MIN Glucose (74-106) mg/dL POC Glucometer (74 to 106) mg/dL Calcium (8.4-10.2) mg/dL Total Bilirubin (0.2-1.3) mg/dL AST (14-36) U/L ALT (0-35) U/L Alkaline Phosphatase (38-126) U/L Serum Total Protein (6.3-8.2) g/dL Albumin (3.5-5.0) g/dL ABO Group A Rh Factor POSITIVE Antibody Screen NEGATIVE (NEGATIVE) Crossmatch COMPATIBLE COMPATIBLE (COMPATIBLE) 05/18/20 05/18/20 05/18/20 Range/Units 11:12 16:28 16:50 WBC (4.0-10.5) K/mm3 RBC (4.1-5.4) M/mm3 Hgb 9.9 L D (12.0-16.0) gm/dl Hct 29.9 L (35-47) % MCV (78-100) fl MCH (26-32) pg MCHC (32-36) g/dl RDW (11.5-14.0) % Plt Count (150-450) K/mm3 MPV (7.5-11.0) fl Absolute Granulocytes (1.4-6.9) Segmented Neutrophils (36.0-66.0) % Band Neutrophils (0.0-2.0) % Lymphocytes (Manual) (24-44) % Metamyelocytes % Nucleated RBCs % Platelet Estimate (NORMAL) RBC Morphology Polychromasia Anisocytosis Macrocytosis Smear Path Review Sodium (137-145) mmol/L Potassium (3.5-5.1) mmol/L Chloride (98-107) mmol/L Carbon Dioxide (22-30) mmol/L Anion Gap (5-15) MEQ/L BUN (7-17) mg/dL Creatinine (0.52-1.04) mg/dL Estimated GFR ML/MIN Glucose (74-106) mg/dL POC Glucometer 174 H 236 H (74 to 106) mg/dL Calcium (8.4-10.2) mg/dL Total Bilirubin (0.2-1.3) mg/dL AST (14-36) U/L ALT (0-35) U/L Alkaline Phosphatase (38-126) U/L Serum Total Protein (6.3-8.2) g/dL Albumin (3.5-5.0) g/dL ABO Group Rh Factor Antibody Screen (NEGATIVE) Crossmatch (COMPATIBLE) 05/18/20 05/19/20 05/19/20 Range/Units 20:55 04:00 06:33 WBC (4.0-10.5) K/mm3 RBC (4.1-5.4) M/mm3 Hgb (12.0-16.0) gm/dl Hct (35-47) % MCV (78-100) fl MCH (26-32) pg MCHC (32-36) g/dl RDW (11.5-14.0) % Plt Count (150-450) K/mm3 MPV (7.5-11.0) fl Absolute Granulocytes (1.4-6.9) Segmented Neutrophils (36.0-66.0) % Band Neutrophils (0.0-2.0) % Lymphocytes (Manual) (24-44) % Metamyelocytes % Nucleated RBCs % Platelet Estimate (NORMAL) RBC Morphology Polychromasia Anisocytosis Macrocytosis Smear Path Review Sodium 130 L (137-145) mmol/L Potassium 4.2 (3.5-5.1) mmol/L Chloride 97 L (98-107) mmol/L Carbon Dioxide 29 (22-30) mmol/L Anion Gap 7.7 (5-15) MEQ/L BUN 16 (7-17) mg/dL Creatinine 0.53 (0.52-1.04) mg/dL Estimated GFR > 60.0 ML/MIN Glucose 183 H (74-106) mg/dL POC Glucometer 263 H 142 H (74 to 106) mg/dL Calcium 8.6 (8.4-10.2) mg/dL Total Bilirubin 1.40 H (0.2-1.3) mg/dL AST 39 H (14-36) U/L ALT 27 (0-35) U/L Alkaline Phosphatase 58 (38-126) U/L Serum Total Protein 5.7 L (6.3-8.2) g/dL Albumin 3.4 L (3.5-5.0) g/dL ABO Group Rh Factor Antibody Screen (NEGATIVE) Crossmatch (COMPATIBLE) 05/19/20 Range/Units 08:25 WBC 28.4 H* (4.0-10.5) K/mm3 RBC 3.13 L (4.1-5.4) M/mm3 Hgb 9.8 L (12.0-16.0) gm/dl Hct 30.1 L (35-47) % MCV 96.2 (78-100) fl MCH 31.3 (26-32) pg MCHC 32.6 (32-36) g/dl RDW 13.9 (11.5-14.0) % Plt Count 235 (150-450) K/mm3 MPV 9.6 (7.5-11.0) fl Absolute Granulocytes 23.03 H (1.4-6.9) Segmented Neutrophils 74 H (36.0-66.0) % Band Neutrophils 7 H (0.0-2.0) % Lymphocytes (Manual) 17 L (24-44) % Metamyelocytes 2 % Nucleated RBCs 2 % Platelet Estimate NORMAL (NORMAL) RBC Morphology ABNORMAL Polychromasia 2+ Anisocytosis 1+ Macrocytosis 1+ Smear Path Review Pending Sodium (137-145) mmol/L Potassium (3.5-5.1) mmol/L Chloride (98-107) mmol/L Carbon Dioxide (22-30) mmol/L Anion Gap (5-15) MEQ/L BUN (7-17) mg/dL Creatinine (0.52-1.04) mg/dL Estimated GFR ML/MIN Glucose (74-106) mg/dL POC Glucometer (74 to 106) mg/dL Calcium (8.4-10.2) mg/dL Total Bilirubin (0.2-1.3) mg/dL AST (14-36) U/L ALT (0-35) U/L Alkaline Phosphatase (38-126) U/L Serum Total Protein (6.3-8.2) g/dL Albumin (3.5-5.0) g/dL ABO Group Rh Factor Antibody Screen (NEGATIVE) Crossmatch (COMPATIBLE) Micro Results-Entire Visit: Microbiology 05/16/20 10:40 Blood Culture Gram Stain - Final Blood Blood Culture - Preliminary No growth. 05/16/20 20:53 Urine Culture - Final Urine, Void NO GROWTH 05/16/20 10:25 Blood Culture - Preliminary Blood NO GROWTH TO DATE 05/06/20 20:38 Blood Culture Gram Stain - Final Blood Not Reportable Blood Culture - Final NO GROWTH 05/06/20 20:38 Blood Culture Gram Stain - Final Blood Not Reportable Blood Culture - Final NO GROWTH Accuchecks Date 05/19/20 Date 05/18/20 Time 06:33 Time 16:30 - Radiology Exams Ordered Rad Exams-Entire Visit: Radiology Procedures Category Date Time Status ABDOMEN AND PELVIS W CONTRAST [CT] DAILY Exams 05/18/20 08:45 Completed - Procedures and Test Procedures and Tests throughout Hospitalization: Therapy Orders & Screens 05/06/20 20:33 Peak Expiratory Flow Rate ONCE Comment: Reason For Exam: Respiratory Therapy Assessment DAILY Comment: 05/07/20 01:28 RT Screen per Nursing Assess ONCE Comment: Protocol Order Physician Instructions: Greater than 3 points order RT Admission Screen Reason For Exam: Triggered on Admission Diagnosis: LLL Pneumonia, hypo natrenia Diagnosis: LLL Pneumonia, hypo natrenia Pneumonia: Yes Home O2: No Asthma: No CHF: Yes Home CPAP/BIPAP: No Home Nebs/MDI: Yes Total Points: 11 05/08/20 09:05 FLUTTER [Flutter Therapy] UD Comment: AFTER BREATHING TREAMENTS Diagnosis: LLL Pneumonia, hypo natrenia 05/08/20 11:00 Incentive Spirometry UD Comment: QID WITH BREATHING TREATMENTS Diagnosis: LLL Pneumonia, hypo natrenia 05/11/20 08:06 EKG ROUTINE Comment: Diagnosis: LLL Pneumonia, EXAC COPD 05/11/20 12:07 Oxygen Nasal Cannula 2 lpm Comment: Diagnosis: LLL Pneumonia, EXAC COPD 05/12/20 14:20 Respiratory MDI BID Comment: symbicort 160/4.5 2 puffs Diagnosis: LLL Pneumonia, EXAC COPD 05/16/20 17:44 OT Eval and Treat (MD Order) ONCE Comment: Consulting Provider: Physician Instructions: Reason For Exam: decreased functional strength Evaluate: Yes Treat: Yes Reason for Evaluation: decreased functional strength Diagnosis: LLL Pneumonia, EXAC COPD PT Eval & Treat (MD Order) ONCE Reason for Eval:: decreased functional strength Diagnosis: LLL Pneumonia, EXAC COPD Discharge Exam General Appearance: no apparent distress (Physical exam as reported by Dr Sullivan who saw patient today) Neurologic Exam: alert, oriented x 3, normal mood/affect, No confusion, No agitation Respiratory Exam: diminished breath sounds, No normal breath sounds, No lungs clear, No respiratory distress, No crackles/rales, No rhonchi, No wheezing Cardiovascular Exam: regular rate/rhythm, normal heart sounds, No murmur, No friction rub, No gallop, No edema Gastrointestinal/Abdomen Exam: soft, normal bowel sounds, ecchymosis, No tenderness, No distention Extremity Exam: normal inspection, No pedal edema, No swelling Skin Exam: warm, dry, ecchymosis Final Diagnosis/Problem List - Final Discharge Diagnosis/Problem (1) Pulmonary fibrosis Status: Acute Assessment & Plan: Patient is actually feeling better. She reports less shortness of breath. Patient was evaluated for this in [place] by pulmonogist as reported by patient in 2016. Patient reported 1 follow up where she was told that her lungs were unchanged. She did not continue with follow up. Patient is not on any treatment and has not been routinely following with pulmonologists. Patient will need to follow up with exchange mechanic Code(s): J84.10 - PULMONARY FIBROSIS, UNSPECIFIED (2) Leukocytosis Status: Acute Assessment & Plan: Patient's WBC trended up again. Likely related to steroids however patient did have colitis that showed up on CT imaging yesterday. Cdiff test ordered. Patient is afebrile. She is still trending down on steroids and is on 20 mg PO. Code(s): D72.829 - ELEVATED WHITE BLOOD CELL COUNT, UNSPECIFIED (3) Pneumonia Status: Acute Assessment & Plan: Patient was diagnosed with pneumonia on admission. Was started on rocephin and azith. She was then transitioned to levaquin. She is on day 5 of levaquin. She has been afebrile and non productive cough. Repeat cxr and CT do not demonstrate a pneumonia. Would continue on levaquin for 2 more days then discontinue. Sputum culture sample was rejected due to contamination Code(s): J18.9 - PNEUMONIA, UNSPECIFIED ORGANISM (4) COPD exacerbation Status: Acute Assessment & Plan: More of acute bronchitis. Patient has gotten breathing tx steroids and antibiotics. She was getting incentive spirometry and chest physiotherapy. Patient will need to have PFT when she is not acutely ill. Code(s): J44.1 - CHRONIC OBSTRUCTIVE PULMONARY DISEASE W (ACUTE) EXACERBATION (5) Hyponatremia Status: Acute Assessment & Plan: Patient was not responding to NS therapy to correct her hyponatremia. Nephro consulted and following discussion with Dr Doty her hyponatremia was felt to be related to altered levels of ADH levels as a result of her pulmonary fibrosis exacerbation. Patient was started on Samsca and received 2 doses. This improved patient's sodium level from 126 to 130 and has remained stable at 130. Additional workup for hyponatremia including urine/serum sodium studies. Nephro also recommended testing for thyroid and cortisol. TSH was low and will need to be worked up further which can be done as outpatient. Code(s): E87.1 - HYPO-OSMOLALITY AND HYPONATREMIA (6) CHF (congestive heart failure) Status: Acute Assessment & Plan: Patient had to have diuretics held because of the samsca acting as a diuretic. Will resume home diuretic when patient's sodium level is more stable. Code(s): I50.9 - HEART FAILURE, UNSPECIFIED (7) Afib Status: Acute Assessment & Plan: Patient has been rate and rhythm controlled. Patient is on eliquis which has had to be held due to bleeding. Patient has a pacemaker. Code(s): I48.91 - UNSPECIFIED ATRIAL FIBRILLATION (8) Anemia Status: Acute Assessment & Plan: Patient received blood products. Eliquis was held. She had repeat hgb which was stable. She continues to have ecchymosis on torso left side. She was given protonix and carafate for gi prophylaxis. Will continue to trend CBC Code(s): D64.9 - ANEMIA, UNSPECIFIED (9) Headache Status: Acute Code(s): R51 - HEADACHE (10) Hypertension Status: Acute Assessment & Plan: Patient is on bp meds. BP is better controlled on higher dose of bp meds. Will have to reevaluate dosing when discharging home. Code(s): I10 - ESSENTIAL (PRIMARY) HYPERTENSION (11) Hypokalemia Status: Acute Assessment & Plan: Resolved Code(s): E87.6 - HYPOKALEMIA (12) Constipation Status: Acute Assessment & Plan: Patient got mag citrate which resulted in large BM last night Code(s): K59.00 - CONSTIPATION, UNSPECIFIED (13) Elevated d-dimer Status: Acute Assessment & Plan: CTA was neg for PE. Code(s): R79.89 - OTHER SPECIFIED ABNORMAL FINDINGS OF BLOOD CHEMISTRY - Discharge Discharge Date: 05/19/20 Disposition: XFER OTHER Condition: Stable Prescriptions: No Action Diltiazem HCl [Cartia Xt] 0.5 tab PO DAILY Atorvastatin Calcium 1 tab PO DAILY Ergocalciferol (Vitamin D2) [Vitamin D] 1 cap PO WEEKLY Levothyroxine Sodium [Euthyrox] 1 tab PO DAILY Ezetimibe 10 mg [Zetia 10 MG] 1 tab PO DAILY Ropinirole 2Mg [Requip 2Mg Tab] 1 tab PO HS Torsemide 20 mg [Demadex 20 mg] 1 tab PO DAILY Apixaban [Eliquis] 1 tab PO BID Vilazodone HCl [Viibryd] 40 mg PO DAILY Lisdexamfetamine Dimesylate [Vyvanse] 1 cap PO DAILY Brexpiprazole [Rexulti] 1 tab PO HS Sodium Chloride [Saline Nasal [place]et] 45 ml NS UD PRN PRN Reason: Allergies Follow up with: ASHLEY CLARK MD [Primary Care Provider] - 1 Week ANNE MARIE LEVY [ACTIVE STAFF] - 1 Week (FOLLOW UP WITH DR LEVY 2 WEEKS AFTER DISCHARGE) AMELIA DOTY [CONSULTING PHYSICIAN] - 1 Week (1 WEEK FOLLOWUP UPON DISCHARGE) Forms: Ambulance Transport Record, Transfer Record [facility]
[2020-05-19 11:19] VITALS: O2SAT 94
--- NOTE | 2020-05-19 13:55 | PCM.NOTE ---
Date and Time: 05/16/20 1600 Subjective Assessment: 69 yr old female seen and examined. Patient was sleeping this am upon entering the room. She had no reported complaints this am. She denies feeling well enough to go home. - Review of Systems Constitutional: No Fever Respiratory: Cough, Short Of Breath Cardiac: No Chest Pain, No Edema Abdominal/Gastrointestinal: Constipation Skin: Other (ecchymosis) Psychological: Anxiety, Depression, Mood Changes Hematologic/Lymphatic: Easy Bruising All Other Systems: Unable due to condition (limited review of symptoms as patient was sleepy) Objective Exam General Appearance: no apparent distress (patient was resting comfortably), obese Neurologic Exam: alert, cooperative, normal mood/affect Skin Exam: warm, dry, other (Ecchymosis on torso), No rash Eye Exam: No scleral icterus Ears, Nose, Throat Exam: moist mucous membranes Neck Exam: normal inspection Respiratory Exam: diminished breath sounds, No lungs clear, No respiratory distress, No crackles/rales, No wheezing Cardiovascular Exam: regular rate/rhythm (pacemaker), normal heart sounds, No murmur, No friction rub, No gallop Gastrointestinal/Abdomen Exam: soft, normal bowel sounds, ecchymosis, No tenderness, No distention Extremity Exam: No pedal edema, No swelling Back Exam: other (ecchymosis left side) OBJECTIVE DATA Vital Signs: Vital Signs - 24 hr Temp Pulse Resp BP Pulse Ox 05/19/20 11:18 97.5 F 69 20 172/74 94 L 05/19/20 10:36 66 18 91 L 05/19/20 07:07 68 20 95 05/19/20 06:57 98 F 65 20 136/61 94 L 05/19/20 04:00 97.4 F 68 18 136/62 95 05/19/20 00:00 98.6 F 64 20 122/58 92 L 05/18/20 19:33 67 18 94 L 05/18/20 18:21 98.2 F 67 18 136/66 96 05/18/20 15:40 98.4 F 80 18 144/78 95 05/18/20 15:30 66 18 96 Pain Assessment - Last Documented Pain Intensity 6 Pain Scale Used 0-10 Pain Scale Intake and Output: Intake & Output 09/30/20 10/01/20 10/02/20 10/03/20 11:59 11:59 11:59 11:59 Intake Total 6140 666 1712 Output Total 1900 3000 1400 Balance - 100 Weight 88.7 kg 90.1 kg 89.6 kg Lab Results: Lab Results-Last 24 Hours 05/18/20 05/18/20 05/18/20 Range/Units 16:28 16:50 20:55 WBC (4.0-10.5) K/mm3 RBC (4.1-5.4) M/mm3 Hgb 9.9 L D (12.0-16.0) gm/dl Hct 29.9 L (35-47) % MCV (78-100) fl MCH (26-32) pg MCHC (32-36) g/dl RDW (11.5-14.0) % Plt Count (150-450) K/mm3 MPV (7.5-11.0) fl Absolute Granulocytes (1.4-6.9) Segmented Neutrophils (36.0-66.0) % Band Neutrophils (0.0-2.0) % Lymphocytes (Manual) (24-44) % Metamyelocytes % Nucleated RBCs % Platelet Estimate (NORMAL) RBC Morphology Polychromasia Anisocytosis Macrocytosis Smear Path Review Sodium (137-145) mmol/L Potassium (3.5-5.1) mmol/L Chloride (98-107) mmol/L Carbon Dioxide (22-30) mmol/L Anion Gap (5-15) MEQ/L BUN (7-17) mg/dL Creatinine (0.52-1.04) mg/dL Estimated GFR ML/MIN Glucose (74-106) mg/dL POC Glucometer 236 H 263 H (74 to 106) mg/dL Calcium (8.4-10.2) mg/dL Total Bilirubin (0.2-1.3) mg/dL AST (14-36) U/L ALT (0-35) U/L Alkaline Phosphatase (38-126) U/L Serum Total Protein (6.3-8.2) g/dL Albumin (3.5-5.0) g/dL 05/19/20 05/19/20 05/19/20 Range/Units 04:00 06:33 08:25 WBC 28.4 H* (4.0-10.5) K/mm3 RBC 3.13 L (4.1-5.4) M/mm3 Hgb 9.8 L (12.0-16.0) gm/dl Hct 30.1 L (35-47) % MCV 96.2 (78-100) fl MCH 31.3 (26-32) pg MCHC 32.6 (32-36) g/dl RDW 13.9 (11.5-14.0) % Plt Count 235 (150-450) K/mm3 MPV 9.6 (7.5-11.0) fl Absolute Granulocytes 23.03 H (1.4-6.9) Segmented Neutrophils 74 H (36.0-66.0) % Band Neutrophils 7 H (0.0-2.0) % Lymphocytes (Manual) 17 L (24-44) % Metamyelocytes 2 % Nucleated RBCs 2 % Platelet Estimate NORMAL (NORMAL) RBC Morphology ABNORMAL Polychromasia 2+ Anisocytosis 1+ Macrocytosis 1+ Smear Path Review Pending Sodium 130 L (137-145) mmol/L Potassium 4.2 (3.5-5.1) mmol/L Chloride 97 L (98-107) mmol/L Carbon Dioxide 29 (22-30) mmol/L Anion Gap 7.7 (5-15) MEQ/L BUN 16 (7-17) mg/dL Creatinine 0.53 (0.52-1.04) mg/dL Estimated GFR > 60.0 ML/MIN Glucose 183 H (74-106) mg/dL POC Glucometer 142 H (74 to 106) mg/dL Calcium 8.6 (8.4-10.2) mg/dL Total Bilirubin 1.40 H (0.2-1.3) mg/dL AST 39 H (14-36) U/L ALT 27 (0-35) U/L Alkaline Phosphatase 58 (38-126) U/L Serum Total Protein 5.7 L (6.3-8.2) g/dL Albumin 3.4 L (3.5-5.0) g/dL 05/19/20 Range/Units 11:16 WBC (4.0-10.5) K/mm3 RBC (4.1-5.4) M/mm3 Hgb (12.0-16.0) gm/dl Hct (35-47) % MCV (78-100) fl MCH (26-32) pg MCHC (32-36) g/dl RDW (11.5-14.0) % Plt Count (150-450) K/mm3 MPV (7.5-11.0) fl Absolute Granulocytes (1.4-6.9) Segmented Neutrophils (36.0-66.0) % Band Neutrophils (0.0-2.0) % Lymphocytes (Manual) (24-44) % Metamyelocytes % Nucleated RBCs % Platelet Estimate (NORMAL) RBC Morphology Polychromasia Anisocytosis Macrocytosis Smear Path Review Sodium (137-145) mmol/L Potassium (3.5-5.1) mmol/L Chloride (98-107) mmol/L Carbon Dioxide (22-30) mmol/L Anion Gap (5-15) MEQ/L BUN (7-17) mg/dL Creatinine (0.52-1.04) mg/dL Estimated GFR ML/MIN Glucose (74-106) mg/dL POC Glucometer 192 H (74 to 106) mg/dL Calcium (8.4-10.2) mg/dL Total Bilirubin (0.2-1.3) mg/dL AST (14-36) U/L ALT (0-35) U/L Alkaline Phosphatase (38-126) U/L Serum Total Protein (6.3-8.2) g/dL Albumin (3.5-5.0) g/dL Radiology Exams: Radiology Procedures Category Date Time Status ABDOMEN AND PELVIS W CONTRAST [CT] DAILY Exams 05/18/20 08:45 Completed Multi-Disciplinary Progress Notes: Multi-Disciplinary Progress Notes 05/19/20 12:41 Case Management Note by Emerald Alberts DR. PLANS TO TRANSFER PATIENT D/T CONT'D LEUKOCYTOSIS- PATIENT INITALLY WAS ACCEPTED AT [facility] HOWEVER PATIENT REFUSED TO GO TO [facility]. PATIENT REQUESTED TO GO TO [facility]- DR. CLARK WAS NOTIFIED. PER JOHN- PATIENT HAS BEEN ACCEPTED AT [facility] AND WE ARE WAITING FOR A BED Initialized on 05/19/20 12:41 - END OF NOTE Assessment/Plan (1) Pulmonary fibrosis Current Visit: Yes Status: Acute Assessment & Plan: Patient was evaluated for this in [facility] by pulmonogist as reported by patient in 2015. Patient reported 1 follow up where she was told that her lungs were unchanged. She did not continue with follow up. Patient is not on any treatment and has not been following with any pulmonologists. Plan for patient to follow up with Dr Freeman following discharge. Patient is being weened of 1 liter of oxygen Code(s): J84.10 - PULMONARY FIBROSIS, UNSPECIFIED (2) Pneumonia Current Visit: Yes Status: Acute Qualifiers: Pneumonia type: due to unspecified organism Laterality: left Lung location: lower lobe of lung Qualified Code(s): J18.9 - Pneumonia, unspecified organism Assessment & Plan: Patient has had imaging that does not report infiltrate or lobar pneumonia. Patient is on levaquin to complete the course of antibiotics. Code(s): J18.9 - PNEUMONIA, UNSPECIFIED ORGANISM (3) COPD exacerbation Current Visit: Yes Status: Acute Assessment & Plan: More likely acute bronchitis. Patient has gotten breathing tx steroids and antibiotics for suspected COPD upon admission Code(s): J44.1 - CHRONIC OBSTRUCTIVE PULMONARY DISEASE W (ACUTE) EXACERBATION (4) Hyponatremia Current Visit: Yes Status: Acute Assessment & Plan: Nephro is being consulted as patient has not responded to normal saline and salt tablets. Want to avoid fluid overloading as patient has hx of CHF Code(s): E87.1 - HYPO-OSMOLALITY AND HYPONATREMIA (5) Hypokalemia Current Visit: Yes Status: Acute Assessment & Plan: Resolved patient received potassium repletion. Code(s): E87.6 - HYPOKALEMIA (6) CHF exacerbation Current Visit: Yes Status: Acute Assessment & Plan: Patient was becoming fluid overloaded and received Bumex instead of torsemide She is less short of breath Code(s): I50.9 - HEART FAILURE, UNSPECIFIED (7) Afib Current Visit: Yes Status: Acute Assessment & Plan: Patient has pacemaker and is on eliquis Code(s): I48.91 - UNSPECIFIED ATRIAL FIBRILLATION (8) Hypertension Current Visit: Yes Status: Acute Assessment & Plan: Patient is on higher dose of HTN meds then her usual home dose. Her increased bp likely related to steroids Code(s): I10 - ESSENTIAL (PRIMARY) HYPERTENSION (9) Headache Current Visit: Yes Status: Acute Assessment & Plan: Resolved following correction of elevated bp Code(s): R51 - HEADACHE (10) Anemia Current Visit: Yes Status: Acute Assessment & Plan: Patient's hgb is starting to trend down. Will continue to monitor. Could be partially dilutional from IV fluids however will monitor. Will order FOBT if they continue to trend down. Code(s): D64.9 - ANEMIA, UNSPECIFIED (11) Constipation Current Visit: Yes Status: Acute Assessment & Plan: Patient is on PRN stool softener. This is likely from the pain medication that patient was getting for chronic low back pain. Code(s): K59.00 - CONSTIPATION, UNSPECIFIED (12) Elevated d-dimer Current Visit: Yes Status: Acute Assessment & Plan: CTA ordered and was neg for PE Code(s): R79.89 - OTHER SPECIFIED ABNORMAL FINDINGS OF BLOOD CHEMISTRY (13) Leukocytosis Current Visit: Yes Status: Acute Assessment & Plan: Patient had jump in white count. It was determined that patient was still on IV steroids and that PO steroids had been added over the weekend. Patient is being tapered off of IV steroids and then will require PO steroid taper as well. Code(s): D72.829 - ELEVATED WHITE BLOOD CELL COUNT, UNSPECIFIED (14) Anxiety Current Visit: Yes Status: Acute Assessment & Plan: Patient is home meds that are not formulary so family brought from home. Code(s): F41.9 - ANXIETY DISORDER, UNSPECIFIED
[2020-05-19 15:50] VITALS: BP 133/91; PULSE 68
[2020-05-20] MEDS ORDERED: DELTASONE 10 MG PO SCH (10:00)
== END 2020-05-19 17:20 | DRG 196 ==
LOC: ED 20:04 → MED SURG 23:51 → OBSVTOIN 05-08 10:08
PROVIDERS: ADMIT Family Medicine; ATTEND Family Medicine
DX: J84.112 Idiopathic pulmonary fibrosis (principal); J18.9 Pneumonia, unspecified organism; J44.1 Chronic obstructive pulmonary disease with (acute) exacerbation; E87.1 Hypo-osmolality and hyponatremia; Z79.01 Long term (current) use of anticoagulants; Z79.899 Other long term (current) drug therapy; I25.10 Atherosclerotic heart disease of native coronary artery without angina pectoris; I10 Essential (primary) hypertension; E11.9 Type 2 diabetes mellitus without complications; J20.9 Acute bronchitis, unspecified; I48.91 Unspecified atrial fibrillation; E87.6 Hypokalemia; D72.89 Other specified disorders of white blood cells; I50.9 Heart failure, unspecified; D64.9 Anemia, unspecified; R79.89 Other specified abnormal findings of blood chemistry; K59.00 Constipation, unspecified; F41.9 Anxiety disorder, unspecified
CPT/HCPCS: 36415; 36430; 71045; 71046; 71260; 74177; 80048; 80053; 80198; 81001; 82533; 82962; 83036; 83605; 83735; 83880; 84132; 84300; 84443; 84484; 85014; 85018; 85025; 85027; 85379; 86850; 86900; 86901; 86922; 87040; 87077; 87086; 87631; 93005; 93041; 93306; 94150; 94640; 94667; 94668; 94760; 94762; 96365; 96367; 96374; 96375; 97110; 97161; 97165; 97530; 99291; G0008; G0378; P9016; U0003; 36000; 83930; 83935; 87070; 90662; 99285; J0280; J0456; J0696; J1817; J1940; J1956; J2270; J2405; J2920; J2930; J3480; J7609; A9270-GY

== ENCOUNTER 2021-01-19 14:39 | Observation (INO) | payer BC ==
[2021-01-19] MEDS ORDERED: Sodium Chloride 0.9% 1000 ML 1,000 ML IV STA (14:59)
[2021-01-19 15:09] LABS: Hematocrit 45.4 % (35-47); Hemoglobin 14.9 gm/dl (12.0-16.0); Mean Cell Volume 95.4 fl (78-100); Mean Corpuscular Hemoglobin 31.3 pg (26-32); Mean Corpuscular Hgb Concent. 32.8 g/dl (32-36); Mean Platelet Volume 10.6 fl (7.5-11.0); Platelet Count 248 K/mm3 (150-450); Red Blood Count 4.76 M/mm3 (4.1-5.4); Red Cell Distribution Width 13.3 % (11.5-14.0); White Blood Count 8.4 K/mm3 (4.0-10.5)
[2021-01-19] MEDS ORDERED: Sodium Chloride 0.9% 1000 ML 1,000 ML ONE (15:14)
[2021-01-19 15:18] LABS: ALBUMIN 4.8 g/dL (3.5-5.0); ALKALINE PHOSPHATASE 125 U/L (38-126); ANION GAP 13.6 MEQ/L (5-15); BLOOD UREA NITROGEN 10 mg/dL (7-17); CHLORIDE 96 mmol/L (98-107); Carbon Dioxide 29 mmol/L (22-30); Creatinine 1 0.86 mg/dL (0.52-1.04); EST GLOMERULAR FILTRATION RATE > 60.0 ML/MIN; Glucose 107 mg/dL (74-106); MAGNESIUM 1.8 mg/dL (1.6-2.3); Potassium 4.3 mmol/L (3.5-5.1); SGOT/AST 65 U/L (14-36); SGPT/ALT 61 U/L (0-35); SODIUM 135 mmol/L (137-145); Total Protein 8.1 g/dL (6.3-8.2)
--- NOTE | 2021-01-19 15:19 | XRAY ---
Indication: Dizziness. Comparison: May 17, 2020. Portable chest unchanged again demonstrating scattered fibrosis/scarring greatest lung bases. Heart remains borderline enlarged with left dual-lead pacemaker. Bony thorax intact again with osteopenia, degenerative changes, scoliosis, old right rib fractures, and bilateral calcified breast implants. Impression: Continued nonacute chest with chronic features.
--- NOTE | 2021-01-19 15:24 | ERPHSYRPT ---
- History of Present Illness Time Seen by Provider: 01/19/21 14:41 Source: patient Exam Limitations: no limitations Patient Subjective Stated Complaint: pt here by ambulance for dizziness, nausea and shakiness at home. Triage Nursing Assessment: pt alert, face mask in place, resp easy, skin w/d/p, she states no dizziness when laying still, Physician History: 70 years old female with history of atrial fibrillation on Eliquis pacemaker placement, congestive heart failure, hypertension, hyperlipidemia, hypothyroidism recent bilateral pneumonia is presented in the ER with sudden onset dizziness/lightheadedness while she was sitting, felt sweaty with mild shortness of breath with feeling as if she was going to pass out. She denies any chest pain or palpitations. It lasted for almost 15 to 20 minutes and started to improve and currently feeling much better. He denies any focal numbness tingling or weakness. No difficulty speech. No blurry vision. Does have shortness of breath at her baseline which is not worse than usual. No fever chills or sick contacts reported. She is feeling now fatigued tired, heather ined with no energy. Timing/Duration: hour(s) (1), constant, sudden, improved Severity: moderate Modifying Factors: Improves With: rest Associated Symptoms: nausea, No shortness of breath, No chest pain, No syncope Allergies/Adverse Reactions: Sulfa (Sulfonamide Antibiotics) Allergy (Severe, Verified 01/19/21 21:07) Itching pollen extracts Allergy (Mild, Verified 01/19/21 21:07) bacitracin [From Neosporin ([id number])] Allergy (Verified 01/19/21 21:07) neomycin [From Neosporin ([id number])] Allergy (Verified 01/19/21 21:07) polymyxin B [From Neosporin ([id number])] Allergy (Verified 01/19/21 21:07) Home Medications: Apixaban [Eliquis] 1 tab PO BID 05/06/20 [History] Atorvastatin Calcium 1 tab PO DAILY 05/06/20 [History] Brexpiprazole [Rexulti] 1 tab PO HS 05/06/20 [History] Diltiazem HCl [Cartia Xt] 0.5 tab PO DAILY 05/06/20 [History] Levothyroxine Sodium [Euthyrox] 1 tab PO DAILY 05/06/20 [History] Ropinirole 2Mg [Requip 2Mg Tab] 1 tab PO HS 05/06/20 [History] Torsemide 20 mg [Demadex 20 mg] 1 tab PO DAILY 05/06/20 [History] Vilazodone HCl [Viibryd] 40 mg PO HS 05/06/20 [History] Sodium Chloride [Saline Nasal [place]] 45 ml NS UD PRN 05/07/20 [History] Aspirin EC 81 mg [Ecotrin 81 mg] 81 mg PO DAILY 01/19/21 [History] Calcium Carb/Vitamin D 500 mg* [Calcium 500MG W/Vit D Tablet] 1 tab PO DAILY 01/19/21 [History] Calcium Carbonate/Vitamin D3 [Calcium 1,000 + D3 Caplet] 2 each PO DAILY 01/19/21 [History] Multivit with Calcium,Iron,Min [Multiple Vitamins For Women] 1 tab PO DAILY 12/06 [History] Hx Tetanus, Diphtheria Vaccination/Date Given: Yes Hx Influenza Vaccination/Date Given: Yes Hx Pneumococcal Vaccination/Date Given: Yes Immunizations Up to Date: No Travel Risk - International Travel Have you traveled outside of the country in past 3 weeks: No - Coronavirus Screening Are you exhibiting any of the following symptoms?: No Close contact with a COVID-19 positive Pt in past 14-21 Days: No - Vaccine Status Have you recieved a Covid-19 vaccination: No - Review of Systems Constitutional: Fatigue, Weakness Eyes: No Symptoms Ears, Nose, & Throat: No Symptoms Respiratory: Dyspnea, Wheezing Cardiac: No Symptoms Abdominal/Gastrointestinal: Nausea Genitourinary Symptoms: No Symptoms Musculoskeletal: No Symptoms Skin: No Symptoms Neurological: Dizziness Psychological: No Symptoms Endocrine: No Symptoms Hematologic/Lymphatic: No Symptoms Immunological/Allergic: No Symptoms - Past Medical History Pertinent Past Medical History: Yes Neurological History: Migraines ENT History: No Pertinent History Cardiac History: Arrhythmia, Congestive Heart Failure, High Cholesterol, Hypertension Respiratory History: Bronchitis, CHF, Pneumonia Endocrine Medical History: Hypothyroidism Musculoskeletal History: Arthritis GI Medical History: No Pertinent History History: No Pertinent History Psycho-Social History: Anxiety, Depression Female Reproductive Disorders: No Pertinent History Other Medical History: pulmunary fibrosis - Past Surgical History Past Surgical History: Yes Cardiac: Pacemaker, Other Gastrointestinal: No Pertinent History Genitourinary: No Pertinent History Musculoskeletal: No Pertinent History Female Surgical History: No Pertinent History Other Surgical History: ablasion not completed due to complications, had pacem chris placed instead, (cardiac arrest during heart surgery) - Social History Smoking Status: Former smoker Exposure to second hand smoke: No Drug Use: none Patient Lives Alone: Yes - Female History Hx Last Menstrual Period: post Hx Now: No - Nursing Vital Signs Nursing Vital Signs: Initial Vital Signs Temperature 97.6 F 01/19/21 14:40 Pulse Rate 65 01/19/21 14:40 Respiratory Rate 18 01/19/21 14:40 Blood Pressure 121/64 01/19/21 14:40 O2 Sat by Pulse Oximetry 98 01/19/21 14:40 Pain Scale Pain Intensity 0 - Physical Exam General Appearance: no apparent distress, alert, anxiety Eye Exam: PERRL/EOMI, eyes nml inspection Ears, Nose, Throat Exam: normal ENT inspection, TMs normal, pharynx normal, moist mucous membranes Neck Exam: normal inspection, non-tender, full range of motion Respiratory Exam: diminished breath sounds, wheezing, No chest tenderness Cardiovascular Exam: normal heart sounds, irregular Gastrointestinal/Abdomen Exam: soft, normal bowel sounds Back Exam: normal inspection, normal range of motion Extremity Exam: normal range of motion, pelvis stable Neurologic Exam: alert, oriented x 3, cooperative, 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 as tested, nml cerebellar function, sensation nml, No normal mood/affect, No motor deficits, No sensory deficit Skin Exam: normal color SpO2 Interpretation: normal SpO2: 98 O2 Delivery: Room Air Ordered Tests: Medication Summary Discontinued Medications Generic Name Dose Route Start Last Admin Trade Name Freq PRN Reason Stop Dose Admin Acetaminophen 650 mg 01/19/21 20:58 01/19/21 22:42 Tylenol 325 Mg PO 02/18/21 20:57 650 mg Q4H PRN PRN Administration PAIN AND/OR FEVER Hydrocodone Bitart/Acetaminophen 1 tab 01/20/21 08:00 01/20/21 08:39 [place] 5/325 Mg PO 01/25/21 07:59 1 tab Q4H PRN PRN Administration PAIN Albuterol/Ipratropium 3 ml 01/19/21 20:58 Duoneb 0.5-3 Mg/3 Ml Neb IH 02/18/21 20:57 Q4HPRN PRN SHORTNESS OF BREATH/WHEEZING Apixaban 5 mg 01/19/21 22:11 01/20/21 09:38 Eliquis 2.5 Mg Tablet PO 02/18/21 22:10 5 mg BID JOCELYN Administration Aspirin 81 mg 01/20/21 13:30 Ecotrin 81 Mg PO 02/19/21 13:29 DAILY [facility] Atorvastatin Calcium 80 mg 01/20/21 22:00 Lipitor 40mg PO 02/19/21 21:59 HS [facility] Calcium Carbonate 1 tab 01/20/21 13:30 Calcium 500mg W/Vit D Tablet PO 02/19/21 13:29 DAILY [facility] Diltiazem HCl 120 mg 01/20/21 13:30 Cardizem Cd 120 Mg PO 02/19/21 13:29 DAILY [facility] Diphenhydramine HCl 25 mg 01/20/21 03:25 01/20/21 11:00 Benadryl 25 Mg Capsule PO 02/19/21 03:24 25 mg Q4H PRN PRN Administration ITCHING Sodium Chloride 1,000 mls @ 999 mls/hr 01/19/21 14:59 01/19/21 17:24 Sodium Chloride 0.9% 1000 Ml IV 01/19/21 15:59 Infused .Q1H1M STA Infusion Sodium Chloride Confirm 01/19/21 15:14 Sodium Chloride 0.9% 1000 Ml Administered 01/19/21 15:15 Dose 1,000 mls @ ud .ROUTE .STK-MED ONE Levothyroxine Sodium 112 mcg 01/20/21 13:30 Synthroid 112 Mcg PO 02/19/21 13:29 DAILY [facility] Miscellaneous Information 0 each 01/20/21 13:30 Medication Intervention 02/19/21 13:29 .RN TO CHECK WITH PT [facility] Miscellaneous Information 0 each 01/20/21 13:45 Medication Intervention 02/19/21 13:44 .RN TO CHECK WITH PT [facility] Multivitamins Therapeutic 1 tab 01/20/21 13:30 Theragran Multivitamin PO 02/19/21 13:29 DAILY [facility] Non-Formulary Medication 2 each 01/21/21 10:00 Calcium Carbonate/Vitamin D3 [Calcium 1,000 + D3 Caplet] PO 02/20/21 09:59 DAILY JOCELYN Pantoprazole Sodium 40 mg 01/20/21 10:00 01/20/21 09:38 Protonix 40 Mg Iv IV 02/19/21 09:59 40 mg Q24H10 JOCELYN Administration Ropinirole HCl 2 mg 01/19/21 22:13 01/19/21 22:42 Requip 2mg Tab PO 02/18/21 22:12 2 mg HS JOCELYN Administration Sodium Chloride 0 ml 01/20/21 13:16 [place] Nasal [place] NS 02/19/21 13:15 UD PRN ALLERGIES Torsemide 20 mg 01/20/21 13:30 Demadex 20 Mg PO 02/19/21 13:29 DAILY JOCELYN Lab/Rad Data: Laboratory Result Diagrams 01/19/21 14:55 01/19/21 14:55 Laboratory Results 01/19/21 01/19/21 01/19/21 Range/Units 18:20 18:01 15:43 WBC (4.0-10.5) K/mm3 RBC (4.1-5.4) M/mm3 Hgb (12.0-16.0) gm/dl Hct (35-47) % MCV (78-100) fl MCH (26-32) pg MCHC (32-36) g/dl RDW (11.5-14.0) % Plt Count (150-450) K/mm3 MPV (7.5-11.0) fl Absolute Granulocytes (1.4-6.9) Segmented Neutrophils (36.0-66.0) % Band Neutrophils (0.0-2.0) % Lymphocytes (Manual) (24-44) % Monocytes (Manual) (0.0-12.0) % Eosinophils (Manual) (0.00-3.0) % Platelet Estimate (NORMAL) RBC Morphology Sodium (137-145) mmol/L Potassium (3.5-5.1) mmol/L Chloride (98-107) mmol/L Carbon Dioxide (22-30) mmol/L Anion Gap (5-15) MEQ/L BUN (7-17) mg/dL Creatinine (0.52-1.04) mg/dL Estimated GFR ML/MIN Glucose (74-106) mg/dL Calcium (8.4-10.2) mg/dL Magnesium (1.6-2.3) mg/dL Total Bilirubin (0.2-1.3) mg/dL AST (14-36) U/L ALT (0-35) U/L Alkaline Phosphatase (38-126) U/L Troponin I < 0.012 (0.000-0.034) ng/mL NT-Pro-B Natriuret Pep 804 (0-900) pg/mL Serum Total Protein (6.3-8.2) g/dL Albumin (3.5-5.0) g/dL Urine Color (YELLOW) Urine Appearance (CLEAR) Urine pH (5-6) Ur Specific [place] (1.005-1.025) Urine Protein (Negative) Urine Ketones (NEGATIVE) Urine Blood (0-5) Tom/ul Urine Nitrite (NEGATIVE) Urine Bilirubin (NEGATIVE) Urine Urobilinogen (0-1) mg/dL Ur Leukocyte Esterase (NEGATIVE) Urine WBC (Auto) (0-5) /HPF Urine RBC (Auto) (0-2) /HPF U Hyaline Cast (Auto) (0-2) /LPF U Epithel Cells (Auto) (FEW) /HPF Urine Bacteria (Auto) (NEGATIVE) /HPF Granular Casts (Auto) (NEGATIVE) /LPF Urine Culture Reflexed (NO) Urine Glucose (NEGATIVE) mg/dL SARS-CoV-2 (PCR) NEGATIVE (NEGATIVE) 01/19/21 01/19/21 01/19/21 Range/Units 14:59 14:55 14:55 WBC (4.0-10.5) K/mm3 RBC (4.1-5.4) M/mm3 Hgb (12.0-16.0) gm/dl Hct (35-47) % MCV (78-100) fl MCH (26-32) pg MCHC (32-36) g/dl RDW (11.5-14.0) % Plt Count (150-450) K/mm3 MPV (7.5-11.0) fl Absolute Granulocytes (1.4-6.9) Segmented Neutrophils (36.0-66.0) % Band Neutrophils (0.0-2.0) % Lymphocytes (Manual) (24-44) % Monocytes (Manual) (0.0-12.0) % Eosinophils (Manual) (0.00-3.0) % Platelet Estimate (NORMAL) RBC Morphology Sodium 135 L (137-145) mmol/L Potassium 4.3 (3.5-5.1) mmol/L Chloride 96 L (98-107) mmol/L Carbon Dioxide 29 (22-30) mmol/L Anion Gap 13.6 (5-15) MEQ/L BUN 10 (7-17) mg/dL Creatinine 0.86 (0.52-1.04) mg/dL Estimated GFR > 60.0 ML/MIN Glucose 107 H (74-106) mg/dL Calcium 10.0 (8.4-10.2) mg/dL Magnesium 1.8 (1.6-2.3) mg/dL Total Bilirubin 0.80 (0.2-1.3) mg/dL AST 65 H (14-36) U/L ALT 61 H (0-35) U/L Alkaline Phosphatase 125 (38-126) U/L Troponin I < 0.012 (0.000-0.034) ng/mL NT-Pro-B Natriuret Pep (0-900) pg/mL Serum Total Protein 8.1 (6.3-8.2) g/dL Albumin 4.8 (3.5-5.0) g/dL Urine Color STRAW (YELLOW) Urine Appearance CLEAR (CLEAR) Urine pH 6.0 (5-6) Ur Specific [place] 1.005 (1.005-1.025) Urine Protein NEGATIVE (Negative) Urine Ketones NEGATIVE (NEGATIVE) Urine Blood NEGATIVE (0-5) Tom/ul Urine Nitrite NEGATIVE (NEGATIVE) Urine Bilirubin NEGATIVE (NEGATIVE) Urine Urobilinogen NEGATIVE (0-1) mg/dL Ur Leukocyte Esterase NEGATIVE (NEGATIVE) Urine WBC (Auto) NONE SEEN (0-5) /HPF Urine RBC (Auto) NONE (0-2) /HPF U Hyaline Cast (Auto) 6-10 (0-2) /LPF U Epithel Cells (Auto) NONE (FEW) /HPF Urine Bacteria (Auto) NONE (NEGATIVE) /HPF Granular Casts (Auto) 5-10 (NEGATIVE) /LPF Urine Culture Reflexed NO (NO) Urine Glucose NEGATIVE (NEGATIVE) mg/dL SARS-CoV-2 (PCR) (NEGATIVE) 01/19/21 Range/Units 14:55 WBC 8.4 (4.0-10.5) K/mm3 RBC 4.76 (4.1-5.4) M/mm3 Hgb 14.9 (12.0-16.0) gm/dl Hct 45.4 (35-47) % MCV 95.4 (78-100) fl MCH 31.3 (26-32) pg MCHC 32.8 (32-36) g/dl RDW 13.3 (11.5-14.0) % Plt Count 248 (150-450) K/mm3 MPV 10.6 (7.5-11.0) fl Absolute Granulocytes 7.08 H (1.4-6.9) Segmented Neutrophils 77 H (36.0-66.0) % Band Neutrophils 7 H (0.0-2.0) % Lymphocytes (Manual) 9 L (24-44) % Monocytes (Manual) 3 (0.0-12.0) % Eosinophils (Manual) 4 H (0.00-3.0) % Platelet Estimate NORMAL (NORMAL) RBC Morphology NORMAL Sodium (137-145) mmol/L Potassium (3.5-5.1) mmol/L Chloride (98-107) mmol/L Carbon Dioxide (22-30) mmol/L Anion Gap (5-15) MEQ/L BUN (7-17) mg/dL Creatinine (0.52-1.04) mg/dL Estimated GFR ML/MIN Glucose (74-106) mg/dL Calcium (8.4-10.2) mg/dL Magnesium (1.6-2.3) mg/dL Total Bilirubin (0.2-1.3) mg/dL AST (14-36) U/L ALT (0-35) U/L Alkaline Phosphatase (38-126) U/L Troponin I (0.000-0.034) ng/mL NT-Pro-B Natriuret Pep (0-900) pg/mL Serum Total Protein (6.3-8.2) g/dL Albumin (3.5-5.0) g/dL Urine Color (YELLOW) Urine Appearance (CLEAR) Urine pH (5-6) Ur Specific [place] (1.005-1.025) Urine Protein (Negative) Urine Ketones (NEGATIVE) Urine Blood (0-5) Tom/ul Urine Nitrite (NEGATIVE) Urine Bilirubin (NEGATIVE) Urine Urobilinogen (0-1) mg/dL Ur Leukocyte Esterase (NEGATIVE) Urine WBC (Auto) (0-5) /HPF Urine RBC (Auto) (0-2) /HPF U Hyaline Cast (Auto) (0-2) /LPF U Epithel Cells (Auto) (FEW) /HPF Urine Bacteria (Auto) (NEGATIVE) /HPF Granular Casts (Auto) (NEGATIVE) /LPF Urine Culture Reflexed (NO) Urine Glucose (NEGATIVE) mg/dL SARS-CoV-2 (PCR) (NEGATIVE) - Progress Progress: improved, re-examined Progress Note: 01/19/21 17:28 70 years old is evaluated for sudden onset dizziness/lightheadedness with some chest discomfort/shortness of breath. Patient symptoms were much improved on presentation. EKG showed no acute ST elevations and negative initial troponins. She has negative orthostatics. Given a fluid bolus, reevaluation feeling much better. I have obtained CT head which is negative chest x-ray negative for any acute cardiopulmonary findings. No obvious electrolyte abnormality, mildly elevated liver enzymes. Patient still not back to her baseline. This could be cardio neurogenic, would benefit with observation, trending cardiac enzyme. Discussed with Dr. Franklin and patient is accepted for admission. Discussed with .: Riki Will see patient in: hospital (observation) Counseled pt/family regarding: lab results, diagnosis, rad results - Departure Departure Disposition: Observation Clinical Impression: Dizziness Condition: Stable Critical Care Time: No
[2021-01-19 15:34] LABS: BAND 7 % (0.0-2.0); Eosinophil 4 % (0.00-3.0); Lymphocytes 9 % (24-44); Monocyte 3 % (0.0-12.0); Neutrophils 77 % (36.0-66.0); Platelet Estimate NORMAL (NORMAL); Total Cells Counted 100
[2021-01-19 15:35] LABS: Absolute Neutrophil Ct (ANC) 7.08 (1.4-6.9)
--- NOTE | 2021-01-19 15:50 | XRAY ---
Indication: Dizziness. Multiple contiguous axial images obtained through the head without contrast. Comparison: None Age-appropriate global atrophy and mild periventricular degenerative micro-ischemia bilaterally. Bilateral basal ganglia remote lacunar infarcts. No acute intracranial hemorrhage, abnormal extra-axial fluid collection, or mass effect. Bony calvarium intact. Mild mucosal thickening both ethmoid and inferior right maxilla sinuses with previous right maxillary antrectomy. Mastoid air cells are clear. Impression: 1. Atrophy and degenerative micro-ischemia within normal limits for patient's age. Bilateral basal ganglia remote lacunar infarcts. 2. No acute intracranial abnormalities. 3. Incidental paranasal sinus disease.
[2021-01-19 16:36] LABS: Appearance CLEAR (CLEAR); Bilirubin NEGATIVE (NEGATIVE); Blood NEGATIVE Ery/ul (0-5); Glucose NEGATIVE (NEGATIVE); Ketones NEGATIVE (NEGATIVE); Leukocyte Esterase NEGATIVE (NEGATIVE); Nitrite NEGATIVE (NEGATIVE); Protein,Urine Dip NEGATIVE (Negative); Specific Gravity 1.005 (1.005-1.025); Urobilinogen NEGATIVE mg/dL (0-1)
[2021-01-19 16:38] LABS: WBC NONE SEEN /HPF (0-5)
[2021-01-19] MEDS ORDERED: DUONEB 0.5-3 MG/3 ml Neb IH PRN (20:58)
[2021-01-19] MEDS ORDERED: TYLENOL 325 MG PO PRN (20:58)
[2021-01-19] MEDS ORDERED: REQUIP 2MG TAB PO SCH (22:13)
[2021-01-19] MEDS: ELIQUIS 2.5 MG TABLET PO SCH (22:42)
[2021-01-20] MEDS: BENADRYL 25 MG CAPSULE PO PRN ×2 (03:32→11:00)
[2021-01-20 03:58] LABS: ALBUMIN 4.2 g/dL (3.5-5.0); ALKALINE PHOSPHATASE 105 U/L (38-126); ANION GAP 11.1 MEQ/L (5-15); BLOOD UREA NITROGEN 11 mg/dL (7-17); CHLORIDE 99 mmol/L (98-107); Calcium 9.2 mg/dL (8.4-10.2); Carbon Dioxide 28 mmol/L (22-30); Creatinine 1 0.67 mg/dL (0.52-1.04); EST GLOMERULAR FILTRATION RATE > 60.0 ML/MIN; Glucose 101 mg/dL (74-106); Potassium 3.7 mmol/L (3.5-5.1); SGOT/AST 69 U/L (14-36); SGPT/ALT 56 U/L (0-35); SODIUM 134 mmol/L (137-145); Total Protein 7.2 g/dL (6.3-8.2)
[2021-01-20 04:05] LABS: Hematocrit 43.7 % (35-47); Hemoglobin 13.8 gm/dl (12.0-16.0); Mean Cell Volume 96.9 fl (78-100); Mean Corpuscular Hemoglobin 30.6 pg (26-32); Mean Corpuscular Hgb Concent. 31.6 g/dl (32-36); Mean Platelet Volume 10.6 fl (7.5-11.0); Platelet Count 256 K/mm3 (150-450); Red Blood Count 4.51 M/mm3 (4.1-5.4); Red Cell Distribution Width 13.5 % (11.5-14.0); White Blood Count 7.5 K/mm3 (4.0-10.5)
[2021-01-20 05:39] LABS: Eosinophil 9 % (0.00-3.0); Lymphocytes 28 % (24-44); Monocyte 4 % (0.0-12.0); Neutrophils 59 % (36.0-66.0); Platelet Estimate NORMAL (NORMAL); Total Cells Counted 100
[2021-01-20] MEDS ORDERED: NORCO 5/325 MG PO PRN (08:00)
[2021-01-20] MEDS: ELIQUIS 2.5 MG TABLET PO SCH (09:38)
[2021-01-20] MEDS ORDERED: PROTONIX 40 MG IV IV SCH (10:00)
[2021-01-20 11:47] VITALS: BP 146/71
--- NOTE | 2021-01-20 12:06 | PCM.SSS ---
History of Present Illness - Chief Complaint Chief Complaint: Dizziness History of Present Illness: is a 70 year old female who had an episode of feeling dizzy, hot and short of breath, it resolved after 10-15 minutes. there was no LOC, her symptoms began after a long spell being out in the heat and playing outside with a young grandchild. she denies any chest pain or shortness of breath. - Review of Systems Constitutional: No Fever, No Chills Respiratory: No Cough, No Short Of Breath Cardiac: No Chest Pain, No Edema, No Syncope Abdominal/Gastrointestinal: No Abdominal Pain, No Nausea, No Vomiting, No Diarrhea Neurological: Dizziness (resolved), No Focal Weakness, No Gait Changes All Other Systems: Reviewed and Negative Medications & Allergies Home Medications: Home Medication List Apixaban [Eliquis] 1 tab PO BID 05/06/20 [History Confirmed 01/19/21] Atorvastatin Calcium 1 tab PO DAILY 05/06/20 [History Confirmed 01/19/21] Brexpiprazole [Rexulti] 1 tab PO HS 05/06/20 [History Confirmed 01/19/21] Diltiazem HCl [Cartia Xt] 0.5 tab PO DAILY 05/06/20 [History Confirmed 01/19/21] Levothyroxine Sodium [Euthyrox] 1 tab PO DAILY 05/06/20 [History Confirmed 01/19/21] Ropinirole 2Mg [Requip 2Mg Tab] 1 tab PO HS 05/06/20 [History Confirmed 01/19/21] Torsemide 20 mg [Demadex 20 mg] 1 tab PO DAILY 05/06/20 [History Confirmed 01/19/21] Vilazodone HCl [Viibryd] 40 mg PO HS 05/06/20 [History Confirmed 01/19/21] Sodium Chloride [Saline Nasal Purlear] 45 ml NS UD PRN 05/07/20 [History Confirmed 01/19/21] Aspirin EC 81 mg [Ecotrin 81 mg] 81 mg PO DAILY 01/19/21 [History Confirmed 01/19/21] Calcium Carb/Vitamin D 500 mg* [Calcium 500MG W/Vit D Tablet] 1 tab PO DAILY 01/19/21 [History Confirmed 01/19/21] Calcium Carbonate/Vitamin D3 [Calcium 1,000 + D3 Caplet] 2 each PO DAILY 01/19/21 [History Confirmed 01/19/21] Multivit with Calcium,Iron,Min [Multiple Vitamins For Women] 1 tab PO DAILY 01/19/21 [History Confirmed 01/19/21] Allergies/Adverse Reactions: Allergies Allergy/AdvReac Type Severity Reaction Status Date / Time Sulfa (Sulfonamide Allergy Severe Itching Verified 01/19/21 21:07 Antibiotics) pollen extracts Allergy Mild Verified 01/19/21 21:07 bacitracin Allergy Verified 01/19/21 21:07 [From Neosporin ([id number])] neomycin Allergy Verified 01/19/21 21:07 [From Neosporin ([id number])] polymyxin B Allergy Verified 01/19/21 21:07 [From Neosporin ([id number])] - Past Medical History Past Medical History: Yes Neurological History: Migraines ENT History: No Pertinent History Cardiac History: Arrhythmia, Congestive Heart Failure, High Cholesterol, Hypertension Respiratory History: Bronchitis, CHF, Pneumonia Endocrine Medical History: Diabetes Type II, Hypothyroidism Musculoskelatal History: Arthritis, Fractures GI Medical History: No Pertinent History History: No Pertinent History Pyscho-Social History: Depression Reproductive Disorders: No Pertinent History Comment: pulmunary fibrosis, 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 - Female History Hx Last Menstrual Period: post Are you now?: No - Past Surgical History Past Surgical History: Yes Neuro Surgical History: No Pertinent History Cardiac History: Pacemaker, Other GI Surgical History: No Pertinent History Genitourinary Surgical Hx: No Pertinent History Musculskeletal Surgical Hx: No Pertinent History Female Surgical History: No Pertinent History Other Surgical History: ablasion not completed due to complications, had pacemaker placed instead, (cardiac arrest during heart surgery) - Social History Smoking Status: Former smoker Exposure to second hand smoke: No Alcohol: None Drug Use: none - Physical Exam Vital Signs: Vital Signs - 24 hr Temp Pulse Resp BP Pulse Ox 01/20/21 11:44 99.0 F 69 18 146/71 96 01/20/21 08:00 97.8 F 76 16 133/69 95 01/20/21 04:00 97.5 F 71 18 131/60 94 L 01/19/21 23:55 97.4 F 81 20 140/78 94 L 01/19/21 23:30 64 20 93 L 01/19/21 21:34 98.4 F 69 18 112/56 95 01/19/21 18:03 97.6 F 65 20 107/52 98 01/19/21 17:30 98 01/19/21 16:07 97.6 F 62 20 138/73 98 01/19/21 14:40 97.6 F 65 18 121/64 98 General Appearance: no apparent distress, alert Neurologic Exam: alert, oriented x 3, cooperative, normal mood/affect, nml cerebellar function, nml station & gait, sensation nml, No motor deficits Neck Exam: normal inspection, non-tender, supple, full range of motion Respiratory Exam: normal breath sounds, lungs clear, No respiratory distress Cardiovascular Exam: regular rate/rhythm, normal heart sounds, normal peripheral pulses Extremity Exam: normal inspection, normal range of motion, pelvis stable Skin Exam: normal color, warm, dry, No rash Results - Labs Lab/Micro Results: Lab Results-Last 24 Hours 01/19/21 01/19/21 01/19/21 Range/Units 14:55 14:55 14:55 WBC 8.4 (4.0-10.5) K/mm3 RBC 4.76 (4.1-5.4) M/mm3 Hgb 14.9 (12.0-16.0) gm/dl Hct 45.4 (35-47) % MCV 95.4 (78-100) fl MCH 31.3 (26-32) pg MCHC 32.8 (32-36) g/dl RDW 13.3 (11.5-14.0) % Plt Count 248 (150-450) K/mm3 MPV 10.6 (7.5-11.0) fl Absolute Granulocytes 7.08 H (1.4-6.9) Segmented Neutrophils 77 H (36.0-66.0) % Band Neutrophils 7 H (0.0-2.0) % Lymphocytes (Manual) 9 L (24-44) % Monocytes (Manual) 3 (0.0-12.0) % Eosinophils (Manual) 4 H (0.00-3.0) % Platelet Estimate NORMAL (NORMAL) RBC Morphology NORMAL Sodium 135 L (137-145) mmol/L Potassium 4.3 (3.5-5.1) mmol/L Chloride 96 L (98-107) mmol/L Carbon Dioxide 29 (22-30) mmol/L Anion Gap 13.6 (5-15) MEQ/L BUN 10 (7-17) mg/dL Creatinine 0.86 (0.52-1.04) mg/dL Estimated GFR > 60.0 ML/MIN Glucose 107 H (74-106) mg/dL POC Glucometer (74 to 106) mg/dL Calcium 10.0 (8.4-10.2) mg/dL Magnesium 1.8 (1.6-2.3) mg/dL Total Bilirubin 0.80 (0.2-1.3) mg/dL AST 65 H (14-36) U/L ALT 61 H (0-35) U/L Alkaline Phosphatase 125 (38-126) U/L Troponin I < 0.012 (0.000-0.034) ng/mL NT-Pro-B Natriuret Pep (0-900) pg/mL Serum Total Protein 8.1 (6.3-8.2) g/dL Albumin 4.8 (3.5-5.0) g/dL Urine Color (YELLOW) Urine Appearance (CLEAR) Urine pH (5-6) Ur Specific [place] (1.005-1.025) Urine Protein (Negative) Urine Ketones (NEGATIVE) Urine Blood (0-5) Tom/ul Urine Nitrite (NEGATIVE) Urine Bilirubin (NEGATIVE) Urine Urobilinogen (0-1) mg/dL Ur Leukocyte Esterase (NEGATIVE) Urine WBC (Auto) (0-5) /HPF Urine RBC (Auto) (0-2) /HPF U Hyaline Cast (Auto) (0-2) /LPF U Epithel Cells (Auto) (FEW) /HPF Urine Bacteria (Auto) (NEGATIVE) /HPF Granular Casts (Auto) (NEGATIVE) /LPF Urine Culture Reflexed (NO) Urine Glucose (NEGATIVE) mg/dL SARS-CoV-2 (PCR) (NEGATIVE) 01/19/21 01/19/21 01/19/21 Range/Units 14:59 15:43 18:01 WBC (4.0-10.5) K/mm3 RBC (4.1-5.4) M/mm3 Hgb (12.0-16.0) gm/dl Hct (35-47) % MCV (78-100) fl MCH (26-32) pg MCHC (32-36) g/dl RDW (11.5-14.0) % Plt Count (150-450) K/mm3 MPV (7.5-11.0) fl Absolute Granulocytes (1.4-6.9) Segmented Neutrophils (36.0-66.0) % Band Neutrophils (0.0-2.0) % Lymphocytes (Manual) (24-44) % Monocytes (Manual) (0.0-12.0) % Eosinophils (Manual) (0.00-3.0) % Platelet Estimate (NORMAL) RBC Morphology Sodium (137-145) mmol/L Potassium (3.5-5.1) mmol/L Chloride (98-107) mmol/L Carbon Dioxide (22-30) mmol/L Anion Gap (5-15) MEQ/L BUN (7-17) mg/dL Creatinine (0.52-1.04) mg/dL Estimated GFR ML/MIN Glucose (74-106) mg/dL POC Glucometer (74 to 106) mg/dL Calcium (8.4-10.2) mg/dL Magnesium (1.6-2.3) mg/dL Total Bilirubin (0.2-1.3) mg/dL AST (14-36) U/L ALT (0-35) U/L Alkaline Phosphatase (38-126) U/L Troponin I (0.000-0.034) ng/mL NT-Pro-B Natriuret Pep 804 (0-900) pg/mL Serum Total Protein (6.3-8.2) g/dL Albumin (3.5-5.0) g/dL Urine Color STRAW (YELLOW) Urine Appearance CLEAR (CLEAR) Urine pH 6.0 (5-6) Ur Specific [place] 1.005 (1.005-1.025) Urine Protein NEGATIVE (Negative) Urine Ketones NEGATIVE (NEGATIVE) Urine Blood NEGATIVE (0-5) Tom/ul Urine Nitrite NEGATIVE (NEGATIVE) Urine Bilirubin NEGATIVE (NEGATIVE) Urine Urobilinogen NEGATIVE (0-1) mg/dL Ur Leukocyte Esterase NEGATIVE (NEGATIVE) Urine WBC (Auto) NONE SEEN (0-5) /HPF Urine RBC (Auto) NONE (0-2) /HPF U Hyaline Cast (Auto) 6-10 (0-2) /LPF U Epithel Cells (Auto) NONE (FEW) /HPF Urine Bacteria (Auto) NONE (NEGATIVE) /HPF Granular Casts (Auto) 5-10 (NEGATIVE) /LPF Urine Culture Reflexed NO (NO) Urine Glucose NEGATIVE (NEGATIVE) mg/dL SARS-CoV-2 (PCR) NEGATIVE (NEGATIVE) 01/19/21 01/19/21 01/20/21 Range/Units 18:20 21:15 00:15 WBC (4.0-10.5) K/mm3 RBC (4.1-5.4) M/mm3 Hgb (12.0-16.0) gm/dl Hct (35-47) % MCV (78-100) fl MCH (26-32) pg MCHC (32-36) g/dl RDW (11.5-14.0) % Plt Count (150-450) K/mm3 MPV (7.5-11.0) fl Absolute Granulocytes (1.4-6.9) Segmented Neutrophils (36.0-66.0) % Band Neutrophils (0.0-2.0) % Lymphocytes (Manual) (24-44) % Monocytes (Manual) (0.0-12.0) % Eosinophils (Manual) (0.00-3.0) % Platelet Estimate (NORMAL) RBC Morphology Sodium (137-145) mmol/L Potassium (3.5-5.1) mmol/L Chloride (98-107) mmol/L Carbon Dioxide (22-30) mmol/L Anion Gap (5-15) MEQ/L BUN (7-17) mg/dL Creatinine (0.52-1.04) mg/dL Estimated GFR ML/MIN Glucose (74-106) mg/dL POC Glucometer (74 to 106) mg/dL Calcium (8.4-10.2) mg/dL Magnesium (1.6-2.3) mg/dL Total Bilirubin (0.2-1.3) mg/dL AST (14-36) U/L ALT (0-35) U/L Alkaline Phosphatase (38-126) U/L Troponin I < 0.012 < 0.012 < 0.012 (0.000-0.034) ng/mL NT-Pro-B Natriuret Pep (0-900) pg/mL Serum Total Protein (6.3-8.2) g/dL Albumin (3.5-5.0) g/dL Urine Color (YELLOW) Urine Appearance (CLEAR) Urine pH (5-6) Ur Specific [place] (1.005-1.025) Urine Protein (Negative) Urine Ketones (NEGATIVE) Urine Blood (0-5) Tom/ul Urine Nitrite (NEGATIVE) Urine Bilirubin (NEGATIVE) Urine Urobilinogen (0-1) mg/dL Ur Leukocyte Esterase (NEGATIVE) Urine WBC (Auto) (0-5) /HPF Urine RBC (Auto) (0-2) /HPF U Hyaline Cast (Auto) (0-2) /LPF U Epithel Cells (Auto) (FEW) /HPF Urine Bacteria (Auto) (NEGATIVE) /HPF Granular Casts (Auto) (NEGATIVE) /LPF Urine Culture Reflexed (NO) Urine Glucose (NEGATIVE) mg/dL SARS-CoV-2 (PCR) (NEGATIVE) 01/20/21 01/20/21 01/20/21 Range/Units 03:35 03:35 03:35 WBC 7.5 (4.0-10.5) K/mm3 RBC 4.51 (4.1-5.4) M/mm3 Hgb 13.8 (12.0-16.0) gm/dl Hct 43.7 (35-47) % MCV 96.9 (78-100) fl MCH 30.6 (26-32) pg MCHC 31.6 L (32-36) g/dl RDW 13.5 (11.5-14.0) % Plt Count 256 (150-450) K/mm3 MPV 10.6 (7.5-11.0) fl Absolute Granulocytes (1.4-6.9) Segmented Neutrophils 59 (36.0-66.0) % Band Neutrophils (0.0-2.0) % Lymphocytes (Manual) 28 (24-44) % Monocytes (Manual) 4 (0.0-12.0) % Eosinophils (Manual) 9 H (0.00-3.0) % Platelet Estimate NORMAL (NORMAL) RBC Morphology NORMAL Sodium 134 L (137-145) mmol/L Potassium 3.7 (3.5-5.1) mmol/L Chloride 99 (98-107) mmol/L Carbon Dioxide 28 (22-30) mmol/L Anion Gap 11.1 (5-15) MEQ/L BUN 11 (7-17) mg/dL Creatinine 0.67 (0.52-1.04) mg/dL Estimated GFR > 60.0 ML/MIN Glucose 101 (74-106) mg/dL POC Glucometer (74 to 106) mg/dL Calcium 9.2 (8.4-10.2) mg/dL Magnesium (1.6-2.3) mg/dL Total Bilirubin 0.40 (0.2-1.3) mg/dL AST 69 H (14-36) U/L ALT 56 H (0-35) U/L Alkaline Phosphatase 105 (38-126) U/L Troponin I < 0.012 (0.000-0.034) ng/mL NT-Pro-B Natriuret Pep (0-900) pg/mL Serum Total Protein 7.2 (6.3-8.2) g/dL Albumin 4.2 (3.5-5.0) g/dL Urine Color (YELLOW) Urine Appearance (CLEAR) Urine pH (5-6) Ur Specific [place] (1.005-1.025) Urine Protein (Negative) Urine Ketones (NEGATIVE) Urine Blood (0-5) Tom/ul Urine Nitrite (NEGATIVE) Urine Bilirubin (NEGATIVE) Urine Urobilinogen (0-1) mg/dL Ur Leukocyte Esterase (NEGATIVE) Urine WBC (Auto) (0-5) /HPF Urine RBC (Auto) (0-2) /HPF U Hyaline Cast (Auto) (0-2) /LPF U Epithel Cells (Auto) (FEW) /HPF Urine Bacteria (Auto) (NEGATIVE) /HPF Granular Casts (Auto) (NEGATIVE) /LPF Urine Culture Reflexed (NO) Urine Glucose (NEGATIVE) mg/dL SARS-CoV-2 (PCR) (NEGATIVE) 01/20/21 01/20/21 Range/Units 07:06 11:53 WBC (4.0-10.5) K/mm3 RBC (4.1-5.4) M/mm3 Hgb (12.0-16.0) gm/dl Hct (35-47) % MCV (78-100) fl MCH (26-32) pg MCHC (32-36) g/dl RDW (11.5-14.0) % Plt Count (150-450) K/mm3 MPV (7.5-11.0) fl Absolute Granulocytes (1.4-6.9) Segmented Neutrophils (36.0-66.0) % Band Neutrophils (0.0-2.0) % Lymphocytes (Manual) (24-44) % Monocytes (Manual) (0.0-12.0) % Eosinophils (Manual) (0.00-3.0) % Platelet Estimate (NORMAL) RBC Morphology Sodium (137-145) mmol/L Potassium (3.5-5.1) mmol/L Chloride (98-107) mmol/L Carbon Dioxide (22-30) mmol/L Anion Gap (5-15) MEQ/L BUN (7-17) mg/dL Creatinine (0.52-1.04) mg/dL Estimated GFR ML/MIN Glucose (74-106) mg/dL POC Glucometer 96 88 (74 to 106) mg/dL Calcium (8.4-10.2) mg/dL Magnesium (1.6-2.3) mg/dL Total Bilirubin (0.2-1.3) mg/dL AST (14-36) U/L ALT (0-35) U/L Alkaline Phosphatase (38-126) U/L Troponin I (0.000-0.034) ng/mL NT-Pro-B Natriuret Pep (0-900) pg/mL Serum Total Protein (6.3-8.2) g/dL Albumin (3.5-5.0) g/dL Urine Color (YELLOW) Urine Appearance (CLEAR) Urine pH (5-6) Ur Specific [place] (1.005-1.025) Urine Protein (Negative) Urine Ketones (NEGATIVE) Urine Blood (0-5) Tom/ul Urine Nitrite (NEGATIVE) Urine Bilirubin (NEGATIVE) Urine Urobilinogen (0-1) mg/dL Ur Leukocyte Esterase (NEGATIVE) Urine WBC (Auto) (0-5) /HPF Urine RBC (Auto) (0-2) /HPF U Hyaline Cast (Auto) (0-2) /LPF U Epithel Cells (Auto) (FEW) /HPF Urine Bacteria (Auto) (NEGATIVE) /HPF Granular Casts (Auto) (NEGATIVE) /LPF Urine Culture Reflexed (NO) Urine Glucose (NEGATIVE) mg/dL SARS-CoV-2 (PCR) (NEGATIVE) Accuchecks Date 01/20/21 Date 01/19/21 Time 14:30 - Radiology Impressions Radiology Exams & Impressions: Radiology Procedures Category Date Time Status CHEST 1 VIEW (PORTABLE) Stat Exams 01/19/21 14:59 Completed HEAD WITHOUT CONTRAST [CT] Stat Exams 01/19/21 15:39 Completed - Other Procedures and Tests Respiratory Therapy 01/20/21 00:30 Respiratory Therapy Assessment DAILY Assessment/Plan (1) Near syncope Current Visit: Yes Status: Acute Assessment & Plan: appears to be related to heat exposure in conjunction with diuretic use, rate has been stable and no problems or concerns today. advised to stay cool, push fluids and f/u with Dr Brewer this week in office (2) Dizziness Current Visit: Yes Status: Acute Code(s): R42 - DIZZINESS AND GIDDINESS (3) Afib Current Visit: No Status: Acute Assessment & Plan: rate controlled, paced rhythm and on eliquis. no changes Code(s): I48.91 - UNSPECIFIED ATRIAL FIBRILLATION (4) CHF (congestive heart failure) Current Visit: No Status: Acute Code(s): I50.9 - HEART FAILURE, UNSPECIFIED Hospital Summary - Vitals & Intake/Output Vital Signs: Vital Signs Temperature 99.0 F 01/20/21 11:44 Pulse Rate 69 01/20/21 11:44 Respiratory Rate 18 01/20/21 11:44 Blood Pressure 146/71 01/20/21 11:44 O2 Sat by Pulse Oximetry 96 01/20/21 11:44 Intake & Output: Intake & Output 01/18/21 01/19/21 01/20/21 01/21/21 11:59 11:59 11:59 11:59 Intake Total 920 Output Total 300 Balance 620 Weight 83.1 kg - Lab Result Diagrams: 01/20/21 03:35 01/20/21 03:35 Lab Results-Last 24 Hrs: Lab Results-Last 24 Hours 01/19/21 01/19/21 01/19/21 Range/Units 14:55 14:55 14:55 WBC 8.4 (4.0-10.5) K/mm3 RBC 4.76 (4.1-5.4) M/mm3 Hgb 14.9 (12.0-16.0) gm/dl Hct 45.4 (35-47) % MCV 95.4 (78-100) fl MCH 31.3 (26-32) pg MCHC 32.8 (32-36) g/dl RDW 13.3 (11.5-14.0) % Plt Count 248 (150-450) K/mm3 MPV 10.6 (7.5-11.0) fl Absolute Granulocytes 7.08 H (1.4-6.9) Segmented Neutrophils 77 H (36.0-66.0) % Band Neutrophils 7 H (0.0-2.0) % Lymphocytes (Manual) 9 L (24-44) % Monocytes (Manual) 3 (0.0-12.0) % Eosinophils (Manual) 4 H (0.00-3.0) % Platelet Estimate NORMAL (NORMAL) RBC Morphology NORMAL Sodium 135 L (137-145) mmol/L Potassium 4.3 (3.5-5.1) mmol/L Chloride 96 L (98-107) mmol/L Carbon Dioxide 29 (22-30) mmol/L Anion Gap 13.6 (5-15) MEQ/L BUN 10 (7-17) mg/dL Creatinine 0.86 (0.52-1.04) mg/dL Estimated GFR > 60.0 ML/MIN Glucose 107 H (74-106) mg/dL POC Glucometer (74 to 106) mg/dL Calcium 10.0 (8.4-10.2) mg/dL Magnesium 1.8 (1.6-2.3) mg/dL Total Bilirubin 0.80 (0.2-1.3) mg/dL AST 65 H (14-36) U/L ALT 61 H (0-35) U/L Alkaline Phosphatase 125 (38-126) U/L Troponin I < 0.012 (0.000-0.034) ng/mL NT-Pro-B Natriuret Pep (0-900) pg/mL Serum Total Protein 8.1 (6.3-8.2) g/dL Albumin 4.8 (3.5-5.0) g/dL Urine Color (YELLOW) Urine Appearance (CLEAR) Urine pH (5-6) Ur Specific [place] (1.005-1.025) Urine Protein (Negative) Urine Ketones (NEGATIVE) Urine Blood (0-5) Tom/ul Urine Nitrite (NEGATIVE) Urine Bilirubin (NEGATIVE) Urine Urobilinogen (0-1) mg/dL Ur Leukocyte Esterase (NEGATIVE) Urine WBC (Auto) (0-5) /HPF Urine RBC (Auto) (0-2) /HPF U Hyaline Cast (Auto) (0-2) /LPF U Epithel Cells (Auto) (FEW) /HPF Urine Bacteria (Auto) (NEGATIVE) /HPF Granular Casts (Auto) (NEGATIVE) /LPF Urine Culture Reflexed (NO) Urine Glucose (NEGATIVE) mg/dL SARS-CoV-2 (PCR) (NEGATIVE) 01/19/21 01/19/21 01/19/21 Range/Units 14:59 15:43 18:01 WBC (4.0-10.5) K/mm3 RBC (4.1-5.4) M/mm3 Hgb (12.0-16.0) gm/dl Hct (35-47) % MCV (78-100) fl MCH (26-32) pg MCHC (32-36) g/dl RDW (11.5-14.0) % Plt Count (150-450) K/mm3 MPV (7.5-11.0) fl Absolute Granulocytes (1.4-6.9) Segmented Neutrophils (36.0-66.0) % Band Neutrophils (0.0-2.0) % Lymphocytes (Manual) (24-44) % Monocytes (Manual) (0.0-12.0) % Eosinophils (Manual) (0.00-3.0) % Platelet Estimate (NORMAL) RBC Morphology Sodium (137-145) mmol/L Potassium (3.5-5.1) mmol/L Chloride (98-107) mmol/L Carbon Dioxide (22-30) mmol/L Anion Gap (5-15) MEQ/L BUN (7-17) mg/dL Creatinine (0.52-1.04) mg/dL Estimated GFR ML/MIN Glucose (74-106) mg/dL POC Glucometer (74 to 106) mg/dL Calcium (8.4-10.2) mg/dL Magnesium (1.6-2.3) mg/dL Total Bilirubin (0.2-1.3) mg/dL AST (14-36) U/L ALT (0-35) U/L Alkaline Phosphatase (38-126) U/L Troponin I (0.000-0.034) ng/mL NT-Pro-B Natriuret Pep 804 (0-900) pg/mL Serum Total Protein (6.3-8.2) g/dL Albumin (3.5-5.0) g/dL Urine Color STRAW (YELLOW) Urine Appearance CLEAR (CLEAR) Urine pH 6.0 (5-6) Ur Specific [place] 1.005 (1.005-1.025) Urine Protein NEGATIVE (Negative) Urine Ketones NEGATIVE (NEGATIVE) Urine Blood NEGATIVE (0-5) Tom/ul Urine Nitrite NEGATIVE (NEGATIVE) Urine Bilirubin NEGATIVE (NEGATIVE) Urine Urobilinogen NEGATIVE (0-1) mg/dL Ur Leukocyte Esterase NEGATIVE (NEGATIVE) Urine WBC (Auto) NONE SEEN (0-5) /HPF Urine RBC (Auto) NONE (0-2) /HPF U Hyaline Cast (Auto) 6-10 (0-2) /LPF U Epithel Cells (Auto) NONE (FEW) /HPF Urine Bacteria (Auto) NONE (NEGATIVE) /HPF Granular Casts (Auto) 5-10 (NEGATIVE) /LPF Urine Culture Reflexed NO (NO) Urine Glucose NEGATIVE (NEGATIVE) mg/dL SARS-CoV-2 (PCR) NEGATIVE (NEGATIVE) 01/19/21 01/19/21 01/20/21 Range/Units 18:20 21:15 00:15 WBC (4.0-10.5) K/mm3 RBC (4.1-5.4) M/mm3 Hgb (12.0-16.0) gm/dl Hct (35-47) % MCV (78-100) fl MCH (26-32) pg MCHC (32-36) g/dl RDW (11.5-14.0) % Plt Count (150-450) K/mm3 MPV (7.5-11.0) fl Absolute Granulocytes (1.4-6.9) Segmented Neutrophils (36.0-66.0) % Band Neutrophils (0.0-2.0) % Lymphocytes (Manual) (24-44) % Monocytes (Manual) (0.0-12.0) % Eosinophils (Manual) (0.00-3.0) % Platelet Estimate (NORMAL) RBC Morphology Sodium (137-145) mmol/L Potassium (3.5-5.1) mmol/L Chloride (98-107) mmol/L Carbon Dioxide (22-30) mmol/L Anion Gap (5-15) MEQ/L BUN (7-17) mg/dL Creatinine (0.52-1.04) mg/dL Estimated GFR ML/MIN Glucose (74-106) mg/dL POC Glucometer (74 to 106) mg/dL Calcium (8.4-10.2) mg/dL Magnesium (1.6-2.3) mg/dL Total Bilirubin (0.2-1.3) mg/dL AST (14-36) U/L ALT (0-35) U/L Alkaline Phosphatase (38-126) U/L Troponin I < 0.012 < 0.012 < 0.012 (0.000-0.034) ng/mL NT-Pro-B Natriuret Pep (0-900) pg/mL Serum Total Protein (6.3-8.2) g/dL Albumin (3.5-5.0) g/dL Urine Color (YELLOW) Urine Appearance (CLEAR) Urine pH (5-6) Ur Specific [place] (1.005-1.025) Urine Protein (Negative) Urine Ketones (NEGATIVE) Urine Blood (0-5) Tom/ul Urine Nitrite (NEGATIVE) Urine Bilirubin (NEGATIVE) Urine Urobilinogen (0-1) mg/dL Ur Leukocyte Esterase (NEGATIVE) Urine WBC (Auto) (0-5) /HPF Urine RBC (Auto) (0-2) /HPF U Hyaline Cast (Auto) (0-2) /LPF U Epithel Cells (Auto) (FEW) /HPF Urine Bacteria (Auto) (NEGATIVE) /HPF Granular Casts (Auto) (NEGATIVE) /LPF Urine Culture Reflexed (NO) Urine Glucose (NEGATIVE) mg/dL SARS-CoV-2 (PCR) (NEGATIVE) 01/20/21 01/20/21 01/20/21 Range/Units 03:35 03:35 03:35 WBC 7.5 (4.0-10.5) K/mm3 RBC 4.51 (4.1-5.4) M/mm3 Hgb 13.8 (12.0-16.0) gm/dl Hct 43.7 (35-47) % MCV 96.9 (78-100) fl MCH 30.6 (26-32) pg MCHC 31.6 L (32-36) g/dl RDW 13.5 (11.5-14.0) % Plt Count 256 (150-450) K/mm3 MPV 10.6 (7.5-11.0) fl Absolute Granulocytes (1.4-6.9) Segmented Neutrophils 59 (36.0-66.0) % Band Neutrophils (0.0-2.0) % Lymphocytes (Manual) 28 (24-44) % Monocytes (Manual) 4 (0.0-12.0) % Eosinophils (Manual) 9 H (0.00-3.0) % Platelet Estimate NORMAL (NORMAL) RBC Morphology NORMAL Sodium 134 L (137-145) mmol/L Potassium 3.7 (3.5-5.1) mmol/L Chloride 99 (98-107) mmol/L Carbon Dioxide 28 (22-30) mmol/L Anion Gap 11.1 (5-15) MEQ/L BUN 11 (7-17) mg/dL Creatinine 0.67 (0.52-1.04) mg/dL Estimated GFR > 60.0 ML/MIN Glucose 101 (74-106) mg/dL POC Glucometer (74 to 106) mg/dL Calcium 9.2 (8.4-10.2) mg/dL Magnesium (1.6-2.3) mg/dL Total Bilirubin 0.40 (0.2-1.3) mg/dL AST 69 H (14-36) U/L ALT 56 H (0-35) U/L Alkaline Phosphatase 105 (38-126) U/L Troponin I < 0.012 (0.000-0.034) ng/mL NT-Pro-B Natriuret Pep (0-900) pg/mL Serum Total Protein 7.2 (6.3-8.2) g/dL Albumin 4.2 (3.5-5.0) g/dL Urine Color (YELLOW) Urine Appearance (CLEAR) Urine pH (5-6) Ur Specific [place] (1.005-1.025) Urine Protein (Negative) Urine Ketones (NEGATIVE) Urine Blood (0-5) Tom/ul Urine Nitrite (NEGATIVE) Urine Bilirubin (NEGATIVE) Urine Urobilinogen (0-1) mg/dL Ur Leukocyte Esterase (NEGATIVE) Urine WBC (Auto) (0-5) /HPF Urine RBC (Auto) (0-2) /HPF U Hyaline Cast (Auto) (0-2) /LPF U Epithel Cells (Auto) (FEW) /HPF Urine Bacteria (Auto) (NEGATIVE) /HPF Granular Casts (Auto) (NEGATIVE) /LPF Urine Culture Reflexed (NO) Urine Glucose (NEGATIVE) mg/dL SARS-CoV-2 (PCR) (NEGATIVE) 01/20/21 01/20/21 Range/Units 07:06 11:53 WBC (4.0-10.5) K/mm3 RBC (4.1-5.4) M/mm3 Hgb (12.0-16.0) gm/dl Hct (35-47) % MCV (78-100) fl MCH (26-32) pg MCHC (32-36) g/dl RDW (11.5-14.0) % Plt Count (150-450) K/mm3 MPV (7.5-11.0) fl Absolute Granulocytes (1.4-6.9) Segmented Neutrophils (36.0-66.0) % Band Neutrophils (0.0-2.0) % Lymphocytes (Manual) (24-44) % Monocytes (Manual) (0.0-12.0) % Eosinophils (Manual) (0.00-3.0) % Platelet Estimate (NORMAL) RBC Morphology Sodium (137-145) mmol/L Potassium (3.5-5.1) mmol/L Chloride (98-107) mmol/L Carbon Dioxide (22-30) mmol/L Anion Gap (5-15) MEQ/L BUN (7-17) mg/dL Creatinine (0.52-1.04) mg/dL Estimated GFR ML/MIN Glucose (74-106) mg/dL POC Glucometer 96 88 (74 to 106) mg/dL Calcium (8.4-10.2) mg/dL Magnesium (1.6-2.3) mg/dL Total Bilirubin (0.2-1.3) mg/dL AST (14-36) U/L ALT (0-35) U/L Alkaline Phosphatase (38-126) U/L Troponin I (0.000-0.034) ng/mL NT-Pro-B Natriuret Pep (0-900) pg/mL Serum Total Protein (6.3-8.2) g/dL Albumin (3.5-5.0) g/dL Urine Color (YELLOW) Urine Appearance (CLEAR) Urine pH (5-6) Ur Specific [place] (1.005-1.025) Urine Protein (Negative) Urine Ketones (NEGATIVE) Urine Blood (0-5) Tom/ul Urine Nitrite (NEGATIVE) Urine Bilirubin (NEGATIVE) Urine Urobilinogen (0-1) mg/dL Ur Leukocyte Esterase (NEGATIVE) Urine WBC (Auto) (0-5) /HPF Urine RBC (Auto) (0-2) /HPF U Hyaline Cast (Auto) (0-2) /LPF U Epithel Cells (Auto) (FEW) /HPF Urine Bacteria (Auto) (NEGATIVE) /HPF Granular Casts (Auto) (NEGATIVE) /LPF Urine Culture Reflexed (NO) Urine Glucose (NEGATIVE) mg/dL SARS-CoV-2 (PCR) (NEGATIVE) Micro Results-Entire Visit: Accuchecks Date 01/20/21 Date 01/19/21 Time 14:30 - Radiology Exams Ordered Rad Exams-Entire Visit: Radiology Procedures Category Date Time Status CHEST 1 VIEW (PORTABLE) Stat Exams 01/19/21 14:59 Completed HEAD WITHOUT CONTRAST [CT] Stat Exams 01/19/21 15:39 Completed - Procedures and Test Procedures and Tests throughout Hospitalization: Therapy Orders & Screens 01/19/21 22:04 OT Screen per Nursing Assess ONCE Comment: Protocol Order Physician Instructions: Greater than 3 points order OT Admission Screening Reason For Exam: Triggered on Admission Diagnosis: Dizziness Open Wound/Cellutlitis/Pressure Ulcers: No Acute Fx/ORIF/Change in wt bearing status: No Severe MUSCULOSKELETAL pain: Yes ADL Dysfunction: No Acute CVA w/Hemiparesis/Hemiplegia: No Decreased Functional Mobility/Strength: No Sprain/Strain: No Acute Post-op Mobility Dysfunction: No Total Points: 5 PT Screen per Nursing Assess ONCE Comment: Protocol Order Physician Instructions: Greater than 3 points order PT Admission Screenin Reason For Exam: Triggered on Admission Diagnosis: Dizziness Open Wound/Cellutlitis/Pressure Ulcers: No Acute Fx/ORIF/Change in wt bearing status: No Severe MUSCULOSKELETAL pain: Yes ADL Dysfunction: No Acute CVA w/Hemiparesis/Hemiplegia: No Decreased Functional Mobility/Strength: No Sprain/Strain: No Acute Post-op Mobility Dysfunction: No Total Points: 5 RT Screen per Nursing Assess ONCE Comment: Protocol Order Physician Instructions: Greater than 3 points order RT Admission Screen Reason For Exam: Triggered on Admission Diagnosis: Dizziness Diagnosis: Dizziness Pneumonia: No Home O2: No Asthma: No CHF: Yes Home CPAP/BIPAP: No Home Nebs/MDI: Yes Total Points: 8 01/20/21 00:30 Respiratory Therapy Assessment DAILY Comment: Diagnosis: Dizziness - Discharge Disposition: Home, Self-Care Condition: Stable Prescriptions: Continue Diltiazem HCl [Cartia Xt] 0.5 tab PO DAILY Atorvastatin Calcium 1 tab PO DAILY Levothyroxine Sodium [Euthyrox] 1 tab PO DAILY Ropinirole 2Mg [Requip 2Mg Tab] 1 tab PO HS Torsemide 20 mg [Demadex 20 mg] 1 tab PO DAILY Apixaban [Eliquis] 1 tab PO BID Vilazodone HCl [Viibryd] 40 mg PO HS Brexpiprazole [Rexulti] 1 tab PO HS Sodium Chloride [Saline Nasal Purlear] 45 ml NS UD PRN PRN Reason: Allergies Multivit with Calcium,Iron,Min [Multiple Vitamins For Women] 1 tab PO DAILY Calcium Carbonate/Vitamin D3 [Calcium 1,000 + D3 Caplet] 2 each PO DAILY Calcium Carb/Vitamin D 500 mg* [Calcium 500MG W/Vit D Tablet] 1 tab PO DAILY Aspirin EC 81 mg [Ecotrin 81 mg] 81 mg PO DAILY Follow up with: ASHLEY BREWER MD [Primary Care Provider] - 1 Week
[2021-01-20 12:19] VITALS: PULSE 68
[2021-01-20] MEDS ORDERED: OCEAN Nasal Spray NS PRN (13:16)
[2021-01-20] MEDS ORDERED: DEMADEX 20 MG PO SCH (13:30)
[2021-01-20] MEDS ORDERED: Calcium 500MG W/Vit D Tablet PO SCH (13:30)
[2021-01-20] MEDS ORDERED: SYNTHROID 112 MCG PO SCH (13:30)
[2021-01-20] MEDS ORDERED: ECOTRIN 81 MG PO SCH (13:30)
[2021-01-20] MEDS ORDERED: Cardizem CD 120 MG PO SCH (13:30)
[2021-01-20] MEDS ORDERED: THERAGRAN MULTIVITAMIN PO SCH (13:30)
[2021-01-20] MEDS ORDERED: MEDICATION INTERVENTION MC SCH ×2 (13:30→13:45)
[2021-01-20] MEDS ORDERED: BREXPIPRAZOLE PO SCH (22:00)
[2021-01-20] MEDS ORDERED: VILAZODONE HCL 40 MG PO SCH (22:00)
[2021-01-20] MEDS ORDERED: LIPITOR 40MG PO SCH (22:00)
[2021-01-21] MEDS ORDERED: DILTIAZEM HCL PO SCH (10:00)
[2021-01-21] MEDS ORDERED: CALCIUM CARBONATE PO SCH (10:00)
[2021-01-21] MEDS ORDERED: MULTIVIT WITH CALCIUM IRON MIN PO SCH (10:00)
[2021-01-21] MEDS ORDERED: VITAMIN D3 PO SCH (10:00)
[2021-01-21] MEDS ORDERED: NON-FORMULARY ITEM (Atorvastatin Calcium [Atorvastatin Calcium] 1 TAB) PO SCH (10:00)
[2021-01-22 00:01] VITALS: O2SAT 98
== END 2021-01-20 13:45 | disposition home or self-care (01) ==
LOC: ED 14:39 → MED SURG 20:56
PROVIDERS: ADMIT Family Medicine; ATTEND Family Medicine
DX: R55 Syncope and collapse (principal); R42 Dizziness and giddiness; I11.0 Hypertensive heart disease with heart failure; I50.9 Heart failure, unspecified; I48.91 Unspecified atrial fibrillation; E78.5 Hyperlipidemia, unspecified; E11.9 Type 2 diabetes mellitus without complications; E03.9 Hypothyroidism, unspecified; Z79.899 Other long term (current) drug therapy; Z79.01 Long term (current) use of anticoagulants; R06.02 Shortness of breath; E78.00 Pure hypercholesterolemia, unspecified; Z20.828 Contact with and (suspected) exposure to other viral communicable diseases
CPT/HCPCS: 36000; 36415; 70450; 71045; 80053; 81001; 82947; 83735; 83880; 84484; 85025; 93005; 93041; 93268; 94760; 96360; 99284; G0378; U0003; A9270-GY

== ENCOUNTER 2021-03-08 14:13 | Observation (INO) | payer BC ==
[2021-03-08] MEDS ORDERED: DUONEB 0.5-3 MG/3 ml Neb IH ONE ×3 (14:40→22:57)
--- NOTE | 2021-03-08 15:02 | XRAY ---
Indication: Short of breath. Comparison: January 19, 2021. Portable chest again demonstrates bibasilar fibrosis/scarring. No focal infiltrate, consolidation, or large effusion. Heart not enlarged for AP portable technique again with left dual-lead pacemaker. Bony thorax intact again with osteopenia, degenerative changes, old right rib fractures, and bilateral calcified breast implants. Impression: Continued nonacute chest with chronic features.
[2021-03-08 15:25] LABS: Hematocrit 45.7 % (35-47); Hemoglobin 14.7 gm/dl (12.0-16.0); Mean Cell Volume 95.2 fl (78-100); Mean Corpuscular Hemoglobin 30.6 pg (26-32); Mean Corpuscular Hgb Concent. 32.2 g/dl (32-36); Mean Platelet Volume 10.4 fl (7.5-11.0); Platelet Count 293 K/mm3 (150-450); Red Cell Distribution Width 13.7 % (11.5-14.0); White Blood Count 7.5 K/mm3 (4.0-10.5)
[2021-03-08 15:36] LABS: ALBUMIN 4.4 g/dL (3.5-5.0); ALKALINE PHOSPHATASE 97 U/L (38-126); ANION GAP 15.8 MEQ/L (5-15); BLOOD UREA NITROGEN 10 mg/dL (7-17); CHLORIDE 99 mmol/L (98-107); Calcium 9.4 mg/dL (8.4-10.2); Carbon Dioxide 26 mmol/L (22-30); Creatinine 1 0.54 mg/dL (0.52-1.04); EST GLOMERULAR FILTRATION RATE > 60.0 ML/MIN; Glucose 88 mg/dL (74-106); MAGNESIUM 2.1 mg/dL (1.6-2.3); NT PRO BNP 679 pg/mL (0-900); Potassium 4.2 mmol/L (3.5-5.1); SGOT/AST 44 U/L (14-36); SGPT/ALT 36 U/L (0-35); SODIUM 137 mmol/L (137-145); Total Protein 7.6 g/dL (6.3-8.2)
--- NOTE | 2021-03-08 16:54 | ERPHSYRPT ---
- History of Present Illness Time Seen by Provider: 03/08/21 14:20 Source: patient Exam Limitations: no limitations Patient Subjective Stated Complaint: SOB Triage Nursing Assessment: pt to ED by EMS c/o SOB x 2 weeks worsening still. seen in quick care last week and given steriods, tessalon pearls, abx but has not seen much improvement. EMS reports upper wheezing noted and gave albuterol treatment and solumedrol 125mg IM which has seemed to improve wheezing. pt reports she is breathing easier now after treatment. denies CP Physician History: 70 years old female with history of pulmonary fibrosis, atrial fibrillation status post pacemaker placement on Xarelto, congestive heart failure presented in the ER with chief complaint of increasing shortness of breath and cough for last 2 weeks. She was evaluated outpatient and finished course of steroid and antibiotics yesterday but still having cough and shortness of breath which is worsening. Reports cough productive of clear to yellow moderate amount of sputum with associated chest tightness and soreness because of repeated coughing. Denies any fever or chills. No increased swelling in lower extremities. Timing/Duration: week(s) (2), constant, gradual onset, worse Activities at Onset: rest Severity of Dyspnea-Max: moderate Severity of Dyspnea-Current: moderate Possible Cause: occasional episodes Modifying Factors: Improves With: coughing Associated Symptoms: anxiety, cough, chest pain/discomfort, wheezing, heaviness, tightness Allergies/Adverse Reactions: Sulfa (Sulfonamide Antibiotics) Allergy (Severe, Verified 03/08/21 14:28) Itching pollen extracts Allergy (Mild, Verified 03/08/21 14:28) bacitracin [From Neosporin ([id number])] Allergy (Verified 03/08/21 14:28) neomycin [From Neosporin ([id number])] Allergy (Verified 03/08/21 14:28) polymyxin B [From Neosporin ([id number])] Allergy (Verified 03/08/21 14:28) Home Medications: Atorvastatin Calcium 1 tab PO DAILY 05/06/20 [History] Brexpiprazole [Rexulti] 1 tab PO HS 05/06/20 [History] Diltiazem HCl [Cartia Xt] 0.5 tab PO DAILY 05/06/20 [History] Levothyroxine Sodium [Euthyrox] 1 tab PO DAILY 05/06/20 [History] Ropinirole 2Mg [Requip 2Mg Tab] 1 tab PO HS 05/06/20 [History] Torsemide 20 mg [Demadex 20 mg] 1 tab PO DAILY 05/06/20 [History] Vilazodone HCl [Viibryd] 40 mg PO HS 05/06/20 [History] Aspirin EC 81 mg [Ecotrin 81 mg] 81 mg PO DAILY 01/19/21 [History] Calcium Carbonate/Vitamin D3 [Calcium 1,000 + D3 Caplet] 2 each PO DAILY 01/19/21 [History] Metformin HCl [Metformin HCl ER] 500 mg PO DAILY 03/08/21 [History] Rivaroxaban 10 mg Tablet [Xarelto 10 mg Tablet] 10 mg PO DAILY 03/08/21 [History] Hx Tetanus, Diphtheria Vaccination/Date Given: Yes Hx Influenza Vaccination/Date Given: Yes (coming up due) Hx Pneumococcal Vaccination/Date Given: Yes (coming due) Immunizations Up to Date: Yes Travel Risk - International Travel Have you traveled outside of the country in past 3 weeks: No - Coronavirus Screening Are you exhibiting any of the following symptoms?: Yes Symptoms: Shortness of Breath Close contact with a COVID-19 positive Pt in past 14-21 Days: No - Vaccine Status Have you recieved a Covid-19 vaccination: No - Review of Systems Constitutional: No Symptoms Eyes: No Symptoms Ears, Nose, & Throat: No Symptoms Respiratory: Cough, Dyspnea, Dyspnea on Exertion (MANZANO), Wheezing Cardiac: Chest Pain Abdominal/Gastrointestinal: No Symptoms Genitourinary Symptoms: No Symptoms Musculoskeletal: No Symptoms Skin: No Symptoms Neurological: No Symptoms Psychological: Anxiety Endocrine: No Symptoms Hematologic/Lymphatic: No Symptoms Immunological/Allergic: No Symptoms - Past Medical History Pertinent Past Medical History: Yes Neurological History: Migraines ENT History: No Pertinent History Cardiac History: Arrhythmia, Congestive Heart Failure, High Cholesterol, Hypertension Respiratory History: Bronchitis, CHF, Pneumonia Endocrine Medical History: Hypothyroidism Musculoskeletal History: Arthritis GI Medical History: No Pertinent History History: No Pertinent History Psycho-Social History: Anxiety, Depression Female Reproductive Disorders: No Pertinent History Other Medical History: pulmunary fibrosis - Past Surgical History Past Surgical History: Yes Neuro Surgical History: No Pertinent History Cardiac: Pacemaker, Other Gastrointestinal: No Pertinent History Genitourinary: No Pertinent History Musculoskeletal: No Pertinent History Female Surgical History: No Pertinent History Other Surgical History: ablasion not completed due to complications, had pacemaker placed instead, (cardiac arrest during heart surgery) - Social History Smoking Status: Former smoker Exposure to second hand smoke: No Drug Use: none Patient Lives Alone: Yes - Female History Hx Now: No - Nursing Vital Signs Nursing Vital Signs: Initial Vital Signs Temperature 97.0 F 03/08/21 14:22 Pulse Rate 65 03/08/21 14:22 Respiratory Rate 22 03/08/21 14:22 Blood Pressure 156/73 03/08/21 14:22 O2 Sat by Pulse Oximetry 95 03/08/21 14:22 Pain Scale Pain Intensity 0 - Physical Exam General Appearance: no apparent distress, alert Eye Exam: PERRL/EOMI, eyes nml inspection Ears, Nose, Throat Exam: hearing grossly normal, normal pharynx, pharyngeal erythema Neck Exam: normal inspection, non-tender, supple, full range of motion Respiratory Exam: normal breath sounds, rhonchi, wheezing Cardiovascular/Chest Exam: normal heart sounds, regular rate/rhythm Abdominal/Gastrointestinal Exam: soft, normal bowel sounds Extremity Exam: non-tender, normal range of motion Neurologic Exam: alert, oriented x 3, cooperative Skin Exam: normal color SpO2 Interpretation: normal SpO2: 95 O2 Delivery: Room Air - Course Nursing assessment & vital signs reviewed: Yes EKG Interpreted by Me: RATE (65), A-fib, Right [place] Deviation, NORMAL INTERVALS, Other (Paced rhythm) Ordered Tests: Active Orders 24 hr Category Date Time Status Bedrest ROUTINE Activity 03/08/21 21:02 Active Up With Assistance ROUTINE Activity 03/08/21 21:02 Active House Designer STAT Care 03/08/21 14:40 Completed Code Status Order ROUTINE Care 03/08/21 21:02 Active EKG-ER Only STAT Care 03/08/21 14:40 Completed Fall Protocol Q1H Care 03/08/21 21:02 Active IV Care Q6H Care 03/08/21 21:02 Active IV Insertion STAT Care 03/08/21 14:40 Completed POCT Glucose Check ACHS Care 03/08/21 21:[address] in Observation ROUTINE Care 03/08/21 21:02 Active Nichole Gomez ROUTINE Care 03/08/21 21:02 Active Weight,Daily 0600 Care 03/08/21 21:02 Active Heart-Healthy Diet Diet 03/08/21 Breakfast Active CHEST 1 VIEW (PORTABLE) Stat Exams 03/08/21 14:40 Completed BLOOD CULTURE Stat Lab 03/08/21 15:10 Received CBC W DIFF AM.LAB Lab 03/09/21 04:00 Ordered CBC W DIFF Stat Lab 03/08/21 14:25 Completed CMP AM.LAB Lab 03/09/21 04:00 Ordered CMP Stat Lab 03/08/21 14:25 Completed Lactic Acid Stat Lab 03/08/21 15:02 Completed MAGNESIUM Stat Lab 03/08/21 14:25 Completed Manual Differential NC Stat Lab 03/08/21 14:25 Completed NT PRO BNP Stat Lab 03/08/21 14:25 Completed TROPONIN Q3H Lab 03/08/21 14:25 Completed TROPONIN Q3H Lab 03/08/21 17:24 Completed TROPONIN Q3H Lab 03/08/21 20:30 Completed TROPONIN Q3H Lab 03/08/21 23:55 Received TROPONIN Q3H Lab 03/09/21 02:45 Ordered UA W/RFX UR CULTURE Stat Lab 03/08/21 16:53 Completed Oxygen Nasal Cannula 2 lpm RT 03/08/21 21:02 Active Respiratory Therapy Assessment DAILY RT 03/08/21 15:11 Active Transfer Order Routine Transfer 03/08/21 Completed Medication Summary Generic Name Dose Route Start Last Admin Trade Name Freq PRN Reason Stop Dose Admin Acetaminophen 650 mg 03/08/21 21:02 03/08/21 23:59 Tylenol 325 Mg PO 04/07/21 21:01 650 mg Q4H PRN PRN Administration PAIN AND/OR FEVER Albuterol/Ipratropium 3 ml 03/09/21 07:00 03/08/21 23:03 Duoneb 0.5-3 Mg/3 Ml Neb IH 04/08/21 06:59 3 ml QIDRT JOCELYN Administration Guaifenesin 1,200 mg 03/08/21 22:00 03/08/21 21:39 Mucinex 600mg Er Tabs PO 04/07/21 21:59 1,200 mg BID JOCELYN Administration Levofloxacin/Dextrose 500 mg in 100 mls @ 100 mls/hr 03/09/21 10:00 Levofloxacin 500mg/100ml D5w IV 04/08/21 09:59 Q24H10 JOCELYN Morphine Sulfate 2 mg 03/08/21 21:02 03/08/21 21:40 Morphine Sulfate 2 Mg Inj IV 03/13/21 21:01 2 mg Q4H PRN PRN Administration PAIN Ondansetron HCl 4 mg 03/08/21 21:02 Zofran 4 Mg/2 Ml Vial IV 04/07/21 21:01 Q6H PRN PRN NAUSEA/VOMITING Pantoprazole Sodium 40 mg 03/09/21 10:00 Protonix 40 Mg Iv IV 04/08/21 09:59 Q24H10 JOCELYN Prednisone 20 mg 03/09/21 10:00 Deltasone 20 Mg PO 04/08/21 09:59 DAILY JOCELYN Discontinued Medications Generic Name Dose Route Start Last Admin Trade Name Freq PRN Reason Stop Dose Admin Acetaminophen Confirm 03/08/21 17:56 Tylenol 325 Mg Administered 03/08/21 17:57 Dose 650 mg .ROUTE .STK-MED ONE Acetaminophen 650 mg 03/08/21 18:12 03/08/21 18:14 Tylenol 325 Mg PO 03/08/21 18:13 650 mg STAT STA Administration Albuterol/Ipratropium 3 ml 03/08/21 14:40 03/08/21 15:08 Duoneb 0.5-3 Mg/3 Ml Neb IH 03/08/21 14:41 3 ml STAT ONE Administration Albuterol/Ipratropium Confirm 03/08/21 14:58 Duoneb 0.5-3 Mg/3 Ml Neb Administered 03/08/21 14:59 Dose 3 ml IH .STK-MED ONE Albuterol/Ipratropium 3 ml 03/08/21 21:02 03/08/21 23:39 Duoneb 0.5-3 Mg/3 Ml Neb IH 04/07/21 21:01 Not Given Q6HRT JOCELYN Albuterol/Ipratropium Confirm 03/08/21 22:57 Duoneb 0.5-3 Mg/3 Ml Neb Administered 03/08/21 22:58 Dose 3 ml IH .STK-MED ONE Levofloxacin/Dextrose 750 mg in 150 mls @ 100 mls/hr 03/08/21 16:57 03/08/21 20:18 Levofloxacin 750mg/150ml D5w IV 03/08/21 18:26 Infused STAT STA Infusion Levofloxacin/Dextrose Confirm 03/08/21 18:12 Levofloxacin 750mg/150ml D5w Administered 03/08/21 18:13 Dose 750 mg in 150 mls @ ud IV .STK-MED ONE Lab/Rad Data: Laboratory Result Diagrams 03/08/21 14:25 03/08/21 14:25 Laboratory Results 03/08/21 03/08/21 03/08/21 Range/Units 20:30 18:09 17:24 WBC (4.0-10.5) K/mm3 RBC (4.1-5.4) M/mm3 Hgb (12.0-16.0) gm/dl Hct (35-47) % MCV (78-100) fl MCH (26-32) pg MCHC (32-36) g/dl RDW (11.5-14.0) % Plt Count (150-450) K/mm3 MPV (7.5-11.0) fl Segmented Neutrophils (36.0-66.0) % Lymphocytes (Manual) (24-44) % Monocytes (Manual) (0.0-12.0) % Eosinophils (Manual) (0.00-3.0) % Platelet Estimate (NORMAL) RBC Morphology Sodium (137-145) mmol/L Potassium (3.5-5.1) mmol/L Chloride (98-107) mmol/L Carbon Dioxide (22-30) mmol/L Anion Gap (5-15) MEQ/L BUN (7-17) mg/dL Creatinine (0.52-1.04) mg/dL Estimated GFR ML/MIN Glucose (74-106) mg/dL Lactic Acid (0.4-2.0) Calcium (8.4-10.2) mg/dL Magnesium (1.6-2.3) mg/dL Total Bilirubin (0.2-1.3) mg/dL AST (14-36) U/L ALT (0-35) U/L Alkaline Phosphatase (38-126) U/L Troponin I < 0.012 < 0.012 (0.000-0.034) ng/mL NT-Pro-B Natriuret Pep (0-900) pg/mL Serum Total Protein (6.3-8.2) g/dL Albumin (3.5-5.0) g/dL Urine Color (YELLOW) Urine Appearance (CLEAR) Urine pH (5-6) Ur Specific [place] (1.005-1.025) Urine Protein (Negative) Urine Ketones (NEGATIVE) Urine Blood (0-5) Tom/ul Urine Nitrite (NEGATIVE) Urine Bilirubin (NEGATIVE) Urine Urobilinogen (0-1) mg/dL Ur Leukocyte Esterase (NEGATIVE) Urine WBC (Auto) (0-5) /HPF Urine RBC (Auto) (0-2) /HPF Urine Culture Reflexed (NO) Urine Glucose (NEGATIVE) mg/dL SARS-CoV-2 (PCR) NEGATIVE (NEGATIVE) 03/08/21 03/08/21 03/08/21 Range/Units 16:53 15:02 14:25 WBC (4.0-10.5) K/mm3 RBC (4.1-5.4) M/mm3 Hgb (12.0-16.0) gm/dl Hct (35-47) % MCV (78-100) fl MCH (26-32) pg MCHC (32-36) g/dl RDW (11.5-14.0) % Plt Count (150-450) K/mm3 MPV (7.5-11.0) fl Segmented Neutrophils (36.0-66.0) % Lymphocytes (Manual) (24-44) % Monocytes (Manual) (0.0-12.0) % Eosinophils (Manual) (0.00-3.0) % Platelet Estimate (NORMAL) RBC Morphology Sodium (137-145) mmol/L Potassium (3.5-5.1) mmol/L Chloride (98-107) mmol/L Carbon Dioxide (22-30) mmol/L Anion Gap (5-15) MEQ/L BUN (7-17) mg/dL Creatinine (0.52-1.04) mg/dL Estimated GFR ML/MIN Glucose (74-106) mg/dL Lactic Acid 1.4 (0.4-2.0) Calcium (8.4-10.2) mg/dL Magnesium (1.6-2.3) mg/dL Total Bilirubin (0.2-1.3) mg/dL AST (14-36) U/L ALT (0-35) U/L Alkaline Phosphatase (38-126) U/L Troponin I < 0.012 (0.000-0.034) ng/mL NT-Pro-B Natriuret Pep (0-900) pg/mL Serum Total Protein (6.3-8.2) g/dL Albumin (3.5-5.0) g/dL Urine Color STRAW (YELLOW) Urine Appearance CLEAR (CLEAR) Urine pH 9.0 (5-6) Ur Specific [place] 1.006 (1.005-1.025) Urine Protein NEGATIVE (Negative) Urine Ketones NEGATIVE (NEGATIVE) Urine Blood NEGATIVE (0-5) Tom/ul Urine Nitrite NEGATIVE (NEGATIVE) Urine Bilirubin NEGATIVE (NEGATIVE) Urine Urobilinogen NEGATIVE (0-1) mg/dL Ur Leukocyte Esterase NEGATIVE (NEGATIVE) Urine WBC (Auto) NONE (0-5) /HPF Urine RBC (Auto) NONE (0-2) /HPF Urine Culture Reflexed NO (NO) Urine Glucose NEGATIVE (NEGATIVE) mg/dL SARS-CoV-2 (PCR) (NEGATIVE) 03/08/21 03/08/21 Range/Units 14:25 14:25 WBC 7.5 (4.0-10.5) K/mm3 RBC 4.80 (4.1-5.4) M/mm3 Hgb 14.7 (12.0-16.0) gm/dl Hct 45.7 (35-47) % MCV 95.2 (78-100) fl MCH 30.6 (26-32) pg MCHC 32.2 (32-36) g/dl RDW 13.7 (11.5-14.0) % Plt Count 293 (150-450) K/mm3 MPV 10.4 (7.5-11.0) fl Segmented Neutrophils 75 H (36.0-66.0) % Lymphocytes (Manual) 16 L (24-44) % Monocytes (Manual) 5 (0.0-12.0) % Eosinophils (Manual) 4 H (0.00-3.0) % Platelet Estimate NORMAL (NORMAL) RBC Morphology NORMAL Sodium 137 (137-145) mmol/L Potassium 4.2 (3.5-5.1) mmol/L Chloride 99 (98-107) mmol/L Carbon Dioxide 26 (22-30) mmol/L Anion Gap 15.8 H (5-15) MEQ/L BUN 10 (7-17) mg/dL Creatinine 0.54 (0.52-1.04) mg/dL Estimated GFR > 60.0 ML/MIN Glucose 88 (74-106) mg/dL Lactic Acid (0.4-2.0) Calcium 9.4 (8.4-10.2) mg/dL Magnesium 2.1 (1.6-2.3) mg/dL Total Bilirubin 0.50 (0.2-1.3) mg/dL AST 44 H (14-36) U/L ALT 36 H (0-35) U/L Alkaline Phosphatase 97 (38-126) U/L Troponin I (0.000-0.034) ng/mL NT-Pro-B Natriuret Pep 679 (0-900) pg/mL Serum Total Protein 7.6 (6.3-8.2) g/dL Albumin 4.4 (3.5-5.0) g/dL Urine Color (YELLOW) Urine Appearance (CLEAR) Urine pH (5-6) Ur Specific [place] (1.005-1.025) Urine Protein (Negative) Urine Ketones (NEGATIVE) Urine Blood (0-5) Tom/ul Urine Nitrite (NEGATIVE) Urine Bilirubin (NEGATIVE) Urine Urobilinogen (0-1) mg/dL Ur Leukocyte Esterase (NEGATIVE) Urine WBC (Auto) (0-5) /HPF Urine RBC (Auto) (0-2) /HPF Urine Culture Reflexed (NO) Urine Glucose (NEGATIVE) mg/dL SARS-CoV-2 (PCR) (NEGATIVE) - Progress Progress: improved Air Movement: good Progress Note: 03/08/21 17:05 70 years old is evaluated for increasing cough and shortness of breath despite receiving a course of antibiotic and steroids. She is given DuoNeb and steroid on the way to the ER. I have given her another DuoNeb. On reevaluation she is feeling better but still not back to baseline. Chest x-ray negative for any acu te infiltrative process. Normal white count, normal lactate and BNP/troponin. She is on Xarelto, low risk for PE. Discussed with Dr. Brewer, recommended starting her on Levaquin/20 mg of prednisone daily along with Mucinex/DuoNeb's every 6 hourly and patient is being admitted for observation. Blood Culture(s) Obtained: Yes Antibiotics given: Yes Discussed with : Ashley Will see patient in: hospital (observation) Counseled pt/family regarding: lab results, diagnosis, rad results - Departure Departure Disposition: Observation Clinical Impression: COPD exacerbation Condition: Stable Critical Care Time: No
[2021-03-08] MEDS ORDERED: LEVOFLOXACIN 750MG/150ML D5W 750 MG/150 ML BAG IV STA (16:57)
[2021-03-08 17:43] LABS: Appearance CLEAR (CLEAR); Bilirubin NEGATIVE (NEGATIVE); Blood NEGATIVE Ery/ul (0-5); Glucose NEGATIVE (NEGATIVE); Ketones NEGATIVE (NEGATIVE); Leukocyte Esterase NEGATIVE (NEGATIVE); Nitrite NEGATIVE (NEGATIVE); Protein,Urine Dip NEGATIVE (Negative); Specific Gravity 1.006 (1.005-1.025); Urobilinogen NEGATIVE mg/dL (0-1)
[2021-03-08] MEDS ORDERED: TYLENOL 325 MG ONE (17:56)
[2021-03-08] MEDS ORDERED: LEVOFLOXACIN 750MG/150ML D5W 750 MG/150 ML BAG IV ONE (18:12)
[2021-03-08] MEDS ORDERED: TYLENOL 325 MG PO STA (18:12)
[2021-03-08] MEDS ORDERED: DUONEB 0.5-3 MG/3 ml Neb IH SCH (21:02)
[2021-03-08] MEDS ORDERED: Zofran 4 MG/2 ML VIAL IV PRN (21:02)
[2021-03-08] MEDS: Mucinex 600MG ER Tabs PO SCH (21:39)
[2021-03-08] MEDS: MORPHINE SULFATE 2 MG INJ IV PRN (21:40)
[2021-03-08] MEDS: DUONEB 0.5-3 MG/3 ml Neb IH SCH (23:03)
[2021-03-08 23:43] LABS: Eosinophil 4 % (0.00-3.0); Lymphocytes 16 % (24-44); Monocyte 5 % (0.0-12.0); Neutrophils 75 % (36.0-66.0); Total Cells Counted 100
[2021-03-08 23:44] LABS: Platelet Estimate NORMAL (NORMAL)
[2021-03-08] MEDS: TYLENOL 325 MG PO PRN (23:59)
[2021-03-09] MEDS: MORPHINE SULFATE 2 MG INJ IV PRN ×3 (01:56→11:27)
[2021-03-09 04:55] LABS: Hematocrit 44.1 % (35-47); Hemoglobin 14.4 gm/dl (12.0-16.0); Mean Cell Volume 94.4 fl (78-100); Mean Corpuscular Hemoglobin 30.8 pg (26-32); Mean Corpuscular Hgb Concent. 32.7 g/dl (32-36); Mean Platelet Volume 10.4 fl (7.5-11.0); Platelet Count 262 K/mm3 (150-450); Red Blood Count 4.67 M/mm3 (4.1-5.4); Red Cell Distribution Width 13.3 % (11.5-14.0); White Blood Count 7.2 K/mm3 (4.0-10.5)
[2021-03-09 05:22] LABS: ALBUMIN 4.2 g/dL (3.5-5.0); ALKALINE PHOSPHATASE 83 U/L (38-126); ANION GAP 14.8 MEQ/L (5-15); BLOOD UREA NITROGEN 12 mg/dL (7-17); CHLORIDE 96 mmol/L (98-107); Calcium 9.2 mg/dL (8.4-10.2); Carbon Dioxide 25 mmol/L (22-30); Creatinine 1 0.53 mg/dL (0.52-1.04); EST GLOMERULAR FILTRATION RATE > 60.0 ML/MIN; Glucose 199 mg/dL (74-106); Potassium 4.5 mmol/L (3.5-5.1); SGOT/AST 34 U/L (14-36); SGPT/ALT 32 U/L (0-35); SODIUM 131 mmol/L (137-145); Total Protein 7.3 g/dL (6.3-8.2)
[2021-03-09] MEDS: DUONEB 0.5-3 MG/3 ml Neb IH SCH ×2 (07:02→10:38)
[2021-03-09 07:34] LABS: BAND 9 % (0.0-2.0); Lymphocytes 2 % (24-44); Monocyte 2 % (0.0-12.0); Neutrophils 87 % (36.0-66.0); Total Cells Counted 100
[2021-03-09 07:35] LABS: Platelet Estimate NORMAL (NORMAL)
[2021-03-09 07:36] LABS: Absolute Neutrophil Ct (ANC) 6.89 (1.4-6.9)
[2021-03-09 07:49] VITALS: BP 157/92
[2021-03-09] MEDS: TYLENOL 325 MG PO PRN (08:41)
[2021-03-09] MEDS: Mucinex 600MG ER Tabs PO SCH (09:36)
[2021-03-09] MEDS ORDERED: PROTONIX 40 MG IV IV SCH (10:00)
[2021-03-09] MEDS ORDERED: DELTASONE 20 MG PO SCH (10:00)
[2021-03-09 10:40] VITALS: PULSE 77; O2SAT 94
[2021-03-09] MEDS ORDERED: MEDICATION INTERVENTION PO SCH ×2 (10:45)
[2021-03-09] MEDS ORDERED: ECOTRIN 81 MG PO SCH (11:00)
[2021-03-09] MEDS ORDERED: XARELTO 10 MG TABLET PO SCH (11:00)
[2021-03-09] MEDS ORDERED: ZOCOR 20MG PO SCH (11:00)
[2021-03-09] MEDS ORDERED: Calcium 500MG W/Vit D Tablet PO SCH (11:00)
[2021-03-09] MEDS ORDERED: Zocor 10MG PO SCH (11:00)
[2021-03-09] MEDS ORDERED: SYNTHROID 112 MCG PO SCH (11:00)
[2021-03-09] MEDS ORDERED: DEMADEX 20 MG PO SCH (11:00)
[2021-03-09] MEDS ORDERED: Cardizem CD 120 MG PO SCH (11:00)
[2021-03-09] MEDS ORDERED: Levofloxacin 500MG/100ML D5W 500 MG/100 ML BAG IV SCH (18:00)
[2021-03-09] MEDS ORDERED: BREXPIPRAZOLE PO SCH (22:00)
[2021-03-09] MEDS ORDERED: REQUIP 2MG TAB PO SCH (22:00)
[2021-03-09] MEDS ORDERED: VILAZODONE HCL 40 MG PO SCH (22:00)
[2021-03-10] MEDS ORDERED: VITAMIN D3 PO SCH (10:00)
[2021-03-10] MEDS ORDERED: DILTIAZEM HCL PO SCH (10:00)
[2021-03-10] MEDS ORDERED: CALCIUM CARBONATE PO SCH (10:00)
[2021-03-10] MEDS ORDERED: NON-FORMULARY ITEM (Metformin Hcl [Metformin Hcl Er] 500 MG) PO SCH (10:00)
[2021-03-10] MEDS ORDERED: NON-FORMULARY ITEM (Atorvastatin Calcium [Atorvastatin Calcium] 1 TAB) PO SCH (10:00)
[2021-03-10] MEDS ORDERED: Glucophage XR 500 MG PO SCH (11:00)
== END 2021-03-09 12:10 | disposition home or self-care (01) ==
LOC: ED 14:13 → MED SURG 20:56
PROVIDERS: ADMIT Family Medicine; ATTEND Family Medicine
DX: J44.1 Chronic obstructive pulmonary disease with (acute) exacerbation (principal); Z95.0 Presence of cardiac pacemaker; Z79.01 Long term (current) use of anticoagulants; Z79.899 Other long term (current) drug therapy; I48.91 Unspecified atrial fibrillation; R07.9 Chest pain, unspecified; I10 Essential (primary) hypertension; E78.00 Pure hypercholesterolemia, unspecified; E03.9 Hypothyroidism, unspecified; Z20.828 Contact with and (suspected) exposure to other viral communicable diseases
CPT/HCPCS: 36000; 36415; 71045; 80053; 81001; 82947; 83605; 83735; 83880; 84484; 85025; 87040; 93005; 93041; 94640; 94760; 96360; 96374; 99285; U0003; 93268; J1956; J2270; A9270-GY; G0378

== ENCOUNTER 2021-08-22 18:32 | Emergency (ER) | payer BC ==
[2021-08-22] MEDS ORDERED: solu-MEDROL 125 MG, Sterile H2O 10 ml 2 ML IV ONE ×2 (18:47)
--- NOTE | 2021-08-22 18:48 | ERPHSYRPT ---
- History of Present Illness Time Seen by Provider: 08/22/21 18:47 Source: patient, EMS Exam Limitations: no limitations Patient Subjective Stated Complaint: Pt has been extremely fatigued for the past 4 days and has slept alot and becomes short of breath when walking, coughing up brownish/whitish sputum, body aches, chest pain from coughing Triage Nursing Assessment: Pt brought to the ER via EMS, hypertensive, rates overall pain as 7/10, crackles in shraddha bases, coughing, pulses normal, SOB, skin n/w/d, appears worn out Physician History: This is a 71-year-old white female who has a history of COPD, CHF, hypothyroi dism, hypertension, xwr-[id number]-[id number] diabetes, atrial fibrillation and pulmonary fibrosis and presents via EMS because of worsening shortness of breath and associated weakness and fatigue with body aches and productive cough of brownish-yellow sputum. Patient has been coughing significantly and has chest pain with coughing. She has no abdominal pain. She has no nausea vomiting or diarrhea symptoms. Patient is on Xarelto and has a pacemaker in place. Timing/Duration: day(s) (4) Activities at Onset: activity Severity of Dyspnea-Max: moderate Severity of Dyspnea-Current: moderate Possible Cause: frequent episodes, chronic episodes Modifying Factors: Improves With: activity, coughing Associated Symptoms: cough, chest pain/discomfort Allergies/Adverse Reactions: Sulfa (Sulfonamide Antibiotics) Allergy (Severe, Verified 08/22/21 18:46) Itching pollen extracts Allergy (Mild, Verified 08/22/21 18:46) bacitracin [From Neosporin ([id number])] Allergy (Verified 08/22/21 18:46) neomycin [From Neosporin ([id number])] Allergy (Verified 08/22/21 18:46) polymyxin B [From Neosporin ([id number])] Allergy (Verified 08/22/21 18:46) Home Medications: Atorvastatin Calcium 1 tab PO DAILY 05/06/20 [History] Diltiazem HCl [Cartia Xt] 0.5 tab PO DAILY 05/06/20 [History] Levothyroxine Sodium [Euthyrox] 1 tab PO DAILY 05/06/20 [History] Ropinirole 2Mg [Requip 2Mg Tab] 1 tab PO HS 05/06/20 [History] Aspirin EC 81 mg [Ecotrin 81 mg] 81 mg PO DAILY 01/19/21 [History] Calcium Carbonate/Vitamin D3 [Calcium 1,000 + D3 Caplet] 2 each PO DAILY 01/19/21 [History] Metformin HCl [Metformin HCl ER] 500 mg PO DAILY 03/08/21 [History] Rivaroxaban 10 mg Tablet [Xarelto 10 mg Tablet] 10 mg PO DAILY 03/08/21 [History] Hydrocodone/Acetaminophen [Hydrocodone-Acetamin 5-325 mg] 1 each PO BID 08/22/21 [History] Hx Tetanus, Diphtheria Vaccination/Date Given: Yes Hx Influenza Vaccination/Date Given: Yes (coming up due) Hx Pneumococcal Vaccination/Date Given: Yes (coming due) Travel Risk - International Travel Have you traveled outside of the country in past 3 weeks: No - Coronavirus Screening Symptoms: Cough: New Onset, Shortness of Breath, Headaches/Body Aches/Fatigue Close contact with a COVID-19 positive Pt in past 14-21 Days: No - Vaccine Status Have you recieved a Covid-19 vaccination: No - Review of Systems Constitutional: Weakness Eyes: No Symptoms Ears, Nose, & Throat: No Symptoms Respiratory: Cough, Dyspnea, Dyspnea on Exertion (MANZANO) Cardiac: Chest Pain (Primarily with coughing) Abdominal/Gastrointestinal: No Symptoms Genitourinary Symptoms: No Symptoms Musculoskeletal: Arthralgias, Myalgias Skin: No Symptoms Neurological: No Symptoms Psychological: No Symptoms Endocrine: No Symptoms Hematologic/Lymphatic: No Symptoms Immunological/Allergic: No Symptoms All Other Systems: Reviewed and Negative - Past Medical History Pertinent Past Medical History: Yes Neurological History: Migraines ENT History: No Pertinent History Cardiac History: Arrhythmia, Congestive Heart Failure, High Cholesterol, Hypertension Respiratory History: Bronchitis, CHF, Pneumonia Endocrine Medical History: Hypothyroidism Musculoskeletal History: Arthritis GI Medical History: No Pertinent History History: No Pertinent History Psycho-Social History: Anxiety, Depression Female Reproductive Disorders: No Pertinent History Other Medical History: pulmunary fibrosis - Past Surgical History Past Surgical History: Yes Neuro Surgical History: No Pertinent History Cardiac: Pacemaker, Other Respiratory: No Pertinent History Gastrointestinal: No Pertinent History Genitourinary: No Pertinent History Musculoskeletal: No Pertinent History Female Surgical History: No Pertinent History Other Surgical History: ablasion not completed due to complications, had pacemaker placed instead, (cardiac arrest during heart surgery) - Social History Smoking Status: Former smoker Exposure to second hand smoke: No Drug Use: none Patient Lives Alone: Yes - Female History Hx Now: No - Nursing Vital Signs Nursing Vital Signs: Initial Vital Signs Temperature 96.2 F 08/22/21 18:36 Pulse Rate 65 08/22/21 18:36 Respiratory Rate 21 08/22/21 18:36 Blood Pressure 170/88 08/22/21 18:36 O2 Sat by Pulse Oximetry 97 08/22/21 18:36 Pain Scale Pain Intensity 4 - Physical Exam General Appearance: mild distress, alert, anxiety Eye Exam: PERRL/EOMI, eyes nml inspection Ears, Nose, Throat Exam: hearing grossly normal, normal ENT inspection, normal pharynx Neck Exam: normal inspection, non-tender, supple, full range of motion Respiratory Exam: normal breath sounds, chest tenderness, lungs clear (With coughing), airway intact, No respiratory distress, No rhonchi, No wheezing, No stridor Cardiovascular/Chest Exam: normal heart sounds, regular rate/rhythm Abdominal/Gastrointestinal Exam: soft, normal bowel sounds, No tenderness Rectal Exam: not done Extremity Exam: non-tender, normal range of motion, normal inspection, normal capillary refill, no calf tenderness, no pedal edema, pelvis stable Neurologic Exam: alert, oriented x 3, cooperative, dynamometer 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 STAT Care 08/22/21 18:49 Active EKG-ER Only STAT Care 08/22/21 18:47 Active IV Insertion STAT Care 08/22/21 18:47 Active Isolation, Initiate & Maintain STAT Care 08/22/21 18:48 Active Pulse Oximetry (ED) STAT Care 08/22/21 18:47 Active CHEST 1 VIEW (PORTABLE) Stat Exams 08/22/21 18:48 Taken CHEST WITH CONTRAST [CT] Stat Exams 08/22/21 19:55 Taken BLOOD CULTURE Stat Lab 08/22/21 19:20 Received CBC W DIFF Stat Lab 08/22/21 19:15 Completed CMP Stat Lab 08/22/21 19:15 Completed CULTURE,SPUTUM Stat Lab 08/22/21 18:48 Ordered D-DIMER QUANTITATIVE Stat Lab 08/22/21 19:15 Completed Ferritin Stat Lab 08/22/21 19:15 Completed INFLUENZA A+B MENA Stat Lab 08/22/21 19:20 Completed LDH-LACTATE DEHYDROGENASE Stat Lab 08/22/21 19:15 Completed MAGNESIUM Stat Lab 08/22/21 19:15 Completed Manual Differential NC Stat Lab 08/22/21 19:15 Completed Finney Screen Stat Lab 08/22/21 19:15 Completed NT PRO BNP Stat Lab 08/22/21 19:15 Completed PROTIME WITH INR Stat Lab 08/22/21 19:15 Completed TROPONIN Q3H Lab 08/22/21 19:15 Completed TROPONIN Q3H Lab 08/22/21 22:00 Ordered TROPONIN Q3H Lab 08/23/21 01:00 Ordered TROPONIN Q3H Lab 08/23/21 04:00 Ordered TROPONIN Q3H Lab 08/23/21 07:00 Ordered Medication Summary Generic Name Dose Route Start Last Admin Trade Name Freq PRN Reason Stop Dose Admin Sodium Chloride 500 mls @ 50 mls/hr 08/22/21 20:00 08/22/21 20:00 Sodium Chloride 0.9% 500 Ml IV 09/21/21 19:59 50 mls/hr .Q10H JOCELYN Administration Ceftriaxone Sodium/Dextrose 1 g in 50 mls @ 100 mls/hr 08/22/21 21:30 Rocephin 1 Gm-D5w 50 Ml Bag IV 08/22/21 21:59 STAT STA Discontinued Medications Generic Name Dose Route Start Last Admin Trade Name Freq PRN Reason Stop Dose Admin Hydrocodone Bitart/Acetaminophen 10 ml 08/22/21 19:26 08/22/21 19:36 Hydrocodone/Acetaminophen 5 Ml Udcup PO 08/22/21 19:27 10 ml STAT STA Administration Hydrocodone Bitart/Acetaminophen Confirm 08/22/21 19:36 Hydrocodone/Acetaminophen 5 Ml Udcup Administered 08/22/21 19:37 Dose 10 ml .ROUTE .STK-MED ONE Methylprednisolone Sodium 0 mg 08/22/21 18:47 08/22/21 18:58 Succinate 125 mg/ Sterile IV 08/22/21 18:48 125 mg Water 2 ml STAT ONE Administration Furosemide 40 mg 08/22/21 19:55 08/22/21 20:00 Furosemide 40 Mg/4 Ml Vial IV 08/22/21 19:56 40 mg STAT ONE Administration Furosemide Confirm 08/22/21 19:57 Furosemide 40 Mg/4 Ml Vial Administered 08/22/21 19:58 Dose 40 mg .ROUTE .STK-MED ONE Methylprednisolone Sodium Succinate Confirm 08/22/21 18:56 Methylprednis Sod Succ 125 Mg/2 Ml Vial Administered 08/22/21 18:57 Dose 125 mg .ROUTE .STK-MED ONE Sterile Water Confirm 08/22/21 18:56 Water For Injection,Sterile 10 Ml Vial Administered 08/22/21 18:57 Dose 10 ml IJ .STK-MED ONE Lab/Rad Data: Laboratory Result Diagrams 08/22/21 19:15 08/22/21 19:15 Laboratory Results 08/22/21 08/22/21 08/22/21 Range/Units 19:20 19:20 19:15 WBC (4.0-10.5) K/mm3 RBC (4.1-5.4) M/mm3 Hgb (12.0-16.0) gm/dl Hct (35-47) % MCV (78-100) fl MCH (26-32) pg MCHC (32-36) g/dl RDW (11.5-14.0) % Plt Count (150-450) K/mm3 MPV (7.5-11.0) fl PT (9.4-12.5) SECONDS INR (0.8-3.0) D-Dimer (215-500) ng/mL Sodium (137-145) mmol/L Potassium (3.5-5.1) mmol/L Chloride (98-107) mmol/L Carbon Dioxide (22-30) mmol/L Anion Gap (5-15) MEQ/L BUN (7-17) mg/dL Creatinine (0.52-1.04) mg/dL Estimated GFR ML/MIN Glucose (74-106) mg/dL Calcium (8.4-10.2) mg/dL Magnesium (1.6-2.3) mg/dL Ferritin (11.1-264) ng/mL Total Bilirubin (0.2-1.3) mg/dL AST (14-36) U/L ALT (0-35) U/L Alkaline Phosphatase (38-126) U/L Lactate Dehydrogenase (120-246) U/L Troponin I (0.000-0.034) ng/mL NT-Pro-B Natriuret Pep (0-900) pg/mL Serum Total Protein (6.3-8.2) g/dL Albumin (3.5-5.0) g/dL Monoscreen NEGATIVE (Negative) Influenza Type A Ag NEGATIVE (NEGATIVE) Influenza Type B Ag NEGATIVE (NEGATIVE) Group A Strep Antibody NOT DETECTED (NEGATIVE) 08/22/21 08/22/21 08/22/21 Range/Units 19:15 19:15 19:15 WBC (4.0-10.5) K/mm3 RBC (4.1-5.4) M/mm3 Hgb (12.0-16.0) gm/dl Hct (35-47) % MCV (78-100) fl MCH (26-32) pg MCHC (32-36) g/dl RDW (11.5-14.0) % Plt Count (150-450) K/mm3 MPV (7.5-11.0) fl PT 11.7 (9.4-12.5) SECONDS INR 0.99 (0.8-3.0) D-Dimer 1287 H* (215-500) ng/mL Sodium (137-145) mmol/L Potassium (3.5-5.1) mmol/L Chloride (98-107) mmol/L Carbon Dioxide (22-30) mmol/L Anion Gap (5-15) MEQ/L BUN (7-17) mg/dL Creatinine (0.52-1.04) mg/dL Estimated GFR ML/MIN Glucose (74-106) mg/dL Calcium (8.4-10.2) mg/dL Magnesium (1.6-2.3) mg/dL Ferritin 30.1 (11.1-264) ng/mL Total Bilirubin (0.2-1.3) mg/dL AST (14-36) U/L ALT (0-35) U/L Alkaline Phosphatase (38-126) U/L Lactate Dehydrogenase (120-246) U/L Troponin I < 0.012 (0.000-0.034) ng/mL NT-Pro-B Natriuret Pep (0-900) pg/mL Serum Total Protein (6.3-8.2) g/dL Albumin (3.5-5.0) g/dL Monoscreen (Negative) Influenza Type A Ag (NEGATIVE) Influenza Type B Ag (NEGATIVE) Group A Strep Antibody (NEGATIVE) 08/22/21 08/22/21 Range/Units 19:15 19:15 WBC 8.2 (4.0-10.5) K/mm3 RBC 4.40 (4.1-5.4) M/mm3 Hgb 13.9 (12.0-16.0) gm/dl Hct 42.8 (35-47) % MCV 97.3 (78-100) fl MCH 31.6 (26-32) pg MCHC 32.5 (32-36) g/dl RDW 13.7 (11.5-14.0) % Plt Count 190 (150-450) K/mm3 MPV 10.8 (7.5-11.0) fl PT (9.4-12.5) SECONDS INR (0.8-3.0) D-Dimer (215-500) ng/mL Sodium 135 L (137-145) mmol/L Potassium 4.2 (3.5-5.1) mmol/L Chloride 100 (98-107) mmol/L Carbon Dioxide 29 (22-30) mmol/L Anion Gap 9.6 (5-15) MEQ/L BUN 16 (7-17) mg/dL Creatinine 0.78 (0.52-1.04) mg/dL Estimated GFR > 60.0 ML/MIN Glucose 104 (74-106) mg/dL Calcium 9.0 (8.4-10.2) mg/dL Magnesium 1.9 (1.6-2.3) mg/dL Ferritin (11.1-264) ng/mL Total Bilirubin 0.50 (0.2-1.3) mg/dL AST 41 H (14-36) U/L ALT 39 H (0-35) U/L Alkaline Phosphatase 104 (38-126) U/L Lactate Dehydrogenase 214 (120-246) U/L Troponin I (0.000-0.034) ng/mL NT-Pro-B Natriuret Pep 1220 H (0-900) pg/mL Serum Total Protein 7.1 (6.3-8.2) g/dL Albumin 4.1 (3.5-5.0) g/dL Monoscreen (Negative) Influenza Type A Ag (NEGATIVE) Influenza Type B Ag (NEGATIVE) Group A Strep Antibody (NEGATIVE) - Progress Progress: improved, re-examined Air Movement: fair Progress Note: 08/22/21 19:32 Chest x-ray shows mild cardiomegaly with bibasilar fluid versus atelectasis versus early infiltrate. 08/22/21 21:31 Cat scan of the chest with contrast shows no definite pulmonary emboli. There is expected pulmonary scarring present. There is no evidence of infiltrate. Blood Culture(s) Obtained: Yes Antibiotics given: Yes Counseled pt/family regarding: lab results, diagnosis, need for follow-up, rad results - Departure Departure Disposition: Home Clinical Impression: Upper respiratory infection, Congestive heart failure Condition: Stable Critical Care Time: No Referrals: DOCTOR,NO FAMILY [Primary Care Provider] - Follow up/PCP as directed Instructions: Heart Failure Additional Instructions: Take your medication as prescribed. Follow-up with your primary care physician for further management. Quarantine yourself until the results of your Covid sybil t returned. Prescriptions: Hydrocodone/Acetaminophen [Hydrocodone-Acetamn 7.5-325/15] 10 ml PO Q8H PRN PRN #120 ml MDD 30 ml PRN Reason: Cough Prednisone 10 mg [Deltasone 10 mg] 10 mg PO TID #12 tablet Azithromycin 250 mg [Zithromax 250 MG TABLET] 250 mg PO ZPACK #6 tablet
[2021-08-22] MEDS ORDERED: solu-MEDROL ONE (18:56)
[2021-08-22] MEDS ORDERED: Sterile H2O 10 ml IJ ONE (18:56)
[2021-08-22] MEDS ORDERED: HYDROCODONE-ACETAMIN 2.5-108/5 ML SOLUTION PO STA (19:26)
[2021-08-22 19:29] LABS: Hematocrit 42.8 % (35-47); Hemoglobin 13.9 gm/dl (12.0-16.0); Mean Cell Volume 97.3 fl (78-100); Mean Corpuscular Hemoglobin 31.6 pg (26-32); Mean Corpuscular Hgb Concent. 32.5 g/dl (32-36); Mean Platelet Volume 10.8 fl (7.5-11.0); Platelet Count 190 K/mm3 (150-450); Red Cell Distribution Width 13.7 % (11.5-14.0); White Blood Count 8.2 K/mm3 (4.0-10.5)
[2021-08-22] MEDS ORDERED: HYDROCODONE-ACETAMIN 2.5-108/5 ML SOLUTION ONE (19:36)
[2021-08-22 19:39] LABS: INR 0.99 (0.8-3.0); PROTIME 11.7 SECONDS (9.4-12.5)
[2021-08-22 19:52] LABS: ALBUMIN 4.1 g/dL (3.5-5.0); ALKALINE PHOSPHATASE 104 U/L (38-126); ANION GAP 9.6 MEQ/L (5-15); BLOOD UREA NITROGEN 16 mg/dL (7-17); CHLORIDE 100 mmol/L (98-107); Carbon Dioxide 29 mmol/L (22-30); Creatinine 1 0.78 mg/dL (0.52-1.04); EST GLOMERULAR FILTRATION RATE > 60.0 ML/MIN; Glucose 104 mg/dL (74-106); LDH-LACTATE DEHYDROGENASE 214 U/L (120-246); MAGNESIUM 1.9 mg/dL (1.6-2.3); NT PRO BNP 1220 pg/mL (0-900); Potassium 4.2 mmol/L (3.5-5.1); SGOT/AST 41 U/L (14-36); SGPT/ALT 39 U/L (0-35); SODIUM 135 mmol/L (137-145); Total Protein 7.1 g/dL (6.3-8.2)
[2021-08-22 19:55] LABS: INFLUENZA A NEGATIVE (NEGATIVE); INFLUENZA B NEGATIVE (NEGATIVE)
[2021-08-22] MEDS ORDERED: Lasix 40 MG/4 ML IV ONE (19:55)
[2021-08-22] MEDS ORDERED: Lasix 40 MG/4 ML ONE (19:57)
[2021-08-22] MEDS ORDERED: Sodium Chloride 0.9% 500 ML 500 ML IV ONE (19:58)
[2021-08-22] MEDS ORDERED: Sodium Chloride 0.9% 500 ML 500 ML IV SCH (20:00)
[2021-08-22 21:08] VITALS: PULSE 65
[2021-08-22] MEDS ORDERED: ROCEPHIN 1 Gm-D5w 50 ml Bag** 1 G/50 ML IVPB IV STA (21:30)
[2021-08-22] MEDS ORDERED: ROCEPHIN 1 Gm-D5w 50 ml Bag** 1 G/50 ML IVPB IV ONE (21:32)
[2021-08-22 22:24] VITALS: BP 141/70; O2SAT 94
[2021-08-22 23:24] LABS: Basophil 2 % (0.0-1.0); Eosinophil 2 % (0.00-3.0); Lymphocytes 23 % (24-44); Monocyte 2 % (0.0-12.0); Neutrophils 71 % (36.0-66.0); Platelet Estimate NORMAL (NORMAL); Total Cells Counted 100
--- NOTE | 2021-08-23 08:41 | XRAY ---
Indication: Cough. Elevated d-dimer. Multiple contiguous axial images obtained through the chest using 80 cc Isovue 370 contrast and PE protocol. Comparison: May 11, 2020. There is good opacification of the pulmonary arteries to include the lobar and segmental branches. No pulmonary embolus. Heart remains enlarged again with pacer leads. Aorta is normal in course and caliber. No pathologic mediastinal/hilar lymphadenopathy. Lungs again demonstrates moderate diffuse scattered peripheral fibrosis/scarring greatest in both lung bases. No suspicious pulmonary mass, infiltrate, or effusion. Bony thorax again demonstrates osteopenia, mild/moderate degenerative throughout the spine, remote T6/T8/T12 endplate fractures, and old nonunited right 7 rib fracture. Again bilateral calcified breast implants. Limited upper abdomen again demonstrates mild fatty liver with a few tiny hepatic cysts. Impression: 1. Continued negative pulmonary embolus. No acute cardiopulmonary abnormalities. 2. Again incidental pulmonary fibrosis/scarring, cardiomegaly, chronic bony findings, fatty liver, and hepatic cysts.
--- NOTE | 2021-08-23 09:05 | XRAY ---
Indication: Cough. Comparison: February 222020. Portable chest again demonstrates scattered pulmonary fibrosis/scarring, cardiomegaly with left pacemaker, osteopenia, and bilateral calcified breast implants. No new/acute abnormalities.
== END 2021-08-22 22:22 | disposition home or self-care (01) ==
LOC: ED 18:32
DX: J06.9 Acute upper respiratory infection, unspecified (principal); I50.9 Heart failure, unspecified; R53.1 Weakness; R53.83 Other fatigue; M79.10 Myalgia, unspecified site; R05.9 Cough, unspecified; I11.0 Hypertensive heart disease with heart failure; E78.5 Hyperlipidemia, unspecified; J44.9 Chronic obstructive pulmonary disease, unspecified; E11.9 Type 2 diabetes mellitus without complications; Z79.84 Long term (current) use of oral hypoglycemic drugs; I48.91 Unspecified atrial fibrillation; Z79.01 Long term (current) use of anticoagulants; Z79.899 Other long term (current) drug therapy; Z79.891 Long term (current) use of opiate analgesic; Z79.52 Long term (current) use of systemic steroids
CPT/HCPCS: 36000; 36415; 71045; 71260; 80053; 82728; 83615; 83735; 83880; 84484; 85025; 85379; 85610; 86308; 87040; 87400; 87651; 93005; 93041; 94760; 96374; 96375; 99285; U0003; J0696; J1940; J2930; A9270-GY

== ENCOUNTER 2021-09-11 12:01 | Observation (INO) | payer BC ==
--- NOTE | 2021-09-11 12:10 | ERPHSYRPT ---
- History of Present Illness Time Seen by Provider: 09/11/21 12:05 Historian: patient Exam Limitations: no limitations Physician History: This is a 71-year-old white female patient of Dr. 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 She was on her way to her appointment but was complaining of severe, sta bbing, nonradiating, centrally located in substernal chest pain so she came here first. Patient has a history of COPD, CHF, hypothyroidism, hypertension, vel-nyckaid-[id number] diabetes, atrial fibrillation and pulmonary fibrosis. She has a pacemaker in place and is on daily Xarelto. Patient has a cough and a fever upon arrival to the emergency department. Patient does admit that she has told her heart doctor office that she has been having chest pressure in the same area for several days. Patient has not been on her Xarelto in the last several days because she was told to stop this prior to undergoing the cardiac catheterization that scheduled today. Timing/Duration: today Activities at Onset: none Quality: sharpness, stabbing Location: substernal, central Chest Pain Radiation: no radiation Severity of Pain-Max: moderate Severity of Pain-Current: mild (To moderate) Modifying Factors: Improves With: coughing Associated Symptoms: cough, fever Prior Chest Pain/Cardiac Workup: cardiac cath Nitro Today/Relief: no nitro taken today Aspirin Treatment Today: no aspirin today Allergies/Adverse Reactions: Sulfa (Sulfonamide Antibiotics) Allergy (Severe, Verified 09/11/21 12:25) Itching pollen extracts Allergy (Mild, Verified 09/11/21 12:25) bacitracin [From Neosporin ([id number])] Allergy (Verified 09/11/21 12:25) neomycin [From Neosporin ([id number])] Allergy (Verified 09/11/21 12:25) polymyxin B [From Neosporin ([id number])] Allergy (Verified 09/11/21 12:25) Home Medications: Atorvastatin Calcium 1 tab PO DAILY 05/06/20 [History] Diltiazem HCl [Cartia Xt] 0.5 tab PO DAILY 05/06/20 [History] Levothyroxine Sodium [Euthyrox] 1 tab PO DAILY 05/06/20 [History] Ropinirole 2Mg [Requip 2Mg Tab] 1 tab PO HS 05/06/20 [History] Aspirin EC 81 mg [Ecotrin 81 mg] 81 mg PO DAILY 01/19/21 [History] Calcium Carbonate/Vitamin D3 [Calcium 1,000 + D3 Caplet] 2 each PO DAILY 01/19/21 [History] Metformin HCl [Metformin HCl ER] 500 mg PO DAILY 03/08/21 [History] Rivaroxaban 10 mg Tablet [Xarelto 10 mg Tablet] 10 mg PO DAILY 03/08/21 [History] Hydrocodone/Acetaminophen [Hydrocodone-Acetamin 5-325 mg] 1 each PO BID 08/22/21 [History] Hx Tetanus, Diphtheria Vaccination/Date Given: Yes Hx Influenza Vaccination/Date Given: Yes (coming up due) Hx Pneumococcal Vaccination/Date Given: Yes (coming due) Travel Risk - International Travel Have you traveled outside of the country in past 3 weeks: No - Coronavirus Screening Are you exhibiting any of the following symptoms?: Yes Symptoms: Fever, Cough: New Onset Close contact with a COVID-19 positive Pt in past 14-21 Days: No - Vaccine Status Have you recieved a Covid-19 vaccination: No - Review of Systems Constitutional: Fever Eyes: No Symptoms Ears, Nose, & Throat: No Symptoms Respiratory: Cough Cardiac: Chest Pain Abdominal/Gastrointestinal: No Symptoms Genitourinary Symptoms: No Symptoms Musculoskeletal: No Symptoms Skin: No Symptoms Neurological: No Symptoms Psychological: No Symptoms Endocrine: No Symptoms Hematologic/Lymphatic: No Symptoms Immunological/Allergic: No Symptoms All Other Systems: Reviewed and Negative - Past Medical History Pertinent Past Medical History: Yes Neurological History: Migraines ENT History: No Pertinent History Cardiac History: Arrhythmia, Congestive Heart Failure, High Cholesterol, Hypertension Respiratory History: Bronchitis, CHF, Pneumonia Endocrine Medical History: Hypothyroidism Musculoskeletal History: Arthritis GI Medical History: No Pertinent History History: No Pertinent History Psycho-Social History: Anxiety, Depression Female Reproductive Disorders: No Pertinent History Other Medical History: pulmunary fibrosis - Past Surgical History Past Surgical History: Yes Neuro Surgical History: No Pertinent History Cardiac: Pacemaker, Other Respiratory: No Pertinent History Gastrointestinal: No Pertinent History Genitourinary: No Pertinent History Musculoskeletal: No Pertinent History Female Surgical History: No Pertinent History Other Surgical History: ablasion not completed due to complications, had pacemaker placed instead, (cardiac arrest during heart surgery) - Social History Smoking Status: Former smoker Exposure to second hand smoke: No Drug Use: none Patient Lives Alone: Yes - Nursing Vital Signs Nursing Vital Signs: Initial Vital Signs Temperature 100.1 F 09/11/21 12:16 Pulse Rate 65 09/11/21 12:16 Respiratory Rate 23 09/11/21 12:16 Blood Pressure 159/82 09/11/21 12:16 O2 Sat by Pulse Oximetry 96 09/11/21 12:16 Pain Scale Pain Intensity 4 - Physical Exam General Appearance: mild distress, alert, anxiety Eye Exam: PERRL/EOMI, eyes nml inspection Ears, Nose, Throat Exam: normal ENT inspection, moist mucous membranes Neck Exam: normal inspection, non-tender, supple, full range of motion Respiratory Exam: normal breath sounds, chest tenderness, lungs clear, airway intact, No respiratory distress Cardiovascular Exam: regular rate/rhythm, normal heart sounds, normal peripheral pulses Gastrointestinal/Abdomen Exam: soft, normal bowel sounds, No tenderness Rectal Exam: not done Back Exam: normal inspection, normal range of motion, No CVA tenderness, No vert ebral tenderness Extremity Exam: normal inspection, normal range of motion, pelvis stable Neurologic Exam: alert, oriented x 3, cooperative, human 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 No change when compared to EKG dated 08/22/2021.) Ordered Tests: Active Orders 24 hr Category Date Time Status Home Service Advisor STAT Care 09/11/21 12:11 Active EKG-ER Only STAT Care 09/11/21 12:11 Active IV Insertion STAT Care 09/11/21 12:11 Active Pulse Oximetry (ED) STAT Care 09/11/21 12:11 Active CHEST 1 VIEW (PORTABLE) Stat Exams 09/11/21 12:11 Completed CBC W DIFF Stat Lab 09/11/21 12:15 Completed CMP Routine Lab 09/11/21 12:15 Completed CMP Stat Lab 09/11/21 12:15 Received D-DIMER QUANTITATIVE Stat Lab 09/11/21 12:15 Completed Manual Differential NC Stat Lab 09/11/21 12:15 Completed NT PRO BNP Routine Lab 09/11/21 12:15 Completed NT PRO BNP Stat Lab 09/11/21 12:15 Received PROTIME WITH INR Stat Lab 09/11/21 12:15 Completed TROPONIN Q3H Lab 09/11/21 12:15 Completed TROPONIN Q3H Lab 09/11/21 15:15 Ordered TROPONIN Q3H Lab 09/11/21 18:15 Ordered TROPONIN Q3H Lab 09/11/21 21:15 Ordered TROPONIN Q3H Lab 09/12/21 00:15 Ordered Transfer Order Routine Transfer 09/11/21 Ordered Medication Summary Generic Name Dose Route Start Last Admin Trade Name Freq PRN Reason Stop Dose Admin Sodium Chloride 1,000 mls @ 100 mls/hr 09/11/21 12:15 09/11/21 12:25 Sodium Chloride 0.9% 1000 Ml IV 10/11/21 12:14 100 mls/hr .Q10H JOCELYN Administration Discontinued Medications Generic Name Dose Route Start Last Admin Trade Name Freq PRN Reason Stop Dose Admin Aspirin 324 mg 09/11/21 12:11 09/11/21 13:28 Aspirin 81 Mg Tab.Chew PO 09/11/21 12:12 324 mg STAT ONE Administration Aspirin Confirm 09/11/21 12:18 Aspirin 81 Mg Tab.Chew Administered 09/11/21 12:19 Dose 324 mg .ROUTE .STK-MED ONE Enoxaparin Sodium 80 mg 09/11/21 13:14 09/11/21 13:29 Enoxaparin Sodium 80 Mg/0.8 Ml Syringe SQ 09/11/21 13:15 80 mg STAT ONE Administration Enoxaparin Sodium Confirm 09/11/21 13:29 Enoxaparin Sodium 80 Mg/0.8 Ml Syringe Administered 09/11/21 13:30 Dose 80 mg SQ .STK-MED ONE Morphine Sulfate 2 mg 09/11/21 12:11 09/11/21 12:25 Morphine Sulfate 2 Mg/Ml Inj IV 09/11/21 12:12 2 mg STAT ONE Administration Morphine Sulfate Confirm 09/11/21 12:18 Morphine Sulfate 2 Mg/Ml Inj Administered 09/11/21 12:19 Dose 2 mg .ROUTE .STK-MED ONE Ondansetron HCl 4 mg 09/11/21 12:11 09/11/21 12:25 Ondansetron Hcl 4 Mg/2 Ml Vial IV 09/11/21 12:12 4 mg STAT ONE Administration Ondansetron HCl Confirm 09/11/21 12:18 Ondansetron Hcl 4 Mg/2 Ml Vial Administered 09/11/21 12:19 Dose 4 mg .ROUTE .STK-MED ONE Lab/Rad Data: Laboratory Result Diagrams 09/11/21 12:15 09/11/21 12:15 Laboratory Results 09/11/21 09/11/21 09/11/21 Range/Units 12:29 12:15 12:15 WBC (4.0-10.5) K/mm3 RBC (4.1-5.4) M/mm3 Hgb (12.0-16.0) gm/dl Hct (35-47) % MCV (78-100) fl MCH (26-32) pg MCHC (32-36) g/dl RDW (11.5-14.0) % Plt Count (150-450) K/mm3 MPV (7.5-11.0) fl PT 11.5 (9.4-12.5) SECONDS INR 0.97 (0.8-3.0) D-Dimer 1111 H* (215-500) ng/mL Sodium 135 L (137-145) mmol/L Potassium 4.4 (3.5-5.1) mmol/L Chloride 95 L (98-107) mmol/L Carbon Dioxide 30 (22-30) mmol/L Anion Gap 14.4 (5-15) MEQ/L BUN 16 (7-17) mg/dL Creatinine 0.82 (0.52-1.04) mg/dL Estimated GFR > 60.0 ML/MIN Glucose 101 (74-106) mg/dL Calcium 9.1 (8.4-10.2) mg/dL Total Bilirubin 0.50 (0.2-1.3) mg/dL AST 75 H (14-36) U/L ALT 56 H (0-35) U/L Alkaline Phosphatase 99 (38-126) U/L Troponin I < 0.012 (0.000-0.034) ng/mL NT-Pro-B Natriuret Pep 379 (0-900) pg/mL Serum Total Protein 7.9 (6.3-8.2) g/dL Albumin 4.7 (3.5-5.0) g/dL Influenza Type A Ag NEGATIVE (NEGATIVE) Influenza Type B Ag NEGATIVE (NEGATIVE) RSV (PCR) NEGATIVE (Negative) SARS-CoV-2 (PCR) POSITIVE A (NEGATIVE) 09/11/21 Range/Units 12:15 WBC 5.8 (4.0-10.5) K/mm3 RBC 5.11 (4.1-5.4) M/mm3 Hgb 16.2 H (12.0-16.0) gm/dl Hct 48.8 H (35-47) % MCV 95.5 (78-100) fl MCH 31.7 (26-32) pg MCHC 33.2 (32-36) g/dl RDW 14.2 H (11.5-14.0) % Plt Count 180 (150-450) K/mm3 MPV 10.3 (7.5-11.0) fl PT (9.4-12.5) SECONDS INR (0.8-3.0) D-Dimer (215-500) ng/mL Sodium (137-145) mmol/L Potassium (3.5-5.1) mmol/L Chloride (98-107) mmol/L Carbon Dioxide (22-30) mmol/L Anion Gap (5-15) MEQ/L BUN (7-17) mg/dL Creatinine (0.52-1.04) mg/dL Estimated GFR ML/MIN Glucose (74-106) mg/dL Calcium (8.4-10.2) mg/dL Total Bilirubin (0.2-1.3) mg/dL AST (14-36) U/L ALT (0-35) U/L Alkaline Phosphatase (38-126) U/L Troponin I (0.000-0.034) ng/mL NT-Pro-B Natriuret Pep (0-900) pg/mL Serum Total Protein (6.3-8.2) g/dL Albumin (3.5-5.0) g/dL Influenza Type A Ag (NEGATIVE) Influenza Type B Ag (NEGATIVE) RSV (PCR) (Negative) SARS-CoV-2 (PCR) (NEGATIVE) - Progress Progress: improved, re-examined Air Movement: good Progress Note: 09/11/21 13:52 Chest x-ray shows no acute new findings. There is bilateral pulmonary fibrosis and scarring present. Medical decision making: This patient was scheduled for an outpatient cardiac catheterization by Dr. 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 I spoke with him and we reviewed the patient's history, lab results, EKG findings and the positive COVID-19 test that the patient has. He is canceling the cardiac catheterization as an outpatient. The patient is positive COVID-19 infected but needs to be admitted to the COVID-19 unit for rule out. She will also receive Lovenox and Xarelto will be restarted in the hospital. She will also receive Dr. Oviedo's inpatient Covid standard admission orders. Blood Culture(s) Obtained: No Antibiotics given: No Discussed with DrElmer: Other (carlyle oviedo) Counseled pt/family regarding: lab results, diagnosis, need for follow-up - Departure Departure Disposition: In-patient Admission Clinical Impression: COVID-19 virus infection, Chest pain Condition: Stable Critical Care Time: No Referrals: PEPE FRANKLIN MD [Primary Care Provider] - Follow up/PCP as directed
[2021-09-11] MEDS ORDERED: BABY ASPIRIN 81 MG CHEW PO ONE (12:11)
[2021-09-11] MEDS ORDERED: Zofran 4 MG/2 ML VIAL IV ONE (12:11)
[2021-09-11] MEDS ORDERED: MORPHINE SULFATE 2 MG INJ IV ONE (12:11)
[2021-09-11] MEDS ORDERED: Sodium Chloride 0.9% 1000 ML 1,000 ML IV SCH (12:15)
[2021-09-11] MEDS ORDERED: Zofran 4 MG/2 ML VIAL ONE (12:18)
[2021-09-11] MEDS ORDERED: BABY ASPIRIN 81 MG CHEW ONE (12:18)
[2021-09-11] MEDS ORDERED: Sodium Chloride 0.9% 1000 ML 1,000 ML ONE (12:18)
[2021-09-11] MEDS ORDERED: MORPHINE SULFATE 2 MG INJ ONE (12:18)
[2021-09-11 12:35] LABS: Hematocrit 48.8 % (35-47); Hemoglobin 16.2 gm/dl (12.0-16.0); Mean Cell Volume 95.5 fl (78-100); Mean Corpuscular Hemoglobin 31.7 pg (26-32); Mean Corpuscular Hgb Concent. 33.2 g/dl (32-36); Mean Platelet Volume 10.3 fl (7.5-11.0); Platelet Count 180 K/mm3 (150-450); Red Blood Count 5.11 M/mm3 (4.1-5.4); Red Cell Distribution Width 14.2 % (11.5-14.0); White Blood Count 5.8 K/mm3 (4.0-10.5)
[2021-09-11 12:39] LABS: INR 0.97 (0.8-3.0); PROTIME 11.5 SECONDS (9.4-12.5)
--- NOTE | 2021-09-11 12:45 | XRAY ---
Indication: Chest pain. Comparison: August 22, 2021. Portable chest unchanged again demonstrating scattered bilateral pulmonary fibrosis/scarring, cardiomegaly with left dual-lead pacemaker, osteopenia, and bilateral calcified breast implants. No new/acute findings.
[2021-09-11 12:57] LABS: ALBUMIN 4.7 g/dL (3.5-5.0); ALKALINE PHOSPHATASE 99 U/L (38-126); ANION GAP 14.4 MEQ/L (5-15); BLOOD UREA NITROGEN 16 mg/dL (7-17); CHLORIDE 95 mmol/L (98-107); Calcium 9.1 mg/dL (8.4-10.2); Carbon Dioxide 30 mmol/L (22-30); Creatinine 1 0.82 mg/dL (0.52-1.04); EST GLOMERULAR FILTRATION RATE > 60.0 ML/MIN; Glucose 101 mg/dL (74-106); NT PRO BNP 379 pg/mL (0-900); Potassium 4.4 mmol/L (3.5-5.1); SGOT/AST 75 U/L (14-36); SGPT/ALT 56 U/L (0-35); SODIUM 135 mmol/L (137-145); TROPONIN < 0.012 ng/mL (0.000-0.034); Total Protein 7.9 g/dL (6.3-8.2)
[2021-09-11 13:12] LABS: INFLUENZA A NEGATIVE (NEGATIVE); INFLUENZA B NEGATIVE (NEGATIVE); RESPIRATORY SYNCTIAL VIRUS NEGATIVE (Negative)
[2021-09-11] MEDS ORDERED: ENOXAPARIN SODIUM SQ ONE ×2 (13:14→13:29)
[2021-09-11 13:15] LABS: SARS-CoV-2 Xpert Express POSITIVE (NEGATIVE)
[2021-09-11 14:44] LABS: BAND 6 % (0.0-2.0); Basophil 1 % (0.0-1.0); Lymphocytes 17 % (24-44); Monocyte 6 % (0.0-12.0); Neutrophils 70 % (36.0-66.0); Platelet Estimate NORMAL (NORMAL); Total Cells Counted 100; Toxic Granulation 1+
[2021-09-11] MEDS ORDERED: REMDESIVIR 200 MG in Sodium Chloride 0.9% 250 ML 250 ML IV ONE (15:21)
[2021-09-11] MEDS ORDERED: TYLENOL EXTRA STRENGTH 500 MG PO PRN (15:21)
[2021-09-11] MEDS: HYDROCODONE-CHLORPHEN ER SUSP PO PRN (16:51)
[2021-09-11] MEDS: Ativan 1 MG PO PRN (16:52)
[2021-09-11] MEDS: DECADRON 10MG INJ. IV SCH (16:52)
[2021-09-11] MEDS: OLUMIANT PO SCH (16:52)
[2021-09-11] MEDS ORDERED: Lactated Ringers 1,000 ML IV SCH (17:00)
[2021-09-11] MEDS: REQUIP 2MG TAB PO SCH (19:03)
[2021-09-11] MEDS: ZOCOR 20MG PO SCH (19:04)
[2021-09-11] MEDS: VENTOLIN COMMON CANISTER IH PRN (19:15)
[2021-09-11] MEDS: NORCO 5/325 MG PO PRN (19:34)
[2021-09-11] MEDS: HUMALOG SQ PRN (21:47)
[2021-09-12] MEDS: NORCO 5/325 MG PO PRN ×4 (04:38→20:00)
[2021-09-12 05:46] LABS: Hematocrit 47.2 % (35-47); Hemoglobin 15.1 gm/dl (12.0-16.0); Mean Cell Volume 98.1 fl (78-100); Mean Corpuscular Hemoglobin 31.4 pg (26-32); Mean Platelet Volume 10.4 fl (7.5-11.0); Platelet Count 157 K/mm3 (150-450); Red Blood Count 4.81 M/mm3 (4.1-5.4); White Blood Count 2.2 K/mm3 (4.0-10.5)
[2021-09-12 06:20] LABS: ALBUMIN 4.3 g/dL (3.5-5.0); ALKALINE PHOSPHATASE 79 U/L (38-126); ANION GAP 15.2 MEQ/L (5-15); BLOOD UREA NITROGEN 17 mg/dL (7-17); CHLORIDE 97 mmol/L (98-107); Calcium 8.9 mg/dL (8.4-10.2); Carbon Dioxide 27 mmol/L (22-30); EST GLOMERULAR FILTRATION RATE > 60.0 ML/MIN; Glucose 205 mg/dL (74-106); Potassium 5.1 mmol/L (3.5-5.1); SGOT/AST 59 U/L (14-36); SGPT/ALT 47 U/L (0-35); SODIUM 134 mmol/L (137-145); Total Protein 7.6 g/dL (6.3-8.2)
[2021-09-12] MEDS: HYDROCODONE-CHLORPHEN ER SUSP PO PRN (06:30)
[2021-09-12] MEDS: Ativan 1 MG PO PRN ×3 (07:56→16:35)
[2021-09-12] MEDS: HUMALOG SQ PRN ×3 (07:56→22:13)
--- NOTE | 2021-09-12 08:12 | HP ---
CHIEF COMPLAINT: Chest pain. 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 She has had it several times before. The weaving professor office told her to go to the emergency room and she was seen here. She had two troponins which were negative. EKG showed no acute changes. It certainly does sound like angina and she has had this pain off and on for several weeks. She does have a history of atrial fibrillation and pulmonary fibrosis although she is not on oxygen and she was not hypoxic when she came in. Her Xarelto had been stopped due to the fact she was having a heart cath. The pain was nonradiating. It was somewhat sharp and stabbing, mild to moderate that improved with coughing. She has been coughing and coughing stuff up for the last three days and now she has been nauseated which is unusual for her. She has taken no aspirin and no Nitro today. CORONAVIRUS SCREENING: The patient's daughter had COVID several weeks ago. She herself has not had any vaccinations and has had fever, cough and nausea new onset. MEDICATIONS: Atorvastatin q.d., diltiazem 120 mg q.d., Synthroid q.d., ropinirole 2 mg q.d., Ecotrin 81 mg q.d., calcium 1,000 mg q.d., Metformin 500 q.d., Xarelto 10 mg q.d. for atrial fibrillation, Vicodin 5/325 mg 1 b.i.d. for arthritis pain. ALLERGIES: SULFA. NEOSPORIN. POLLEN EXTRACTS. PAST MEDICAL HISTORY: PAST SURGICAL HISTORY: The patient had an attempted ablation which there were complications with a pacemaker placed instead. Cardiac arrest during the ablation. REVIEW OF SYSTEMS: HEENT: No problems hearing or seeing. CHEST: Productive cough, nonsmoker. CVS: As above, has had this chest pain off and on. She said she was on her way to have a cardiac catheterization in [place] when she pulled over. EXTREMITIES: The patient is ambulatory slowly. MUSCULOSKELETAL: Arthritis in the knees. PSYCHOLOGIC: No problems. NEUROLOGIC: She has got some migraines occasionally. ENDOCRINE: Diabetes, hypothyroid, high cholesterol, hypertension. PSYCHOSOCIAL: Admitted to having some anxiety and depression. PULMONARY: She has pulmonary fibrosis. SOCIAL HISTORY: Quit smoking seven to eight years ago, not exposed to secondhand smoke. She lives by herself. PHYSICAL EXAMINATION: The patient is alert, orientated, very talkative and pleasant and in no distress. VITAL SIGNS: Temperature 100F, pulse 65, respirations 20, blood pressure 142/72. O2 saturation 94%. HEENT: Pupils equal and reactive to light. Hearing and vision seems normal. NECK: Supple without adenopathy. No lymph nodes. CHEST: Clear. CVS: No murmurs or gallops. Slightly irregular. ABDOMEN: Soft. No tenderness or organomegaly. EXTREMITIES: No edema. No cyanosis. LAB DATA AND TESTS: Labs: White count is 5.8, hemoglobin 16.2. Electrolytes were normal. D-dimer was elevated at 1111. Creatinine was normal at 0.82. BNP was normal. Chest x-ray showed no acute findings, bilateral pulmonary fibrosis and scarring, no signs of pneumonia. IMPRESSION: 1) The patient is probably having angina or might well have. 2) The patient does have active COVID with nausea, shortness of breath, cough and fever. PLAN: The patient will be admitted and her COVID will be treated. Will follow up after discharge with Dr. Dhaliwal to schedule her heart cath in seven to fourteen days. If she has chest pain her EKG will be repeated, etc. PROGNOSIS: Good.
[2021-09-12] MEDS: Cardizem CD 120 MG PO SCH (09:44)
[2021-09-12] MEDS: XARELTO 10 MG TABLET PO SCH (09:44)
[2021-09-12] MEDS: OLUMIANT PO SCH (09:44)
[2021-09-12] MEDS: ECOTRIN 81 MG PO SCH (09:44)
[2021-09-12] MEDS: DECADRON 10MG INJ. IV SCH (09:44)
[2021-09-12] MEDS: Glucophage XR 500 MG PO SCH (09:45)
[2021-09-12] MEDS: SYNTHROID 112 MCG PO SCH (09:45)
[2021-09-12] MEDS ORDERED: NON-FORMULARY ITEM (Metformin Hcl [Metformin Hcl Er] 750 MG Tab.Er.24h) PO SCH (10:00)
[2021-09-12] MEDS ORDERED: ENOXAPARIN SODIUM SQ SCH (10:00)
[2021-09-12] MEDS ORDERED: NON-FORMULARY ITEM (Atorvastatin Calcium [Atorvastatin Calcium] 80 MG Tablet) PO SCH (10:00)
[2021-09-12] MEDS ORDERED: DECADRON 10MG INJ. IV SCH (10:00)
[2021-09-12] MEDS: REMDESIVIR 100 MG in Sodium Chloride 0.9% 100 ML BAG 100 ML IV SCH (14:04)
[2021-09-12] MEDS ORDERED: Dulcolax 10 MG SUPP ONE (19:29)
[2021-09-12] MEDS: REQUIP 2MG TAB PO SCH (21:18)
[2021-09-12] MEDS: ZOCOR 20MG PO SCH (21:18)
[2021-09-13] MEDS: NORCO 5/325 MG PO PRN ×3 (05:16→14:24)
[2021-09-13 05:31] LABS: Hematocrit 41.2 % (35-47); Hemoglobin 13.2 gm/dl (12.0-16.0); Mean Cell Volume 97.4 fl (78-100); Mean Corpuscular Hemoglobin 31.2 pg (26-32); Mean Platelet Volume 10.3 fl (7.5-11.0); Platelet Count 161 K/mm3 (150-450); Red Blood Count 4.23 M/mm3 (4.1-5.4); Red Cell Distribution Width 13.5 % (11.5-14.0); White Blood Count 5.1 K/mm3 (4.0-10.5)
[2021-09-13 05:57] LABS: ALBUMIN 3.7 g/dL (3.5-5.0); ALKALINE PHOSPHATASE 60 U/L (38-126); ANION GAP 11.1 MEQ/L (5-15); BLOOD UREA NITROGEN 17 mg/dL (7-17); CHLORIDE 95 mmol/L (98-107); Calcium 8.4 mg/dL (8.4-10.2); Carbon Dioxide 31 mmol/L (22-30); Creatinine 1 0.57 mg/dL (0.52-1.04); EST GLOMERULAR FILTRATION RATE > 60.0 ML/MIN; Glucose 149 mg/dL (74-106); Potassium 4.1 mmol/L (3.5-5.1); SGOT/AST 34 U/L (14-36); SGPT/ALT 34 U/L (0-35); SODIUM 133 mmol/L (137-145); Total Protein 6.8 g/dL (6.3-8.2)
[2021-09-13] MEDS: Ativan 1 MG PO PRN ×2 (08:19→13:56)
[2021-09-13] MEDS: OLUMIANT PO SCH (08:19)
[2021-09-13] MEDS: XARELTO 10 MG TABLET PO SCH (08:19)
[2021-09-13] MEDS: ECOTRIN 81 MG PO SCH (08:19)
[2021-09-13] MEDS: Cardizem CD 120 MG PO SCH (08:19)
[2021-09-13] MEDS: SYNTHROID 112 MCG PO SCH (08:19)
[2021-09-13] MEDS: DECADRON 10MG INJ. IV SCH (08:19)
[2021-09-13] MEDS: Glucophage XR 500 MG PO SCH (08:20)
[2021-09-13] MEDS ORDERED: Colace 100 MG PO SCH (10:00)
--- NOTE | 2021-09-13 10:23 | DS ---
ADMISSION DIAGNOSES: 1) Chest pain. 2) COVID. 3) COVID pneumonia. 4) Diabetes mellitus. DISCHARGE DIAGNOSES: 1) CHEST PAIN. 2) COVID. 3) COVID PNEUMONIA. 4) DIABETES MELLITUS. HOSPITAL COURSE: The patient was actually being driven to [place] to get a heart cath when she had rather severe sharp pain in the middle of the chest. 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 Her enzymes ruled out a myocardial infarction. However, she was positive for COVID and still having pain and short of breath and was admitted to our unit. There she pretty quickly improved and she had no more chest pain. She was fatigued, short of breath, productive cough and had increasing symptoms. Prior to the day of the heart cath schedule she really was not that sick which she was sick here. White count was low. D-dimer was mildly elevated. Chest x-ray was okay. Temperature stayed normal and she was treated with Remdesivir, Decadron and anticoagulated. The last D-dimer was 862. Today, she is eating well. She has been up walking around, feels well and wants to go home. She has finished three days of Remdesivir. She is in good shape and she will be discharged home to follow up with her raiser helper. She should be noninfectious in around five days. She should stay isolated until then. She does have a daughter close by who has been bringing her food and check on her. PROGNOSIS: Good.
[2021-09-13] MEDS: HUMALOG SQ PRN (11:17)
[2021-09-13] MEDS: REMDESIVIR 100 MG in Sodium Chloride 0.9% 100 ML BAG 100 ML IV SCH (11:23)
[2021-09-13] MEDS: VENTOLIN COMMON CANISTER IH PRN (15:19)
[2021-09-13 15:21] VITALS: PULSE 65
[2021-09-13] MEDS: HYDROCODONE-CHLORPHEN ER SUSP PO PRN (15:22)
[2021-09-13 16:17] VITALS: BP 145/060; O2SAT 94
== END 2021-09-13 17:15 | disposition home or self-care (01) ==
LOC: ED 12:01 → OBSVTOIN 15:12 → MED SURG 15:12 → INTOOBSV 15:12
PROVIDERS: ADMIT Family Medicine; ATTEND Family Medicine
DX: R07.9 Chest pain, unspecified (principal); U07.1 COVID-19; J12.82 Pneumonia due to coronavirus disease 2019; E11.9 Type 2 diabetes mellitus without complications; I48.91 Unspecified atrial fibrillation; J44.9 Chronic obstructive pulmonary disease, unspecified; I11.0 Hypertensive heart disease with heart failure; I50.9 Heart failure, unspecified; E03.9 Hypothyroidism, unspecified; Z79.899 Other long term (current) drug therapy; Z20.828 Contact with and (suspected) exposure to other viral communicable diseases
CPT/HCPCS: 0241U; 36415; 71045; 80053; 82947; 83880; 84484; 85025; 85027; 85379; 85610; 93005; 93041; 93268; 94640; 94760; 94762; 96372; 96374; 96375; 99285; G0378; J0248; J1100; J1650; J1817; J2270; J2405; A9270-GY

== ENCOUNTER 2021-09-17 16:32 | Emergency (ER) | payer BC ==
[2021-09-17 18:04] LABS: Hemoglobin 15.2 gm/dl (12.0-16.0); Mean Cell Volume 94.8 fl (78-100); Mean Corpuscular Hemoglobin 31.3 pg (26-32); Mean Platelet Volume 10.2 fl (7.5-11.0); Platelet Count 237 K/mm3 (150-450); Red Blood Count 4.85 M/mm3 (4.1-5.4); Red Cell Distribution Width 13.8 % (11.5-14.0)
[2021-09-17 18:09] LABS: INR 0.97 (0.8-3.0); PROTIME 11.4 SECONDS (9.4-12.5)
[2021-09-17 18:12] LABS: PTT 31.2 SECONDS (25.1-36.5)
[2021-09-17] MEDS ORDERED: Sodium Chloride 0.9% 1000 ML 1,000 ML IV STA (18:18)
--- NOTE | 2021-09-17 18:18 | ERPHSYRPT ---
- History of Present Illness Source: patient, EMS Exam Limitations: no limitations Patient Subjective Stated Complaint: " I was admitted to the hospital a few days ago and I'm still not any better. I have Covid". Triage Nursing Assessment: Pt presents to ER with complaints of shortness of breath, respirations are labored upon arrival. Spo2 WNL. Pt lungs are clear throughout. Pt skin is pale, warm, and dry. Pt was dx with Covid19 virus on 09/11/21 and s/sx of virus haven't improved. Pt is alert and oriented x 3. Complains of pain in upper back and into chest and lower legs. Pt complains of body aches and fatigue. Pt appears weak. Physician History: 71 yo wf diagnosed w CV19 on 09/11/21 and hospitalized until 09/13/21 presents w lethargy/dyspnea/Nausea/myalgias/pleuritic chest pain. Pt is on Xaralto. Timing/Duration: other (09/11/21) Cough Quality/Degree: dry cough Possible Cause: no prior episodes Modifying Factors: Improves With: coughing, exertion Associated Symptoms: chest pain/soreness, cough, muscle aches, nasal congestion, nasal drainage, shortness of breath, No fever, No chills, No dizziness, No earache, No facial pain, No headache, No lightheadedness, No sinus infection, No sore throat, No wheezing Allergies/Adverse Reactions: Sulfa (Sulfonamide Antibiotics) Allergy (Severe, Verified 09/17/21 16:44) Itching pollen extracts Allergy (Mild, Verified 09/17/21 16:44) bacitracin [From Neosporin ([id number])] Allergy (Verified 09/17/21 16:44) neomycin [From Neosporin ([id number])] Allergy (Verified 09/17/21 16:44) polymyxin B [From Neosporin ([id number])] Allergy (Verified 09/17/21 16:44) Home Medications: Atorvastatin Calcium 80 mg PO DAILY 05/06/20 [History] Levothyroxine Sodium [Euthyrox] 112 mcg PO DAILY 05/06/20 [History] Ropinirole 2Mg [Requip 2Mg Tab] 1 tab PO HS 05/06/20 [History] Metformin HCl [Metformin HCl ER] 500 mg PO DAILY 03/08/21 [History] Aspirin EC 81 mg [Ecotrin 81 mg] 81 mg PO DAILY 09/11/21 [History] Diltiazem HCl 120 mg [Cardizem CD 120 MG] 120 mg PO DAILY 09/11/21 [History] Hydrocodone/Acetaminophen [Hydrocodone-Acetamin 5-325 mg] 1 tab PO Q4HPRN PRN MDD 6 09/11/21 [History] Rivaroxaban 10 mg Tablet [Xarelto 10 mg Tablet] 10 mg PO DAILY 09/11/21 [History] Hx Tetanus, Diphtheria Vaccination/Date Given: No Hx Influenza Vaccination/Date Given: Yes Hx Pneumococcal Vaccination/Date Given: No Immunizations Up to Date: Yes Travel Risk - International Travel Have you traveled outside of the country in past 3 weeks: No - Coronavirus Screening Are you exhibiting any of the following symptoms?: Yes Symptoms: Cough: New Onset, Shortness of Breath, Headaches/Body Aches/Fatigue Close contact with a COVID-19 positive Pt in past 14-21 Days: Yes - Vaccine Status Have you recieved a Covid-19 vaccination: No - Review of Systems Constitutional: No Symptoms, Chills, Fatigue, Lethargy Eyes: No Symptoms Ears, Nose, & Throat: No Symptoms, Nose Pain, Nose Congestion, Nose Discharge Respiratory: No Symptoms, Cough, Dyspnea Cardiac: No Symptoms, Chest Pain Abdominal/Gastrointestinal: No Symptoms, Nausea Genitourinary Symptoms: No Symptoms Musculoskeletal: No Symptoms, Arthralgias, Myalgias Skin: No Symptoms Neurological: No Symptoms Psychological: No Symptoms Endocrine: No Symptoms Hematologic/Lymphatic: No Symptoms Immunological/Allergic: No Symptoms - Past Medical History Pertinent Past Medical History: Yes Neurological History: Migraines ENT History: No Pertinent History Cardiac History: Arrhythmia, Congestive Heart Failure, High Cholesterol, Hypertension Respiratory History: Bronchitis, CHF, Pneumonia Endocrine Medical History: Diabetes Type II, Hypothyroidism Musculoskeletal History: Arthritis GI Medical History: No Pertinent History History: No Pertinent History Psycho-Social History: Anxiety Female Reproductive Disorders: No Pertinent History Other Medical History: pulmunary fibrosis - Past Surgical History Past Surgical History: Yes Neuro Surgical History: No Pertinent History Cardiac: Pacemaker, Other Respiratory: No Pertinent History Gastrointestinal: No Pertinent History Genitourinary: No Pertinent History Musculoskeletal: No Pertinent History Female Surgical History: No Pertinent History Other Surgical History: ablasion not completed due to complications, had pacemaker placed instead, (cardiac arrest during heart surgery) - Social History Smoking Status: Never smoker Exposure to second hand smoke: No Drug Use: none Patient Lives Alone: Yes Significant Family History: no pertinent family hx - Female History Hx Now: No - Nursing Vital Signs Nursing Vital Signs: Initial Vital Signs Temperature 97.2 F 09/17/21 16:33 Pulse Rate 65 09/17/21 16:33 Respiratory Rate 26 H 09/17/21 16:33 Blood Pressure 174/93 09/17/21 16:33 O2 Sat by Pulse Oximetry 97 09/17/21 16:33 Pain Scale Pain Intensity 5 Hypertensive - Physical Exam General Appearance: no apparent distress, anxiety Eye Exam: PERRL/EOMI, eyes nml inspection Ears, Nose, Throat Exam: normal ENT inspection, TMs normal, moist mucous membranes Neck Exam: normal inspection, non-tender, supple, full range of motion, No meningismus, No mass, No Brudzinski, No Kernig's, No carotid bruit Respiratory Exam: crackles/rales (Faint B bases), No respiratory distress Cardiovascular Exam: regular rate/rhythm, normal heart sounds, normal peripheral pulses, No murmur Gastrointestinal/Abdomen Exam: soft, normal bowel sounds, No tenderness Back Exam: normal inspection, normal range of motion, No CVA tenderness, No vertebral tenderness Extremity Exam: normal inspection, normal range of motion Neurologic Exam: alert, oriented x 3, cooperative, 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 as tested, normal mood/affect, nml cerebellar function, nml station & gait, sensation nml, motor deficits Skin Exam: normal color Lymphatic Exam: No adenopathy SpO2 Interpretation: normal SpO2: 96 O2 Delivery: Room Air - Course Nursing assessment & vital signs reviewed: Yes EKG Interpreted by Me: RATE (Paced/Rate65/IVCD/No acute ST segment changes) - Radiology Exams Chest X-ray Interpretation: Interpreted by me (Pacer/CV19) Ordered Tests: Active Orders 24 hr Category Date Time Status EKG-ER Only STAT Care 09/17/21 17:21 Completed CHEST 1 VIEW (PORTABLE) Stat Exams 09/17/21 17:21 Taken CBC W DIFF Stat Lab 09/17/21 17:55 Completed CMP Stat Lab 09/17/21 17:55 Completed MAGNESIUM Stat Lab 09/17/21 17:55 Completed Manual Differential NC Stat Lab 09/17/21 17:55 Completed NT PRO BNP Stat Lab 09/17/21 17:55 Completed PROTIME WITH INR Stat Lab 09/17/21 17:55 Completed PTT Stat Lab 09/17/21 17:55 Completed TROPONIN Q3H Lab 09/17/21 17:55 Completed Medication Summary Discontinued Medications Generic Name Dose Route Start Last Admin Trade Name Aydee PRN Reason Stop Dose Admin Dexamethasone Sodium Phosphate 10 mg 09/17/21 18:50 09/17/21 19:03 Dexamethasone Sod Phosphate 10 Mg/Ml IV 09/17/21 18:51 10 mg STAT ONE Administration Dexamethasone Sodium Phosphate Confirm 09/17/21 19:02 Dexamethasone Sod Phosphate 10 Mg/Ml Administered 09/17/21 19:03 Dose 10 mg .ROUTE .STK-MED ONE Sodium Chloride 1,000 mls @ 999 mls/hr 09/17/21 18:18 09/17/21 19:32 Sodium Chloride 0.9% 1000 Ml IV 09/17/21 19:18 Infused .Q1H1M STA Infusion Sodium Chloride Confirm 09/17/21 18:24 Sodium Chloride 0.9% 1000 Ml Administered 09/17/21 18:25 Dose 1,000 mls @ ud .ROUTE .STK-MED ONE Ketorolac Tromethamine 15 mg 09/17/21 18:23 09/17/21 18:27 Ketorolac Tromethamine 30 Mg/Ml Inj IV 09/17/21 18:24 15 mg STAT ONE Administration Ketorolac Tromethamine Confirm 09/17/21 18:24 Ketorolac Tromethamine 30 Mg/Ml Inj Administered 09/17/21 18:25 Dose 30 mg .ROUTE .STK-MED ONE Lab/Rad Data: Laboratory Result Diagrams 09/17/21 17:55 09/17/21 17:55 Laboratory Results 09/17/21 09/17/21 09/17/21 Range/Units 17:55 17:55 17:55 WBC (4.0-10.5) K/mm3 RBC (4.1-5.4) M/mm3 Hgb (12.0-16.0) gm/dl Hct (35-47) % MCV (78-100) fl MCH (26-32) pg MCHC (32-36) g/dl RDW (11.5-14.0) % Plt Count (150-450) K/mm3 MPV (7.5-11.0) fl PT 11.4 (9.4-12.5) SECONDS INR 0.97 (0.8-3.0) APTT 31.2 (25.1-36.5) SECONDS Sodium 135 L (137-145) mmol/L Potassium 4.1 (3.5-5.1) mmol/L Chloride 100 (98-107) mmol/L Carbon Dioxide 26 (22-30) mmol/L Anion Gap 13.1 (5-15) MEQ/L BUN 23 H (7-17) mg/dL Creatinine 0.89 (0.52-1.04) mg/dL Estimated GFR > 60.0 ML/MIN Glucose 106 (74-106) mg/dL Calcium 8.5 (8.4-10.2) mg/dL Magnesium 1.9 (1.6-2.3) mg/dL Total Bilirubin 0.50 (0.2-1.3) mg/dL AST 26 (14-36) U/L ALT 21 (0-35) U/L Alkaline Phosphatase 91 (38-126) U/L Troponin I < 0.012 (0.000-0.034) ng/mL NT-Pro-B Natriuret Pep 511 (0-900) pg/mL Serum Total Protein 6.8 (6.3-8.2) g/dL Albumin 3.9 (3.5-5.0) g/dL 09/17/21 Range/Units 17:55 WBC 6.0 (4.0-10.5) K/mm3 RBC 4.85 (4.1-5.4) M/mm3 Hgb 15.2 (12.0-16.0) gm/dl Hct 46.0 (35-47) % MCV 94.8 (78-100) fl MCH 31.3 (26-32) pg MCHC 33.0 (32-36) g/dl RDW 13.8 (11.5-14.0) % Plt Count 237 (150-450) K/mm3 MPV 10.2 (7.5-11.0) fl PT (9.4-12.5) SECONDS INR (0.8-3.0) APTT (25.1-36.5) SECONDS Sodium (137-145) mmol/L Potassium (3.5-5.1) mmol/L Chloride (98-107) mmol/L Carbon Dioxide (22-30) mmol/L Anion Gap (5-15) MEQ/L BUN (7-17) mg/dL Creatinine (0.52-1.04) mg/dL Estimated GFR ML/MIN Glucose (74-106) mg/dL Calcium (8.4-10.2) mg/dL Magnesium (1.6-2.3) mg/dL Total Bilirubin (0.2-1.3) mg/dL AST (14-36) U/L ALT (0-35) U/L Alkaline Phosphatase (38-126) U/L Troponin I (0.000-0.034) ng/mL NT-Pro-B Natriuret Pep (0-900) pg/mL Serum Total Protein (6.3-8.2) g/dL Albumin (3.5-5.0) g/dL - Progress Progress: improved Progress Note: 09/17/21 18:49 1L NS bolus/15mg IV Toradol 09/17/21 18:50 10mg IV Decadron 09/17/21 20:23 Pt w good O2 sats and in NAD during entire stay Counseled pt/family regarding: lab results, diagnosis, need for follow-up, rad results - Departure Departure Disposition: Home Clinical Impression: COVID-19 Condition: Stable Critical Care Time: No Referrals: PEPE MONTGOMERY MD [Primary Care Provider] - Follow up/PCP as directed Instructions: Coronavirus Disease 2019 (COVID-19) (DC) Additional Instructions: Fluids Motrin/Tylenol Get a pulse oximeter and monitor oxygen saturation 2-3 times a day Return to ER for persistent oxygen saturation less than 91% Prescriptions: ondansetron HCL [Zofran] 4 mg SL Q4-6HPRN PRN #10 tablet PRN Reason: Nausea/Vomiting
[2021-09-17 18:22] LABS: ALBUMIN 3.9 g/dL (3.5-5.0); ALKALINE PHOSPHATASE 91 U/L (38-126); ANION GAP 13.1 MEQ/L (5-15); BLOOD UREA NITROGEN 23 mg/dL (7-17); CHLORIDE 100 mmol/L (98-107); Calcium 8.5 mg/dL (8.4-10.2); Carbon Dioxide 26 mmol/L (22-30); Creatinine 1 0.89 mg/dL (0.52-1.04); EST GLOMERULAR FILTRATION RATE > 60.0 ML/MIN; Glucose 106 mg/dL (74-106); MAGNESIUM 1.9 mg/dL (1.6-2.3); NT PRO BNP 511 pg/mL (0-900); Potassium 4.1 mmol/L (3.5-5.1); SGOT/AST 26 U/L (14-36); SGPT/ALT 21 U/L (0-35); SODIUM 135 mmol/L (137-145); Total Protein 6.8 g/dL (6.3-8.2)
[2021-09-17] MEDS ORDERED: TORAdol 30 mg Injection IV ONE (18:23)
[2021-09-17] MEDS ORDERED: Sodium Chloride 0.9% 1000 ML 1,000 ML ONE (18:24)
[2021-09-17] MEDS ORDERED: TORAdol 30 mg Injection ONE (18:24)
[2021-09-17] MEDS ORDERED: DECADRON 10MG INJ. IV ONE (18:50)
[2021-09-17] MEDS ORDERED: DECADRON 10MG INJ. ONE (19:02)
[2021-09-17 19:22] VITALS: BP 190/98; PULSE 69
[2021-09-17 20:24] VITALS: O2SAT 96
[2021-09-18 04:58] LABS: Eosinophil 2 % (0.00-3.0); Lymphocytes 24 % (24-44); Monocyte 7 % (0.0-12.0); Neutrophils 67 % (36.0-66.0); Total Cells Counted 100
[2021-09-18 04:59] LABS: Microcytosis 1+; Platelet Estimate NORMAL (NORMAL)
--- NOTE | 2021-09-18 08:33 | XRAY ---
Indication: Short of breath. Suspect Covid 19. Comparison: September 11, 2021. Portable chest demonstrates new bilateral mid to lower lung hazy interstitial alveolar opacities without consolidation/large effusion. Heart not enlarged with left pacemaker. Bony thorax intact again with osteopenia and bilateral calcified breast implants.
== END 2021-09-17 19:59 | disposition home or self-care (01) ==
LOC: ED 16:32
DX: U07.1 COVID-19 (principal); R53.83 Other fatigue; R06.00 Dyspnea, unspecified; R11.0 Nausea; M79.10 Myalgia, unspecified site; R05.9 Cough, unspecified; R09.81 Nasal congestion; I11.0 Hypertensive heart disease with heart failure; I50.9 Heart failure, unspecified; E78.5 Hyperlipidemia, unspecified; E11.9 Type 2 diabetes mellitus without complications; Z79.84 Long term (current) use of oral hypoglycemic drugs; Z79.01 Long term (current) use of anticoagulants; Z79.891 Long term (current) use of opiate analgesic; Z79.899 Other long term (current) drug therapy; J84.10 Pulmonary fibrosis, unspecified
CPT/HCPCS: 36000; 36415; 71045; 80053; 83735; 83880; 84484; 85025; 85610; 85730; 93005; 96360; 96374; 96375; 99284; J1100; J1885

== ENCOUNTER 2021-12-07 18:48 | Inpatient (IN) | payer MEDICARE, BC ==
[2021-12-07] MEDS ORDERED: TYLENOL EXTRA STRENGTH 500 MG PO ONE (19:03)
[2021-12-07] MEDS ORDERED: TYLENOL EXTRA STRENGTH 500 MG ONE (19:06)
--- NOTE | 2021-12-07 19:13 | ERPHSYRPT ---
- History of Present Illness Source: patient, EMS Exam Limitations: no limitations Patient Subjective Stated Complaint: PT HERE FOR FEVER, SOB,COUGH, N/V SINCE LAST NIGHT Triage Nursing Assessment: PT ALERT, RESP LABORED, SKIN W/D/P. ALPPLIED MASK, SKIN W/D/P. NO EDEMA, Physician History: 71 yo wf w cough/coryza/fever/otalgia/ST/Nausea w coughing/myalgias/arthralgias x 3 days. She denies dysuria/hematuria/diarrhea. Timing/Duration: other (3 days) Cough Quality/Degree: dry cough Possible Cause: occasional episodes Modifying Factors: Improves With: coughing Associated Symptoms: fever, chills, cough, earache, muscle aches, nasal congestion, nasal drainage, shortness of breath, sore throat, No chest pain/soreness, No dizziness, No facial pain, No headache, No lightheadedness, No sinus infection Allergies/Adverse Reactions: Sulfa (Sulfonamide Antibiotics) Allergy (Severe, Verified 12/07/21 18:59) Itching pollen extracts Allergy (Mild, Verified 12/07/21 18:59) bacitracin [From Neosporin ([id number])] Allergy (Verified 12/07/21 18:59) neomycin [From Neosporin ([id number])] Allergy (Verified 12/07/21 18:59) polymyxin B [From Neosporin ([id number])] Allergy (Verified 12/07/21 18:59) Home Medications: Atorvastatin Calcium 80 mg PO DAILY 05/06/20 [History] Levothyroxine Sodium [Euthyrox] 112 mcg PO DAILY 05/06/20 [History] Ropinirole 2Mg [Requip 2Mg Tab] 1 tab PO HS 05/06/20 [History] Metformin HCl [Metformin HCl ER] 500 mg PO DAILY 03/08/21 [History] Aspirin EC 81 mg [Ecotrin 81 mg] 81 mg PO DAILY 09/11/21 [History] Diltiazem HCl 120 mg [Cardizem CD 120 MG] 120 mg PO DAILY 09/11/21 [History] Hydrocodone/Acetaminophen [Hydrocodone-Acetamin 5-325 mg] 1 tab PO Q4HPRN PRN MDD 6 09/11/21 [History] Rivaroxaban 10 mg Tablet [Xarelto 10 mg Tablet] 20 mg PO DAILY 09/11/21 [History] Hx Tetanus, Diphtheria Vaccination/Date Given: No Hx Influenza Vaccination/Date Given: No Hx Pneumococcal Vaccination/Date Given: No Immunizations Up to Date: Yes Travel Risk - International Travel Have you traveled outside of the country in past 3 weeks: No - Coronavirus Screening Are you exhibiting any of the following symptoms?: Yes Symptoms: Fever, Cough: New Onset, Shortness of Breath, Vomiting/Diarrhea, Headaches/Body Aches/Fatigue - Vaccine Status Have you recieved a Covid-19 vaccination: No - Review of Systems Constitutional: No Symptoms, Fever, Chills, Weakness Eyes: No Symptoms, Foreign Body Sensation Ears, Nose, & Throat: Ear Pain, Nose Congestion, Nose Discharge, Throat Pain Respiratory: No Symptoms, Cough, Dyspnea Cardiac: No Symptoms Abdominal/Gastrointestinal: Nausea, Vomiting (w coughing) Genitourinary Symptoms: No Symptoms Musculoskeletal: No Symptoms Skin: No Symptoms Neurological: No Symptoms Psychological: No Symptoms Endocrine: No Symptoms Hematologic/Lymphatic: No Symptoms Immunological/Allergic: No Symptoms - Past Medical History Pertinent Past Medical History: Yes Neurological History: Migraines ENT History: No Pertinent History Cardiac History: Arrhythmia, Congestive Heart Failure, High Cholesterol, Hypertension Respiratory History: Bronchitis, CHF, Pneumonia Endocrine Medical History: Diabetes Type II, Hypothyroidism Musculoskeletal History: Arthritis GI Medical History: No Pertinent History History: No Pertinent History Psycho-Social History: Anxiety Female Reproductive Disorders: No Pertinent History Other Medical History: pulmunary fibrosis - Past Surgical History Past Surgical History: Yes Neuro Surgical History: No Pertinent History Cardiac: Pacemaker, Other Respiratory: No Pertinent History Gastrointestinal: No Pertinent History Genitourinary: No Pertinent History Musculoskeletal: No Pertinent History Female Surgical History: No Pertinent History Other Surgical History: ablasion not completed due to complications, had pacemaker placed instead, (cardiac arrest during heart surgery) - Social History Smoking Status: Former smoker Exposure to second hand smoke: No Drug Use: none Patient Lives Alone: Yes Significant Family History: no pertinent family hx - Nursing Vital Signs Nursing Vital Signs: Initial Vital Signs Temperature 102.1 F 12/07/21 18:54 Pulse Rate 67 12/07/21 18:54 Respiratory Rate 30 H 12/07/21 18:54 Blood Pressure 155/58 12/07/21 18:54 O2 Sat by Pulse Oximetry 96 12/07/21 18:54 Pain Scale Pain Intensity 4 Hypertensive/Tachypneic - Physical Exam General Appearance: no apparent distress, anxiety Eye Exam: PERRL/EOMI, eyes nml inspection Ears, Nose, Throat Exam: TM abnormal (R) (R TM erythematous) Neck Exam: normal inspection, non-tender, supple, full range of motion, No meningismus, No mass, No Brudzinski, No Kernig's, No carotid bruit Respiratory Exam: airway intact, crackles/rales (Rales 1/4 up B) Cardiovascular Exam: regular rate/rhythm, capillary refill <2 sec, No murmur Gastrointestinal/Abdomen Exam: soft, normal bowel sounds, No tenderness Extremity Exam: normal inspection, normal range of motion Neurologic Exam: alert, oriented x 3, cooperative, legend maker II-XII nml as tested, normal mood/affect, nml cerebellar function, nml station & gait, sensation nml Skin Exam: normal color, warm, dry Lymphatic Exam: No adenopathy SpO2 Interpretation: normal SpO2: 96 O2 Delivery: Room Air - Course Nursing assessment & vital signs reviewed: Yes - Radiology Exams Chest X-ray Interpretation: Interpreted by me (Bibasilar infiltrates) - CT Exams Chest CT Interpretation: Tele-radiologist Report (CT chest-Bibasilar opacities/Trace pleural effusions/Scarring/Atelectasis) Abdomen/Pelvis CT Interpretation: Tele-radiologist Report (Distended segments of small bowel(enteritis)/VANESSA-Cirrhosis/L3 superior endplate fx) Ordered Tests: Active Orders 24 hr Category Date Time Status Clear Liquid Diet 12/08/21 Breakfast Active ABDOMEN AND PELVIS W CONTRAST [CT] Stat Exams 12/07/21 20:14 Taken CHEST 1 VIEW (PORTABLE) Stat Exams 12/07/21 19:02 Taken CHEST WITH CONTRAST [CT] Stat Exams 12/07/21 20:14 Taken BLOOD CULTURE Stat Lab 12/07/21 22:30 Received CBC W DIFF Stat Lab 12/07/21 19:20 Completed CMP Stat Lab 12/07/21 19:20 Completed Lactic Acid AM.LAB Lab 12/08/21 04:00 Ordered Lactic Acid Stat Lab 12/07/21 19:20 Completed TROPONIN Q3H Lab 12/07/21 19:30 Completed TROPONIN Q3H Lab 12/07/21 22:30 Completed TROPONIN Q3H Lab 12/08/21 04:30 Ordered TROPONIN Q3H Lab 12/08/21 07:30 Ordered Medication Summary Generic Name Dose Route Start Last Admin Trade Name Deionq PRN Reason Stop Dose Admin Hydrocodone Bitart/Acetaminophen 1 tab 12/08/21 00:35 12/08/21 00:44 Hydrocodone/Apap 5/325 Mg Tablet PO 12/13/21 00:34 1 tab Q4H PRN PRN Administration PAIN Albuterol/Ipratropium 3 ml 12/07/21 22:24 Ipratropium/Albuterol Sulfate 3 Ml Ampul.Neb IH 01/06/22 22:23 Q4HPRN PRN SHORTNESS OF BREATH/WHEEZING Guaifenesin/Codeine Phosphate 10 ml 12/08/21 00:34 12/08/21 00:45 Guaifenesin/Codeine Phosphate 5 Ml Udcup PO 01/07/22 00:33 10 ml Q4H PRN PRN Administration COUGH Sodium Chloride 1,000 mls @ 100 mls/hr 12/07/21 22:30 12/07/21 22:52 Sodium Chloride 0.9% 1000 Ml IV 01/06/22 22:29 100 mls/hr .Q10H JOCELYN Administration Levofloxacin/Dextrose 750 mg in 150 mls @ 100 mls/hr 12/08/21 10:00 Levofloxacin 750mg/150ml D5w IV 01/07/22 09:59 Q24H10 JOCELYN Insulin Human Lispro 0 unit 12/07/21 22:29 Insulin Lispro 1 Unit SQ 01/06/22 22:28 UD PRN HYPERGLYCEMIA Pantoprazole Sodium 40 mg 12/08/21 10:00 Pantoprazole 40 Mg Vial IV 01/07/22 09:59 Q24H10 JOCELYN Ropinirole HCl 2 mg 12/08/21 00:45 12/08/21 00:44 Ropinirole Hcl 2 Mg Tablet PO 01/07/22 00:44 2 mg HS JOCELYN Administration Discontinued Medications Generic Name Dose Route Start Last Admin Trade Name Deionq PRN Reason Stop Dose Admin Acetaminophen 1,000 mg 12/07/21 19:03 12/07/21 19:08 Acetaminophen 500 Mg Tablet PO 12/07/21 19:04 1,000 mg STAT ONE Administration Acetaminophen Confirm 12/07/21 19:06 Acetaminophen 500 Mg Tablet Administered 12/07/21 19:07 Dose 1,000 mg .ROUTE .[employer] ONE Enoxaparin Sodium 40 mg 12/08/21 10:00 Enoxaparin Sodium 40 Mg/0.4 Ml Syringe SQ 01/07/22 09:59 DAILY JOCELYN Levofloxacin/Dextrose 750 mg in 150 mls @ 100 mls/hr 12/07/21 21:58 12/07/21 22:16 Levofloxacin 750mg/150ml D5w IV 12/07/21 23:27 100 mls/hr STAT STA 100 mls/hr Administration Levofloxacin/Dextrose Confirm 12/07/21 22:15 Levofloxacin 750mg/150ml D5w Administered 12/07/21 22:16 Dose 750 mg in 150 mls @ ud [facility]Rad Data: Laboratory Result Diagrams 12/07/21 19:20 12/07/21 19:20 Laboratory Results 12/07/21 12/07/21 12/07/21 Range/Units 22:31 22:30 19:30 WBC (4.0-10.5) K/mm3 RBC (4.1-5.4) M/mm3 Hgb (12.0-16.0) gm/dl Hct (35-47) % MCV (78-100) fl MCH (26-32) pg MCHC (32-36) g/dl RDW (11.5-14.0) % Plt Count (150-450) K/mm3 MPV (7.5-11.0) fl Gran % (36.0-66.0) % Eos # (Auto) (0-0.5) Absolute Lymphs (auto) (1.0-4.6) Absolute Monos (auto) (0.0-1.3) Lymphocytes % (24.0-44.0) % Monocytes % (0.0-12.0) % Eosinophils % (0.00-5.0) % Basophils % (0.0-0.4) % Absolute Granulocytes (1.4-6.9) Basophils # (0-0.4) Sodium (137-145) mmol/L Potassium (3.5-5.1) mmol/L Chloride (98-107) mmol/L Carbon Dioxide (22-30) mmol/L Anion Gap (5-15) MEQ/L BUN (7-17) mg/dL Creatinine (0.52-1.04) mg/dL Estimated GFR ML/MIN Glucose (74-106) mg/dL Lactic Acid (0.4-2.0) Calcium (8.4-10.2) mg/dL Total Bilirubin (0.2-1.3) mg/dL AST (14-36) U/L ALT (0-35) U/L Alkaline Phosphatase (38-126) U/L Troponin I 0.023 0.020 (0.000-0.034) ng/mL Serum Total Protein (6.3-8.2) g/dL Albumin (3.5-5.0) g/dL Urinalys Dipstick Clnc MAIN LAB Urine Color YELLOW (YELLOW) Urine Appearance CLEAR (CLEAR) Urine pH 6.0 (5-6) Ur Specific [place] 1.010 (1.005-1.025) POC Urine Protein Conf NEGATIVE (Negative) Urine Ketones SMALL-15 (NEGATIVE) Urine Nitrite NEGATIVE (NEGATIVE) Urine Bilirubin NEGATIVE (NEGATIVE) Urine Urobilinogen 1 (0-1) mg/dL Urine Leukocytes NEGATIVE (NEGATIVE) Urine WBC (Auto) NONE (0-5) /HPF Urine RBC (Auto) 0-2 (0-2) /HPF U Epithel Cells (Auto) NONE (FEW) /HPF Urine Bacteria (Auto) NONE (NEGATIVE) /HPF Urine RBC TRACE-LYSED (0-5) Tom/ul Ur Culture Indicated? NO Urine Glucose NEGATIVE (NEGATIVE) mg/dL Influenza Type A Ag (NEGATIVE) Influenza Type B Ag (NEGATIVE) RSV (PCR) (Negative) SARS-CoV-2 (PCR) (NEGATIVE) Group A Strep Antibody (NEGATIVE) 12/07/21 12/07/21 12/07/21 Range/Units 19:30 19:30 19:20 WBC (4.0-10.5) K/mm3 RBC (4.1-5.4) M/mm3 Hgb (12.0-16.0) gm/dl Hct (35-47) % MCV (78-100) fl MCH (26-32) pg MCHC (32-36) g/dl RDW (11.5-14.0) % Plt Count (150-450) K/mm3 MPV (7.5-11.0) fl Gran % (36.0-66.0) % Eos # (Auto) (0-0.5) Absolute Lymphs (auto) (1.0-4.6) Absolute Monos (auto) (0.0-1.3) Lymphocytes % (24.0-44.0) % Monocytes % (0.0-12.0) % Eosinophils % (0.00-5.0) % Basophils % (0.0-0.4) % Absolute Granulocytes (1.4-6.9) Basophils # (0-0.4) Sodium 133 L (137-145) mmol/L Potassium 3.9 (3.5-5.1) mmol/L Chloride 97 L (98-107) mmol/L Carbon Dioxide 22 (22-30) mmol/L Anion Gap 17.4 H (5-15) MEQ/L BUN 13 (7-17) mg/dL Creatinine 0.52 (0.52-1.04) mg/dL Estimated GFR > 60.0 ML/MIN Glucose 129 H (74-106) mg/dL Lactic Acid (0.4-2.0) Calcium 8.7 (8.4-10.2) mg/dL Total Bilirubin 1.50 H (0.2-1.3) mg/dL AST 85 H (14-36) U/L ALT 74 H (0-35) U/L Alkaline Phosphatase 138 H (38-126) U/L Troponin I (0.000-0.034) ng/mL Serum Total Protein 7.2 (6.3-8.2) g/dL Albumin 3.9 (3.5-5.0) g/dL Urinalys Dipstick Clnc Urine Color (YELLOW) Urine Appearance (CLEAR) Urine pH (5-6) Ur Specific [place] (1.005-1.025) POC Urine Protein Conf (Negative) Urine Ketones (NEGATIVE) Urine Nitrite (NEGATIVE) Urine Bilirubin (NEGATIVE) Urine Urobilinogen (0-1) mg/dL Urine Leukocytes (NEGATIVE) Urine WBC (Auto) (0-5) /HPF Urine RBC (Auto) (0-2) /HPF U Epithel Cells (Auto) (FEW) /HPF Urine Bacteria (Auto) (NEGATIVE) /HPF Urine RBC (0-5) Tom/ul Ur Culture Indicated? Urine Glucose (NEGATIVE) mg/dL Influenza Type A Ag NEGATIVE (NEGATIVE) Influenza Type B Ag NEGATIVE (NEGATIVE) RSV (PCR) NEGATIVE (Negative) SARS-CoV-2 (PCR) NEGATIVE (NEGATIVE) Group A Strep Antibody NOT DETECTED (NEGATIVE) 12/07/21 12/07/21 Range/Units 19:20 19:20 WBC 7.5 (4.0-10.5) K/mm3 RBC 4.45 (4.1-5.4) M/mm3 Hgb 13.8 (12.0-16.0) gm/dl Hct 41.5 (35-47) % MCV 93.3 (78-100) fl MCH 31.0 (26-32) pg MCHC 33.3 (32-36) g/dl RDW 13.9 (11.5-14.0) % Plt Count 180 (150-450) K/mm3 MPV 10.7 (7.5-11.0) fl Gran % 82.6 H (36.0-66.0) % Eos # (Auto) 0.07 (0-0.5) Absolute Lymphs (auto) 0.67 L (1.0-4.6) Absolute Monos (auto) 0.54 (0.0-1.3) Lymphocytes % 9.0 L (24.0-44.0) % Monocytes % 7.2 (0.0-12.0) % Eosinophils % 0.9 (0.00-5.0) % Basophils % 0.3 (0.0-0.4) % Absolute Granulocytes 6.16 (1.4-6.9) Basophils # 0.02 (0-0.4) Sodium (137-145) mmol/L Potassium (3.5-5.1) mmol/L Chloride (98-107) mmol/L Carbon Dioxide (22-30) mmol/L Anion Gap (5-15) MEQ/L BUN (7-17) mg/dL Creatinine (0.52-1.04) mg/dL Estimated GFR ML/MIN Glucose (74-106) mg/dL Lactic Acid 1.1 (0.4-2.0) Calcium (8.4-10.2) mg/dL Total Bilirubin (0.2-1.3) mg/dL AST (14-36) U/L ALT (0-35) U/L Alkaline Phosphatase (38-126) U/L Troponin I (0.000-0.034) ng/mL Serum Total Protein (6.3-8.2) g/dL Albumin (3.5-5.0) g/dL Urinalys Dipstick Clnc Urine Color (YELLOW) Urine Appearance (CLEAR) Urine pH (5-6) Ur Specific [place] (1.005-1.025) POC Urine Protein Conf (Negative) Urine Ketones (NEGATIVE) Urine Nitrite (NEGATIVE) Urine Bilirubin (NEGATIVE) Urine Urobilinogen (0-1) mg/dL Urine Leukocytes (NEGATIVE) Urine WBC (Auto) (0-5) /HPF Urine RBC (Auto) (0-2) /HPF U Epithel Cells (Auto) (FEW) /HPF Urine Bacteria (Auto) (NEGATIVE) /HPF Urine RBC (0-5) Tom/ul Ur Culture Indicated? Urine Glucose (NEGATIVE) mg/dL Influenza Type A Ag (NEGATIVE) Influenza Type B Ag (NEGATIVE) RSV (PCR) (Negative) SARS-CoV-2 (PCR) (NEGATIVE) Group A Strep Antibody (NEGATIVE) - Progress Air Movement: good Progress Note: 12/07/21 22:22 Blood cultures x2 750mg IV Levaquin 12/07/21 22:[address] Wilson Will see patient in: office Counseled pt/family regarding: lab results, diagnosis, rad results - Departure Departure Disposition: Observation Clinical Impression: Pneumonia, Enteritis Condition: Stable Critical Care Time: No
[2021-12-07 19:40] LABS: Absolute Neutrophil Ct (ANC) 6.16 (1.4-6.9); Basophil (Absolute #) 0.02 (0-0.4); Eosinophil % 0.9 % (0.00-5.0); Eosinophil (Absolute #) 0.07 (0-0.5); Hematocrit 41.5 % (35-47); Hemoglobin 13.8 gm/dl (12.0-16.0); Lymphocyte (Absolute #) 0.67 (1.0-4.6); Mean Cell Volume 93.3 fl (78-100); Mean Corpuscular Hgb Concent. 33.3 g/dl (32-36); Mean Platelet Volume 10.7 fl (7.5-11.0); Monocyte (Absolute #) 0.54 (0.0-1.3); Monocytes % 7.2 % (0.0-12.0); Neutrophil % 82.6 % (36.0-66.0); Platelet Count 180 K/mm3 (150-450); Red Blood Count 4.45 M/mm3 (4.1-5.4); Red Cell Distribution Width 13.9 % (11.5-14.0); White Blood Count 7.5 K/mm3 (4.0-10.5)
[2021-12-07 19:54] LABS: ALBUMIN 3.9 g/dL (3.5-5.0); ALKALINE PHOSPHATASE 138 U/L (38-126); ANION GAP 17.4 MEQ/L (5-15); BLOOD UREA NITROGEN 13 mg/dL (7-17); CHLORIDE 97 mmol/L (98-107); Calcium 8.7 mg/dL (8.4-10.2); Carbon Dioxide 22 mmol/L (22-30); Creatinine 1 0.52 mg/dL (0.52-1.04); EST GLOMERULAR FILTRATION RATE > 60.0 ML/MIN; Glucose 129 mg/dL (74-106); Potassium 3.9 mmol/L (3.5-5.1); SGOT/AST 85 U/L (14-36); SGPT/ALT 74 U/L (0-35); SODIUM 133 mmol/L (137-145); Total Protein 7.2 g/dL (6.3-8.2)
[2021-12-07 20:20] LABS: INFLUENZA A NEGATIVE (NEGATIVE); INFLUENZA B NEGATIVE (NEGATIVE); RESPIRATORY SYNCTIAL VIRUS NEGATIVE (Negative); SARS-CoV-2 Xpert Express NEGATIVE (NEGATIVE)
[2021-12-07] MEDS ORDERED: LEVOFLOXACIN 750MG/150ML D5W 750 MG/150 ML BAG IV STA (21:58)
[2021-12-07] MEDS ORDERED: LEVOFLOXACIN 750MG/150ML D5W 750 MG/150 ML BAG IV ONE (22:15)
[2021-12-07] MEDS ORDERED: HUMALOG SQ PRN (22:29)
[2021-12-07 22:43] LABS: Appearance CLEAR (CLEAR); Bilirubin NEGATIVE (NEGATIVE); Dipstick done @ ? MAIN LAB; Glucose NEGATIVE (NEGATIVE); Ketones SMALL-15 (NEGATIVE); Nitrite NEGATIVE (NEGATIVE); Protein,Urine Dip NEGATIVE (Negative); RBC TRACE-LYSED Ery/ul (0-5); Urobilinogen 1 mg/dL (0-1)
[2021-12-07 22:45] LABS: RBC 0-2 /HPF (0-2); Urine Cultured Indicated? NO
[2021-12-07] MEDS: Sodium Chloride 0.9% 1000 ML 1,000 ML IV SCH (22:52)
[2021-12-08] MEDS: NORCO 5/325 MG PO PRN ×5 (00:44→23:57)
[2021-12-08] MEDS: REQUIP 2MG TAB PO SCH ×2 (00:44→21:22)
[2021-12-08] MEDS: Robitussin AC Syrup Unit Dose Cup PO PRN ×3 (00:45→16:33)
[2021-12-08 04:44] LABS: Hematocrit 36.1 % (35-47); Hemoglobin 11.8 gm/dl (12.0-16.0); Mean Cell Volume 95.8 fl (78-100); Mean Corpuscular Hemoglobin 31.3 pg (26-32); Mean Corpuscular Hgb Concent. 32.7 g/dl (32-36); Mean Platelet Volume 10.4 fl (7.5-11.0); Platelet Count 146 K/mm3 (150-450); Red Blood Count 3.77 M/mm3 (4.1-5.4); Red Cell Distribution Width 13.9 % (11.5-14.0); White Blood Count 7.3 K/mm3 (4.0-10.5)
[2021-12-08 06:30] LABS: ANION GAP 12.9 MEQ/L (5-15); BLOOD UREA NITROGEN 10 mg/dL (7-17); CHLORIDE 98 mmol/L (98-107); Calcium 8.3 mg/dL (8.4-10.2); Carbon Dioxide 24 mmol/L (22-30); EST GLOMERULAR FILTRATION RATE > 60.0 ML/MIN; Glucose 110 mg/dL (74-106); Potassium 3.6 mmol/L (3.5-5.1); SODIUM 132 mmol/L (137-145)
--- NOTE | 2021-12-08 07:46 | XRAY ---
Indication: Fever. Increased liver function test. Multiple contiguous axial images obtained through the chest using 100 cc Isovue 370 contrast. Comparison: August 22, 2021. Lungs again demonstrates moderate diffuse scattered peripheral fibrosis/scarring again greatest in both lung bases. Lung bases demonstrate new posterior consolidations either atelectasis versus pneumonia. Also new tiny bibasilar effusions. Heart remains enlarged again with left sided pacemaker. Aorta normal in course and caliber without aneurysm/dissection. No pathologic mediastinal/hilar lymphadenopathy. Bony thorax again demonstrates osteopenia, multilevel degenerative changes throughout the spine, remote T6/T8/T12 endplate fractures, and old nonunited right 7 rib fracture. Again bilateral calcified breast implants. CT abdomen/pelvis reported separately. Impression: 1. New bibasilar posterior consolidations, atelectasis versus pneumonia. 2. Again cardiomegaly with new tiny bibasilar effusions. Rule out mild/early cardiac decompensation. 3. Again diffuse pulmonary fibrosis/scarring and chronic bony findings. Comment: Preliminary interpretation made by C. No critical discrepancy.
--- NOTE | 2021-12-08 07:48 | XRAY ---
Indication: Fever. Comparison: September 17, 2019. Portable chest demonstrates interval worsening bilateral mid to lower lung interstitial alveolar opacities with new tiny bibasilar effusions. Heart remains enlarged with left pacemaker. Bony thorax intact again with osteopenia, degenerative changes, and bilateral calcified breast implants.
--- NOTE | 2021-12-08 07:53 | XRAY ---
Indication: Fever. Increased liver function test. Multiple contiguous axial images obtained through the abdomen and pelvis using 100 cc Isovue 370 contrast. Comparison: May 18, 2020 CT chest reported separately. Noncontrasted stomach and bowel loops are nonobstructed. No free fluid/air. Both kidneys enhance and excrete again with left upper renal cortical scarring. Remaining liver, gallbladder, pancreas, spleen, adrenal glands, kidneys, ureters, and bladder are unremarkable. Stable minimal aortic calcifications. No AAA or pathologic retroperitoneal lymphadenopathy. Osseous structures intact again with osteopenia, moderate multilevel degenerative spondylosis, 7 mm L5 spondylolisthesis, and remote L3 superior endplate fracture with approximately 25% height loss. Impression: 1. Again chronic bony findings. 2. Remaining CT abdomen/pelvis with contrast exam is negative. Comment: Preliminary interpretation made by C. No critical discrepancy.
[2021-12-08] MEDS ORDERED: Glucophage XR 500 MG PO SCH (08:00)
[2021-12-08] MEDS ORDERED: NON-FORMULARY ITEM (Atorvastatin Calcium [Atorvastatin Calcium] 80 MG Tablet) PO SCH (10:00)
[2021-12-08] MEDS ORDERED: ENOXAPARIN SODIUM SQ SCH (10:00)
[2021-12-08] MEDS ORDERED: NON-FORMULARY ITEM (Metformin Hcl [Metformin Hcl Er] 750 MG Tab.Er.24h) PO SCH (10:00)
[2021-12-08] MEDS: Sodium Chloride 0.9% 1000 ML 1,000 ML IV SCH ×2 (10:39→20:46)
[2021-12-08] MEDS: ECOTRIN 81 MG PO SCH (10:41)
[2021-12-08] MEDS: Cardizem CD 120 MG PO SCH (10:41)
[2021-12-08] MEDS: XARELTO 10 MG TABLET PO SCH (10:41)
[2021-12-08] MEDS: Zocor 10MG PO SCH (10:41)
[2021-12-08] MEDS: SYNTHROID 112 MCG PO SCH (10:42)
[2021-12-08] MEDS: PROTONIX 40 MG IV IV SCH (10:42)
--- NOTE | 2021-12-08 13:16 | PCM.HP ---
History of Present Illness - Chief Complaint Chief Complaint: pneumonia History of Present Illness: is a 71 year old female patient of Dr Franklin who presented to ER with fever,chills,cough,sob,N/V x 3 days. States she vomited because of coughing so hard. ER work up dg bibasilar pneumonia and CHF exacerbation per CXR and Chest CT. Abd/pelvic CT was unremarkable-final reading did not mention enteritis. Ptn denies chest pain or abdominal pain and states she is hungry. PMHx includes HTN,HLD,CHF,arrythmia/pacemaker insitu,Pulmonary fibrosis,DM2,Hypothyroid,OA,anxiety,osteoporosis. - Review of Systems Constitutional: Fever, Chills, Fatigue, Weakness Eyes: No Symptoms Ears, Nose, & Throat: Nose Congestion, Throat Pain Respiratory: Cough, Short Of Breath Cardiac: No Symptoms Abdominal/Gastrointestinal: Nausea, Vomiting (when coughing hard ) Genitourinary Symptoms: No Symptoms Musculoskeletal: Arthralgias, Myalgias Skin: No Symptoms Neurological: No Symptoms Psychological: Anxiety Endocrine: No Symptoms Hematologic/Lymphatic: No Symptoms, Other (on low dose ASA) Medications & Allergies Home Medications: Home Medication List Atorvastatin Calcium 80 mg PO DAILY 05/06/20 [History Confirmed 12/07/21] Levothyroxine Sodium [Euthyrox] 112 mcg PO DAILY 05/06/20 [History Confirmed 12/07/21] Ropinirole 2Mg [Requip 2Mg Tab] 1 tab PO HS 05/06/20 [History Confirmed 12/07/21] Metformin HCl [Metformin HCl ER] 500 mg PO DAILY 03/08/21 [History Confirmed 12/07/21] Aspirin EC 81 mg [Ecotrin 81 mg] 81 mg PO DAILY 09/11/21 [History Confirmed 12/07/21] Diltiazem HCl 120 mg [Cardizem CD 120 MG] 120 mg PO DAILY 09/11/21 [History Confirmed 12/07/21] Rivaroxaban 10 mg Tablet [Xarelto 10 mg Tablet] 20 mg PO DAILY 09/11/21 [History Confirmed 12/07/21] Hydrocodone/Acetaminophen [Hydrocodone-Acetamin 7.5-325] 1 tab PO Q8HPRN PRN 12/08/21 [History Confirmed 12/08/21] Allergies/Adverse Reactions: Allergies Allergy/AdvReac Type Severity Reaction Status Date / Time Sulfa (Sulfonamide Allergy Severe Itching Verified 12/07/21 18:59 Antibiotics) pollen extracts Allergy Mild Verified 12/07/21 18:59 bacitracin Allergy Verified 12/07/21 18:59 [From Neosporin ([id number])] neomycin Allergy Verified 12/07/21 18:59 [From Neosporin ([id number])] polymyxin B Allergy Verified 12/07/21 18:59 [From Neosporin ([id number])] - Past Medical History Past Medical History: Yes Neurological History: Migraines ENT History: No Pertinent History Cardiac History: Arrhythmia, Congestive Heart Failure, High Cholesterol, Hypertension Respiratory History: Bronchitis, CHF, Pneumonia Endocrine Medical History: Diabetes Type II, Hypothyroidism Musculoskelatal History: Arthritis GI Medical History: No Pertinent History History: No Pertinent History Pyscho-Social History: Anxiety Reproductive Disorders: No Pertinent History Comment: pulmunary fibrosis - Female History Are you now?: No - Past Surgical History Past Surgical History: Yes Neuro Surgical History: No Pertinent History Cardiac History: Pacemaker, Other Respiratory Surgery: No Pertinent History GI Surgical History: No Pertinent History Genitourinary Surgical Hx: No Pertinent History Musculskeletal Surgical Hx: No Pertinent History Female Surgical History: No Pertinent History Other Surgical History: ablasion not completed due to complications, had pacemaker placed instead, (cardiac arrest during heart surgery) - Social History Smoking Status: Former smoker Exposure to second hand smoke: No Alcohol: None Drug Use: none Significant Family History: no pertinent family hx - Physical Exam Vital Signs: Vital Signs - 24 hr Temp Pulse Resp BP Pulse Ox 12/08/21 12:00 97.5 F 65 18 107/55 98 12/08/21 09:13 69 18 96 12/08/21 07:40 97.5 F 69 18 116/57 96 12/08/21 05:40 94 L 12/08/21 04:24 100.3 F 78 20 142/65 94 L 12/08/21 02:05 96 12/08/21 01:09 68 20 93 L 12/07/21 23:24 97.5 F 67 24 131/60 93 L 04/22/22 22:31 98.6 F 04/22/22 22:00 65 135/64 95 12/07/21 21:00 65 126/62 93 L 12/07/21 20:00 65 16 110/51 95 12/07/21 18:54 102.1 F 67 30 H 155/58 96 General Appearance: no apparent distress (is resting in bed,lying on her left side, coughing spells-mucus), lethargy Neurologic Exam: oriented x 3, cooperative, normal mood/affect Eye Exam: eyes nml inspection Ears, Nose, Throat Exam: moist mucous membranes, pharyngeal erythema (PND no exudate) Neck Exam: normal inspection Respiratory Exam: diminished breath sounds, crackles/rales (left base), wheezing (left base) Cardiovascular Exam: regular rate/rhythm Gastrointestinal/Abdomen Exam: soft, normal bowel sounds (nontender) Back Exam: other (no CVA tenderness) Extremity Exam: normal inspection (moves all extremities.) Skin Exam: normal color, warm, dry Wound Assessment: Skin/Wound Assessment Wound/Incision Assessment Start: 12/07/21 23:54 Text: Status: Active Freq: Q6H Protocol: Document 12/08/21 11:00 [facility] (Rec: 12/08/21 11:12 RDNE [id number]) Wound/Incision Assessment Right Abdomen Wound Assessment Admission Wound Type scabbed area that itches- picture on chart Wound Stage Non Pressure Wound Drainage Amount None Drainage Odor None/Absent Surrounding Tissue [place] Comment Per patient- started as a " pimple" but she has scratched it because it itches constantly. Now has a scab and crusty appearance, red around the borders. Wound Photo Photo Taken Yes Date: 12/08/21 Time: 00:45 Results - Labs Lab/Micro Results: Lab Results-Last 24 Hours 12/07/21 12/07/21 12/07/21 Range/Units 19:20 19:20 19:20 WBC 7.5 (4.0-10.5) K/mm3 RBC 4.45 (4.1-5.4) M/mm3 Hgb 13.8 (12.0-16.0) gm/dl Hct 41.5 (35-47) % MCV 93.3 (78-100) fl MCH 31.0 (26-32) pg MCHC 33.3 (32-36) g/dl RDW 13.9 (11.5-14.0) % Plt Count 180 (150-450) K/mm3 MPV 10.7 (7.5-11.0) fl Gran % 82.6 H (36.0-66.0) % Eos # (Auto) 0.07 (0-0.5) Absolute Lymphs (auto) 0.67 L (1.0-4.6) Absolute Monos (auto) 0.54 (0.0-1.3) Lymphocytes % 9.0 L (24.0-44.0) % Monocytes % 7.2 (0.0-12.0) % Eosinophils % 0.9 (0.00-5.0) % Basophils % 0.3 (0.0-0.4) % Absolute Granulocytes 6.16 (1.4-6.9) Basophils # 0.02 (0-0.4) Sodium 133 L (137-145) mmol/L Potassium 3.9 (3.5-5.1) mmol/L Chloride 97 L (98-107) mmol/L Carbon Dioxide 22 (22-30) mmol/L Anion Gap 17.4 H (5-15) MEQ/L BUN 13 (7-17) mg/dL Creatinine 0.52 (0.52-1.04) mg/dL Estimated GFR > 60.0 ML/MIN Glucose 129 H (74-106) mg/dL POC Glucometer (74 to 106) mg/dL Lactic Acid 1.1 (0.4-2.0) Calcium 8.7 (8.4-10.2) mg/dL Total Bilirubin 1.50 H (0.2-1.3) mg/dL AST 85 H (14-36) U/L ALT 74 H (0-35) U/L Alkaline Phosphatase 138 H (38-126) U/L Troponin I (0.000-0.034) ng/mL Serum Total Protein 7.2 (6.3-8.2) g/dL Albumin 3.9 (3.5-5.0) g/dL Prealbumin (17.6-36.0) mg/dL Urinalys Dipstick Clnc Urine Color (YELLOW) Urine Appearance (CLEAR) Urine pH (5-6) Ur Specific [place] (1.005-1.025) POC Urine Protein Conf (Negative) Urine Ketones (NEGATIVE) Urine Nitrite (NEGATIVE) Urine Bilirubin (NEGATIVE) Urine Urobilinogen (0-1) mg/dL Urine Leukocytes (NEGATIVE) Urine WBC (Auto) (0-5) /HPF Urine RBC (Auto) (0-2) /HPF U Epithel Cells (Auto) (FEW) /HPF Urine Bacteria (Auto) (NEGATIVE) /HPF Urine RBC (0-5) Tom/ul Ur Culture Indicated? Urine Glucose (NEGATIVE) mg/dL Influenza Type A Ag (NEGATIVE) Influenza Type B Ag (NEGATIVE) RSV (PCR) (Negative) SARS-CoV-2 (PCR) (NEGATIVE) Group A Strep Antibody (NEGATIVE) 12/07/21 12/07/21 12/07/21 Range/Units 19:30 19:30 19:30 WBC (4.0-10.5) K/mm3 RBC (4.1-5.4) M/mm3 Hgb (12.0-16.0) gm/dl Hct (35-47) % MCV (78-100) fl MCH (26-32) pg MCHC (32-36) g/dl RDW (11.5-14.0) % Plt Count (150-450) K/mm3 MPV (7.5-11.0) fl Gran % (36.0-66.0) % Eos # (Auto) (0-0.5) Absolute Lymphs (auto) (1.0-4.6) Absolute Monos (auto) (0.0-1.3) Lymphocytes % (24.0-44.0) % Monocytes % (0.0-12.0) % Eosinophils % (0.00-5.0) % Basophils % (0.0-0.4) % Absolute Granulocytes (1.4-6.9) Basophils # (0-0.4) Sodium (137-145) mmol/L Potassium (3.5-5.1) mmol/L Chloride (98-107) mmol/L Carbon Dioxide (22-30) mmol/L Anion Gap (5-15) MEQ/L BUN (7-17) mg/dL Creatinine (0.52-1.04) mg/dL Estimated GFR ML/MIN Glucose (74-106) mg/dL POC Glucometer (74 to 106) mg/dL Lactic Acid (0.4-2.0) Calcium (8.4-10.2) mg/dL Total Bilirubin (0.2-1.3) mg/dL AST (14-36) U/L ALT (0-35) U/L Alkaline Phosphatase (38-126) U/L Troponin I 0.020 (0.000-0.034) ng/mL Serum Total Protein (6.3-8.2) g/dL Albumin (3.5-5.0) g/dL Prealbumin (17.6-36.0) mg/dL Urinalys Dipstick Clnc Urine Color (YELLOW) Urine Appearance (CLEAR) Urine pH (5-6) Ur Specific [place] (1.005-1.025) POC Urine Protein Conf (Negative) Urine Ketones (NEGATIVE) Urine Nitrite (NEGATIVE) Urine Bilirubin (NEGATIVE) Urine Urobilinogen (0-1) mg/dL Urine Leukocytes (NEGATIVE) Urine WBC (Auto) (0-5) /HPF Urine RBC (Auto) (0-2) /HPF U Epithel Cells (Auto) (FEW) /HPF Urine Bacteria (Auto) (NEGATIVE) /HPF Urine RBC (0-5) Tom/ul Ur Culture Indicated? Urine Glucose (NEGATIVE) mg/dL Influenza Type A Ag NEGATIVE (NEGATIVE) Influenza Type B Ag NEGATIVE (NEGATIVE) RSV (PCR) NEGATIVE (Negative) SARS-CoV-2 (PCR) NEGATIVE (NEGATIVE) Group A Strep Antibody NOT DETECTED (NEGATIVE) 12/07/21 12/07/21 12/08/21 Range/Units 22:30 22:31 04:00 WBC (4.0-10.5) K/mm3 RBC (4.1-5.4) M/mm3 Hgb (12.0-16.0) gm/dl Hct (35-47) % MCV (78-100) fl MCH (26-32) pg MCHC (32-36) g/dl RDW (11.5-14.0) % Plt Count (150-450) K/mm3 MPV (7.5-11.0) fl Gran % (36.0-66.0) % Eos # (Auto) (0-0.5) Absolute Lymphs (auto) (1.0-4.6) Absolute Monos (auto) (0.0-1.3) Lymphocytes % (24.0-44.0) % Monocytes % (0.0-12.0) % Eosinophils % (0.00-5.0) % Basophils % (0.0-0.4) % Absolute Granulocytes (1.4-6.9) Basophils # (0-0.4) Sodium (137-145) mmol/L Potassium (3.5-5.1) mmol/L Chloride (98-107) mmol/L Carbon Dioxide (22-30) mmol/L Anion Gap (5-15) MEQ/L BUN (7-17) mg/dL Creatinine (0.52-1.04) mg/dL Estimated GFR ML/MIN Glucose (74-106) mg/dL POC Glucometer (74 to 106) mg/dL Lactic Acid 0.8 (0.4-2.0) Calcium (8.4-10.2) mg/dL Total Bilirubin (0.2-1.3) mg/dL AST (14-36) U/L ALT (0-35) U/L Alkaline Phosphatase (38-126) U/L Troponin I 0.023 (0.000-0.034) ng/mL Serum Total Protein (6.3-8.2) g/dL Albumin (3.5-5.0) g/dL Prealbumin (17.6-36.0) mg/dL Urinalys Dipstick Clnc MAIN LAB Urine Color YELLOW (YELLOW) Urine Appearance CLEAR (CLEAR) Urine pH 6.0 (5-6) Ur Specific [place] 1.010 (1.005-1.025) POC Urine Protein Conf NEGATIVE (Negative) Urine Ketones SMALL-15 (NEGATIVE) Urine Nitrite NEGATIVE (NEGATIVE) Urine Bilirubin NEGATIVE (NEGATIVE) Urine Urobilinogen 1 (0-1) mg/dL Urine Leukocytes NEGATIVE (NEGATIVE) Urine WBC (Auto) NONE (0-5) /HPF Urine RBC (Auto) 0-2 (0-2) /HPF U Epithel Cells (Auto) NONE (FEW) /HPF Urine Bacteria (Auto) NONE (NEGATIVE) /HPF Urine RBC TRACE-LYSED (0-5) Tom/ul Ur Culture Indicated? NO Urine Glucose NEGATIVE (NEGATIVE) mg/dL Influenza Type A Ag (NEGATIVE) Influenza Type B Ag (NEGATIVE) RSV (PCR) (Negative) SARS-CoV-2 (PCR) (NEGATIVE) Group A Strep Antibody (NEGATIVE) 12/08/21 12/08/21 12/08/21 Range/Units 04:35 04:40 04:40 WBC 7.3 (4.0-10.5) K/mm3 RBC 3.77 L (4.1-5.4) M/mm3 Hgb 11.8 L (12.0-16.0) gm/dl Hct 36.1 (35-47) % MCV 95.8 (78-100) fl MCH 31.3 (26-32) pg MCHC 32.7 (32-36) g/dl RDW 13.9 (11.5-14.0) % Plt Count 146 L (150-450) K/mm3 MPV 10.4 (7.5-11.0) fl Gran % (36.0-66.0) % Eos # (Auto) (0-0.5) Absolute Lymphs (auto) (1.0-4.6) Absolute Monos (auto) (0.0-1.3) Lymphocytes % (24.0-44.0) % Monocytes % (0.0-12.0) % Eosinophils % (0.00-5.0) % Basophils % (0.0-0.4) % Absolute Granulocytes (1.4-6.9) Basophils # (0-0.4) Sodium 132 L (137-145) mmol/L Potassium 3.6 (3.5-5.1) mmol/L Chloride 98 (98-107) mmol/L Carbon Dioxide 24 (22-30) mmol/L Anion Gap 12.9 (5-15) MEQ/L BUN 10 (7-17) mg/dL Creatinine 0.40 L (0.52-1.04) mg/dL Estimated GFR > 60.0 ML/MIN Glucose 110 H (74-106) mg/dL POC Glucometer (74 to 106) mg/dL Lactic Acid (0.4-2.0) Calcium 8.3 L (8.4-10.2) mg/dL Total Bilirubin (0.2-1.3) mg/dL AST (14-36) U/L ALT (0-35) U/L Alkaline Phosphatase (38-126) U/L Troponin I < 0.012 (0.000-0.034) ng/mL Serum Total Protein (6.3-8.2) g/dL Albumin (3.5-5.0) g/dL Prealbumin 10.20 L (17.6-36.0) mg/dL Urinalys Dipstick Clnc Urine Color (YELLOW) Urine Appearance (CLEAR) Urine pH (5-6) Ur Specific [place] (1.005-1.025) POC Urine Protein Conf (Negative) Urine Ketones (NEGATIVE) Urine Nitrite (NEGATIVE) Urine Bilirubin (NEGATIVE) Urine Urobilinogen (0-1) mg/dL Urine Leukocytes (NEGATIVE) Urine WBC (Auto) (0-5) /HPF Urine RBC (Auto) (0-2) /HPF U Epithel Cells (Auto) (FEW) /HPF Urine Bacteria (Auto) (NEGATIVE) /HPF Urine RBC (0-5) Tom/ul Ur Culture Indicated? Urine Glucose (NEGATIVE) mg/dL Influenza Type A Ag (NEGATIVE) Influenza Type B Ag (NEGATIVE) RSV (PCR) (Negative) SARS-CoV-2 (PCR) (NEGATIVE) Group A Strep Antibody (NEGATIVE) 12/08/21 12/08/21 Range/Units 07:01 11:14 WBC (4.0-10.5) K/mm3 RBC (4.1-5.4) M/mm3 Hgb (12.0-16.0) gm/dl Hct (35-47) % MCV (78-100) fl MCH (26-32) pg MCHC (32-36) g/dl RDW (11.5-14.0) % Plt Count (150-450) K/mm3 MPV (7.5-11.0) fl Gran % (36.0-66.0) % Eos # (Auto) (0-0.5) Absolute Lymphs (auto) (1.0-4.6) Absolute Monos (auto) (0.0-1.3) Lymphocytes % (24.0-44.0) % Monocytes % (0.0-12.0) % Eosinophils % (0.00-5.0) % Basophils % (0.0-0.4) % Absolute Granulocytes (1.4-6.9) Basophils # (0-0.4) Sodium (137-145) mmol/L Potassium (3.5-5.1) mmol/L Chloride (98-107) mmol/L Carbon Dioxide (22-30) mmol/L Anion Gap (5-15) MEQ/L BUN (7-17) mg/dL Creatinine (0.52-1.04) mg/dL Estimated GFR ML/MIN Glucose (74-106) mg/dL POC Glucometer 101 122 H (74 to 106) mg/dL Lactic Acid (0.4-2.0) Calcium (8.4-10.2) mg/dL Total Bilirubin (0.2-1.3) mg/dL AST (14-36) U/L ALT (0-35) U/L Alkaline Phosphatase (38-126) U/L Troponin I (0.000-0.034) ng/mL Serum Total Protein (6.3-8.2) g/dL Albumin (3.5-5.0) g/dL Prealbumin (17.6-36.0) mg/dL Urinalys Dipstick Clnc Urine Color (YELLOW) Urine Appearance (CLEAR) Urine pH (5-6) Ur Specific [place] (1.005-1.025) POC Urine Protein Conf (Negative) Urine Ketones (NEGATIVE) Urine Nitrite (NEGATIVE) Urine Bilirubin (NEGATIVE) Urine Urobilinogen (0-1) mg/dL Urine Leukocytes (NEGATIVE) Urine WBC (Auto) (0-5) /HPF Urine RBC (Auto) (0-2) /HPF U Epithel Cells (Auto) (FEW) /HPF Urine Bacteria (Auto) (NEGATIVE) /HPF Urine RBC (0-5) Tom/ul Ur Culture Indicated? Urine Glucose (NEGATIVE) mg/dL Influenza Type A Ag (NEGATIVE) Influenza Type B Ag (NEGATIVE) RSV (PCR) (Negative) SARS-CoV-2 (PCR) (NEGATIVE) Group A Strep Antibody (NEGATIVE) Accuchecks Date 12/08/21 Date 12/08/21 Time 11:21 Time 07:01 - Radiology Impressions Radiology Exams & Impressions: Radiology Procedures Category Date Time Status ABDOMEN AND PELVIS W CONTRAST [CT] Stat Exams 12/07/21 20:14 Completed CHEST 1 VIEW (PORTABLE) Stat Exams 12/07/21 19:02 Completed CHEST WITH CONTRAST [CT] Stat Exams 12/07/21 20:14 Completed - Other Procedures and Tests Respiratory Therapy 12/08/21 01:08 Respiratory Therapy Assessment DAILY 12/08/21 04:39 Sputum Specimen Obtain .as ordered 12/08/21 05:39 Oxygen Nasal Cannula 3 lpm Assessment/Plan (1) Pneumonia Current Visit: Yes Status: Acute Qualifiers: Pneumonia type: due to unspecified organism Laterality: bilateral Lung location: lower lobe of lung Qualified Code(s): J18.9 - Pneumonia, unspecified organism Assessment & Plan: IV Levaquin started in ER. Code(s): J18.9 - PNEUMONIA, UNSPECIFIED ORGANISM (2) CHF exacerbation Current Visit: No Status: Acute Assessment & Plan: tiny bibasilar effusion Code(s): I50.9 - HEART FAILURE, UNSPECIFIED (3) N&V (nausea and vomiting) Current Visit: Yes Status: Resolved Assessment & Plan: advance clear liquid diet to bland diet Code(s): R11.2 - NAUSEA WITH VOMITING, UNSPECIFIED (4) Pulmonary fibrosis Current Visit: No Status: Acute Code(s): J84.10 - PULMONARY FIBROSIS, UNSPECIFIED (5) Pacemaker Current Visit: Yes Status: Acute Code(s): Z95.0 - PRESENCE OF CARDIAC PACEMAKER (6) Hyponatremia Current Visit: No Status: Acute Assessment & Plan: IV fluids,monitor Code(s): E87.1 - HYPO-OSMOLALITY AND HYPONATREMIA
[2021-12-08] MEDS: LEVOFLOXACIN 750MG/150ML D5W 750 MG/150 ML BAG IV SCH (21:22)
[2021-12-08] MEDS: DUONEB 0.5-3 MG/3 ml Neb IH PRN (23:29)
[2021-12-09] MEDS: NORCO 5/325 MG PO PRN ×3 (05:25→20:33)
[2021-12-09] MEDS: Sodium Chloride 0.9% 1000 ML 1,000 ML IV SCH ×3 (08:29→20:31)
[2021-12-09] MEDS: Glucophage XR 500 MG PO SCH ×2 (08:29→08:31)
[2021-12-09] MEDS: Robitussin AC Syrup Unit Dose Cup PO PRN ×3 (08:29→20:37)
[2021-12-09] MEDS: Zocor 10MG PO SCH (10:12)
[2021-12-09] MEDS: PROTONIX 40 MG IV IV SCH (10:12)
[2021-12-09] MEDS: SYNTHROID 112 MCG PO SCH (10:12)
[2021-12-09] MEDS: XARELTO 10 MG TABLET PO SCH (10:12)
[2021-12-09] MEDS: ECOTRIN 81 MG PO SCH (10:12)
[2021-12-09] MEDS: Cardizem CD 120 MG PO SCH (10:43)
--- NOTE | 2021-12-09 12:51 | PCM.NOTE ---
Date and Time: 12/09/21 1248 Subjective Assessment: Patient is still coughing but has relief with Codeine cough syrup. States coughing spell starts when lying back in bed .Sputum sent but not adequate specimen, has since brought up some yellow/green tinged mucus for culture.Appears ill states weak and achey all over and a headach across brow. Appetite is good,has tolerated a bland diet. Denies chest pain. Objective Exam General Appearance: mild distress (sitting at bedside c/o achey just at e lunch) Neurologic Exam: alert, oriented x 3, cooperative Skin Exam: warm, dry, pale Wound Assessment: Skin/Wound Assessment Wound/Incision Assessment Start: 12/07/21 23:54 Text: Status: Active Freq: Q6H Protocol: Document 12/09/21 11:00 EK (Rec: 12/09/21 11:40 EK [id number]) Wound/Incision Assessment Right Abdomen Wound Assessment Admission Wound Type scabbed area that itches- picture on chart Wound Stage Non Pressure Wound Drainage Amount None Drainage Odor None/Absent Surrounding Tissue [place] Comment Per patient- started as a " pimple" but she has scratched it because it itches constantly. Now has a scab and crusty appearance, red around the borders. Wound Photo Photo Taken Yes Date: 12/08/21 Time: 00:45 Neck Exam: normal inspection Respiratory Exam: diminished breath sounds (mid bilateral), crackles/rales (left base) Gastrointestinal/Abdomen Exam: soft (nontender) Extremity Exam: normal inspection Back Exam: muscle spasm (chronic ropey) OBJECTIVE DATA Vital Signs: Vital Signs - 24 hr Temp Pulse Resp BP Pulse Ox 12/09/21 12:00 98.4 F 68 20 119/58 95 12/09/21 08:00 98.4 F 69 19 121/59 93 L 12/09/21 07:58 66 18 96 12/09/21 04:00 98.5 F 66 18 113/56 96 12/08/21 23:30 98.9 F 66 20 93/46 95 12/08/21 23:29 67 20 94 L 12/08/21 19:42 98.6 F 66 20 110/66 99 12/08/21 19:38 65 18 97 12/08/21 16:00 99 F 66 16 111/56 97 Pain Assessment - Last Documented Pain Intensity 4 Pain Scale Used 0-10 Pain Scale Intake and Output: Intake & Output 12/07/21 12/08/21 12/09/21 12/10/21 11:59 11:59 11:59 11:59 Intake Total 1089 3347 Output Total 400 1000 Balance 689 4447 Weight 77.4 kg Lab Results: Lab Results-Last 24 Hours 12/08/21 12/08/21 12/09/21 Range/Units 16:29 21:11 07:37 POC Glucometer 150 H 156 H 121 H (74 to 106) mg/dL 12/09/21 Range/Units 11:59 POC Glucometer 141 H (74 to 106) mg/dL Radiology Exams: Radiology Procedures Category Date Time Status ABDOMEN AND PELVIS W CONTRAST [CT] Stat Exams 12/07/21 20:14 Completed CHEST 1 VIEW (PORTABLE) Stat Exams 12/07/21 19:02 Completed CHEST WITH CONTRAST [CT] Stat Exams 12/07/21 20:14 Completed Assessment/Plan (1) Pneumonia Current Visit: Yes Status: Acute Qualifiers: Pneumonia type: due to unspecified organism Laterality: bilateral Lung location: lower lobe of lung Qualified Code(s): J18.9 - Pneumonia, unspecified organism Assessment & Plan: continue IV Levaquin Code(s): J18.9 - PNEUMONIA, UNSPECIFIED ORGANISM (2) CHF exacerbation Current Visit: No Status: Acute Qualifiers: Heart failure type: unspecified Qualified Code(s): I50.9 - Heart failure, unspecified Assessment & Plan: crackles lef base,cough - labs pending added Lasix IV 20mg and potassium Code(s): I50.9 - HEART FAILURE, UNSPECIFIED (3) N&V (nausea and vomiting) Current Visit: Yes Status: Resolved Code(s): R11.2 - NAUSEA WITH VOMITING, UNSPECIFIED (4) Pulmonary fibrosis Current Visit: No Status: Acute Code(s): J84.10 - PULMONARY FIBROSIS, UNSPECIFIED (5) Pacemaker Current Visit: Yes Status: Acute Code(s): Z95.0 - PRESENCE OF CARDIAC PACEMAKER (6) Hyponatremia Current Visit: No Status: Acute Code(s): E87.1 - HYPO-OSMOLALITY AND HYPONATREMIA (7) Headache Current Visit: No Status: Acute Assessment & Plan: across brow,? from O2/NC and sinusitis - 1 x dose Ketoralac 30mg. Code(s): R51 - HEADACHE * DO NOT USE *
[2021-12-09] MEDS ORDERED: TORAdol 30 mg Injection IM ONE (14:00)
[2021-12-09 14:01] LABS: Hematocrit 39.4 % (35-47); Hemoglobin 12.8 gm/dl (12.0-16.0); Mean Cell Volume 96.1 fl (78-100); Mean Corpuscular Hemoglobin 31.2 pg (26-32); Mean Corpuscular Hgb Concent. 32.5 g/dl (32-36); Mean Platelet Volume 10.2 fl (7.5-11.0); Platelet Count 190 K/mm3 (150-450); Red Cell Distribution Width 13.6 % (11.5-14.0); White Blood Count 5.4 K/mm3 (4.0-10.5)
[2021-12-09] MEDS: Lasix 20 MG/2 ML IV SCH (14:53)
[2021-12-09 15:05] LABS: ALBUMIN 3.5 g/dL (3.5-5.0); ALKALINE PHOSPHATASE 118 U/L (38-126); ANION GAP 13.5 MEQ/L (5-15); BLOOD UREA NITROGEN 8 mg/dL (7-17); CHLORIDE 104 mmol/L (98-107); Calcium 8.3 mg/dL (8.4-10.2); Carbon Dioxide 23 mmol/L (22-30); Creatinine 1 0.46 mg/dL (0.52-1.04); EST GLOMERULAR FILTRATION RATE > 60.0 ML/MIN; Glucose 203 mg/dL (74-106); NT PRO BNP 1230 pg/mL (0-900); Potassium 3.8 mmol/L (3.5-5.1); SGOT/AST 72 U/L (14-36); SGPT/ALT 47 U/L (0-35); SODIUM 136 mmol/L (137-145); TSH, 3RD Generation 0.613 mIU/L (0.47-4.68)
[2021-12-09 15:47] LABS: Eosinophil 5 % (0.00-3.0); Lymphocytes 8 % (24-44); Monocyte 4 % (0.0-12.0); Platelet Estimate NORMAL (NORMAL); Total Cells Counted 100
[2021-12-09] MEDS ORDERED: Cyclobenzaprine 10 MG PO PRN (16:20)
[2021-12-09] MEDS: Bactroban OINTMENT TP SCH (16:38)
[2021-12-09] MEDS: DUONEB 0.5-3 MG/3 ml Neb IH PRN (20:16)
[2021-12-09] MEDS: REQUIP 2MG TAB PO SCH (21:46)
[2021-12-09] MEDS: LEVOFLOXACIN 750MG/150ML D5W 750 MG/150 ML BAG IV SCH (21:46)
[2021-12-10] MEDS: Klor Con 10 MEQ PO SCH ×3 (00:05→21:17)
[2021-12-10] MEDS: Robitussin AC Syrup Unit Dose Cup PO PRN ×5 (00:53→21:16)
[2021-12-10] MEDS: NORCO 5/325 MG PO PRN ×4 (00:53→21:16)
[2021-12-10] MEDS: Sodium Chloride 0.9% 1000 ML 1,000 ML IV SCH ×2 (05:15→17:02)
[2021-12-10] MEDS: Glucophage XR 500 MG PO SCH (07:56)
--- NOTE | 2021-12-10 08:58 | PCM.NOTE ---
Date and Time: 12/10/21 0856 Subjective Assessment: patient c/o severe headache, worse on the right side. got some relief with toradol x 1 dose yesterday but was temporary. breathing is stable, currently on 1 L oxygen Objective Exam General Appearance: mild distress, obese Neurologic Exam: alert, oriented x 3 Wound Assessment: Skin/Wound Assessment Wound/Incision Assessment Start: 12/07/21 23:54 Text: Status: Active Freq: Q6H Protocol: Document 12/09/21 23:00 RB (Rec: 12/10/21 00:44 RB [id number]) Wound/Incision Assessment Right Abdomen Wound Assessment Shift Assessment Wound Type scabbed area that itches- picture on chart Wound Stage Non Pressure Wound Drainage Amount None Drainage Odor None/Absent Surrounding Tissue Flippin Comment area cleansed, bactroban applied and covered with a clean bandaid Wound Photo Photo Taken Yes Date: 12/08/21 Time: 00:45 Respiratory Exam: crackles/rales Cardiovascular Exam: regular rate/rhythm, normal heart sounds Gastrointestinal/Abdomen Exam: soft, No tenderness, No mass Extremity Exam: normal inspection, normal range of motion OBJECTIVE DATA Vital Signs: Vital Signs - 24 hr Temp Pulse Resp BP Pulse Ox 12/10/21 08:00 98.7 F 80 25 H 131/65 97 12/10/21 07:32 66 16 97 12/10/21 04:20 98.8 F 64 22 124/71 94 L 12/09/21 23:34 98.9 F 66 18 109/55 97 12/09/21 20:16 67 20 88 L 12/09/21 20:05 98.4 F 65 20 113/56 97 12/09/21 16:00 97.7 F 68 21 113/55 98 12/09/21 12:00 98.4 F 68 20 119/58 95 Pain Assessment - Last Documented Pain Intensity 6 Pain Scale Used 0-10 Pain Scale Intake and Output: Intake & Output 12/07/21 12/08/21 12/09/21 12/10/21 11:59 11:59 11:59 11:59 Intake Total 1089 3347 2378 Output Total 400 1000 1100 Balance 689 2347 1278 Weight 77.4 kg Lab Results: Lab Results-Last 24 Hours 04/24/22 04/24/22 04/24/22 Range/Units 11:59 14:00 14:00 WBC 5.4 (4.0-10.5) K/mm3 RBC 4.10 (4.1-5.4) M/mm3 Hgb 12.8 (12.0-16.0) gm/dl Hct 39.4 (35-47) % MCV 96.1 (78-100) fl MCH 31.2 (26-32) pg MCHC 32.5 (32-36) g/dl RDW 13.6 (11.5-14.0) % Plt Count 190 (150-450) K/mm3 MPV 10.2 (7.5-11.0) fl Segmented Neutrophils 83 H (36.0-66.0) % Lymphocytes (Manual) 8 L (24-44) % Monocytes (Manual) 4 (0.0-12.0) % Eosinophils (Manual) 5 H (0.00-3.0) % Platelet Estimate NORMAL (NORMAL) RBC Morphology NORMAL Sodium 136 L (137-145) mmol/L Potassium 3.8 (3.5-5.1) mmol/L Chloride 104 (98-107) mmol/L Carbon Dioxide 23 (22-30) mmol/L Anion Gap 13.5 (5-15) MEQ/L BUN 8 (7-17) mg/dL Creatinine 0.46 L (0.52-1.04) mg/dL Estimated GFR > 60.0 ML/MIN Glucose 203 H (74-106) mg/dL POC Glucometer 141 H (74 to 106) mg/dL Hemoglobin A1c (4.5-6.0) % Calcium 8.3 L (8.4-10.2) mg/dL Total Bilirubin 0.60 (0.2-1.3) mg/dL AST 72 H (14-36) U/L ALT 47 H (0-35) U/L Alkaline Phosphatase 118 (38-126) U/L NT-Pro-B Natriuret Pep 1230 H (0-900) pg/mL Serum Total Protein 7.0 (6.3-8.2) g/dL Albumin 3.5 (3.5-5.0) g/dL 25-OH Vitamin D Total (30-100) ng/mL TSH 3rd Generation 0.613 (0.47-4.68) mIU/L 12/09/21 12/09/21 12/09/21 Range/Units 14:00 14:00 16:38 WBC (4.0-10.5) K/mm3 RBC (4.1-5.4) M/mm3 Hgb (12.0-16.0) gm/dl Hct (35-47) % MCV (78-100) fl MCH (26-32) pg MCHC (32-36) g/dl RDW (11.5-14.0) % Plt Count (150-450) K/mm3 MPV (7.5-11.0) fl Segmented Neutrophils (36.0-66.0) % Lymphocytes (Manual) (24-44) % Monocytes (Manual) (0.0-12.0) % Eosinophils (Manual) (0.00-3.0) % Platelet Estimate (NORMAL) RBC Morphology Sodium (137-145) mmol/L Potassium (3.5-5.1) mmol/L Chloride (98-107) mmol/L Carbon Dioxide (22-30) mmol/L Anion Gap (5-15) MEQ/L BUN (7-17) mg/dL Creatinine (0.52-1.04) mg/dL Estimated GFR ML/MIN Glucose (74-106) mg/dL POC Glucometer 129 H (74 to 106) mg/dL Hemoglobin A1c 6.36 H (4.5-6.0) % Calcium (8.4-10.2) mg/dL Total Bilirubin (0.2-1.3) mg/dL AST (14-36) U/L ALT (0-35) U/L Alkaline Phosphatase (38-126) U/L NT-Pro-B Natriuret Pep (0-900) pg/mL Serum Total Protein (6.3-8.2) g/dL Albumin (3.5-5.0) g/dL 25-OH Vitamin D Total 45.3 (30-100) ng/mL TSH 3rd Generation (0.47-4.68) mIU/L 12/09/21 12/10/21 Range/Units 21:18 06:58 WBC (4.0-10.5) K/mm3 RBC (4.1-5.4) M/mm3 Hgb (12.0-16.0) gm/dl Hct (35-47) % MCV (78-100) fl MCH (26-32) pg MCHC (32-36) g/dl RDW (11.5-14.0) % Plt Count (150-450) K/mm3 MPV (7.5-11.0) fl Segmented Neutrophils (36.0-66.0) % Lymphocytes (Manual) (24-44) % Monocytes (Manual) (0.0-12.0) % Eosinophils (Manual) (0.00-3.0) % Platelet Estimate (NORMAL) RBC Morphology Sodium (137-145) mmol/L Potassium (3.5-5.1) mmol/L Chloride (98-107) mmol/L Carbon Dioxide (22-30) mmol/L Anion Gap (5-15) MEQ/L BUN (7-17) mg/dL Creatinine (0.52-1.04) mg/dL Estimated GFR ML/MIN Glucose (74-106) mg/dL POC Glucometer 183 H 154 H (74 to 106) mg/dL Hemoglobin A1c (4.5-6.0) % Calcium (8.4-10.2) mg/dL Total Bilirubin (0.2-1.3) mg/dL AST (14-36) U/L ALT (0-35) U/L Alkaline Phosphatase (38-126) U/L NT-Pro-B Natriuret Pep (0-900) pg/mL Serum Total Protein (6.3-8.2) g/dL Albumin (3.5-5.0) g/dL 25-OH Vitamin D Total (30-100) ng/mL TSH 3rd Generation (0.47-4.68) mIU/L Radiology Exams: Radiology Procedures Category Date Time Status HEAD WITHOUT CONTRAST [CT] Stat Exams 12/10/21 08:56 Ordered Assessment/Plan (1) Pneumonia Current Visit: Yes Status: Acute Qualifiers: Pneumonia type: due to unspecified organism Laterality: bilateral Lung location: lower lobe of lung Qualified Code(s): J18.9 - Pneumonia, unspecified organism Assessment & Plan: on levaquin, clinically improving. wbc normal Code(s): J18.9 - PNEUMONIA, UNSPECIFIED ORGANISM (2) Headache Current Visit: No Status: Acute Assessment & Plan: on xarelto and received toradol. ct to r/o spont bleed due to severity, ibuprofen ordered prn Code(s): R51 - HEADACHE * DO NOT USE * (3) Pulmonary fibrosis Current Visit: No Status: Acute Code(s): J84.10 - PULMONARY FIBROSIS, UNSPECIFIED
[2021-12-10] MEDS: MOTRIN 600 MG PO PRN ×2 (09:20→17:01)
[2021-12-10] MEDS: Zocor 10MG PO SCH (09:21)
[2021-12-10] MEDS: XARELTO 10 MG TABLET PO SCH (09:21)
[2021-12-10] MEDS: PROTONIX 40 MG IV IV SCH (09:21)
[2021-12-10] MEDS: ECOTRIN 81 MG PO SCH (09:21)
[2021-12-10] MEDS: Lasix 20 MG/2 ML IV SCH (09:21)
[2021-12-10] MEDS: Bactroban OINTMENT TP SCH (09:22)
[2021-12-10] MEDS: Cardizem CD 120 MG PO SCH (09:22)
[2021-12-10] MEDS: SYNTHROID 112 MCG PO SCH (09:22)
--- NOTE | 2021-12-10 10:24 | XRAY ---
Indication: Severe headache. No known injury. Multiple contiguous axial images obtained through the head without contrast. Comparison: January 19, 2021. Again age-appropriate global atrophy, minimal periventricular degenerative micro-ischemia, and remote basal ganglia lacunar infarcts bilaterally. No acute intracranial hemorrhage, abnormal extra-axial fluid collection, or mass effect. Fourth ventricle is midline without hydrocephalus. Espinoza-white matter differentiation preserved. Bony calvarium intact. Again mucosal thickening both ethmoid and right maxillary sinuses with right maxillary antrectomy. Mastoid air cells are clear. Impression: Continued nonacute senile brain again with bilateral basal ganglia remote lacunar infarcts and paranasal sinus disease. No new/acute intracranial abnormalities.
[2021-12-10] MEDS: Cyclobenzaprine 10 MG PO PRN (17:01)
[2021-12-10] MEDS: DUONEB 0.5-3 MG/3 ml Neb IH PRN (19:57)
[2021-12-10] MEDS: REQUIP 2MG TAB PO SCH (21:17)
[2021-12-10] MEDS: LEVOFLOXACIN 750MG/150ML D5W 750 MG/150 ML BAG IV SCH (21:19)
[2021-12-11] MEDS: Cyclobenzaprine 10 MG PO PRN ×2 (03:05→21:20)
[2021-12-11] MEDS: MOTRIN 600 MG PO PRN ×2 (03:05→21:21)
[2021-12-11] MEDS: Sodium Chloride 0.9% 1000 ML 1,000 ML IV SCH (03:12)
[2021-12-11 05:54] LABS: Basophil (Absolute #) 0.04 (0-0.4); Eosinophil (Absolute #) 0.39 (0-0.5); Hematocrit 39.7 % (35-47); Hemoglobin 12.7 gm/dl (12.0-16.0); Lymphocytes % 18.4 % (24.0-44.0); Mean Cell Volume 97.3 fl (78-100); Mean Corpuscular Hemoglobin 31.1 pg (26-32); Mean Platelet Volume 9.8 fl (7.5-11.0); Monocyte (Absolute #) 0.37 (0.0-1.3); Monocytes % 7.6 % (0.0-12.0); Neutrophil % 65.2 % (36.0-66.0); Platelet Count 234 K/mm3 (150-450); Red Blood Count 4.08 M/mm3 (4.1-5.4); Red Cell Distribution Width 13.4 % (11.5-14.0); White Blood Count 4.9 K/mm3 (4.0-10.5)
[2021-12-11 05:55] LABS: ANION GAP 8.2 MEQ/L (5-15); BLOOD UREA NITROGEN 5 mg/dL (7-17); CHLORIDE 97 mmol/L (98-107); Calcium 8.7 mg/dL (8.4-10.2); Carbon Dioxide 35 mmol/L (22-30); Creatinine 1 0.44 mg/dL (0.52-1.04); EST GLOMERULAR FILTRATION RATE > 60.0 ML/MIN; Glucose 119 mg/dL (74-106); MAGNESIUM 1.7 mg/dL (1.6-2.3); Potassium 4.1 mmol/L (3.5-5.1); SODIUM 136 mmol/L (137-145)
[2021-12-11] MEDS: DUONEB 0.5-3 MG/3 ml Neb IH PRN (07:33)
--- NOTE | 2021-12-11 08:22 | PCM.NOTE ---
Date and Time: 12/11/21820 Subjective Assessment: patient on 1L oxygen, not on any oxygen at home. still has terrible headache according to patient. ibuprofen no help Objective Exam General Appearance: no apparent distress, obese Neurologic Exam: alert, oriented x 3 Wound Assessment: Skin/Wound Assessment Wound/Incision Assessment Start: 12/07/21 23:54 Text: Status: Active Freq: Q6H Protocol: Document 12/11/21 05:00 RB (Rec: 12/11/21 05:26 RB [id number]) Wound/Incision Assessment Right Abdomen Wound Assessment Shift Assessment Wound Type scabbed area that itches- picture on chart Wound Stage Non Pressure Wound Drainage Amount None Drainage Odor None/Absent Surrounding Tissue Stephan Wound Photo Photo Taken Yes Date: 12/08/21 Time: 00:45 Respiratory Exam: crackles/rales Cardiovascular Exam: regular rate/rhythm, normal heart sounds Gastrointestinal/Abdomen Exam: soft, No tenderness, No mass OBJECTIVE DATA Vital Signs: Vital Signs - 24 hr Temp Pulse Resp BP Pulse Ox 12/11/21 07:39 98.6 F 61 16 135/64 94 L 12/11/21 07:34 67 16 94 L 12/11/21 03:47 97.6 F 65 20 102/57 95 12/11/21 00:16 98.4 F 67 25 H 118/57 94 L 12/10/21 23:45 98.7 F 67 20 122/69 95 12/10/21 20:00 98.7 F 67 20 122/69 95 12/10/21 19:58 71 18 90 L 12/10/21 16:00 98.2 F 65 19 148/68 96 12/10/21 12:00 97.8 F 65 21 132/62 96 Pain Assessment - Last Documented Pain Intensity 6 Pain Scale Used 0-10 Pain Scale Intake and Output: Intake & Output 12/08/21 12/09/21 12/10/21 12/11/21 11:59 11:59 11:59 11:59 Intake Total 1089 3347 2498 2488 Output Total 400 1000 1100 2000 Balance 689 2347 1398 488 Weight 77.4 kg Lab Results: Lab Results-Last 24 Hours 12/10/21 12/10/21 12/10/21 Range/Units 11:43 16:35 21:11 WBC (4.0-10.5) K/mm3 RBC (4.1-5.4) M/mm3 Hgb (12.0-16.0) gm/dl Hct (35-47) % MCV (78-100) fl MCH (26-32) pg MCHC (32-36) g/dl RDW (11.5-14.0) % Plt Count (150-450) K/mm3 MPV (7.5-11.0) fl Gran % (36.0-66.0) % Eos # (Auto) (0-0.5) Absolute Lymphs (auto) (1.0-4.6) Absolute Monos (auto) (0.0-1.3) Lymphocytes % (24.0-44.0) % Monocytes % (0.0-12.0) % Eosinophils % (0.00-5.0) % Basophils % (0.0-0.4) % Absolute Granulocytes (1.4-6.9) Basophils # (0-0.4) Sodium (137-145) mmol/L Potassium (3.5-5.1) mmol/L Chloride (98-107) mmol/L Carbon Dioxide (22-30) mmol/L Anion Gap (5-15) MEQ/L BUN (7-17) mg/dL Creatinine (0.52-1.04) mg/dL Estimated GFR ML/MIN Glucose (74-106) mg/dL POC Glucometer 104 139 H 200 H (74 to 106) mg/dL Calcium (8.4-10.2) mg/dL Magnesium (1.6-2.3) mg/dL 12/11/21 12/11/21 12/11/21 Range/Units 05:40 05:40 07:16 WBC 4.9 (4.0-10.5) K/mm3 RBC 4.08 L (4.1-5.4) M/mm3 Hgb 12.7 (12.0-16.0) gm/dl Hct 39.7 (35-47) % MCV 97.3 (78-100) fl MCH 31.1 (26-32) pg MCHC 32.0 (32-36) g/dl RDW 13.4 (11.5-14.0) % Plt Count 234 (150-450) K/mm3 MPV 9.8 (7.5-11.0) fl Gran % 65.2 (36.0-66.0) % Eos # (Auto) 0.39 (0-0.5) Absolute Lymphs (auto) 0.90 L (1.0-4.6) Absolute Monos (auto) 0.37 (0.0-1.3) Lymphocytes % 18.4 L (24.0-44.0) % Monocytes % 7.6 (0.0-12.0) % Eosinophils % 8.0 H (0.00-5.0) % Basophils % 0.8 (0.0-0.4) % Absolute Granulocytes 3.20 (1.4-6.9) Basophils # 0.04 (0-0.4) Sodium 136 L (137-145) mmol/L Potassium 4.1 (3.5-5.1) mmol/L Chloride 97 L (98-107) mmol/L Carbon Dioxide 35 H (22-30) mmol/L Anion Gap 8.2 (5-15) MEQ/L BUN 5 L (7-17) mg/dL Creatinine 0.44 L (0.52-1.04) mg/dL Estimated GFR > 60.0 ML/MIN Glucose 119 H (74-106) mg/dL POC Glucometer 99 (74 to 106) mg/dL Calcium 8.7 (8.4-10.2) mg/dL Magnesium 1.7 (1.6-2.3) mg/dL Radiology Exams: Radiology Procedures Category Date Time Status HEAD WITHOUT CONTRAST [CT] Stat Exams 12/10/21 09:57 Completed Assessment/Plan (1) Pneumonia Current Visit: Yes Status: Acute Qualifiers: Pneumonia type: due to unspecified organism Laterality: bilateral Lung location: lower lobe of lung Qualified Code(s): J18.9 - Pneumonia, unspecified organism Assessment & Plan: continue levaquin, afebrile and wbc improved. will attempt to wean oxygen. Code(s): J18.9 - PNEUMONIA, UNSPECIFIED ORGANISM (2) Headache Current Visit: No Status: Acute Assessment & Plan: sinusitis noted on ct, add po prednisone and flonase Code(s): R51 - HEADACHE * DO NOT USE * (3) Pulmonary fibrosis Current Visit: No Status: Acute Code(s): J84.10 - PULMONARY FIBROSIS, UNSPECIFIED
[2021-12-11 08:30] LABS: Basophil 1 % (0.0-1.0); Eosinophil 5 % (0.00-3.0); Lymphocytes 30 % (24-44); Monocyte 4 % (0.0-12.0); Platelet Estimate NORMAL (NORMAL); Total Cells Counted 100
[2021-12-11] MEDS: XARELTO 10 MG TABLET PO SCH (09:37)
[2021-12-11] MEDS: ECOTRIN 81 MG PO SCH (09:37)
[2021-12-11] MEDS: Cardizem CD 120 MG PO SCH (09:37)
[2021-12-11] MEDS: Klor Con 10 MEQ PO SCH ×2 (09:37→21:09)
[2021-12-11] MEDS: Zocor 10MG PO SCH (09:37)
[2021-12-11] MEDS: Flonase NASAL NS SCH (09:38)
[2021-12-11] MEDS: PROTONIX 40 MG IV IV SCH (09:38)
[2021-12-11] MEDS: DELTASONE 20 MG PO SCH (09:38)
[2021-12-11] MEDS: Lasix 20 MG/2 ML IV SCH (09:38)
[2021-12-11] MEDS: NORCO 5/325 MG PO PRN ×3 (09:39→18:42)
[2021-12-11] MEDS: Bactroban OINTMENT TP SCH (10:38)
[2021-12-11] MEDS: Glucophage XR 500 MG PO SCH (10:40)
[2021-12-11] MEDS: SYNTHROID 112 MCG PO SCH (10:41)
[2021-12-11] MEDS: LEVOFLOXACIN 750MG/150ML D5W 750 MG/150 ML BAG IV SCH (21:08)
[2021-12-11] MEDS: REQUIP 2MG TAB PO SCH (21:09)
[2021-12-11] MEDS: Robitussin AC Syrup Unit Dose Cup PO PRN (21:21)
[2021-12-12] MEDS: NORCO 5/325 MG PO PRN ×3 (04:26→13:56)
[2021-12-12 04:35] LABS: Hematocrit 40.7 % (35-47); Hemoglobin 13.2 gm/dl (12.0-16.0); Mean Cell Volume 95.1 fl (78-100); Mean Corpuscular Hemoglobin 30.8 pg (26-32); Mean Corpuscular Hgb Concent. 32.4 g/dl (32-36); Mean Platelet Volume 9.6 fl (7.5-11.0); Platelet Count 270 K/mm3 (150-450); Red Blood Count 4.28 M/mm3 (4.1-5.4); Red Cell Distribution Width 13.4 % (11.5-14.0); White Blood Count 5.6 K/mm3 (4.0-10.5)
[2021-12-12 04:39] LABS: ANION GAP 8.3 MEQ/L (5-15); BLOOD UREA NITROGEN 8 mg/dL (7-17); CHLORIDE 98 mmol/L (98-107); Calcium 9.2 mg/dL (8.4-10.2); Carbon Dioxide 34 mmol/L (22-30); Creatinine 1 0.46 mg/dL (0.52-1.04); EST GLOMERULAR FILTRATION RATE > 60.0 ML/MIN; Glucose 124 mg/dL (74-106); SODIUM 137 mmol/L (137-145)
[2021-12-12] MEDS: Robitussin AC Syrup Unit Dose Cup PO PRN (06:51)
[2021-12-12] MEDS: Glucophage XR 500 MG PO SCH (08:09)
[2021-12-12 08:17] LABS: ATYPICAL LYMPHS 1 %; BAND 4 % (0.0-2.0); Eosinophil 3 % (0.00-3.0); Lymphocytes 40 % (24-44); Metamyelocyte 1 %; Monocyte 3 % (0.0-12.0); Platelet Estimate NORMAL (NORMAL); Total Cells Counted 100
[2021-12-12] MEDS: DUONEB 0.5-3 MG/3 ml Neb IH PRN (08:49)
--- NOTE | 2021-12-12 09:31 | PCM.DS ---
Discharge Summary Date of Admission: 12/08/21 13:13 Admitting Physician: MONO UNDERWOOD DO Primary Care Provider: PEPE MONTGOMERY MILTON Allergies Allergies Sulfa (Sulfonamide Antibiotics) Allergy (Severe, Verified 12/07/21 18:59) Itching pollen extracts Allergy (Mild, Verified 12/07/21 18:59) bacitracin [From Neosporin ([id number]-[id number])] Allergy (Verified 12/07/21 18:59) neomycin [From Neosporin ([id number]-qsc-rascx)] Allergy (Verified 12/07/21 18:59) polymyxin B [From Neosporin ([id number]-[id number])] Allergy (Verified 12/07/21 18:59) Hospital Summary - Hospital Course Hospital Course: patient was admitted with cough and headache, found to have pneumonia superimposed on chronic fibrosis. ct shows sinusitis, improved on levaquin and prednisone, headache is improved and she is on room air, afebrile and labs are good. - Vitals & Intake/Output Vital Signs: Vital Signs Temperature 97.8 F 12/12/21 07:45 Pulse Rate 71 12/12/21 08:49 Respiratory Rate 18 12/12/21 08:49 Blood Pressure 143/68 12/12/21 07:45 O2 Sat by Pulse Oximetry 97 12/12/21 08:49 Intake & Output: Intake & Output 12/09/21 12/10/21 12/11/21 12/12/21 11:59 11:59 11:59 11:59 Intake Total 3347 2498 2488 2000 Output Total 1000 1100 2000 2450 Balance 2347 1398 488 -450 Weight 77.4 kg - Lab Result Diagrams: 12/12/21 04:20 12/12/21 04:20 Lab Results-Last 24 Hrs: Lab Results-Last 24 Hours 12/11/21 12/11/21 12/11/21 Range/Units 11:43 16:07 21:06 WBC (4.0-10.5) K/mm3 RBC (4.1-5.4) M/mm3 Hgb (12.0-16.0) gm/dl Hct (35-47) % MCV (78-100) fl MCH (26-32) pg MCHC (32-36) g/dl RDW (11.5-14.0) % Plt Count (150-450) K/mm3 MPV (7.5-11.0) fl Segmented Neutrophils (36.0-66.0) % Band Neutrophils (0.0-2.0) % Lymphocytes (Manual) (24-44) % Monocytes (Manual) (0.0-12.0) % Eosinophils (Manual) (0.00-3.0) % Metamyelocytes % Atypical Lymphocytes % Platelet Estimate (NORMAL) RBC Morphology Sodium (137-145) mmol/L Potassium (3.5-5.1) mmol/L Chloride (98-107) mmol/L Carbon Dioxide (22-30) mmol/L Anion Gap (5-15) MEQ/L BUN (7-17) mg/dL Creatinine (0.52-1.04) mg/dL Estimated GFR ML/MIN Glucose (74-106) mg/dL POC Glucometer 164 H 204 H 190 H (74 to 106) mg/dL Calcium (8.4-10.2) mg/dL 12/12/21 12/12/21 12/12/21 Range/Units 04:20 04:20 07:17 WBC 5.6 (4.0-10.5) K/mm3 RBC 4.28 (4.1-5.4) M/mm3 Hgb 13.2 (12.0-16.0) gm/dl Hct 40.7 (35-47) % MCV 95.1 (78-100) fl MCH 30.8 (26-32) pg MCHC 32.4 (32-36) g/dl RDW 13.4 (11.5-14.0) % Plt Count 270 (150-450) K/mm3 MPV 9.6 (7.5-11.0) fl Segmented Neutrophils 48 (36.0-66.0) % Band Neutrophils 4 H (0.0-2.0) % Lymphocytes (Manual) 40 (24-44) % Monocytes (Manual) 3 (0.0-12.0) % Eosinophils (Manual) 3 (0.00-3.0) % Metamyelocytes 1 % Atypical Lymphocytes 1 % Platelet Estimate NORMAL (NORMAL) RBC Morphology NORMAL Sodium 137 (137-145) mmol/L Potassium 4.0 (3.5-5.1) mmol/L Chloride 98 (98-107) mmol/L Carbon Dioxide 34 H (22-30) mmol/L Anion Gap 8.3 (5-15) MEQ/L BUN 8 (7-17) mg/dL Creatinine 0.46 L (0.52-1.04) mg/dL Estimated GFR > 60.0 ML/MIN Glucose 124 H (74-106) mg/dL POC Glucometer 108 H (74 to 106) mg/dL Calcium 9.2 (8.4-10.2) mg/dL Micro Results-Entire Visit: Microbiology 12/07/21 22:30 Blood Culture Gram Stain - Final Blood Not Reportable Blood Culture - Final NO GROWTH 12/07/21 19:20 Blood Culture Gram Stain - Final Blood Not Reportable Blood Culture - Final NO GROWTH Accuchecks Date 12/12/21 Date 12/11/21 Date 12/11/21 Date 12/11/21 Time 07:15 Time 21:30 Time 16:17 Time 11:49 - Radiology Exams Ordered Rad Exams-Entire Visit: Radiology Procedures Category Date Time Status HEAD WITHOUT CONTRAST [CT] Stat Exams 12/10/21 09:57 Completed - Procedures and Test Procedures and Tests throughout Hospitalization: Therapy Orders & Screens 12/08/21 00:36 Sputum Specimen Obtain .as ordered Comment: Diagnosis: pneumonia 12/08/21 01:08 Respiratory Therapy Assessment DAILY Comment: Diagnosis: pneumonia 12/08/21 04:39 Sputum Specimen Obtain .as ordered Comment: previous sample was mostly saliva, not sputum Diagnosis: pneumonia 12/08/21 05:39 Oxygen Nasal Cannula 3 lpm Comment: Diagnosis: pneumonia Discharge Exam General Appearance: no apparent distress, obese Neurologic Exam: alert, oriented x 3 Respiratory Exam: rhonchi Cardiovascular Exam: regular rate/rhythm, normal heart sounds Gastrointestinal/Abdomen Exam: soft, No tenderness, No mass Extremity Exam: normal inspection, normal range of motion Skin Exam: normal color, warm, dry Wound Assessment: Skin/Wound Assessment Wound/Incision Assessment Start: 12/07/21 23:54 Text: Status: Active Freq: Q6H Protocol: Document 12/12/21 04:39 RB (Rec: 12/12/21 04:41 RB [id number]) Wound/Incision Assessment Right Abdomen Wound Assessment Shift Assessment Wound Type scabbed area that itches- picture on chart Wound Stage Non Pressure Wound Dressing Status Dry & Intact Drainage Amount None Drainage Odor None/Absent Surrounding Tissue Parkline Wound Photo Photo Taken Yes Date: 12/08/21 Time: 00:45 Final Diagnosis/Problem List - Final Discharge Diagnosis/Problem (1) Pneumonia Current Visit: Yes Status: Acute Code(s): J18.9 - PNEUMONIA, UNSPECIFIED ORGANISM (2) Headache Current Visit: No Status: Acute Code(s): R51 - HEADACHE * DO NOT USE * (3) Pulmonary fibrosis Current Visit: No Status: Acute Code(s): J84.10 - PULMONARY FIBROSIS, UNSPECIFIED - Discharge Disposition: Home, Self-Care Condition: Stable Prescriptions: New Prednisone 20 mg [Deltasone 20 mg] 20 mg PO DAILY #5 tablet levoFLOXacin [Levofloxacin] 750 mg PO DAILY #3 tablet Continue Atorvastatin Calcium 80 mg PO DAILY Levothyroxine Sodium [Euthyrox] 112 mcg PO DAILY Ropinirole 2Mg [Requip 2Mg Tab] 1 tab PO HS Metformin HCl [Metformin HCl ER] 500 mg PO DAILY Rivaroxaban 10 mg Tablet [Xarelto 10 mg Tablet] 20 mg PO DAILY Diltiazem HCl 120 mg [Cardizem CD 120 MG] 120 mg PO DAILY Aspirin EC 81 mg [Ecotrin 81 mg] 81 mg PO DAILY Hydrocodone/Acetaminophen [Hydrocodone-Acetamin 7.5-325] 1 tab PO Q8HPRN PRN PRN Reason: Pain Follow up with: PEPE MONTGOMERY MD [Primary Care Provider] - 1 Week
[2021-12-12] MEDS: Bactroban OINTMENT TP SCH (09:51)
[2021-12-12] MEDS ORDERED: Protonix 40MG Tablet PO SCH (10:00)
[2021-12-12] MEDS: Flonase NASAL NS SCH (10:10)
[2021-12-12] MEDS: DELTASONE 20 MG PO SCH (10:12)
[2021-12-12] MEDS: Zocor 10MG PO SCH (10:12)
[2021-12-12] MEDS: Klor Con 10 MEQ PO SCH (10:12)
[2021-12-12] MEDS: ECOTRIN 81 MG PO SCH (10:12)
[2021-12-12] MEDS: Cardizem CD 120 MG PO SCH (10:12)
[2021-12-12] MEDS: XARELTO 10 MG TABLET PO SCH (10:12)
[2021-12-12] MEDS: Lasix 20 MG/2 ML IV SCH (10:13)
[2021-12-12] MEDS: SYNTHROID 112 MCG PO SCH (10:13)
[2021-12-12 12:53] VITALS: BP 137/67; PULSE 72; O2SAT 93
== END 2021-12-12 17:05 | disposition home or self-care (01) | DRG 194 ==
LOC: ED 18:48 → MED SURG 23:00 → OBSVTOIN 12-08 13:13
PROVIDERS: ADMIT Family Medicine; ATTEND Family Medicine
DX: J18.9 Pneumonia, unspecified organism (principal); E87.1 Hypo-osmolality and hyponatremia; J84.10 Pulmonary fibrosis, unspecified; I11.0 Hypertensive heart disease with heart failure; I50.9 Heart failure, unspecified; I10 Essential (primary) hypertension; E78.5 Hyperlipidemia, unspecified; E11.9 Type 2 diabetes mellitus without complications; S30.811A Abrasion of abdominal wall, initial encounter; R11.2 Nausea with vomiting, unspecified; Z79.899 Other long term (current) drug therapy; Z95.0 Presence of cardiac pacemaker; Z20.828 Contact with and (suspected) exposure to other viral communicable diseases
CPT/HCPCS: 0241U; 36415; 70450; 71045; 71260; 74177; 80048; 80053; 81015; 82306; 82947; 83036; 83605; 83735; 83880; 84134; 84443; 84484; 85025; 85027; 87040; 87651; 89220; 94640; 94760; 99285; G0378; J1817; J1885; J1940; J1956; A9270-GY

== ENCOUNTER 2021-12-26 10:32 | Day surgery (SDC) | payer BC, MEDICARE ==
[2021-12-26] MEDS ORDERED: LIDOCAINE HCL 2% 100 MG/5 ML IJ ONE (10:33)
[2021-12-26] MEDS ORDERED: Depo-Medrol 40 MG/ML IM ONE (10:33)
[2021-12-26] MEDS ORDERED: DIPRIVAN 200 MG/20 ML IV ONE (12:59)
[2021-12-26] MEDS ORDERED: Lactated Ringers 1,000 ML IV ONE (13:40)
--- NOTE | 2021-12-26 13:49 | XRAY ---
Indication: Bilateral L4-S1 MBB. Intraoperative fluoroscopy provided for 21 seconds. Single digital spot image submitted for interpretation demonstrates posterior needle tips projecting over the expected left and right L4-S1 nerve roots. Correlate with intraoperative findings/report.
--- NOTE | 2021-12-26 14:25 | XRAY ---
21 seconds of fluoroscopy was used in surgery for a bilateral L4-S1 MBB.
== END 2021-12-26 13:20 | disposition home or self-care (01) ==
LOC: SDC-PAIN 10:32
PROVIDERS: ATTEND Psychiatry & Neurology Pain Medicine
DX: M47.816 Spondylosis without myelopathy or radiculopathy, lumbar region (principal); E11.9 Type 2 diabetes mellitus without complications; Z79.899 Other long term (current) drug therapy
CPT/HCPCS: 64493; 64494; 72020; 77002; 82947; J1030; J2704

== ENCOUNTER 2022-04-26 17:28 | Inpatient (IN) | payer MEDICARE, BC ==
[2022-04-26 18:05] LABS: Absolute Neutrophil Ct (ANC) 6.53 x10^3/uL (1.4-6.9); Basophil (Absolute #) 0.07 x10^3/uL (0-0.4); Eosinophil % 3.5 % (0.00-5.0); Hematocrit 42.4 % (35-47); Hemoglobin 14.1 g/dL (12.0-16.0); Lymphocyte (Absolute #) 1.07 x10^3/uL (1.0-4.6); Lymphocytes % 12.5 % (24.0-44.0); Mean Cell Volume 93.2 fL (78-100); Mean Corpuscular Hgb Concent. 33.3 g/dL (32-36); Monocyte (Absolute #) 0.42 x10^3/uL (0.0-1.3); Monocytes % 4.9 % (0.0-12.0); Neutrophil % 76.5 % (36.0-66.0); Platelet Count 218 x10^3/uL (150-450); Red Blood Count 4.55 x10^6/uL (4.1-5.4); Red Cell Distribution Width 12.8 % (11.5-14.0); White Blood Count 8.5 x10^3/uL (4.0-10.5)
--- NOTE | 2022-04-26 18:40 | ERPHSYRPT ---
- History of Present Illness Source: patient Exam Limitations: other (Poor historian) Patient Subjective Stated Complaint: C/O SOB, has been going on for 3 days but has become worse today Triage Nursing Assessment: Patient arrived to ED by ambulance. She is alert and oriented. SOB increases when lying flat; patient is currently unable to lay flat in bed. Red ring noted around mouth; chapped. Patient is hot to touch. Physician History: 71 yo wf w dyspnea x 1day. Pt states that dyspnea is worse w exertion. She has chest tightness/burning which is substernal wo radiaition. Tightness is 2/10 on scale and nothing makes it better or worse. Pt has had some nausea/diarrhea x 3 days. Melena/hematochezia are denied. Pt quit smoking 20+ years ago. She denies cough/coryza/fever/dysuria/hematuria. Pt has not been taking her meds due to expense. Timing/Duration: yesterday Activities at Onset: rest Severity of Dyspnea-Max: moderate Severity of Dyspnea-Current: mild Possible Cause: occasional episodes Modifying Factors: Improves With: activity Associated Symptoms: chest pain/discomfort, lightheadedness, weakness, heaviness, tightness, No intermittent, No anxiety, No cough, No edema, No fever, No insomnia, No loss of appetite, No wheezing, No ankle swelling, No chills, No hemoptysis, No calf pain, No dizziness, No heart racing, No lightheadedness, No leg swelling, No muscle spasms feet, No muscle spasms hands, No painful breathing, No productive cough, No sweating, No tingling face Allergies/Adverse Reactions: Sulfa (Sulfonamide Antibiotics) Allergy (Severe, Verified 04/26/22 17:36) Itching pollen extracts Allergy (Mild, Verified 04/26/22 17:36) bacitracin [From Neosporin ([id number])] Allergy (Verified 04/26/22 17:36) neomycin [From Neosporin ([id number])] Allergy (Verified 04/26/22 17:36) polymyxin B [From Neosporin ([id number])] Allergy (Verified 04/26/22 17:36) sulfamethoxazole [From Bactrim] Adverse Reaction (Verified 04/26/22 17:36) trimethoprim [From Bactrim] Adverse Reaction (Verified 04/26/22 17:36) Home Medications: Atorvastatin Calcium 80 mg PO DAILY 05/06/20 [History] Levothyroxine Sodium [Euthyrox] 112 mcg PO DAILY 05/06/20 [History] Ropinirole 2Mg [Requip 2Mg Tab] 1 tab PO HS 05/06/20 [History] Metformin HCl [Metformin HCl ER] 500 mg PO DAILY 03/08/21 [History] Diltiazem HCl Cd [Cardizem CD ] 120 mg PO DAILY 09/11/21 [History] Hydrocodone/Acetaminophen [Hydrocodone-Acetamin 7.5-325] 1 tab PO QID 12/08/21 [History] Hx Tetanus, Diphtheria Vaccination/Date Given: Yes Hx Influenza Vaccination/Date Given: No Hx Pneumococcal Vaccination/Date Given: No Immunizations Up to Date: Yes Travel Risk - International Travel Have you traveled outside of the country in past 3 weeks: No - Coronavirus Screening Are you exhibiting any of the following symptoms?: Yes Symptoms: Fever, Cough: New Onset, Shortness of Breath - Vaccine Status Have you recieved a Covid-19 vaccination: No - Review of Systems Constitutional: No Symptoms, Fatigue, Lethargy, Malaise Eyes: No Symptoms Ears, Nose, & Throat: No Symptoms Respiratory: No Symptoms, Dyspnea, Dyspnea on Exertion (MANZANO) Cardiac: No Symptoms, Chest Pain Abdominal/Gastrointestinal: No Symptoms, Nausea, Diarrhea, No Constipation, No Hematemesis, No Melena, No Dysphagia, No Appetite Changes Genitourinary Symptoms: No Symptoms Musculoskeletal: No Symptoms Skin: No Symptoms Neurological: No Symptoms Psychological: No Symptoms Endocrine: No Symptoms Hematologic/Lymphatic: No Symptoms Immunological/Allergic: No Symptoms - Past Medical History Pertinent Past Medical History: Yes Neurological History: Migraines ENT History: No Pertinent History Cardiac History: Arrhythmia, Congestive Heart Failure, High Cholesterol, Hypertension Respiratory History: Bronchitis, CHF, Pneumonia Endocrine Medical History: Diabetes Type II, Hypothyroidism Musculoskeletal History: Arthritis GI Medical History: No Pertinent History History: No Pertinent History Psycho-Social History: Anxiety Female Reproductive Disorders: No Pertinent History Other Medical History: pulmunary fibrosis - Past Surgical History Past Surgical History: Yes Neuro Surgical History: No Pertinent History Cardiac: Pacemaker, Other Respiratory: No Pertinent History Gastrointestinal: No Pertinent History Genitourinary: No Pertinent History Musculoskeletal: No Pertinent History Female Surgical History: No Pertinent History Other Surgical History: Cardiac arrest during heart surgery, covid - Social History Smoking Status: Former smoker Exposure to second hand smoke: No Drug Use: none Patient Lives Alone: Yes Significant Family History: no pertinent family hx - Nursing Vital Signs Nursing Vital Signs: Initial Vital Signs Temperature 99.6 F 04/26/22 17:41 Pulse Rate 65 04/26/22 17:41 Respiratory Rate 23 04/26/22 17:41 Blood Pressure 139/98 04/26/22 17:41 O2 Sat by Pulse Oximetry 91 L 04/26/22 17:41 Pain Scale Pain Intensity 0 Low sats - Physical Exam General Appearance: no apparent distress Eye Exam: PERRL/EOMI, eyes nml inspection Ears, Nose, Throat Exam: hearing grossly normal, normal ENT inspection, normal pharynx Neck Exam: normal inspection, non-tender, supple, full range of motion, No Brudzinski, No Kernig's, No meningismus, No carotid bruit Respiratory Exam: airway intact, crackles/rales (Rales 1/2 up B), No rhonchi, No wheezing Cardiovascular/Chest Exam: regular rate/rhythm, normal peripheral pulses, No murmur, No edema Abdominal/Gastrointestinal Exam: soft, normal bowel sounds, No tenderness Extremity Exam: non-tender, normal range of motion, normal inspection, normal capillary refill, no calf tenderness, no pedal edema Peripheral Pulses Exam: carotid (R): 2+, carotid (L): 2+ Neurologic Exam: alert, oriented x 3, cooperative, coagulating bath mixer II-XII nml as tested, normal mood/affect, sensation nml Skin Exam: normal color, warm, dry, No rash Lymphatic Exam: No adenopathy SpO2 Interpretation: borderline oxygenation SpO2: 92 O2 Delivery: Room Air - Course Nursing assessment & vital signs reviewed: Yes EKG Interpreted by Me: RATE (Paced/Aflutter/IVCD) - Radiology Exams Chest X-ray Interpretation: Interpreted by me (Paced/Breast implants/pulmonary vascular congestion) - CT Exams Chest CT Interpretation: Tele-radiologist Report (No PE/Ground glass/fibrosis) Ordered Tests: Active Orders 24 hr Category Date Time Status EKG-ER Only STAT Care 04/26/22 17:42 Active CHEST 1 VIEW (PORTABLE) Stat Exams 04/26/22 17:43 Completed CHEST WITH CONTRAST [CT] Stat Exams 04/26/22 20:48 Taken CBC W DIFF Stat Lab 04/26/22 17:42 Completed CMP Stat Lab 04/26/22 18:58 Completed D-DIMER QUANTITATIVE Stat Lab 04/26/22 19:58 Completed Lactic Acid Stat Lab 04/26/22 17:42 Completed NT PRO BNP Stat Lab 04/26/22 19:21 Completed PROTIME WITH INR Stat Lab 04/26/22 17:50 Completed PTT Stat Lab 04/26/22 17:50 Completed TROPONIN Q4H Lab 04/26/22 17:50 Completed TROPONIN Q4H Lab 04/26/22 23:10 Completed TROPONIN Q4H Lab 04/27/22 01:45 Ordered UA W/RFX CULTURE Stat Lab 04/26/22 20:44 Completed Medication Summary Discontinued Medications Generic Name Dose Route Start Last Admin Trade Name Freq PRN Reason Stop Dose Admin Furosemide 40 mg 04/26/22 19:57 04/26/22 20:50 Furosemide 40 Mg/4 Ml Vial IV 04/26/22 19:58 40 mg STAT ONE Administration Furosemide Confirm 04/26/22 20:31 Furosemide 40 Mg/4 Ml Vial Administered 04/26/22 20:32 Dose 40 mg .ROUTE .STK-MED ONE Sodium Chloride Confirm 04/26/22 21:15 Sodium Chloride 0.9% 1000 Ml Administered 04/26/22 21:16 Dose 1,000 mls @ ud .ROUTE .STK-MED ONE Ceftriaxone Sodium/Dextrose Confirm 04/26/22 21:15 Rocephin 1 Gm-D5w 50 Ml Bag Administered 04/26/22 21:16 Dose 1 g in 50 mls @ ud IV .STK-MED ONE Methylprednisolone Sodium Succinate Confirm 04/26/22 21:15 Methylprednis Sod Succ 125 Mg/2 Ml Vial Administered 04/26/22 21:16 Dose 125 mg .ROUTE .STK-MED ONE Sterile Water Confirm 04/26/22 21:15 Water For Injection,Sterile 10 Ml Vial Administered 04/26/22 21:16 Dose 10 ml IJ .STK-MED ONE Lab/Rad Data: Laboratory Result Diagrams 04/26/22 17:42 04/26/22 18:58 Laboratory Results 04/26/22 04/26/22 04/26/22 Range/Units 23:10 20:44 19:58 WBC (4.0-10.5) x10^3/uL RBC (4.1-5.4) x10^6/uL Hgb (12.0-16.0) g/dL Hct (35-47) % MCV (78-100) fL MCH (26-32) pg MCHC (32-36) g/dL RDW (11.5-14.0) % Plt Count (150-450) x10^3/uL MPV (7.5-11.0) fL Gran % (36.0-66.0) % Immature Gran % (Auto) (0.00-0.4) % Nucleat RBC Rel Count (0.00-0.1) % Eos # (Auto) (0-0.5) x10^3/uL Immature Gran # (Auto) (0.00-0.03) x10^3u/L Absolute Lymphs (auto) (1.0-4.6) x10^3/uL Absolute Monos (auto) (0.0-1.3) x10^3/uL Absolute Nucleated RBC (0.00-0.01) x10^3u/L Lymphocytes % (24.0-44.0) % Monocytes % (0.0-12.0) % Eosinophils % (0.00-5.0) % Basophils % (0.0-0.4) % Absolute Granulocytes (1.4-6.9) x10^3/uL Basophils # (0-0.4) x10^3/uL PT (9.4-12.5) SECONDS INR (0.8-3.0) APTT (25.1-36.5) SECONDS D-Dimer 0.87 H* (0.0-0.50) mg/L Sodium (137-145) mmol/L Sodium Direct (138-146) mmol/L Potassium (3.5-4.9) mmol/L Chloride (98-109) mmol/L Carbon Dioxide (24-29) mmol/L Anion Gap (5-15) MEQ/L BUN (7-17) mg/dL Venous BUN (8-26) mg/dL Creatinine (0.6-1.3) mg/dL Estimated GFR ML/MIN Glucose (70-105) mg/dL Lactic Acid (0.4-2.0) Calcium (8.4-10.2) mg/dL Ionized Calcium (1.12-1.32) mmol/L Total Bilirubin (0.2-1.3) mg/dL AST (14-36) U/L ALT (0-35) U/L Alkaline Phosphatase (38-126) U/L Troponin (0.00-0.03) ng/mL Troponin I 0.013 (0.000-0.034) ng/mL NT-Pro-B Natriuret Pep (0-900) pg/mL Serum Total Protein (6.3-8.2) g/dL Albumin (3.5-5.0) g/dL Urinalys Dipstick Clnc MAIN LAB Urine Color YELLOW (YELLOW) Urine Appearance CLEAR (CLEAR) Urine pH 7.0 (5-6) Ur Specific [place] 1.020 (1.005-1.025) POC Urine Protein Conf NEGATIVE (Negative) Urine Ketones NEGATIVE (NEGATIVE) Urine Nitrite NEGATIVE (NEGATIVE) Urine Bilirubin NEGATIVE (NEGATIVE) Urine Urobilinogen 1 (0-1) mg/dL Urine Leukocytes TRACE (NEGATIVE) Urine WBC (Auto) 3-5 (0-5) /HPF Urine RBC (Auto) NONE (0-2) /HPF U Epithel Cells (Auto) NONE (FEW) /HPF Urine Bacteria (Auto) NONE (NEGATIVE) /HPF Urine RBC NEGATIVE (0-5) Tom/ul Ur Culture Indicated? NO Urine Glucose NEGATIVE (NEGATIVE) mg/dL Influenza Type A Ag (NEGATIVE) Influenza Type B Ag (NEGATIVE) RSV (PCR) (Negative) SARS-CoV-2 (PCR) (NEGATIVE) 04/26/22 04/26/22 04/26/22 Range/Units 19:21 18:58 17:50 WBC (4.0-10.5) x10^3/uL RBC (4.1-5.4) x10^6/uL Hgb (12.0-16.0) g/dL Hct (35-47) % MCV (78-100) fL MCH (26-32) pg MCHC (32-36) g/dL RDW (11.5-14.0) % Plt Count (150-450) x10^3/uL MPV (7.5-11.0) fL Gran % (36.0-66.0) % Immature Gran % (Auto) (0.00-0.4) % Nucleat RBC Rel Count (0.00-0.1) % Eos # (Auto) (0-0.5) x10^3/uL Immature Gran # (Auto) (0.00-0.03) x10^3u/L Absolute Lymphs (auto) (1.0-4.6) x10^3/uL Absolute Monos (auto) (0.0-1.3) x10^3/uL Absolute Nucleated RBC (0.00-0.01) x10^3u/L Lymphocytes % (24.0-44.0) % Monocytes % (0.0-12.0) % Eosinophils % (0.00-5.0) % Basophils % (0.0-0.4) % Absolute Granulocytes (1.4-6.9) x10^3/uL Basophils # (0-0.4) x10^3/uL PT (9.4-12.5) SECONDS INR (0.8-3.0) APTT (25.1-36.5) SECONDS D-Dimer (0.0-0.50) mg/L Sodium 132 L (137-145) mmol/L Sodium Direct (138-146) mmol/L Potassium 4.4 (3.5-4.9) mmol/L Chloride 96 L (98-109) mmol/L Carbon Dioxide 30 (24-29) mmol/L Anion Gap 9.9 (5-15) MEQ/L BUN 14 (7-17) mg/dL Venous BUN (8-26) mg/dL Creatinine 0.69 (0.6-1.3) mg/dL Estimated GFR > 60.0 ML/MIN Glucose 107 H (70-105) mg/dL Lactic Acid (0.4-2.0) Calcium 8.8 (8.4-10.2) mg/dL Ionized Calcium (1.12-1.32) mmol/L Total Bilirubin 0.60 (0.2-1.3) mg/dL AST 26 (14-36) U/L ALT 22 (0-35) U/L Alkaline Phosphatase 107 (38-126) U/L Troponin (0.00-0.03) ng/mL Troponin I < 0.012 (0.000-0.034) ng/mL NT-Pro-B Natriuret Pep 1800 H (0-900) pg/mL Serum Total Protein 7.5 (6.3-8.2) g/dL Albumin 4.1 (3.5-5.0) g/dL Urinalys Dipstick Clnc Urine Color (YELLOW) Urine Appearance (CLEAR) Urine pH (5-6) Ur Specific [place] (1.005-1.025) POC Urine Protein Conf (Negative) Urine Ketones (NEGATIVE) Urine Nitrite (NEGATIVE) Urine Bilirubin (NEGATIVE) Urine Urobilinogen (0-1) mg/dL Urine Leukocytes (NEGATIVE) Urine WBC (Auto) (0-5) /HPF Urine RBC (Auto) (0-2) /HPF U Epithel Cells (Auto) (FEW) /HPF Urine Bacteria (Auto) (NEGATIVE) /HPF Urine RBC (0-5) Tom/ul Ur Culture Indicated? Urine Glucose (NEGATIVE) mg/dL Influenza Type A Ag (NEGATIVE) Influenza Type B Ag (NEGATIVE) RSV (PCR) (Negative) SARS-CoV-2 (PCR) (NEGATIVE) 04/26/22 04/26/22 04/26/22 Range/Units 17:50 17:50 17:42 WBC (4.0-10.5) x10^3/uL RBC (4.1-5.4) x10^6/uL Hgb (12.0-16.0) g/dL Hct (35-47) % MCV (78-100) fL MCH (26-32) pg MCHC (32-36) g/dL RDW (11.5-14.0) % Plt Count (150-450) x10^3/uL MPV (7.5-11.0) fL Gran % (36.0-66.0) % Immature Gran % (Auto) (0.00-0.4) % Nucleat RBC Rel Count (0.00-0.1) % Eos # (Auto) (0-0.5) x10^3/uL Immature Gran # (Auto) (0.00-0.03) x10^3u/L Absolute Lymphs (auto) (1.0-4.6) x10^3/uL Absolute Monos (auto) (0.0-1.3) x10^3/uL Absolute Nucleated RBC (0.00-0.01) x10^3u/L Lymphocytes % (24.0-44.0) % Monocytes % (0.0-12.0) % Eosinophils % (0.00-5.0) % Basophils % (0.0-0.4) % Absolute Granulocytes (1.4-6.9) x10^3/uL Basophils # (0-0.4) x10^3/uL PT 10.7 (9.4-12.5) SECONDS INR 1.01 (0.8-3.0) APTT 29.2 (25.1-36.5) SECONDS D-Dimer (0.0-0.50) mg/L Sodium (137-145) mmol/L Sodium Direct 134 L (138-146) mmol/L Potassium 4.2 (3.5-4.9) mmol/L Chloride 97 L (98-109) mmol/L Carbon Dioxide 28 (24-29) mmol/L Anion Gap (5-15) MEQ/L BUN (7-17) mg/dL Venous BUN 15 (8-26) mg/dL Creatinine 0.7 (0.6-1.3) mg/dL Estimated GFR ML/MIN Glucose 110 H (70-105) mg/dL Lactic Acid 1.4 (0.4-2.0) Calcium (8.4-10.2) mg/dL Ionized Calcium 1.08 L (1.12-1.32) mmol/L Total Bilirubin (0.2-1.3) mg/dL AST (14-36) U/L ALT (0-35) U/L Alkaline Phosphatase (38-126) U/L Troponin 0.01 (0.00-0.03) ng/mL Troponin I (0.000-0.034) ng/mL NT-Pro-B Natriuret Pep (0-900) pg/mL Serum Total Protein (6.3-8.2) g/dL Albumin (3.5-5.0) g/dL Urinalys Dipstick Clnc Urine Color (YELLOW) Urine Appearance (CLEAR) Urine pH (5-6) Ur Specific [place] (1.005-1.025) POC Urine Protein Conf (Negative) Urine Ketones (NEGATIVE) Urine Nitrite (NEGATIVE) Urine Bilirubin (NEGATIVE) Urine Urobilinogen (0-1) mg/dL Urine Leukocytes (NEGATIVE) Urine WBC (Auto) (0-5) /HPF Urine RBC (Auto) (0-2) /HPF U Epithel Cells (Auto) (FEW) /HPF Urine Bacteria (Auto) (NEGATIVE) /HPF Urine RBC (0-5) Tmo/ul Ur Culture Indicated? Urine Glucose (NEGATIVE) mg/dL Influenza Type A Ag (NEGATIVE) Influenza Type B Ag (NEGATIVE) RSV (PCR) (Negative) SARS-CoV-2 (PCR) (NEGATIVE) 04/26/22 04/26/22 Range/Units 17:42 17:30 WBC 8.5 (4.0-10.5) x10^3/uL RBC 4.55 (4.1-5.4) x10^6/uL Hgb 14.1 (12.0-16.0) g/dL Hct 42.4 (35-47) % MCV 93.2 (78-100) fL MCH 31.0 (26-32) pg MCHC 33.3 (32-36) g/dL RDW 12.8 (11.5-14.0) % Plt Count 218 (150-450) x10^3/uL MPV 10.0 (7.5-11.0) fL Gran % 76.5 H (36.0-66.0) % Immature Gran % (Auto) 1.8 H (0.00-0.4) % Nucleat RBC Rel Count 0.0 (0.00-0.1) % Eos # (Auto) 0.30 (0-0.5) x10^3/uL Immature Gran # (Auto) 0.15 H (0.00-0.03) x10^3u/L Absolute Lymphs (auto) 1.07 (1.0-4.6) x10^3/uL Absolute Monos (auto) 0.42 (0.0-1.3) x10^3/uL Absolute Nucleated RBC 0.00 (0.00-0.01) x10^3u/L Lymphocytes % 12.5 L (24.0-44.0) % Monocytes % 4.9 (0.0-12.0) % Eosinophils % 3.5 (0.00-5.0) % Basophils % 0.8 (0.0-0.4) % Absolute Granulocytes 6.53 (1.4-6.9) x10^3/uL Basophils # 0.07 (0-0.4) x10^3/uL PT (9.4-12.5) SECONDS INR (0.8-3.0) APTT (25.1-36.5) SECONDS D-Dimer (0.0-0.50) mg/L Sodium (137-145) mmol/L Sodium Direct (138-146) mmol/L Potassium (3.5-4.9) mmol/L Chloride (98-109) mmol/L Carbon Dioxide (24-29) mmol/L Anion Gap (5-15) MEQ/L BUN (7-17) mg/dL Venous BUN (8-26) mg/dL Creatinine (0.6-1.3) mg/dL Estimated GFR ML/MIN Glucose (70-105) mg/dL Lactic Acid (0.4-2.0) Calcium (8.4-10.2) mg/dL Ionized Calcium (1.12-1.32) mmol/L Total Bilirubin (0.2-1.3) mg/dL AST (14-36) U/L ALT (0-35) U/L Alkaline Phosphatase (38-126) U/L Troponin (0.00-0.03) ng/mL Troponin I (0.000-0.034) ng/mL NT-Pro-B Natriuret Pep (0-900) pg/mL Serum Total Protein (6.3-8.2) g/dL Albumin (3.5-5.0) g/dL Urinalys Dipstick Clnc Urine Color (YELLOW) Urine Appearance (CLEAR) Urine pH (5-6) Ur Specific [place] (1.005-1.025) POC Urine Protein Conf (Negative) Urine Ketones (NEGATIVE) Urine Nitrite (NEGATIVE) Urine Bilirubin (NEGATIVE) Urine Urobilinogen (0-1) mg/dL Urine Leukocytes (NEGATIVE) Urine WBC (Auto) (0-5) /HPF Urine RBC (Auto) (0-2) /HPF U Epithel Cells (Auto) (FEW) /HPF Urine Bacteria (Auto) (NEGATIVE) /HPF Urine RBC (0-5) Tom/ul Ur Culture Indicated? Urine Glucose (NEGATIVE) mg/dL Influenza Type A Ag NEGATIVE (NEGATIVE) Influenza Type B Ag NEGATIVE (NEGATIVE) RSV (PCR) NEGATIVE (Negative) SARS-CoV-2 (PCR) NEGATIVE (NEGATIVE) - Progress Progress: improved Progress Note: 04/27/22 00:10 40mg IV Lasix w diuresis and improvement in condition Obs per Dr. Clay Discussed with : Deondre Counseled pt/family regarding: lab results, diagnosis, need for follow-up, rad r esults - Departure Departure Disposition: Observation Clinical Impression: CHF (congestive heart failure) Condition: Stable Critical Care Time: No Referrals: PEPE MONTGOMERY MD [Primary Care Provider] - Follow up/PCP as directed Instructions: Heart Failure
[2022-04-26 18:41] LABS: INFLUENZA A NEGATIVE (NEGATIVE); INFLUENZA B NEGATIVE (NEGATIVE); RESPIRATORY SYNCTIAL VIRUS NEGATIVE (Negative); SARS-CoV-2 Xpert Express NEGATIVE (NEGATIVE)
[2022-04-26 18:48] LABS: INR 1.01 (0.8-3.0); PROTIME 10.7 SECONDS (9.4-12.5); PTT 29.2 SECONDS (25.1-36.5)
[2022-04-26 18:57] LABS: ISTAT CREA 0.7 mg/dL (0.6-1.3); ISTAT K 4.2 mmol/L (3.5-4.9)
[2022-04-26 18:58] LABS: ISTAT cTNI 0.01 ng/mL (0.00-0.03)
[2022-04-26 19:53] LABS: ALBUMIN 4.1 g/dL (3.5-5.0); ALKALINE PHOSPHATASE 107 U/L (38-126); ANION GAP 9.9 MEQ/L (5-15); BLOOD UREA NITROGEN 14 mg/dL (7-17); CHLORIDE 96 mmol/L (98-107); Calcium 8.8 mg/dL (8.4-10.2); Carbon Dioxide 30 mmol/L (22-30); Creatinine 1 0.69 mg/dL (0.52-1.04); EST GLOMERULAR FILTRATION RATE > 60.0 ML/MIN; Glucose 107 mg/dL (74-106); Potassium 4.4 mmol/L (3.5-5.1); SGOT/AST 26 U/L (14-36); SGPT/ALT 22 U/L (0-35); SODIUM 132 mmol/L (137-145); Total Protein 7.5 g/dL (6.3-8.2)
[2022-04-26] MEDS ORDERED: Lasix 40 MG/4 ML IV ONE (19:57)
[2022-04-26] MEDS ORDERED: Lasix 40 MG/4 ML ONE (20:31)
[2022-04-26 21:05] LABS: Appearance CLEAR (CLEAR)
[2022-04-26 21:06] LABS: Bilirubin NEGATIVE (NEGATIVE); Glucose NEGATIVE (NEGATIVE); Ketones NEGATIVE (NEGATIVE); RBC NEGATIVE Ery/ul (0-5)
[2022-04-26 21:07] LABS: Dipstick done @ ? MAIN LAB; Nitrite NEGATIVE (NEGATIVE); Protein,Urine Dip NEGATIVE (Negative); Urobilinogen 1 mg/dL (0-1)
[2022-04-26 21:11] LABS: Urine Cultured Indicated? NO
[2022-04-26] MEDS ORDERED: Sodium Chloride 0.9% 1000 ML 0 ML ONE (21:15)
[2022-04-26] MEDS ORDERED: ROCEPHIN 1 Gm-D5w 50 ml Bag** 0 G/0 ML IVPB IV ONE (21:15)
[2022-04-26] MEDS ORDERED: Sterile H2O 10 ml IJ ONE (21:15)
[2022-04-26] MEDS ORDERED: solu-MEDROL ONE (21:15)
--- NOTE | 2022-04-26 21:51 | XRAY ---
Indication: Cough. Short of breath. Comparison: December 07, 2021 Portable chest again demonstrates bilateral mid to lower lung interstitial alveolar opacities grossly unchanged. Heart remains borderline enlarged again with left pacemaker. Bony thorax intact again with osteopenia, degenerative changes, and bilateral calcified breast implants.
[2022-04-27] MEDS ORDERED: HUMALOG SQ PRN (00:12)
[2022-04-27 06:09] LABS: Hematocrit 43.7 % (35-47); Hemoglobin 14.3 g/dL (12.0-16.0); Mean Cell Volume 92.6 fL (78-100); Mean Corpuscular Hemoglobin 30.3 pg (26-32); Mean Corpuscular Hgb Concent. 32.7 g/dL (32-36); Mean Platelet Volume 9.9 fL (7.5-11.0); Platelet Count 204 x10^3/uL (150-450); Red Blood Count 4.72 x10^6/uL (4.1-5.4); Red Cell Distribution Width 12.5 % (11.5-14.0); White Blood Count 6.9 x10^3/uL (4.0-10.5)
--- NOTE | 2022-04-27 06:20 | XRAY ---
Indication: Dyspnea. Pulmonary embolus. Elevated d-dimer. Multiple contiguous axial images obtained through the chest using 100 cc Isovue 370 contrast and PE protocol. Comparison: December 07, 2021 Good opacification of the pulmonary arteries to include the lobar and segmental branches. No pulmonary embolus. Heart remains enlarged again with left pacemaker. Aorta is normal in course and caliber without aneurysm/dissection. No pathologic mediastinal/hilar lymphadenopathy. Lungs demonstrates new patchy bilateral upper lobe groundglass airspace disease. Remaining lungs again demonstrates scattered peripheral fibrosis/scarring is again greatest in both lung bases. No effusion. Bony thorax again demonstrates osteopenia, multilevel degenerative spondylosis, remote T6/T8/T12 endplate fractures, and old nonunited right 7 rib fracture. Again incidental bilateral calcified breast implants. Limited upper abdomen unremarkable. Impression: 1. Negative pulmonary embolus. 2. New bilateral upper lobe patchy groundglass airspace disease. 3. Again chronic findings including cardiomegaly, pulmonary fibrosis/scarring, and chronic bony findings. Comment: Preliminary interpretation made by [facility]. No critical discrepancy.
[2022-04-27 07:21] LABS: ANION GAP 9.9 MEQ/L (5-15); BLOOD UREA NITROGEN 16 mg/dL (7-17); CHLORIDE 97 mmol/L (98-107); Calcium 8.5 mg/dL (8.4-10.2); Carbon Dioxide 30 mmol/L (22-30); Creatinine 1 0.65 mg/dL (0.52-1.04); EST GLOMERULAR FILTRATION RATE > 60.0 ML/MIN; Glucose 109 mg/dL (74-106); NT PRO BNP 1860 pg/mL (0-900); Potassium 3.7 mmol/L (3.5-5.1); SODIUM 133 mmol/L (137-145)
[2022-04-27] MEDS ORDERED: HOLD METFORMIN PRODUCTS FOR 48 HOURS MC SCH (07:30)
[2022-04-27] MEDS: NORCO 7.5/325 MG TAB PO PRN ×3 (08:03→21:32)
[2022-04-27] MEDS: Lasix 40 MG/4 ML IV SCH ×2 (11:29→16:31)
[2022-04-27] MEDS ORDERED: Zithromax 500 MG/ 250 ML NaCl Premix 500 MG/250 ML IVPB IV SCH (12:24)
[2022-04-27] MEDS ORDERED: ROCEPHIN 1 Gm-D5w 50 ml Bag** 1 G/50 ML IVPB IV SCH (12:24)
[2022-04-27] MEDS: Zocor 10MG PO SCH (13:07)
[2022-04-27] MEDS: Cardizem CD PO SCH (13:07)
[2022-04-27] MEDS: SYNTHROID 112 MCG PO SCH (13:30)
[2022-04-27] MEDS: Levofloxacin 500MG/100ML D5W 500 MG/100 ML BAG IV SCH (16:31)
--- NOTE | 2022-04-27 16:42 | PCM.HP ---
History of Present Illness - Chief Complaint Chief Complaint: shortness of breath, difficulty walking. History of Present Illness: is a 71 year old female pt of Dr. Franklin with PMHx migraine, CHF, arrhtyhmia, hyperlipidemia, HTN, hx PNA, DM II, hypothyroidism, OA, anxiety, pumonary fibrosis, pacemaker placed, with hx spinal fx (Dr. Kerr for pain mgmt) who was admitted through ER with CHF exacerbation and bilat upper lobe PNA. She started having difficulty breathing about 2d ago. Used her walker to check the mail, and her legs were weak and she collapsed and landed on her walker twice. Had subjective fever, SOB, cough (nonprod) and dizziness. CXR in ER showed unchanged bilat mid-lower alveolar opacities, but no acute changes. D-dimer was elevated at 0.87, so CT chest showed neg for PE, new bilat upper lobe patchy groundglass airspace dz. Last night after admission she was feeling better, but now feeling worse again. - Review of Systems Constitutional: Fever Respiratory: Cough, Short Of Breath Cardiac: Chest Pain (tightness intermittently, earlier today), Edema Genitourinary Symptoms: Dysuria (bladder pain when needs to urinate x 1 week. urine dark) Psychological: Anxiety (much anxiety about family situation with her daughter - seeing [employer] at [facility] next week.), Depression, No Suicidal Ideations, No Homicidal Ideations All Other Systems: Reviewed and Negative Medications & Allergies Home Medications: Home Medication List Atorvastatin Calcium 80 mg PO DAILY 05/06/20 [History Confirmed 04/26/22] Levothyroxine Sodium [Euthyrox] 112 mcg PO DAILY 05/06/20 [History Confirmed 04/26/22] Ropinirole 2Mg [Requip 2Mg Tab] 1 tab PO HS 05/06/20 [History Confirmed 04/26/22] Metformin HCl [Metformin HCl ER] 500 mg PO DAILY 03/08/21 [History Confirmed 04/26/22] Diltiazem HCl Cd [Cardizem CD ] 120 mg PO DAILY 09/11/21 [History Confirmed 04/26/22] Hydrocodone/Acetaminophen [Hydrocodone-Acetamin 7.5-325] 1 tab PO QID 12/08/21 [History Confirmed 04/26/22] Allergies/Adverse Reactions: Allergies Allergy/AdvReac Type Severity Reaction Status Date / Time Sulfa (Sulfonamide Allergy Severe Itching Verified 04/26/22 17:36 Antibiotics) pollen extracts Allergy Mild Verified 04/26/22 17:36 bacitracin Allergy Verified 04/26/22 17:36 [From Neosporin ([id number])] neomycin Allergy Verified 04/26/22 17:36 [From Neosporin ([id number])] polymyxin B Allergy Verified 04/26/22 17:36 [From Neosporin ([id number])] sulfamethoxazole AdvReac Verified 04/26/22 17:36 [From Bactrim] trimethoprim [From Bactrim] AdvReac Verified 04/26/22 17:36 - Past Medical History Past Medical History: Yes Neurological History: Migraines ENT History: No Pertinent History Cardiac History: Arrhythmia, Congestive Heart Failure, High Cholesterol, Hypertension Respiratory History: Bronchitis, CHF, Pneumonia Endocrine Medical History: Diabetes Type II, Hypothyroidism Musculoskelatal History: Arthritis GI Medical History: No Pertinent History History: No Pertinent History Pyscho-Social History: Anxiety Reproductive Disorders: No Pertinent History Comment: pulmunary fibrosis - Female History Are you now?: No - Past Surgical History Past Surgical History: Yes Neuro Surgical History: No Pertinent History Cardiac History: Pacemaker, Other Respiratory Surgery: No Pertinent History GI Surgical History: No Pertinent History Genitourinary Surgical Hx: No Pertinent History Musculskeletal Surgical Hx: No Pertinent History Female Surgical History: No Pertinent History Other Surgical History: Cardiac arrest during heart surgery, covid - Social History Smoking Status: Former smoker Exposure to second hand smoke: No Alcohol: None Drug Use: none Significant Family History: no pertinent family hx - Physical Exam Vital Signs: Vital Signs - 24 hr Temp Pulse Resp BP Pulse Ox 04/27/22 12:00 98.4 F 79 18 131/65 96 04/27/22 08:59 68 18 97 04/27/22 07:37 98 F 66 18 118/56 97 04/27/22 04:00 97.9 F 71 22 115/58 92 L 04/27/22 03:43 68 17 95 04/27/22 00:46 97.1 F 65 20 129/61 92 L 04/27/22 00:17 92 L 04/27/22 00:00 65 115/65 94 L 09/09/22 23:25 71 20 119/61 98 04/26/22 22:45 86 18 98 04/26/22 21:03 65 16 149/83 98 04/26/22 20:00 65 20 137/80 96 04/26/22 19:10 65 23 161/76 91 L 04/26/22 18:30 65 18 92 L 04/26/22 17:45 92 L 04/26/22 17:41 99.6 F 65 23 139/98 91 L General Appearance: mild distress (cries through part of the exam due to her anxiety/depression), alert Neurologic Exam: oriented x 3, cooperative Eye Exam: eyes nml inspection Ears, Nose, Throat Exam: moist mucous membranes, other (ring of (chronic appearing) erythema around her mouth immediately next to the lips) Neck Exam: normal inspection, non-tender, No lymphadenopathy, No subcutaneous emphysema, No thyromegaly Respiratory Exam: diminished breath sounds (good air exchange), crackles/rales (bibasilar), No rhonchi, No wheezing Cardiovascular Exam: regular rate/rhythm, normal heart sounds, No murmur Gastrointestinal/Abdomen Exam: soft, normal bowel sounds, No tenderness, No distention, No mass, No guarding, No rebound Back Exam: normal inspection, No CVA tenderness, No rash Extremity Exam: normal inspection, No pedal edema, No swelling Skin Exam: normal color, warm, dry, No rash Results - Labs Lab/Micro Results: Lab Results-Last 24 Hours 04/26/22 04/26/22 04/26/22 Range/Units 17:30 17:42 17:42 WBC 8.5 (4.0-10.5) x10^3/uL RBC 4.55 (4.1-5.4) x10^6/uL Hgb 14.1 (12.0-16.0) g/dL Hct 42.4 (35-47) % MCV 93.2 (78-100) fL MCH 31.0 (26-32) pg MCHC 33.3 (32-36) g/dL RDW 12.8 (11.5-14.0) % Plt Count 218 (150-450) x10^3/uL MPV 10.0 (7.5-11.0) fL Gran % 76.5 H (36.0-66.0) % Immature Gran % (Auto) 1.8 H (0.00-0.4) % Nucleat RBC Rel Count 0.0 (0.00-0.1) % Eos # (Auto) 0.30 (0-0.5) x10^3/uL Immature Gran # (Auto) 0.15 H (0.00-0.03) x10^3u/L Absolute Lymphs (auto) 1.07 (1.0-4.6) x10^3/uL Absolute Monos (auto) 0.42 (0.0-1.3) x10^3/uL Absolute Nucleated RBC 0.00 (0.00-0.01) x10^3u/L Lymphocytes % 12.5 L (24.0-44.0) % Monocytes % 4.9 (0.0-12.0) % Eosinophils % 3.5 (0.00-5.0) % Basophils % 0.8 (0.0-0.4) % Absolute Granulocytes 6.53 (1.4-6.9) x10^3/uL Basophils # 0.07 (0-0.4) x10^3/uL PT (9.4-12.5) SECONDS INR (0.8-3.0) APTT (25.1-36.5) SECONDS D-Dimer (0.0-0.50) mg/L Sodium (137-145) mmol/L Sodium Direct (138-146) mmol/L Potassium (3.5-4.9) mmol/L Chloride (98-109) mmol/L Carbon Dioxide (24-29) mmol/L Anion Gap (5-15) MEQ/L BUN (7-17) mg/dL Venous BUN (8-26) mg/dL Creatinine (0.6-1.3) mg/dL Estimated GFR ML/MIN Glucose (70-105) mg/dL POC Glucometer (74 to 106) mg/dL Lactic Acid 1.4 (0.4-2.0) Calcium (8.4-10.2) mg/dL Ionized Calcium (1.12-1.32) mmol/L Total Bilirubin (0.2-1.3) mg/dL AST (14-36) U/L ALT (0-35) U/L Alkaline Phosphatase (38-126) U/L Troponin (0.00-0.03) ng/mL Troponin I (0.000-0.034) ng/mL NT-Pro-B Natriuret Pep (0-900) pg/mL Serum Total Protein (6.3-8.2) g/dL Albumin (3.5-5.0) g/dL Urinalys Dipstick Clnc Urine Color (YELLOW) Urine Appearance (CLEAR) Urine pH (5-6) Ur Specific [place] (1.005-1.025) POC Urine Protein Conf (Negative) Urine Ketones (NEGATIVE) Urine Nitrite (NEGATIVE) Urine Bilirubin (NEGATIVE) Urine Urobilinogen (0-1) mg/dL Urine Leukocytes (NEGATIVE) Urine WBC (Auto) (0-5) /HPF Urine RBC (Auto) (0-2) /HPF U Epithel Cells (Auto) (FEW) /HPF Urine Bacteria (Auto) (NEGATIVE) /HPF Urine RBC (0-5) Tom/ul Ur Culture Indicated? Urine Glucose (NEGATIVE) mg/dL Influenza Type A Ag NEGATIVE (NEGATIVE) Influenza Type B Ag NEGATIVE (NEGATIVE) RSV (PCR) NEGATIVE (Negative) SARS-CoV-2 (PCR) NEGATIVE (NEGATIVE) 04/26/22 04/26/22 04/26/22 Range/Units 17:50 17:50 17:50 WBC (4.0-10.5) x10^3/uL RBC (4.1-5.4) x10^6/uL Hgb (12.0-16.0) g/dL Hct (35-47) % MCV (78-100) fL MCH (26-32) pg MCHC (32-36) g/dL RDW (11.5-14.0) % Plt Count (150-450) x10^3/uL MPV (7.5-11.0) fL Gran % (36.0-66.0) % Immature Gran % (Auto) (0.00-0.4) % Nucleat RBC Rel Count (0.00-0.1) % Eos # (Auto) (0-0.5) x10^3/uL Immature Gran # (Auto) (0.00-0.03) x10^3u/L Absolute Lymphs (auto) (1.0-4.6) x10^3/uL Absolute Monos (auto) (0.0-1.3) x10^3/uL Absolute Nucleated RBC (0.00-0.01) x10^3u/L Lymphocytes % (24.0-44.0) % Monocytes % (0.0-12.0) % Eosinophils % (0.00-5.0) % Basophils % (0.0-0.4) % Absolute Granulocytes (1.4-6.9) x10^3/uL Basophils # (0-0.4) x10^3/uL PT 10.7 (9.4-12.5) SECONDS INR 1.01 (0.8-3.0) APTT 29.2 (25.1-36.5) SECONDS D-Dimer (0.0-0.50) mg/L Sodium (137-145) mmol/L Sodium Direct 134 L (138-146) mmol/L Potassium 4.2 (3.5-4.9) mmol/L Chloride 97 L (98-109) mmol/L Carbon Dioxide 28 (24-29) mmol/L Anion Gap (5-15) MEQ/L BUN (7-17) mg/dL Venous BUN 15 (8-26) mg/dL Creatinine 0.7 (0.6-1.3) mg/dL Estimated GFR ML/MIN Glucose 110 H (70-105) mg/dL POC Glucometer (74 to 106) mg/dL Lactic Acid (0.4-2.0) Calcium (8.4-10.2) mg/dL Ionized Calcium 1.08 L (1.12-1.32) mmol/L Total Bilirubin (0.2-1.3) mg/dL AST (14-36) U/L ALT (0-35) U/L Alkaline Phosphatase (38-126) U/L Troponin 0.01 (0.00-0.03) ng/mL Troponin I < 0.012 (0.000-0.034) ng/mL NT-Pro-B Natriuret Pep (0-900) pg/mL Serum Total Protein (6.3-8.2) g/dL Albumin (3.5-5.0) g/dL Urinalys Dipstick Clnc Urine Color (YELLOW) Urine Appearance (CLEAR) Urine pH (5-6) Ur Specific [place] (1.005-1.025) POC Urine Protein Conf (Negative) Urine Ketones (NEGATIVE) Urine Nitrite (NEGATIVE) Urine Bilirubin (NEGATIVE) Urine Urobilinogen (0-1) mg/dL Urine Leukocytes (NEGATIVE) Urine WBC (Auto) (0-5) /HPF Urine RBC (Auto) (0-2) /HPF U Epithel Cells (Auto) (FEW) /HPF Urine Bacteria (Auto) (NEGATIVE) /HPF Urine RBC (0-5) Tom/ul Ur Culture Indicated? Urine Glucose (NEGATIVE) mg/dL Influenza Type A Ag (NEGATIVE) Influenza Type B Ag (NEGATIVE) RSV (PCR) (Negative) SARS-CoV-2 (PCR) (NEGATIVE) 04/26/22 04/26/22 04/26/22 Range/Units 18:58 19:21 19:58 WBC (4.0-10.5) x10^3/uL RBC (4.1-5.4) x10^6/uL Hgb (12.0-16.0) g/dL Hct (35-47) % MCV (78-100) fL MCH (26-32) pg MCHC (32-36) g/dL RDW (11.5-14.0) % Plt Count (150-450) x10^3/uL MPV (7.5-11.0) fL Gran % (36.0-66.0) % Immature Gran % (Auto) (0.00-0.4) % Nucleat RBC Rel Count (0.00-0.1) % Eos # (Auto) (0-0.5) x10^3/uL Immature Gran # (Auto) (0.00-0.03) x10^3u/L Absolute Lymphs (auto) (1.0-4.6) x10^3/uL Absolute Monos (auto) (0.0-1.3) x10^3/uL Absolute Nucleated RBC (0.00-0.01) x10^3u/L Lymphocytes % (24.0-44.0) % Monocytes % (0.0-12.0) % Eosinophils % (0.00-5.0) % Basophils % (0.0-0.4) % Absolute Granulocytes (1.4-6.9) x10^3/uL Basophils # (0-0.4) x10^3/uL PT (9.4-12.5) SECONDS INR (0.8-3.0) APTT (25.1-36.5) SECONDS D-Dimer 0.87 H* (0.0-0.50) mg/L Sodium 132 L (137-145) mmol/L Sodium Direct (138-146) mmol/L Potassium 4.4 (3.5-4.9) mmol/L Chloride 96 L (98-109) mmol/L Carbon Dioxide 30 (24-29) mmol/L Anion Gap 9.9 (5-15) MEQ/L BUN 14 (7-17) mg/dL Venous BUN (8-26) mg/dL Creatinine 0.69 (0.6-1.3) mg/dL Estimated GFR > 60.0 ML/MIN Glucose 107 H (70-105) mg/dL POC Glucometer (74 to 106) mg/dL Lactic Acid (0.4-2.0) Calcium 8.8 (8.4-10.2) mg/dL Ionized Calcium (1.12-1.32) mmol/L Total Bilirubin 0.60 (0.2-1.3) mg/dL AST 26 (14-36) U/L ALT 22 (0-35) U/L Alkaline Phosphatase 107 (38-126) U/L Troponin (0.00-0.03) ng/mL Troponin I (0.000-0.034) ng/mL NT-Pro-B Natriuret Pep 1800 H (0-900) pg/mL Serum Total Protein 7.5 (6.3-8.2) g/dL Albumin 4.1 (3.5-5.0) g/dL Urinalys Dipstick Clnc Urine Color (YELLOW) Urine Appearance (CLEAR) Urine pH (5-6) Ur Specific [place] (1.005-1.025) POC Urine Protein Conf (Negative) Urine Ketones (NEGATIVE) Urine Nitrite (NEGATIVE) Urine Bilirubin (NEGATIVE) Urine Urobilinogen (0-1) mg/dL Urine Leukocytes (NEGATIVE) Urine WBC (Auto) (0-5) /HPF Urine RBC (Auto) (0-2) /HPF U Epithel Cells (Auto) (FEW) /HPF Urine Bacteria (Auto) (NEGATIVE) /HPF Urine RBC (0-5) Tom/ul Ur Culture Indicated? Urine Glucose (NEGATIVE) mg/dL Influenza Type A Ag (NEGATIVE) Influenza Type B Ag (NEGATIVE) RSV (PCR) (Negative) SARS-CoV-2 (PCR) (NEGATIVE) 04/26/22 04/26/22 04/27/22 Range/Units 20:44 23:10 05:50 WBC (4.0-10.5) x10^3/uL RBC (4.1-5.4) x10^6/uL Hgb (12.0-16.0) g/dL Hct (35-47) % MCV (78-100) fL MCH (26-32) pg MCHC (32-36) g/dL RDW (11.5-14.0) % Plt Count (150-450) x10^3/uL MPV (7.5-11.0) fL Gran % (36.0-66.0) % Immature Gran % (Auto) (0.00-0.4) % Nucleat RBC Rel Count (0.00-0.1) % Eos # (Auto) (0-0.5) x10^3/uL Immature Gran # (Auto) (0.00-0.03) x10^3u/L Absolute Lymphs (auto) (1.0-4.6) x10^3/uL Absolute Monos (auto) (0.0-1.3) x10^3/uL Absolute Nucleated RBC (0.00-0.01) x10^3u/L Lymphocytes % (24.0-44.0) % Monocytes % (0.0-12.0) % Eosinophils % (0.00-5.0) % Basophils % (0.0-0.4) % Absolute Granulocytes (1.4-6.9) x10^3/uL Basophils # (0-0.4) x10^3/uL PT (9.4-12.5) SECONDS INR (0.8-3.0) APTT (25.1-36.5) SECONDS D-Dimer (0.0-0.50) mg/L Sodium (137-145) mmol/L Sodium Direct (138-146) mmol/L Potassium (3.5-4.9) mmol/L Chloride (98-109) mmol/L Carbon Dioxide (24-29) mmol/L Anion Gap (5-15) MEQ/L BUN (7-17) mg/dL Venous BUN (8-26) mg/dL Creatinine (0.6-1.3) mg/dL Estimated GFR ML/MIN Glucose (70-105) mg/dL POC Glucometer (74 to 106) mg/dL Lactic Acid (0.4-2.0) Calcium (8.4-10.2) mg/dL Ionized Calcium (1.12-1.32) mmol/L Total Bilirubin (0.2-1.3) mg/dL AST (14-36) U/L ALT (0-35) U/L Alkaline Phosphatase (38-126) U/L Troponin (0.00-0.03) ng/mL Troponin I 0.013 < 0.012 (0.000-0.034) ng/mL NT-Pro-B Natriuret Pep (0-900) pg/mL Serum Total Protein (6.3-8.2) g/dL Albumin (3.5-5.0) g/dL Urinalys Dipstick Clnc MAIN LAB Urine Color YELLOW (YELLOW) Urine Appearance CLEAR (CLEAR) Urine pH 7.0 (5-6) Ur Specific [place] 1.020 (1.005-1.025) POC Urine Protein Conf NEGATIVE (Negative) Urine Ketones NEGATIVE (NEGATIVE) Urine Nitrite NEGATIVE (NEGATIVE) Urine Bilirubin NEGATIVE (NEGATIVE) Urine Urobilinogen 1 (0-1) mg/dL Urine Leukocytes TRACE (NEGATIVE) Urine WBC (Auto) 3-5 (0-5) /HPF Urine RBC (Auto) NONE (0-2) /HPF U Epithel Cells (Auto) NONE (FEW) /HPF Urine Bacteria (Auto) NONE (NEGATIVE) /HPF Urine RBC NEGATIVE (0-5) Tom/ul Ur Culture Indicated? NO Urine Glucose NEGATIVE (NEGATIVE) mg/dL Influenza Type A Ag (NEGATIVE) Influenza Type B Ag (NEGATIVE) RSV (PCR) (Negative) SARS-CoV-2 (PCR) (NEGATIVE) 04/27/22 04/27/22 04/27/22 Range/Units 05:50 05:50 06:51 WBC 6.9 (4.0-10.5) x10^3/uL RBC 4.72 (4.1-5.4) x10^6/uL Hgb 14.3 (12.0-16.0) g/dL Hct 43.7 (35-47) % MCV 92.6 (78-100) fL MCH 30.3 (26-32) pg MCHC 32.7 (32-36) g/dL RDW 12.5 (11.5-14.0) % Plt Count 204 (150-450) x10^3/uL MPV 9.9 (7.5-11.0) fL Gran % (36.0-66.0) % Immature Gran % (Auto) (0.00-0.4) % Nucleat RBC Rel Count (0.00-0.1) % Eos # (Auto) (0-0.5) x10^3/uL Immature Gran # (Auto) (0.00-0.03) x10^3u/L Absolute Lymphs (auto) (1.0-4.6) x10^3/uL Absolute Monos (auto) (0.0-1.3) x10^3/uL Absolute Nucleated RBC (0.00-0.01) x10^3u/L Lymphocytes % (24.0-44.0) % Monocytes % (0.0-12.0) % Eosinophils % (0.00-5.0) % Basophils % (0.0-0.4) % Absolute Granulocytes (1.4-6.9) x10^3/uL Basophils # (0-0.4) x10^3/uL PT (9.4-12.5) SECONDS INR (0.8-3.0) APTT (25.1-36.5) SECONDS D-Dimer (0.0-0.50) mg/L Sodium 133 L (137-145) mmol/L Sodium Direct (138-146) mmol/L Potassium 3.7 (3.5-4.9) mmol/L Chloride 97 L (98-109) mmol/L Carbon Dioxide 30 (24-29) mmol/L Anion Gap 9.9 (5-15) MEQ/L BUN 16 (7-17) mg/dL Venous BUN (8-26) mg/dL Creatinine 0.65 (0.6-1.3) mg/dL Estimated GFR > 60.0 ML/MIN Glucose 109 H (70-105) mg/dL POC Glucometer 139 H (74 to 106) mg/dL Lactic Acid (0.4-2.0) Calcium 8.5 (8.4-10.2) mg/dL Ionized Calcium (1.12-1.32) mmol/L Total Bilirubin (0.2-1.3) mg/dL AST (14-36) U/L ALT (0-35) U/L Alkaline Phosphatase (38-126) U/L Troponin (0.00-0.03) ng/mL Troponin I (0.000-0.034) ng/mL NT-Pro-B Natriuret Pep 1860 H (0-900) pg/mL Serum Total Protein (6.3-8.2) g/dL Albumin (3.5-5.0) g/dL Urinalys Dipstick Clnc Urine Color (YELLOW) Urine Appearance (CLEAR) Urine pH (5-6) Ur Specific [place] (1.005-1.025) POC Urine Protein Conf (Negative) Urine Ketones (NEGATIVE) Urine Nitrite (NEGATIVE) Urine Bilirubin (NEGATIVE) Urine Urobilinogen (0-1) mg/dL Urine Leukocytes (NEGATIVE) Urine WBC (Auto) (0-5) /HPF Urine RBC (Auto) (0-2) /HPF U Epithel Cells (Auto) (FEW) /HPF Urine Bacteria (Auto) (NEGATIVE) /HPF Urine RBC (0-5) Tom/ul Ur Culture Indicated? Urine Glucose (NEGATIVE) mg/dL Influenza Type A Ag (NEGATIVE) Influenza Type B Ag (NEGATIVE) RSV (PCR) (Negative) SARS-CoV-2 (PCR) (NEGATIVE) 04/27/22 Range/Units 11:17 WBC (4.0-10.5) x10^3/uL RBC (4.1-5.4) x10^6/uL Hgb (12.0-16.0) g/dL Hct (35-47) % MCV (78-100) fL MCH (26-32) pg MCHC (32-36) g/dL RDW (11.5-14.0) % Plt Count (150-450) x10^3/uL MPV (7.5-11.0) fL Gran % (36.0-66.0) % Immature Gran % (Auto) (0.00-0.4) % Nucleat RBC Rel Count (0.00-0.1) % Eos # (Auto) (0-0.5) x10^3/uL Immature Gran # (Auto) (0.00-0.03) x10^3u/L Absolute Lymphs (auto) (1.0-4.6) x10^3/uL Absolute Monos (auto) (0.0-1.3) x10^3/uL Absolute Nucleated RBC (0.00-0.01) x10^3u/L Lymphocytes % (24.0-44.0) % Monocytes % (0.0-12.0) % Eosinophils % (0.00-5.0) % Basophils % (0.0-0.4) % Absolute Granulocytes (1.4-6.9) x10^3/uL Basophils # (0-0.4) x10^3/uL PT (9.4-12.5) SECONDS INR (0.8-3.0) APTT (25.1-36.5) SECONDS D-Dimer (0.0-0.50) mg/L Sodium (137-145) mmol/L Sodium Direct (138-146) mmol/L Potassium (3.5-4.9) mmol/L Chloride (98-109) mmol/L Carbon Dioxide (24-29) mmol/L Anion Gap (5-15) MEQ/L BUN (7-17) mg/dL Venous BUN (8-26) mg/dL Creatinine (0.6-1.3) mg/dL Estimated GFR ML/MIN Glucose (70-105) mg/dL POC Glucometer 172 H (74 to 106) mg/dL Lactic Acid (0.4-2.0) Calcium (8.4-10.2) mg/dL Ionized Calcium (1.12-1.32) mmol/L Total Bilirubin (0.2-1.3) mg/dL AST (14-36) U/L ALT (0-35) U/L Alkaline Phosphatase (38-126) U/L Troponin (0.00-0.03) ng/mL Troponin I (0.000-0.034) ng/mL NT-Pro-B Natriuret Pep (0-900) pg/mL Serum Total Protein (6.3-8.2) g/dL Albumin (3.5-5.0) g/dL Urinalys Dipstick Clnc Urine Color (YELLOW) Urine Appearance (CLEAR) Urine pH (5-6) Ur Specific [place] (1.005-1.025) POC Urine Protein Conf (Negative) Urine Ketones (NEGATIVE) Urine Nitrite (NEGATIVE) Urine Bilirubin (NEGATIVE) Urine Urobilinogen (0-1) mg/dL Urine Leukocytes (NEGATIVE) Urine WBC (Auto) (0-5) /HPF Urine RBC (Auto) (0-2) /HPF U Epithel Cells (Auto) (FEW) /HPF Urine Bacteria (Auto) (NEGATIVE) /HPF Urine RBC (0-5) Tom/ul Ur Culture Indicated? Urine Glucose (NEGATIVE) mg/dL Influenza Type A Ag (NEGATIVE) Influenza Type B Ag (NEGATIVE) RSV (PCR) (Negative) SARS-CoV-2 (PCR) (NEGATIVE) Accuchecks Date 04/27/22 Date 04/27/22 Time 11:17 Time 06:51 - Radiology Impressions Radiology Exams & Impressions: Radiology Procedures Category Date Time Status CHEST 1 VIEW (PORTABLE) Stat Exams 04/26/22 17:43 Completed CHEST WITH CONTRAST [CT] Stat Exams 04/26/22 20:48 Completed - Other Procedures and Tests Respiratory Therapy 04/27/22 00:12 Oxygen NASAL CANNULA 2 lpm 04/27/22 03:51 Respiratory Therapy Assessment DAILY Assessment/Plan (1) Pneumonia Current Visit: No Status: Acute Qualifiers: Pneumonia type: due to unspecified organism Laterality: bilateral Lung location: lower lobe of lung Qualified Code(s): J18.9 - Pneumonia, unspecified organism Assessment & Plan: Levaquin day #1. Was going to start pt on zithromax and rocephin; pt refused and wanted to be on IV levaquin because "it always works really well for me." I explained that the antibiotics work on certain bacteria, but it's not inappropriate to try the levaquin, realizing that it can have serious side effects including musculoskeletal. Pt opts for levaquin and this is reasonable. Code(s): J18.9 - PNEUMONIA, UNSPECIFIED ORGANISM (2) CHF exacerbation Current Visit: No Status: Acute Qualifiers: Heart failure type: unspecified Qualified Code(s): I50.9 - Heart failure, unspecified Assessment & Plan: on 40mg lasix IV BID. May change to 80mg IV daily tomorrow. Code(s): I50.9 - HEART FAILURE, UNSPECIFIED (3) Diabetes mellitus type II, uncontrolled Current Visit: Yes Status: Chronic Qualifiers: Glycemic state: with hyperglycemia Qualified Code(s): E11.65 - Type 2 diabetes mellitus with hyperglycemia Code(s): [id number] - (4) Anxiety Current Visit: No Status: Chronic Assessment & Plan: Very upset about her daughter, who is apparently verbally abusive. Did encourage her to take a break from her daughter while in the hospital (she has not been answering the daughter's calls) and encouraged the appt with [facility] after her discharge. Code(s): F41.9 - ANXIETY DISORDER, UNSPECIFIED (5) Hypertension Current Visit: No Status: Chronic Qualifiers: Hypertension type: primary hypertension Qualified Code(s): I10 - Essential (primary) hypertension Code(s): I10 - ESSENTIAL (PRIMARY) HYPERTENSION (6) Pulmonary fibrosis Current Visit: No Status: Acute Assessment & Plan: Would like OP pulmonolory appt to see the status of the fibrosis. Code(s): J84.10 - PULMONARY FIBROSIS, UNSPECIFIED
[2022-04-27] MEDS: PROVENTIL 2.5 MG/3 ML NEB IH PRN (20:15)
[2022-04-27] MEDS: REQUIP 2MG TAB PO SCH (21:32)
[2022-04-28] MEDS: NORCO 7.5/325 MG TAB PO PRN ×2 (09:20→17:20)
[2022-04-28] MEDS: Cardizem CD PO SCH (09:20)
[2022-04-28] MEDS: Zocor 10MG PO SCH (09:20)
[2022-04-28] MEDS ORDERED: NON-FORMULARY ITEM (Atorvastatin Calcium [Atorvastatin Calcium] 80 MG Tablet) PO SCH (10:00)
[2022-04-28 10:17] LABS: Absolute Neutrophil Ct (ANC) 6.04 x10^3/uL (1.4-6.9); Basophil (Absolute #) 0.07 x10^3/uL (0-0.4); Eosinophil % 3.7 % (0.00-5.0); Eosinophil (Absolute #) 0.29 x10^3/uL (0-0.5); Hematocrit 41.7 % (35-47); Hemoglobin 14.2 g/dL (12.0-16.0); Lymphocyte (Absolute #) 0.84 x10^3/uL (1.0-4.6); Lymphocytes % 10.8 % (24.0-44.0); Mean Cell Volume 91.4 fL (78-100); Mean Corpuscular Hemoglobin 31.1 pg (26-32); Mean Corpuscular Hgb Concent. 34.1 g/dL (32-36); Mean Platelet Volume 9.6 fL (7.5-11.0); Monocytes % 5.2 % (0.0-12.0); Neutrophil % 77.9 % (36.0-66.0); Platelet Count 238 x10^3/uL (150-450); Red Blood Count 4.56 x10^6/uL (4.1-5.4); Red Cell Distribution Width 12.4 % (11.5-14.0); White Blood Count 7.8 x10^3/uL (4.0-10.5)
[2022-04-28 10:38] LABS: ANION GAP 8.9 MEQ/L (5-15); BLOOD UREA NITROGEN 18 mg/dL (7-17); CHLORIDE 89 mmol/L (98-107); Calcium 8.7 mg/dL (8.4-10.2); Carbon Dioxide 34 mmol/L (22-30); Creatinine 1 0.57 mg/dL (0.52-1.04); EST GLOMERULAR FILTRATION RATE > 60.0 ML/MIN; Glucose 132 mg/dL (74-106); Potassium 3.8 mmol/L (3.5-5.1); SODIUM 129 mmol/L (137-145)
[2022-04-28] MEDS: SYNTHROID 112 MCG PO SCH (12:12)
[2022-04-28] MEDS ORDERED: Sodium Chloride 0.9% 1000 ML 1,000 ML IV SCH (14:00)
[2022-04-28] MEDS ORDERED: xanAX 0.5 MG PO ONE (15:38)
[2022-04-28] MEDS ORDERED: EMLA Cream 5 GM TP PRN (15:39)
[2022-04-28] MEDS: ENOXAPARIN SODIUM SQ SCH (16:54)
[2022-04-28] MEDS: Furosemide 100mg/10 ml Vial IV SCH (17:06)
--- NOTE | 2022-04-28 17:06 | PCM.NOTE ---
Date and Time: 04/28/22 1702 Subjective Assessment: Pt apparently dislodged her IV last night, "I woke up and it was in my hand." Says she is overall not feeling well. - Review of Systems Constitutional: No Fever Respiratory: Cough, Short Of Breath Objective Exam General Appearance: no apparent distress, alert Neurologic Exam: oriented x 3, cooperative Skin Exam: warm, dry, No rash Eye Exam: eyes nml inspection Neck Exam: normal inspection Respiratory Exam: normal breath sounds, crackles/rales (bilat bases), No rhonchi, No wheezing Cardiovascular Exam: regular rate/rhythm, normal heart sounds, No murmur Extremity Exam: normal inspection, No pedal edema, No swelling Back Exam: normal inspection, No rash OBJECTIVE DATA Vital Signs: Vital Signs - 24 hr Temp Pulse Resp BP Pulse Ox 04/28/22 16:00 98.7 F 65 16 104/50 97 04/28/22 12:00 98 F 66 16 112/58 97 04/28/22 09:33 65 20 96 04/28/22 07:20 97 F 72 18 103/56 96 04/28/22 04:00 98.2 F 78 19 111/55 91 L 04/27/22 23:42 97.3 F 65 19 98/59 93 L 04/27/22 20:15 69 17 97 04/27/22 20:00 97.8 F 63 22 109/59 94 L Pain Assessment - Last Documented Pain Intensity 0 Pain Scale Used 0-10 Pain Scale Intake and Output: Intake & Output 04/26/22 04/27/22 04/28/22 04/29/22 11:59 11:59 11:59 11:59 Intake Total 1140 2520 660 Output Total 300 400 Balance 840 2120 660 Weight 78.3 kg 78.8 kg Lab Results: Lab Results-Last 24 Hours 04/27/22 04/28/22 04/28/22 Range/Units 20:46 06:46 10:10 WBC 7.8 (4.0-10.5) x10^3/uL RBC 4.56 (4.1-5.4) x10^6/uL Hgb 14.2 (12.0-16.0) g/dL Hct 41.7 (35-47) % MCV 91.4 (78-100) fL MCH 31.1 (26-32) pg MCHC 34.1 (32-36) g/dL RDW 12.4 (11.5-14.0) % Plt Count 238 (150-450) x10^3/uL MPV 9.6 (7.5-11.0) fL Gran % 77.9 H (36.0-66.0) % Immature Gran % (Auto) 1.5 H (0.00-0.4) % Nucleat RBC Rel Count 0.0 (0.00-0.1) % Eos # (Auto) 0.29 (0-0.5) x10^3/uL Immature Gran # (Auto) 0.12 H (0.00-0.03) x10^3u/L Absolute Lymphs (auto) 0.84 L (1.0-4.6) x10^3/uL Absolute Monos (auto) 0.40 (0.0-1.3) x10^3/uL Absolute Nucleated RBC 0.00 (0.00-0.01) x10^3u/L Lymphocytes % 10.8 L (24.0-44.0) % Monocytes % 5.2 (0.0-12.0) % Eosinophils % 3.7 (0.00-5.0) % Basophils % 0.9 (0.0-0.4) % Absolute Granulocytes 6.04 (1.4-6.9) x10^3/uL Basophils # 0.07 (0-0.4) x10^3/uL Sodium (137-145) mmol/L Potassium (3.5-5.1) mmol/L Chloride (98-107) mmol/L Carbon Dioxide (22-30) mmol/L Anion Gap (5-15) MEQ/L BUN (7-17) mg/dL Creatinine (0.52-1.04) mg/dL Estimated GFR ML/MIN Glucose (74-106) mg/dL POC Glucometer 113 H 140 H (74 to 106) mg/dL Calcium (8.4-10.2) mg/dL 04/28/22 04/28/22 04/28/22 Range/Units 10:10 11:31 16:34 WBC (4.0-10.5) x10^3/uL RBC (4.1-5.4) x10^6/uL Hgb (12.0-16.0) g/dL Hct (35-47) % MCV (78-100) fL MCH (26-32) pg MCHC (32-36) g/dL RDW (11.5-14.0) % Plt Count (150-450) x10^3/uL MPV (7.5-11.0) fL Gran % (36.0-66.0) % Immature Gran % (Auto) (0.00-0.4) % Nucleat RBC Rel Count (0.00-0.1) % Eos # (Auto) (0-0.5) x10^3/uL Immature Gran # (Auto) (0.00-0.03) x10^3u/L Absolute Lymphs (auto) (1.0-4.6) x10^3/uL Absolute Monos (auto) (0.0-1.3) x10^3/uL Absolute Nucleated RBC (0.00-0.01) x10^3u/L Lymphocytes % (24.0-44.0) % Monocytes % (0.0-12.0) % Eosinophils % (0.00-5.0) % Basophils % (0.0-0.4) % Absolute Granulocytes (1.4-6.9) x10^3/uL Basophils # (0-0.4) x10^3/uL Sodium 129 L (137-145) mmol/L Potassium 3.8 (3.5-5.1) mmol/L Chloride 89 L (98-107) mmol/L Carbon Dioxide 34 H (22-30) mmol/L Anion Gap 8.9 (5-15) MEQ/L BUN 18 H (7-17) mg/dL Creatinine 0.57 (0.52-1.04) mg/dL Estimated GFR > 60.0 ML/MIN Glucose 132 H (74-106) mg/dL POC Glucometer 125 H 151 H (74 to 106) mg/dL Calcium 8.7 (8.4-10.2) mg/dL Radiology Exams: Radiology Procedures Category Date Time Status CHEST 1 VIEW (PORTABLE) Stat Exams 04/26/22 17:43 Completed CHEST WITH CONTRAST [CT] Stat Exams 04/26/22 20:48 Completed Assessment/Plan (1) Pneumonia Current Visit: No Status: Acute Qualifiers: Pneumonia type: due to unspecified organism Laterality: bilateral Lung location: lower lobe of lung Qualified Code(s): J18.9 - Pneumonia, unspecified organism Assessment & Plan: She said she would prefer to take po levaquin, but if I wanted her on IV she would accept one. When one was replaced, she said she couldn't tolerate it and asked the RN to remove it. Upon admission she was interested in staying every bit as long as she needed to in order to get better. I don't object to po levaquin, but would like for her to be on a small amount of IV fluids and on IV lasix. She is on 2L NC here (not on O2 at home). Code(s): J18.9 - PNEUMONIA, UNSPECIFIED ORGANISM (2) CHF exacerbation Current Visit: No Status: Acute Qualifiers: Heart failure type: unspecified Qualified Code(s): I50.9 - Heart failure, unspecified Assessment & Plan: needs IV lasix; in fact I changed tomorrow's dose to 80mg IV daily. Crackles are persistent in bases. Code(s): I50.9 - HEART FAILURE, UNSPECIFIED (3) Diabetes mellitus type II, uncontrolled Current Visit: Yes Status: Chronic Qualifiers: Glycemic state: with hyperglycemia Qualified Code(s): E11.65 - Type 2 diabetes mellitus with hyperglycemia Code(s): SGU0832 - (4) Anxiety Current Visit: No Status: Chronic Assessment & Plan: Yesterday was anxious and wanted to stay in the hospital. Today she is argumentative and is using colorful language with the staff. Code(s): F41.9 - ANXIETY DISORDER, UNSPECIFIED (5) Hypertension Current Visit: No Status: Chronic Qualifiers: Hypertension type: primary hypertension Qualified Code(s): I10 - Essential (primary) hypertension Code(s): I10 - ESSENTIAL (PRIMARY) HYPERTENSION (6) Pulmonary fibrosis Current Visit: No Status: Chronic Code(s): J84.10 - PULMONARY FIBROSIS, UNSPECIFIED
[2022-04-28] MEDS: Levofloxacin 500MG/100ML D5W 500 MG/100 ML BAG IV SCH (17:13)
[2022-04-28] MEDS: Lasix 40 MG/4 ML IV SCH (18:28)
[2022-04-28] MEDS: REQUIP 2MG TAB PO SCH (21:59)
[2022-04-28] MEDS: Mucinex 600MG ER Tabs PO SCH (22:01)
[2022-04-29] MEDS: NORCO 7.5/325 MG TAB PO PRN ×3 (08:09→19:59)
--- NOTE | 2022-04-29 08:21 | PCM.NOTE ---
Date and Time: 04/29/22817 Subjective Assessment: patient states she feels poorly, she is coughing and feels short of breath, back hurts Objective Exam General Appearance: no apparent distress Neurologic Exam: alert, oriented x 3 Respiratory Exam: crackles/rales Cardiovascular Exam: regular rate/rhythm, normal heart sounds Gastrointestinal/Abdomen Exam: soft, No tenderness, No mass Extremity Exam: normal inspection, normal range of motion OBJECTIVE DATA Vital Signs: Vital Signs - 24 hr Temp Pulse Resp BP Pulse Ox 04/29/22 08:00 98.2 F 68 16 92/55 89 L 04/29/22 06:55 74 20 92 L 04/29/22 04:00 97.7 F 68 18 92/55 89 L 04/28/22 23:44 97.9 F 65 20 113/61 93 L 04/28/22 20:00 98.0 F 82 22 115/58 90 L 04/28/22 19:55 65 20 94 L 04/28/22 16:00 98.7 F 65 16 104/50 97 04/28/22 12:00 98 F 66 16 112/58 97 04/28/22 09:33 65 20 96 Pain Assessment - Last Documented Pain Intensity 3 Pain Scale Used 0-10 Pain Scale Intake and Output: Intake & Output 04/26/22 04/27/22 04/28/22 04/29/22 11:59 11:59 11:59 11:59 Intake Total 1140 2520 2536 Output Total 321 435 5946 Balance 840 2120 336 Weight 78.3 kg 78.8 kg Lab Results: Lab Results-Last 24 Hours 04/28/22 04/28/22 04/28/22 Range/Units 10:10 10:10 11:31 WBC 7.8 (4.0-10.5) x10^3/uL RBC 4.56 (4.1-5.4) x10^6/uL Hgb 14.2 (12.0-16.0) g/dL Hct 41.7 (35-47) % MCV 91.4 (78-100) fL MCH 31.1 (26-32) pg MCHC 34.1 (32-36) g/dL RDW 12.4 (11.5-14.0) % Plt Count 238 (150-450) x10^3/uL MPV 9.6 (7.5-11.0) fL Gran % 77.9 H (36.0-66.0) % Immature Gran % (Auto) 1.5 H (0.00-0.4) % Nucleat RBC Rel Count 0.0 (0.00-0.1) % Eos # (Auto) 0.29 (0-0.5) x10^3/uL Immature Gran # (Auto) 0.12 H (0.00-0.03) x10^3u/L Absolute Lymphs (auto) 0.84 L (1.0-4.6) x10^3/uL Absolute Monos (auto) 0.40 (0.0-1.3) x10^3/uL Absolute Nucleated RBC 0.00 (0.00-0.01) x10^3u/L Lymphocytes % 10.8 L (24.0-44.0) % Monocytes % 5.2 (0.0-12.0) % Eosinophils % 3.7 (0.00-5.0) % Basophils % 0.9 (0.0-0.4) % Absolute Granulocytes 6.04 (1.4-6.9) x10^3/uL Basophils # 0.07 (0-0.4) x10^3/uL Sodium 129 L (137-145) mmol/L Potassium 3.8 (3.5-5.1) mmol/L Chloride 89 L (98-107) mmol/L Carbon Dioxide 34 H (22-30) mmol/L Anion Gap 8.9 (5-15) MEQ/L BUN 18 H (7-17) mg/dL Creatinine 0.57 (0.52-1.04) mg/dL Estimated GFR > 60.0 ML/MIN Glucose 132 H (74-106) mg/dL POC Glucometer 125 H (74 to 106) mg/dL Calcium 8.7 (8.4-10.2) mg/dL 04/28/22 04/28/22 04/29/22 Range/Units 16:34 21:49 07:43 WBC (4.0-10.5) x10^3/uL RBC (4.1-5.4) x10^6/uL Hgb (12.0-16.0) g/dL Hct (35-47) % MCV (78-100) fL MCH (26-32) pg MCHC (32-36) g/dL RDW (11.5-14.0) % Plt Count (150-450) x10^3/uL MPV (7.5-11.0) fL Gran % (36.0-66.0) % Immature Gran % (Auto) (0.00-0.4) % Nucleat RBC Rel Count (0.00-0.1) % Eos # (Auto) (0-0.5) x10^3/uL Immature Gran # (Auto) (0.00-0.03) x10^3u/L Absolute Lymphs (auto) (1.0-4.6) x10^3/uL Absolute Monos (auto) (0.0-1.3) x10^3/uL Absolute Nucleated RBC (0.00-0.01) x10^3u/L Lymphocytes % (24.0-44.0) % Monocytes % (0.0-12.0) % Eosinophils % (0.00-5.0) % Basophils % (0.0-0.4) % Absolute Granulocytes (1.4-6.9) x10^3/uL Basophils # (0-0.4) x10^3/uL Sodium (137-145) mmol/L Potassium (3.5-5.1) mmol/L Chloride (98-107) mmol/L Carbon Dioxide (22-30) mmol/L Anion Gap (5-15) MEQ/L BUN (7-17) mg/dL Creatinine (0.52-1.04) mg/dL Estimated GFR ML/MIN Glucose (74-106) mg/dL POC Glucometer 151 H 168 H 124 H (74 to 106) mg/dL Calcium (8.4-10.2) mg/dL Assessment/Plan (1) Pneumonia Current Visit: No Status: Acute Qualifiers: Pneumonia type: due to unspecified organism Laterality: bilateral Lung location: lower lobe of lung Qualified Code(s): J18.9 - Pneumonia, unspecified organism Assessment & Plan: on levaquin, stable currently Code(s): J18.9 - PNEUMONIA, UNSPECIFIED ORGANISM (2) CHF exacerbation Current Visit: No Status: Acute Qualifiers: Heart failure type: unspecified Qualified Code(s): I50.9 - Heart failure, unspecified Assessment & Plan: continue IV lasix, d/c fluids. will monitor renal function Code(s): I50.9 - HEART FAILURE, UNSPECIFIED (3) Diabetes mellitus type II, uncontrolled Current Visit: Yes Status: Chronic Qualifiers: Glycemic state: with hyperglycemia Qualified Code(s): E11.65 - Type 2 diabetes mellitus with hyperglycemia Code(s): TBV1064 -
[2022-04-29] MEDS: Mucinex 600MG ER Tabs PO SCH ×2 (10:32→21:17)
[2022-04-29] MEDS: ENOXAPARIN SODIUM SQ SCH (10:33)
[2022-04-29] MEDS: SYNTHROID 112 MCG PO SCH (10:33)
[2022-04-29] MEDS: Furosemide 100mg/10 ml Vial IV SCH (10:33)
[2022-04-29] MEDS: Cardizem CD PO SCH (10:33)
[2022-04-29] MEDS: Zocor 10MG PO SCH (10:33)
[2022-04-29] MEDS: Levofloxacin 500MG/100ML D5W 500 MG/100 ML BAG IV SCH (10:33)
[2022-04-29] MEDS: PROVENTIL 2.5 MG/3 ML NEB IH PRN ×2 (15:02→20:23)
[2022-04-29] MEDS: DULCOLAX 5 MG PO PRN ×2 (15:14→15:43)
[2022-04-29] MEDS: REQUIP 2MG TAB PO SCH (21:17)
[2022-04-30] MEDS: PROVENTIL 2.5 MG/3 ML NEB IH SCH ×4 (01:06→18:08)
[2022-04-30] MEDS ORDERED: PROVENTIL Solution 2.5 MG/0.5 ML IH ONE (05:50)
[2022-04-30 05:58] LABS: BLOOD UREA NITROGEN 13 mg/dL (7-17); CHLORIDE 87 mmol/L (98-107); Calcium 8.6 mg/dL (8.4-10.2); Carbon Dioxide 38 mmol/L (22-30); Creatinine 1 0.52 mg/dL (0.52-1.04); EST GLOMERULAR FILTRATION RATE > 60.0 ML/MIN; Glucose 146 mg/dL (74-106); NT PRO BNP 599 pg/mL (0-900); Potassium 3.2 mmol/L (3.5-5.1); SODIUM 128 mmol/L (137-145)
[2022-04-30 07:17] LABS: Absolute Neutrophil Ct (ANC) 4.75 x10^3/uL (1.4-6.9); Basophil (Absolute #) 0.05 x10^3/uL (0-0.4); Eosinophil % 5.7 % (0.00-5.0); Eosinophil (Absolute #) 0.36 x10^3/uL (0-0.5); Hematocrit 40.4 % (35-47); Hemoglobin 13.6 g/dL (12.0-16.0); Lymphocytes % 11.1 % (24.0-44.0); Mean Cell Volume 92.7 fL (78-100); Mean Corpuscular Hemoglobin 31.2 pg (26-32); Mean Corpuscular Hgb Concent. 33.7 g/dL (32-36); Mean Platelet Volume 10.6 fL (7.5-11.0); Monocyte (Absolute #) 0.31 x10^3/uL (0.0-1.3); Monocytes % 4.9 % (0.0-12.0); Neutrophil % 75.1 % (36.0-66.0); Platelet Count 245 x10^3/uL (150-450); Red Blood Count 4.36 x10^6/uL (4.1-5.4); Red Cell Distribution Width 12.1 % (11.5-14.0); White Blood Count 6.3 x10^3/uL (4.0-10.5)
[2022-04-30] MEDS: Levofloxacin 500MG/100ML D5W 500 MG/100 ML BAG IV SCH (08:12)
[2022-04-30] MEDS: Zocor 10MG PO SCH (08:13)
[2022-04-30] MEDS: NORCO 7.5/325 MG TAB PO PRN ×2 (08:13→16:18)
[2022-04-30] MEDS: Mucinex 600MG ER Tabs PO SCH ×2 (08:13→21:34)
[2022-04-30] MEDS: Cardizem CD PO SCH (08:13)
[2022-04-30] MEDS: DULCOLAX 5 MG PO PRN (08:13)
[2022-04-30] MEDS: Furosemide 100mg/10 ml Vial IV SCH (08:14)
[2022-04-30] MEDS: ENOXAPARIN SODIUM SQ SCH (08:14)
[2022-04-30] MEDS ORDERED: K-LYTE PO ONE (08:55)
--- NOTE | 2022-04-30 08:58 | PCM.NOTE ---
Date and Time: 04/30/22 0856 Subjective Assessment: patient states she feels ill, aches all over. not coughing a lot, requiring oxygen Objective Exam General Appearance: mild distress Neurologic Exam: alert, cooperative Respiratory Exam: crackles/rales Cardiovascular Exam: regular rate/rhythm, normal heart sounds Gastrointestinal/Abdomen Exam: soft, No tenderness, No mass OBJECTIVE DATA Vital Signs: Vital Signs - 24 hr Temp Pulse Resp BP Pulse Ox 04/30/22 07:34 98.1 F 80 16 100/59 93 L 04/30/22 06:21 67 22 95 04/30/22 04:00 98.0 F 74 16 120/71 93 L 04/29/22 23:55 97.7 F 84 16 98/56 92 L 04/29/22 20:23 69 20 93 L 04/29/22 19:45 98.0 F 70 17 101/59 94 L 04/29/22 18:41 65 18 96 04/29/22 16:00 97.9 F 65 16 113/67 90 L 04/29/22 15:04 65 20 97 04/29/22 12:00 97.9 F 65 16 102/59 92 L Pain Assessment - Last Documented Pain Intensity 4 Pain Scale Used 0-10 Pain Scale Intake and Output: Intake & Output 04/27/22 04/28/22 04/29/22 04/30/22 11:59 11:59 11:59 11:59 Intake Total 1140 2520 3116 1120 Output Total 238 836 3440 3200 Balance 840 2120 916 -2080 Weight 78.3 kg 78.8 kg 78.2 kg 78.4 kg Lab Results: Lab Results-Last 24 Hours 04/29/22 04/29/22 04/29/22 Range/Units 11:28 16:35 21:26 WBC (4.0-10.5) x10^3/uL RBC (4.1-5.4) x10^6/uL Hgb (12.0-16.0) g/dL Hct (35-47) % MCV (78-100) fL MCH (26-32) pg MCHC (32-36) g/dL RDW (11.5-14.0) % Plt Count (150-450) x10^3/uL MPV (7.5-11.0) fL Gran % (36.0-66.0) % Immature Gran % (Auto) (0.00-0.4) % Nucleat RBC Rel Count (0.00-0.1) % Eos # (Auto) (0-0.5) x10^3/uL Immature Gran # (Auto) (0.00-0.03) x10^3u/L Absolute Lymphs (auto) (1.0-4.6) x10^3/uL Absolute Monos (auto) (0.0-1.3) x10^3/uL Absolute Nucleated RBC (0.00-0.01) x10^3u/L Lymphocytes % (24.0-44.0) % Monocytes % (0.0-12.0) % Eosinophils % (0.00-5.0) % Basophils % (0.0-0.4) % Absolute Granulocytes (1.4-6.9) x10^3/uL Basophils # (0-0.4) x10^3/uL Sodium (137-145) mmol/L Potassium (3.5-5.1) mmol/L Chloride (98-107) mmol/L Carbon Dioxide (22-30) mmol/L Anion Gap (5-15) MEQ/L BUN (7-17) mg/dL Creatinine (0.52-1.04) mg/dL Estimated GFR ML/MIN Glucose (74-106) mg/dL POC Glucometer 149 H 103 190 H (74 to 106) mg/dL Calcium (8.4-10.2) mg/dL NT-Pro-B Natriuret Pep (0-900) pg/mL 04/30/22 04/30/22 04/30/22 Range/Units 04:35 04:35 07:39 WBC 6.3 (4.0-10.5) x10^3/uL RBC 4.36 (4.1-5.4) x10^6/uL Hgb 13.6 (12.0-16.0) g/dL Hct 40.4 (35-47) % MCV 92.7 (78-100) fL MCH 31.2 (26-32) pg MCHC 33.7 (32-36) g/dL RDW 12.1 (11.5-14.0) % Plt Count 245 (150-450) x10^3/uL MPV 10.6 (7.5-11.0) fL Gran % 75.1 H (36.0-66.0) % Immature Gran % (Auto) 2.4 H (0.00-0.4) % Nucleat RBC Rel Count 0.0 (0.00-0.1) % Eos # (Auto) 0.36 (0-0.5) x10^3/uL Immature Gran # (Auto) 0.15 H (0.00-0.03) x10^3u/L Absolute Lymphs (auto) 0.70 L (1.0-4.6) x10^3/uL Absolute Monos (auto) 0.31 (0.0-1.3) x10^3/uL Absolute Nucleated RBC 0.00 (0.00-0.01) x10^3u/L Lymphocytes % 11.1 L (24.0-44.0) % Monocytes % 4.9 (0.0-12.0) % Eosinophils % 5.7 H (0.00-5.0) % Basophils % 0.8 (0.0-0.4) % Absolute Granulocytes 4.75 (1.4-6.9) x10^3/uL Basophils # 0.05 (0-0.4) x10^3/uL Sodium 128 L (137-145) mmol/L Potassium 3.2 L (3.5-5.1) mmol/L Chloride 87 L (98-107) mmol/L Carbon Dioxide 38 H (22-30) mmol/L Anion Gap 6.0 (5-15) MEQ/L BUN 13 (7-17) mg/dL Creatinine 0.52 (0.52-1.04) mg/dL Estimated GFR > 60.0 ML/MIN Glucose 146 H (74-106) mg/dL POC Glucometer 136 H (74 to 106) mg/dL Calcium 8.6 (8.4-10.2) mg/dL NT-Pro-B Natriuret Pep 599 (0-900) pg/mL Multi-Disciplinary Progress Notes: Multi-Disciplinary Progress Notes 04/30/22 01:04 Respiratory Note by Gege Ac Wokiko patient for 1am neb treatment as requested by patient. She refuses neb treatment at this time. Advised pt of time of next scheduled neb tx. Initialized on 04/30/22 01:04 - END OF NOTE 04/29/22 13:48 Case Management Note by Emerald Alberts WOULD LIKE TO BE NOTIFIED WHEN PATIENT DISCHARGES SO THEY CAN CALL HER TO SEE IF SHE WOULD LIKE AN APPOINTMENT WITH THEM. THEIR PHONE NUMBER IS [phone] Initialized on 04/29/22 13:48 - END OF NOTE 04/29/22 13:09 Case Management Note by Emerald Alberts REFERRAL FAXED TO [facility] PER NOTES BY ADDY IN H&P Initialized on 04/29/22 13:09 - END OF NOTE 04/29/22 12:42 Case Management Note by Emerald Alberts Addendum entered by Emerald Alberts 04/29/22 12:57: NOTE PLACED ON CHART FOR MD Original Note: PATIENT REPORTS SHE CAN NOT AFFORD HER MEDICATIONS. SHE REPORTS SHE IS ON A FIXED INCOME AND RUNS OUT OF MONEY FOR HER MEDS. SHE REPORTS SHE HAS STOPPED TAKING SEVERAL BECAUSE OF THIS. PATIENT SEEMED UNSURE OF EXACTLY WHAT MEDICATIONS SHE HAS NOT BEEN TAKING BUT DID MENTION XARELTO, HER THYROID PILL AND HER CHOLESTEROL PILL. CALLED [facility]- THEY REPORT PATIENTS XARELTO WAS $68 LAST TIME IT WAS FILLED. BESIDES CHOOSING [facility] EFFECTIVE [place]S AT [place]- NO OTHER IMMEDIATE ASSISTANCE AVAILABLE PATIENT HAS PRIVATE INSURANCE PATIENT INSTRUCTED TO CALL THE INSURANCE NAVIGATOR TO SEE IF SHE WOULD QUALIFY FOR MEDICAID TO ASSISTANCE. SHE VERIFIED UNDERSTANDING. PHONE NUMBER PLACED IN DC INSTRUCTIONS. [facility] ALSO NOTIFIED OF NEED- THEY WILL FOLLOW UP WITH PATIENT WELL. Initialized on 04/29/22 12:42 - END OF NOTE Assessment/Plan (1) Pneumonia Current Visit: No Status: Acute Qualifiers: Pneumonia type: due to unspecified organism Laterality: bilateral Lung location: lower lobe of lung Qualified Code(s): J18.9 - Pneumonia, unspecified organism Assessment & Plan: on levaquin, stable. appears her chf if primary issue currently Code(s): J18.9 - PNEUMONIA, UNSPECIFIED ORGANISM (2) CHF exacerbation Current Visit: No Status: Acute Qualifiers: Heart failure type: unspecified Qualified Code(s): I50.9 - Heart failure, unspecified Assessment & Plan: change to bumex, last echo 2019 no regional wall motion abnormality. will repeat Code(s): I50.9 - HEART FAILURE, UNSPECIFIED (3) Diabetes mellitus type II, uncontrolled Current Visit: Yes Status: Chronic Qualifiers: Glycemic state: with hyperglycemia Qualified Code(s): E11.65 - Type 2 diabetes mellitus with hyperglycemia Code(s): [id number] -
[2022-04-30] MEDS: SYNTHROID 112 MCG PO SCH (09:29)
[2022-04-30] MEDS: Ativan 0.5 MG PO PRN ×2 (11:22→19:49)
[2022-04-30] MEDS: Zofran 4 MG/2 ML VIAL IV PRN ×2 (11:22→19:49)
[2022-04-30] MEDS ORDERED: GLYCERIN ADULT SUPPOSITORY RC ONE (11:30)
[2022-04-30] MEDS: BUMEX 1 MG IV SCH (16:19)
[2022-04-30] MEDS: Klor Con PO SCH (21:34)
[2022-04-30] MEDS: REQUIP 2MG TAB PO SCH (21:34)
[2022-05-01] MEDS: PROVENTIL 2.5 MG/3 ML NEB IH SCH ×3 (01:02→13:48)
[2022-05-01 05:59] LABS: Absolute Neutrophil Ct (ANC) 5.33 x10^3/uL (1.4-6.9); Basophil (Absolute #) 0.08 x10^3/uL (0-0.4); Eosinophil % 3.9 % (0.00-5.0); Eosinophil (Absolute #) 0.27 x10^3/uL (0-0.5); Hemoglobin 12.9 g/dL (12.0-16.0); Lymphocyte (Absolute #) 0.74 x10^3/uL (1.0-4.6); Lymphocytes % 10.7 % (24.0-44.0); Mean Cell Volume 91.8 fL (78-100); Mean Corpuscular Hemoglobin 31.2 pg (26-32); Mean Corpuscular Hgb Concent. 33.9 g/dL (32-36); Mean Platelet Volume 9.8 fL (7.5-11.0); Monocytes % 5.8 % (0.0-12.0); Neutrophil % 76.7 % (36.0-66.0); Platelet Count 246 x10^3/uL (150-450); Red Blood Count 4.14 x10^6/uL (4.1-5.4); Red Cell Distribution Width 12.3 % (11.5-14.0); White Blood Count 6.9 x10^3/uL (4.0-10.5)
[2022-05-01] MEDS: NORCO 7.5/325 MG TAB PO PRN ×2 (06:52→11:33)
[2022-05-01] MEDS: Ativan 0.5 MG PO PRN (06:52)
[2022-05-01] MEDS ORDERED: Sodium Chloride 0.9% 10 ML FLUSH Syringe IJ PRN (06:58)
[2022-05-01 07:14] LABS: BLOOD UREA NITROGEN 12 mg/dL (7-17); CHLORIDE 88 mmol/L (98-107); Calcium 8.4 mg/dL (8.4-10.2); Creatinine 1 0.55 mg/dL (0.52-1.04); EST GLOMERULAR FILTRATION RATE > 60.0 ML/MIN; Glucose 138 mg/dL (74-106); MAGNESIUM 1.8 mg/dL (1.6-2.3); NT PRO BNP 717 pg/mL (0-900); Potassium 3.6 mmol/L (3.5-5.1); SODIUM 131 mmol/L (137-145)
[2022-05-01 07:20] LABS: Carbon Dioxide 35 mmol/L (22-30)
[2022-05-01 07:26] LABS: ANION GAP 11.6 MEQ/L (5-15)
[2022-05-01] MEDS: BUMEX 1 MG IV SCH (09:00)
[2022-05-01] MEDS: Klor Con PO SCH (09:00)
[2022-05-01] MEDS: Levofloxacin 500MG/100ML D5W 500 MG/100 ML BAG IV SCH (09:00)
[2022-05-01] MEDS: ENOXAPARIN SODIUM SQ SCH (09:01)
[2022-05-01] MEDS: Zocor 10MG PO SCH (09:01)
[2022-05-01] MEDS: Mucinex 600MG ER Tabs PO SCH (09:01)
[2022-05-01] MEDS: SYNTHROID 112 MCG PO SCH (09:01)
[2022-05-01] MEDS: Cardizem CD PO SCH (09:01)
[2022-05-01] MEDS: Zofran 4 MG/2 ML VIAL IV PRN (09:03)
--- NOTE | 2022-05-01 09:41 | PCM.DS ---
Discharge Summary Date of Admission: 04/27/22 16:36 Admitting Physician: BINTA AQUINO Primary Care Provider: PEPE MONTGOMERY MILTON Allergies Allergies Sulfa (Sulfonamide Antibiotics) Allergy (Severe, Verified 04/26/22 17:36) Itching pollen extracts Allergy (Mild, Verified 04/26/22 17:36) bacitracin [From Neosporin ([id number])] Allergy (Verified 04/26/22 17:36) neomycin [From Neosporin ([id number])] Allergy (Verified 04/26/22 17:36) polymyxin B [From Neosporin ([id number])] Allergy (Verified 04/26/22 17:36) sulfamethoxazole [From Bactrim] Adverse Reaction (Verified 04/26/22 17:36) trimethoprim [From Bactrim] Adverse Reaction (Verified 04/26/22 17:36) Hospital Summary - Hospital Course Hospital Course: patient was admitted with pneumonia and chf exacerbation, has diuresed and doing well. still requiring oxygen 2L but feeling better and otherwise is stable - Vitals & Intake/Output Vital Signs: Vital Signs Temperature 97.8 F 05/01/22 07:51 Pulse Rate 68 05/01/22 07:51 Respiratory Rate 17 05/01/22 07:51 Blood Pressure 112/55 05/01/22 07:51 O2 Sat by Pulse Oximetry 96 05/01/22 07:51 Intake & Output: Intake & Output 04/28/22 04/29/22 04/30/22 05/01/22 11:59 11:59 11:59 11:59 Intake Total 2520 3116 1500 1370 Output Total 400 2200 3200 1150 Balance 2120 916 -1700 220 Weight 78.8 kg 78.2 kg 78.4 kg 77.5 kg - Lab Result Diagrams: 05/01/22 06:02 05/01/22 06:02 Lab Results-Last 24 Hrs: Lab Results-Last 24 Hours 04/30/22 04/30/22 04/30/22 Range/Units 11:23 16:23 21:18 WBC (4.0-10.5) x10^3/uL RBC (4.1-5.4) x10^6/uL Hgb (12.0-16.0) g/dL Hct (35-47) % MCV (78-100) fL MCH (26-32) pg MCHC (32-36) g/dL RDW (11.5-14.0) % Plt Count (150-450) x10^3/uL MPV (7.5-11.0) fL Gran % (36.0-66.0) % Immature Gran % (Auto) (0.00-0.4) % Nucleat RBC Rel Count (0.00-0.1) % Eos # (Auto) (0-0.5) x10^3/uL Immature Gran # (Auto) (0.00-0.03) x10^3u/L Absolute Lymphs (auto) (1.0-4.6) x10^3/uL Absolute Monos (auto) (0.0-1.3) x10^3/uL Absolute Nucleated RBC (0.00-0.01) x10^3u/L Lymphocytes % (24.0-44.0) % Monocytes % (0.0-12.0) % Eosinophils % (0.00-5.0) % Basophils % (0.0-0.4) % Absolute Granulocytes (1.4-6.9) x10^3/uL Basophils # (0-0.4) x10^3/uL Sodium (137-145) mmol/L Potassium (3.5-5.1) mmol/L Chloride (98-107) mmol/L Carbon Dioxide (22-30) mmol/L Anion Gap (5-15) MEQ/L BUN (7-17) mg/dL Creatinine (0.52-1.04) mg/dL Estimated GFR ML/MIN Glucose (74-106) mg/dL POC Glucometer 128 H 125 H 145 H (74 to 106) mg/dL Calcium (8.4-10.2) mg/dL Magnesium (1.6-2.3) mg/dL NT-Pro-B Natriuret Pep (0-900) pg/mL 05/01/22 05/01/22 05/01/22 Range/Units 06:02 06:02 06:55 WBC 6.9 (4.0-10.5) x10^3/uL RBC 4.14 (4.1-5.4) x10^6/uL Hgb 12.9 (12.0-16.0) g/dL Hct 38.0 (35-47) % MCV 91.8 (78-100) fL MCH 31.2 (26-32) pg MCHC 33.9 (32-36) g/dL RDW 12.3 (11.5-14.0) % Plt Count 246 (150-450) x10^3/uL MPV 9.8 (7.5-11.0) fL Gran % 76.7 H (36.0-66.0) % Immature Gran % (Auto) 1.7 H (0.00-0.4) % Nucleat RBC Rel Count 0.0 (0.00-0.1) % Eos # (Auto) 0.27 (0-0.5) x10^3/uL Immature Gran # (Auto) 0.12 H (0.00-0.03) x10^3u/L Absolute Lymphs (auto) 0.74 L (1.0-4.6) x10^3/uL Absolute Monos (auto) 0.40 (0.0-1.3) x10^3/uL Absolute Nucleated RBC 0.00 (0.00-0.01) x10^3u/L Lymphocytes % 10.7 L (24.0-44.0) % Monocytes % 5.8 (0.0-12.0) % Eosinophils % 3.9 (0.00-5.0) % Basophils % 1.2 (0.0-0.4) % Absolute Granulocytes 5.33 (1.4-6.9) x10^3/uL Basophils # 0.08 (0-0.4) x10^3/uL Sodium 131 L (137-145) mmol/L Potassium 3.6 (3.5-5.1) mmol/L Chloride 88 L (98-107) mmol/L Carbon Dioxide 35 H (22-30) mmol/L Anion Gap 11.6 (5-15) MEQ/L BUN 12 (7-17) mg/dL Creatinine 0.55 (0.52-1.04) mg/dL Estimated GFR > 60.0 ML/MIN Glucose 138 H (74-106) mg/dL POC Glucometer 122 H (74 to 106) mg/dL Calcium 8.4 (8.4-10.2) mg/dL Magnesium 1.8 (1.6-2.3) mg/dL NT-Pro-B Natriuret Pep 717 (0-900) pg/mL Micro Results-Entire Visit: Accuchecks Date 04/30/22 Date 04/30/22 Date 04/30/22 Time 16:29 Time 16:27 Time 11:39 - Radiology Exams Ordered Rad Exams-Entire Visit: Radiology Procedures Category Date Time Status ECHO W/2D AND DOPPLER [US] Routine Exams 04/30/22 09:50 Taken - Procedures and Test Procedures and Tests throughout Hospitalization: Therapy Orders & Screens 04/27/22 00:12 Oxygen NASAL CANNULA 2 lpm Comment: Diagnosis: CHF 04/27/22 01:04 RT Screen per Nursing Assess ONCE Comment: Protocol Order Physician Instructions: Greater than 3 points order RT Admission Screen Reason For Exam: Triggered on Admission Diagnosis: shortness of breath, difficulty walking. Diagnosis: shortness of breath, difficulty walking. Pneumonia: Yes Home O2: No Asthma: No CHF: Yes Home CPAP/BIPAP: No Home Nebs/MDI: No Total Points: 6 04/27/22 03:51 Respiratory Therapy Assessment DAILY Comment: Diagnosis: shortness of breath, difficulty walking. Discharge Exam General Appearance: no apparent distress, alert Neurologic Exam: alert, oriented x 3 Respiratory Exam: crackles/rales Cardiovascular Exam: regular rate/rhythm, normal heart sounds Gastrointestinal/Abdomen Exam: soft, No tenderness, No mass Skin Exam: normal color, warm, dry Final Diagnosis/Problem List - Final Discharge Diagnosis/Problem (1) Pneumonia Current Visit: No Status: Acute Assessment & Plan: home on po levaquin Code(s): J18.9 - PNEUMONIA, UNSPECIFIED ORGANISM (2) CHF exacerbation Current Visit: No Status: Acute Assessment & Plan: improved and diuresed Code(s): I50.9 - HEART FAILURE, UNSPECIFIED (3) Diabetes mellitus type II, uncontrolled Current Visit: Yes Status: Chronic Code(s): WKM8657 - (4) COPD exacerbation Current Visit: No Status: Acute Assessment & Plan: qualifying for home oxygen prior to discharge Code(s): J44.1 - CHRONIC OBSTRUCTIVE PULMONARY DISEASE W (ACUTE) EXACERBATION - Discharge Disposition: Home, Self-Care Condition: Stable Prescriptions: New Potassium Chloride Tab* [Klor Con] 10 meq PO BID #60 tablet Furosemide 40 mg [Lasix 40 MG] 40 mg PO DAILY #30 tablet Levofloxacin [Levofloxacin 500 MG Tablet] 500 mg PO QAM #5 tablet Sertraline HCl 50 mg [Zoloft 50 mg Tablet] 50 mg PO DAILY #30 tab Continue Atorvastatin Calcium 80 mg PO DAILY Levothyroxine Sodium [Euthyrox] 112 mcg PO DAILY Ropinirole 2Mg [Requip 2Mg Tab] 1 tab PO HS Metformin HCl [Metformin HCl ER] 500 mg PO DAILY Diltiazem HCl Cd [Cardizem CD ] 120 mg PO DAILY Hydrocodone/Acetaminophen [Hydrocodone-Acetamin 7.5-325] 1 tab PO QID Additional Instructions: CALL THE MEDICAID NAVIGATOR AT [phone] TO SEE ABOUT GETTING ON MEDICAID A REFERRAL WAS ALSO CALLED TO [facility]- THEY CAN ASSIST YOU WITH NEEDS WELL. THEIR PHONE NUMBER IS [phone] A REFERRAL WAS ALSO FAXED TO [facility] SO SEE IF YOU WOULD BE INTERESTED IN ANY COUNSELING. THEIR PHONE NUMBER IS [phone] Follow up with: PEPE MONTGOMERY MD [Primary Care Provider] -
--- NOTE | 2022-05-01 12:44 | ECHO ---
DATE OF PROCEDURE: 04/30/2022 CLINICAL INFORMATION: Congestive heart failure. The M-mode 2D, and Doppler echocardiogram including color flow Doppler shows the left ventricle is normal in size. No thrombus is noted. The wall thickness is normal. The contractility of the left ventricle is normal. The ejection fraction is calculated to be 64%. The right ventricle is not well visualized. The left atrium is mildly dilated. The interatrial septum is intact. The right atrium is normal. The aortic valve opens well. It is trileaflet. There is no aortic regurgitation. There is mitral valve leaflet thickening and calcification associated with mild mitral regurgitation. There is mild tricuspid regurgitation. The right ventricular systolic pressure is calculated to be 42 mm of Mercury. The pulmonic valve is not well visualized. There is mild pulmonic regurgitation. The aortic root is normal. There is no pericardial effusion present. IMPRESSION: 1) NORMAL CONTRACTILITY OF THE LEFT VENTRICLE. 2) MILD TRICUSPID REGURGITATION. 3) MODERATE PULMONARY HYPERTENSION. 4) MILD PULMONIC REGURGITATION. 5) MILD LEFT ATRIAL DILATATION. 6) MITRAL VALVE LEAFLET THICKENING AND CALCIFICATION. 7) NO MITRAL REGURGITATION IS NOTED.
[2022-05-01 13:43] VITALS: BP 126/76; PULSE 72; O2SAT 95
== END 2022-05-01 14:35 | disposition home or self-care (01) | DRG 194 ==
LOC: ED 17:28 → MED SURG 04-27 00:39 → OBSVTOIN 04-27 16:36
PROVIDERS: ADMIT Family Medicine; ATTEND Family Medicine
DX: J18.9 Pneumonia, unspecified organism (principal); J44.1 Chronic obstructive pulmonary disease with (acute) exacerbation; I11.0 Hypertensive heart disease with heart failure; I50.9 Heart failure, unspecified; E11.65 Type 2 diabetes mellitus with hyperglycemia; E78.5 Hyperlipidemia, unspecified; E03.9 Hypothyroidism, unspecified; F41.9 Anxiety disorder, unspecified; J84.10 Pulmonary fibrosis, unspecified; Z79.899 Other long term (current) drug therapy; Z20.828 Contact with and (suspected) exposure to other viral communicable diseases
CPT/HCPCS: 0241U; 36000; 36415; 71045; 71260; 80047; 80048; 80053; 81015; 82947; 83605; 83735; 83880; 84484; 85025; 85027; 85379; 85610; 85730; 93005; 93268; 93306; 94640; 94760; 96374; 99285; J0696; J1650; J1940; J1956; J2405; J2930; J7609; A9270-GY

== ENCOUNTER 2022-05-02 13:02 | Observation (INO) | payer BC, MEDICARE ==
[2022-05-02] MEDS ORDERED: Sodium Chloride 0.9% 1000 ML 1,000 ML IV SCH ×2 (13:15→18:00)
[2022-05-02 13:27] LABS: Absolute Neutrophil Ct (ANC) 6.04 x10^3/uL (1.4-6.9); Basophil (Absolute #) 0.08 x10^3/uL (0-0.4); Eosinophil % 5.4 % (0.00-5.0); Eosinophil (Absolute #) 0.42 x10^3/uL (0-0.5); Hematocrit 38.2 % (35-47); Hemoglobin 12.6 g/dL (12.0-16.0); Lymphocyte (Absolute #) 0.66 x10^3/uL (1.0-4.6); Lymphocytes % 8.5 % (24.0-44.0); Mean Cell Volume 93.4 fL (78-100); Mean Corpuscular Hemoglobin 30.8 pg (26-32); Mean Platelet Volume 9.3 fL (7.5-11.0); Monocytes % 5.1 % (0.0-12.0); Neutrophil % 77.6 % (36.0-66.0); Platelet Count 247 x10^3/uL (150-450); Red Blood Count 4.09 x10^6/uL (4.1-5.4); Red Cell Distribution Width 12.1 % (11.5-14.0); White Blood Count 7.8 x10^3/uL (4.0-10.5)
--- NOTE | 2022-05-02 13:30 | ERPHSYRPT ---
- History of Present Illness Time Seen by Provider: 05/02/22 13:10 Source: patient Exam Limitations: no limitations Patient Subjective Stated Complaint: PT states "I was released from here with double pneumonia and I am not any better." Triage Nursing Assessment: Pt presented alert and oriented x 3, skin pwd. PT able to speak in clear full sentences pt in no apparent respiratory distress. Pt resting comfortably on the bed. Physician History: Patient is a 71-year-old female presents to our ED via EMS for evaluation of pneumonia. Patient states she was diagnosed with double pneumonia and subsequently admitted. Patient was released yesterday from our hospital. Patient states since her release she has been feeling very weak. Patient states her symptoms are not improving. No nausea vomiting or diaphoresis. No chest pain or shortness of breath. Symptoms are mild to moderate intensity. No specific worsening improving factors. Patient voices no other complaint or concerns at this time. Portions of this note were created with voice recognition technology. There may be grammatical, spelling, punctuation or sound alike errors Timing/Duration: yesterday Severity: moderate Modifying Factors: Improves With: nothing Associated Symptoms: denies symptoms Allergies/Adverse Reactions: Sulfa (Sulfonamide Antibiotics) Allergy (Severe, Verified 04/26/22 17:36) Itching pollen extracts Allergy (Mild, Verified 04/26/22 17:36) bacitracin [From Neosporin ([id number])] Allergy (Verified 04/26/22 17:36) neomycin [From Neosporin ([id number])] Allergy (Verified 04/26/22 17:36) polymyxin B [From Neosporin ([id number])] Allergy (Verified 04/26/22 17:36) sulfamethoxazole [From Bactrim] Adverse Reaction (Verified 04/26/22 17:36) trimethoprim [From Bactrim] Adverse Reaction (Verified 04/26/22 17:36) Home Medications: Atorvastatin Calcium 80 mg PO DAILY 05/06/20 [History] Levothyroxine Sodium [Euthyrox] 112 mcg PO DAILY 05/06/20 [History] Ropinirole 2Mg [Requip 2Mg Tab] 1 tab PO HS 05/06/20 [History] Metformin HCl [Metformin HCl ER] 500 mg PO DAILY 03/08/21 [History] Diltiazem HCl Cd [Cardizem CD ] 120 mg PO DAILY 09/11/21 [History] Hydrocodone/Acetaminophen [Hydrocodone-Acetamin 7.5-325] 1 tab PO QID 12/08/21 [History] Hx Tetanus, Diphtheria Vaccination/Date Given: Yes Hx Influenza Vaccination/Date Given: No Hx Pneumococcal Vaccination/Date Given: No Immunizations Up to Date: Yes Travel Risk - International Travel Have you traveled outside of the country in past 3 weeks: No - Coronavirus Screening Are you exhibiting any of the following symptoms?: Yes Symptoms: Cough: New Onset Close contact with a COVID-19 positive Pt in past 14-21 Days: No - Vaccine Status Have you recieved a Covid-19 vaccination: No - Review of Systems Constitutional: No Symptoms, No Fever, No Chills Eyes: No Symptoms Ears, Nose, & Throat: No Symptoms Respiratory: No Symptoms, No Cough, No Dyspnea Cardiac: No Symptoms, No Chest Pain, No Edema, No Syncope Abdominal/Gastrointestinal: No Symptoms, No Abdominal Pain, No Nausea, No Vomiting, No Diarrhea Genitourinary Symptoms: No Symptoms, No Dysuria Musculoskeletal: No Symptoms, No Back Pain, No Neck Pain Skin: No Symptoms, No Rash Neurological: No Symptoms, No Dizziness, No Focal Weakness, No Sensory Changes Psychological: No Symptoms Endocrine: No Symptoms Hematologic/Lymphatic: No Symptoms Immunological/Allergic: No Symptoms All Other Systems: Reviewed and Negative - Past Medical History Pertinent Past Medical History: Yes Neurological History: Migraines ENT History: No Pertinent History Cardiac History: Arrhythmia, Congestive Heart Failure, High Cholesterol, Hypertension Respiratory History: Bronchitis, CHF, Pneumonia Endocrine Medical History: Diabetes Type II, Hypothyroidism Musculoskeletal History: Arthritis GI Medical History: No Pertinent History History: No Pertinent History Psycho-Social History: Anxiety Female Reproductive Disorders: No Pertinent History Other Medical History: pulmunary fibrosis - Past Surgical History Past Surgical History: Yes Neuro Surgical History: No Pertinent History Cardiac: Pacemaker, Other Respiratory: No Pertinent History Gastrointestinal: No Pertinent History Genitourinary: No Pertinent History Musculoskeletal: No Pertinent History Female Surgical History: No Pertinent History Other Surgical History: Cardiac arrest during heart surgery, covid - Social History Smoking Status: Former smoker Exposure to second hand smoke: No Drug Use: none Patient Lives Alone: Yes Significant Family History: no pertinent family hx - Nursing Vital Signs Nursing Vital Signs: Initial Vital Signs Temperature 98.7 F 05/02/22 13:04 Pulse Rate 65 05/02/22 13:04 Respiratory Rate 22 05/02/22 13:04 Blood Pressure 126/72 05/02/22 13:04 O2 Sat by Pulse Oximetry 96 05/02/22 13:04 Pain Scale Pain Intensity 0 - Physical Exam General Appearance: no apparent distress, alert Eye Exam: PERRL/EOMI, eyes nml inspection Ears, Nose, Throat Exam: normal ENT inspection, TMs normal, pharynx normal, moist mucous membranes Neck Exam: normal inspection, non-tender, supple, full range of motion Respiratory Exam: normal breath sounds, lungs clear, No respiratory distress Cardiovascular Exam: regular rate/rhythm, normal heart sounds, normal peripheral pulses Gastrointestinal/Abdomen Exam: soft, normal bowel sounds, No tenderness, No mass Back Exam: normal inspection, normal range of motion, No CVA tenderness, No vertebral tenderness Extremity Exam: normal inspection, normal range of motion, pelvis stable Neurologic Exam: alert, oriented x 3, cooperative, normal mood/affect, nml cerebellar function, nml station & gait, sensation nml, No motor deficits Skin Exam: normal color, warm, dry, No rash Lymphatic Exam: No adenopathy SpO2: 98 O2 Delivery: Room Air - Course Nursing assessment & vital signs reviewed: Yes EKG Interpreted by Me: RATE (66 ventricular paced rhythm), NORMAL AXIS - Radiology Exams Chest X-ray Interpretation: Teleradiologist Report (Bilateral lower lung interstitial alveolar opacities) Ordered Tests: Active Orders 24 hr Category Date Time Status Virtual Recruiter STAT Care 05/02/22 13:10 Active EKG-ER Only STAT Care 05/02/22 13:10 Active IV Insertion STAT Care 05/02/22 13:10 Active Pulse Oximetry (ED) STAT Care 05/02/22 13:10 Active CHEST 1 VIEW (PORTABLE) Stat Exams 05/02/22 13:12 Completed BLOOD CULTURE Stat Lab 05/02/22 13:23 Received CBC W DIFF Stat Lab 05/02/22 13:16 Completed CMP Stat Lab 05/02/22 13:16 Completed Lactic Acid Stat Lab 05/02/22 13:16 Completed TROPONIN Q4H Lab 05/02/22 13:16 Completed TROPONIN Q4H Lab 05/02/22 17:15 Ordered TROPONIN Q4H Lab 05/02/22 21:15 Ordered TSH [TSH, 3RD Generation] Stat Lab 05/02/22 13:31 Completed UA W/RFX CULTURE Stat Lab 05/02/22 15:02 Completed Transfer Order Routine Transfer 05/02/22 Ordered Medication Summary Generic Name Dose Route Start Last Admin Trade Name Aydee PRN Reason Stop Dose Admin Sodium Chloride 1,000 mls @ 50 mls/hr 05/02/22 13:15 05/02/22 13:40 Sodium Chloride 0.9% 1000 Ml IV 06/01/22 13:14 50 mls/hr .Q20H JOCELYN Administration Lab/Rad Data: Laboratory Result Diagrams 05/02/22 13:16 05/02/22 13:16 Laboratory Results 05/02/22 05/02/22 05/02/22 Range/Units 15:40 15:02 13:31 WBC (4.0-10.5) x10^3/uL RBC (4.1-5.4) x10^6/uL Hgb (12.0-16.0) g/dL Hct (35-47) % MCV (78-100) fL MCH (26-32) pg MCHC (32-36) g/dL RDW (11.5-14.0) % Plt Count (150-450) x10^3/uL MPV (7.5-11.0) fL Gran % (36.0-66.0) % Immature Gran % (Auto) (0.00-0.4) % Nucleat RBC Rel Count (0.00-0.1) % Eos # (Auto) (0-0.5) x10^3/uL Immature Gran # (Auto) (0.00-0.03) x10^3u/L Absolute Lymphs (auto) (1.0-4.6) x10^3/uL Absolute Monos (auto) (0.0-1.3) x10^3/uL Absolute Nucleated RBC (0.00-0.01) x10^3u/L Lymphocytes % (24.0-44.0) % Monocytes % (0.0-12.0) % Eosinophils % (0.00-5.0) % Basophils % (0.0-0.4) % Absolute Granulocytes (1.4-6.9) x10^3/uL Basophils # (0-0.4) x10^3/uL Sodium (137-145) mmol/L Potassium (3.5-5.1) mmol/L Chloride (98-107) mmol/L Carbon Dioxide (22-30) mmol/L Anion Gap (5-15) MEQ/L BUN (7-17) mg/dL Creatinine (0.52-1.04) mg/dL Estimated GFR ML/MIN Glucose (74-106) mg/dL Lactic Acid (0.4-2.0) Calcium (8.4-10.2) mg/dL Total Bilirubin (0.2-1.3) mg/dL AST (14-36) U/L ALT (0-35) U/L Alkaline Phosphatase (38-126) U/L Troponin I (0.000-0.034) ng/mL Serum Total Protein (6.3-8.2) g/dL Albumin (3.5-5.0) g/dL TSH 3rd Generation 2.850 (0.47-4.68) mIU/L Urinalys Dipstick Clnc MAIN LAB Urine Color YELLOW (YELLOW) Urine Appearance CLEAR (CLEAR) Urine pH 7.0 (5-6) Ur Specific [place] 1.025 (1.005-1.025) POC Urine Protein Conf NEGATIVE (Negative) Urine Ketones NEGATIVE (NEGATIVE) Urine Nitrite NEGATIVE (NEGATIVE) Urine Bilirubin NEGATIVE (NEGATIVE) Urine Urobilinogen 4 (0-1) mg/dL Urine Leukocytes NEGATIVE (NEGATIVE) Urine WBC (Auto) NONE SEEN (0-5) /HPF Urine RBC (Auto) 0-2 (0-2) /HPF U Epithel Cells (Auto) NONE (FEW) /HPF Urine Bacteria (Auto) NONE SEEN (NEGATIVE) /HPF Urine RBC NEGATIVE (0-5) Tom/ul Urine Mucus (Auto) SLIGHT (NEGATIVE) /HPF Ur Culture Indicated? NO Urine Glucose NEGATIVE (NEGATIVE) mg/dL Influenza Type A Ag NEGATIVE (NEGATIVE) Influenza Type B Ag NEGATIVE (NEGATIVE) RSV (PCR) NEGATIVE (Negative) SARS-CoV-2 (PCR) NEGATIVE (NEGATIVE) 05/02/22 05/02/22 05/02/22 Range/Units 13:16 13:16 13:16 WBC (4.0-10.5) x10^3/uL RBC (4.1-5.4) x10^6/uL Hgb (12.0-16.0) g/dL Hct (35-47) % MCV (78-100) fL MCH (26-32) pg MCHC (32-36) g/dL RDW (11.5-14.0) % Plt Count (150-450) x10^3/uL MPV (7.5-11.0) fL Gran % (36.0-66.0) % Immature Gran % (Auto) (0.00-0.4) % Nucleat RBC Rel Count (0.00-0.1) % Eos # (Auto) (0-0.5) x10^3/uL Immature Gran # (Auto) (0.00-0.03) x10^3u/L Absolute Lymphs (auto) (1.0-4.6) x10^3/uL Absolute Monos (auto) (0.0-1.3) x10^3/uL Absolute Nucleated RBC (0.00-0.01) x10^3u/L Lymphocytes % (24.0-44.0) % Monocytes % (0.0-12.0) % Eosinophils % (0.00-5.0) % Basophils % (0.0-0.4) % Absolute Granulocytes (1.4-6.9) x10^3/uL Basophils # (0-0.4) x10^3/uL Sodium 131 L (137-145) mmol/L Potassium 3.8 (3.5-5.1) mmol/L Chloride 89 L (98-107) mmol/L Carbon Dioxide 39 H (22-30) mmol/L Anion Gap 6.5 (5-15) MEQ/L BUN 13 (7-17) mg/dL Creatinine 0.50 L (0.52-1.04) mg/dL Estimated GFR > 60.0 ML/MIN Glucose 113 H (74-106) mg/dL Lactic Acid 0.9 (0.4-2.0) Calcium 8.6 (8.4-10.2) mg/dL Total Bilirubin 0.50 (0.2-1.3) mg/dL AST 29 (14-36) U/L ALT 22 (0-35) U/L Alkaline Phosphatase 103 (38-126) U/L Troponin I < 0.012 (0.000-0.034) ng/mL Serum Total Protein 7.4 (6.3-8.2) g/dL Albumin 3.8 (3.5-5.0) g/dL TSH 3rd Generation (0.47-4.68) mIU/L Urinalys Dipstick Clnc Urine Color (YELLOW) Urine Appearance (CLEAR) Urine pH (5-6) Ur Specific [place] (1.005-1.025) POC Urine Protein Conf (Negative) Urine Ketones (NEGATIVE) Urine Nitrite (NEGATIVE) Urine Bilirubin (NEGATIVE) Urine Urobilinogen (0-1) mg/dL Urine Leukocytes (NEGATIVE) Urine WBC (Auto) (0-5) /HPF Urine RBC (Auto) (0-2) /HPF U Epithel Cells (Auto) (FEW) /HPF Urine Bacteria (Auto) (NEGATIVE) /HPF Urine RBC (0-5) Tom/ul Urine Mucus (Auto) (NEGATIVE) /HPF Ur Culture Indicated? Urine Glucose (NEGATIVE) mg/dL Influenza Type A Ag (NEGATIVE) Influenza Type B Ag (NEGATIVE) RSV (PCR) (Negative) SARS-CoV-2 (PCR) (NEGATIVE) 05/02/22 Range/Units 13:16 WBC 7.8 (4.0-10.5) x10^3/uL RBC 4.09 L (4.1-5.4) x10^6/uL Hgb 12.6 (12.0-16.0) g/dL Hct 38.2 (35-47) % MCV 93.4 (78-100) fL MCH 30.8 (26-32) pg MCHC 33.0 (32-36) g/dL RDW 12.1 (11.5-14.0) % Plt Count 247 (150-450) x10^3/uL MPV 9.3 (7.5-11.0) fL Gran % 77.6 H (36.0-66.0) % Immature Gran % (Auto) 2.4 H (0.00-0.4) % Nucleat RBC Rel Count 0.0 (0.00-0.1) % Eos # (Auto) 0.42 (0-0.5) x10^3/uL Immature Gran # (Auto) 0.19 H (0.00-0.03) x10^3u/L Absolute Lymphs (auto) 0.66 L (1.0-4.6) x10^3/uL Absolute Monos (auto) 0.40 (0.0-1.3) x10^3/uL Absolute Nucleated RBC 0.00 (0.00-0.01) x10^3u/L Lymphocytes % 8.5 L (24.0-44.0) % Monocytes % 5.1 (0.0-12.0) % Eosinophils % 5.4 H (0.00-5.0) % Basophils % 1.0 (0.0-0.4) % Absolute Granulocytes 6.04 (1.4-6.9) x10^3/uL Basophils # 0.08 (0-0.4) x10^3/uL Sodium (137-145) mmol/L Potassium (3.5-5.1) mmol/L Chloride (98-107) mmol/L Carbon Dioxide (22-30) mmol/L Anion Gap (5-15) MEQ/L BUN (7-17) mg/dL Creatinine (0.52-1.04) mg/dL Estimated GFR ML/MIN Glucose (74-106) mg/dL Lactic Acid (0.4-2.0) Calcium (8.4-10.2) mg/dL Total Bilirubin (0.2-1.3) mg/dL AST (14-36) U/L ALT (0-35) U/L Alkaline Phosphatase (38-126) U/L Troponin I (0.000-0.034) ng/mL Serum Total Protein (6.3-8.2) g/dL Albumin (3.5-5.0) g/dL TSH 3rd Generation (0.47-4.68) mIU/L Urinalys Dipstick Clnc Urine Color (YELLOW) Urine Appearance (CLEAR) Urine pH (5-6) Ur Specific [place] (1.005-1.025) POC Urine Protein Conf (Negative) Urine Ketones (NEGATIVE) Urine Nitrite (NEGATIVE) Urine Bilirubin (NEGATIVE) Urine Urobilinogen (0-1) mg/dL Urine Leukocytes (NEGATIVE) Urine WBC (Auto) (0-5) /HPF Urine RBC (Auto) (0-2) /HPF U Epithel Cells (Auto) (FEW) /HPF Urine Bacteria (Auto) (NEGATIVE) /HPF Urine RBC (0-5) Tom/ul Urine Mucus (Auto) (NEGATIVE) /HPF Ur Culture Indicated? Urine Glucose (NEGATIVE) mg/dL Influenza Type A Ag (NEGATIVE) Influenza Type B Ag (NEGATIVE) RSV (PCR) (Negative) SARS-CoV-2 (PCR) (NEGATIVE) - Progress Progress: improved Progress Note: Patient reassessed. She feels better. However patient still complains that she is too weak to go home. We attempted to ambulate patient and patient unable to ambulate because of weakness. Work-up continues to reveal bilateral pneumonia. No significant change from previous x-ray. Laboratory work-up appears to be at patient's baseline. There is some hyponatremia. IV fluids administered. Patient took her dose of Levaquin today. Note Levaquin administered in our ED. Admit orders entered. However Levaquin entered as a daily antibiotic starting tomorrow. Case discussed with Dr. Montgomery accepts admission to observation. Plan of care discussed with patient. She agrees to admission [facility] for further evaluation and treatment. Portions of this note were created with voice recognition technology. There may be grammatical, spelling, punctuation or sound alike errors 05/02/22 17:27 Counseled pt/family regarding: lab results, diagnosis, rad results - Departure Departure Disposition: Observation Clinical Impression: Pneumonia, Hyponatremia, Generalized weakness Condition: Stable Critical Care Time: No Referrals: PEPE MONTGOMERY MD [Primary Care Provider] - Follow up/PCP as directed
[2022-05-02] MEDS ORDERED: Sodium Chloride 0.9% 1000 ML 1,000 ML ONE (13:40)
[2022-05-02 13:49] LABS: ALBUMIN 3.8 g/dL (3.5-5.0); ALKALINE PHOSPHATASE 103 U/L (38-126); ANION GAP 6.5 MEQ/L (5-15); BLOOD UREA NITROGEN 13 mg/dL (7-17); CHLORIDE 89 mmol/L (98-107); Calcium 8.6 mg/dL (8.4-10.2); Carbon Dioxide 39 mmol/L (22-30); EST GLOMERULAR FILTRATION RATE > 60.0 ML/MIN; Glucose 113 mg/dL (74-106); Potassium 3.8 mmol/L (3.5-5.1); SGOT/AST 29 U/L (14-36); SGPT/ALT 22 U/L (0-35); SODIUM 131 mmol/L (137-145); Total Protein 7.4 g/dL (6.3-8.2)
--- NOTE | 2022-05-02 13:50 | XRAY ---
Indication: Weakness and short of breath. Pneumonia. Comparison: December 24, 2021 Portable chest unchanged again demonstrating bilateral mid to lower lung interstitial alveolar opacities, borderline cardiomegaly, left pacemaker, osteopenia, bony degenerative changes, and bilateral calcified breast implants. No new cardiopulmonary abnormalities.
[2022-05-02 15:12] LABS: Appearance CLEAR (CLEAR); Bilirubin NEGATIVE (NEGATIVE); Glucose NEGATIVE (NEGATIVE); Ketones NEGATIVE (NEGATIVE); RBC NEGATIVE Ery/ul (0-5); Specific Gravity 1.025 (1.005-1.025)
[2022-05-02 15:13] LABS: Dipstick done @ ? MAIN LAB; Nitrite NEGATIVE (NEGATIVE); Protein,Urine Dip NEGATIVE (Negative); Urobilinogen 4 mg/dL (0-1)
[2022-05-02 15:19] LABS: Mucus SLIGHT /HPF (NEGATIVE); RBC 0-2 /HPF (0-2)
[2022-05-02 15:20] LABS: Bacteria NONE SEEN /HPF (NEGATIVE); Urine Cultured Indicated? NO; WBC NONE SEEN /HPF (0-5)
[2022-05-02 16:25] LABS: INFLUENZA A NEGATIVE (NEGATIVE); INFLUENZA B NEGATIVE (NEGATIVE); RESPIRATORY SYNCTIAL VIRUS NEGATIVE (Negative); SARS-CoV-2 Xpert Express NEGATIVE (NEGATIVE)
[2022-05-02] MEDS: NORCO 7.5/325 MG TAB PO PRN ×2 (18:36→21:25)
[2022-05-02] MEDS: ZOLOFT 50 MG TABLET PO SCH (21:26)
[2022-05-02] MEDS: REQUIP 2MG TAB PO SCH (21:26)
[2022-05-02] MEDS: Sodium Chloride 0.9% 10 ML FLUSH Syringe IV SCH (21:30)
[2022-05-02] MEDS ORDERED: DULCOLAX 5 MG PO ONE (22:30)
[2022-05-03 05:47] LABS: Absolute Neutrophil Ct (ANC) 4.98 x10^3/uL (1.4-6.9); Basophil (Absolute #) 0.07 x10^3/uL (0-0.4); Eosinophil % 6.4 % (0.00-5.0); Eosinophil (Absolute #) 0.43 x10^3/uL (0-0.5); Hematocrit 37.1 % (35-47); Hemoglobin 12.4 g/dL (12.0-16.0); Lymphocyte (Absolute #) 0.72 x10^3/uL (1.0-4.6); Lymphocytes % 10.7 % (24.0-44.0); Mean Cell Volume 93.5 fL (78-100); Mean Corpuscular Hemoglobin 31.2 pg (26-32); Mean Corpuscular Hgb Concent. 33.4 g/dL (32-36); Mean Platelet Volume 9.8 fL (7.5-11.0); Monocyte (Absolute #) 0.35 x10^3/uL (0.0-1.3); Monocytes % 5.2 % (0.0-12.0); Neutrophil % 74.5 % (36.0-66.0); Platelet Count 253 x10^3/uL (150-450); Red Blood Count 3.97 x10^6/uL (4.1-5.4); Red Cell Distribution Width 12.2 % (11.5-14.0); White Blood Count 6.7 x10^3/uL (4.0-10.5)
[2022-05-03] MEDS: Sodium Chloride 0.9% 10 ML FLUSH Syringe IV SCH ×3 (06:07→21:20)
[2022-05-03 06:55] LABS: ALBUMIN 3.4 g/dL (3.5-5.0); ALKALINE PHOSPHATASE 91 U/L (38-126); ANION GAP 6.8 MEQ/L (5-15); BLOOD UREA NITROGEN 12 mg/dL (7-17); CHLORIDE 93 mmol/L (98-107); Calcium 8.5 mg/dL (8.4-10.2); Carbon Dioxide 36 mmol/L (22-30); Creatinine 1 0.53 mg/dL (0.52-1.04); EST GLOMERULAR FILTRATION RATE > 60.0 ML/MIN; Glucose 156 mg/dL (74-106); Potassium 3.8 mmol/L (3.5-5.1); SGOT/AST 27 U/L (14-36); SGPT/ALT 22 U/L (0-35); SODIUM 132 mmol/L (137-145); Total Protein 6.7 g/dL (6.3-8.2)
[2022-05-03] MEDS ORDERED: DULCOLAX 5 MG PO PRN (07:24)
[2022-05-03] MEDS: PROVENTIL 2.5 MG/3 ML NEB IH PRN ×2 (07:48→19:39)
--- NOTE | 2022-05-03 09:02 | PCM.HP ---
History of Present Illness - Chief Complaint Chief Complaint: PNEUMONIA, GENERALIZED WEAKNESS History of Present Illness: is a 71 year old female who was recently admitted and released with pneumonia, she was sent home on po levaquin and 2L oxygen via nasal cannula. she is weak and refused to try to walk in ER even though her re-evaluation in ER showed normal oxygenation on 2L NC and labs were reassuring with normal lactic acid. she states she can't care for herself but acts offended when I suggest shelter placement and states she will refuse. patient is difficult and states she is anxious and has pain and needs meds for these issues. states she has nausea and vomiting, productive cough - Review of Systems Constitutional: No Fever, No Chills Respiratory: Cough Cardiac: No Chest Pain, No Edema, No Syncope Abdominal/Gastrointestinal: Abdominal Pain, Nausea, Vomiting, No Diarrhea Genitourinary Symptoms: No Dysuria Skin: No Rash Psychological: Anxiety Medications & Allergies Home Medications: Home Medication List Atorvastatin Calcium 80 mg PO DAILY 05/06/20 [History Confirmed 05/02/22] Levothyroxine Sodium [Euthyrox] 112 mcg PO DAILY 05/06/20 [History Confirmed 05/02/22] Ropinirole 2Mg [Requip 2Mg Tab] 2 mg PO HS 05/06/20 [History Confirmed 05/02/22] Metformin HCl [Metformin HCl ER] 500 mg PO DAILY 03/08/21 [History Confirmed 05/02/22] Diltiazem HCl Cd [Cardizem CD ] 120 mg PO DAILY 09/11/21 [History Confirmed 05/02/22] Hydrocodone/Acetaminophen [Hydrocodone-Acetamin 7.5-325] 1 tab PO QID 12/08/21 [History Confirmed 05/02/22] Bisacodyl 10 mg PO DAILY PRN PRN #10 tablet 05/01/22 [Rx Confirmed 05/02/22] Furosemide 40 mg [Lasix 40 MG] 40 mg PO DAILY #30 tablet 05/01/22 [Rx Confirmed 05/02/22] Levofloxacin [Levofloxacin 500 MG Tablet] 500 mg PO QAM #5 tablet 05/01/22 [Rx Confirmed 05/02/22] Potassium Chloride Tab* [Klor Con] 10 meq PO BID #60 tablet 05/01/22 [Rx Confirmed 05/02/22] Sertraline HCl 50 mg [Zoloft 50 mg Tablet] 50 mg PO DAILY #30 tab 05/01/22 [Rx Confirmed 05/02/22] Allergies/Adverse Reactions: Allergies Allergy/AdvReac Type Severity Reaction Status Date / Time Sulfa (Sulfonamide Allergy Severe Itching Verified 05/02/22 18:12 Antibiotics) pollen extracts Allergy Mild Verified 05/02/22 18:12 bacitracin Allergy Verified 05/02/22 18:12 [From Neosporin ([id number])] neomycin Allergy Verified 05/02/22 18:12 [From Neosporin ([id number])] polymyxin B Allergy Verified 05/02/22 18:12 [From Neosporin ([id number])] sulfamethoxazole AdvReac Verified 05/02/22 18:12 [From Bactrim] trimethoprim [From Bactrim] AdvReac Verified 05/02/22 18:12 - Past Medical History Past Medical History: Yes Neurological History: Migraines ENT History: No Pertinent History Cardiac History: Arrhythmia, Congestive Heart Failure, High Cholesterol, Hypertension Respiratory History: Bronchitis, CHF, Pneumonia Endocrine Medical History: Diabetes Type II, Hypothyroidism Musculoskelatal History: Arthritis GI Medical History: No Pertinent History History: No Pertinent History Pyscho-Social History: Anxiety Reproductive Disorders: No Pertinent History Comment: pulmunary fibrosis - Female History Are you now?: No - Past Surgical History Past Surgical History: Yes Neuro Surgical History: No Pertinent History Cardiac History: Pacemaker, Other Respiratory Surgery: No Pertinent History GI Surgical History: No Pertinent History Genitourinary Surgical Hx: No Pertinent History Musculskeletal Surgical Hx: No Pertinent History Female Surgical History: No Pertinent History Other Surgical History: Cardiac arrest during heart surgery, covid - Social History Smoking Status: Never smoker Exposure to second hand smoke: No Alcohol: None Drug Use: none Significant Family History: no pertinent family hx - Physical Exam Vital Signs: Vital Signs - 24 hr Temp Pulse Resp BP Pulse Ox 05/03/22 07:50 97.7 F 68 23 114/66 90 L 05/03/22 07:49 68 18 96 05/03/22 04:15 97.4 F 65 20 118/58 95 05/02/22 23:35 97.8 F 71 20 93/50 95 05/02/22 19:31 98.0 F 65 20 113/56 96 05/02/22 19:03 65 21 94 L 05/02/22 18:00 98.0 F 65 21 109/54 91 L 05/02/22 17:51 98.0 F 65 21 109/54 91 L 05/02/22 17:36 98 05/02/22 17:00 68 18 108/66 98 05/02/22 16:00 65 18 112/70 98 05/02/22 15:16 98.7 F 66 18 110/70 98 05/02/22 14:15 98.7 F 65 20 105/63 98 05/02/22 13:10 99 05/02/22 13:04 98.7 F 65 22 126/72 98 General Appearance: no apparent distress, obese Neurologic Exam: alert Respiratory Exam: crackles/rales, rhonchi Cardiovascular Exam: regular rate/rhythm, normal heart sounds, normal peripheral pulses Gastrointestinal/Abdomen Exam: soft, normal bowel sounds, No tenderness, No mass Skin Exam: normal color, warm, dry, No rash Results - Labs Lab/Micro Results: Lab Results-Last 24 Hours 05/02/22 05/02/22 05/02/22 Range/Units 13:16 13:16 13:16 WBC 7.8 (4.0-10.5) x10^3/uL RBC 4.09 L (4.1-5.4) x10^6/uL Hgb 12.6 (12.0-16.0) g/dL Hct 38.2 (35-47) % MCV 93.4 (78-100) fL MCH 30.8 (26-32) pg MCHC 33.0 (32-36) g/dL RDW 12.1 (11.5-14.0) % Plt Count 247 (150-450) x10^3/uL MPV 9.3 (7.5-11.0) fL Gran % 77.6 H (36.0-66.0) % Immature Gran % (Auto) 2.4 H (0.00-0.4) % Nucleat RBC Rel Count 0.0 (0.00-0.1) % Eos # (Auto) 0.42 (0-0.5) x10^3/uL Immature Gran # (Auto) 0.19 H (0.00-0.03) x10^3u/L Absolute Lymphs (auto) 0.66 L (1.0-4.6) x10^3/uL Absolute Monos (auto) 0.40 (0.0-1.3) x10^3/uL Absolute Nucleated RBC 0.00 (0.00-0.01) x10^3u/L Lymphocytes % 8.5 L (24.0-44.0) % Monocytes % 5.1 (0.0-12.0) % Eosinophils % 5.4 H (0.00-5.0) % Basophils % 1.0 (0.0-0.4) % Absolute Granulocytes 6.04 (1.4-6.9) x10^3/uL Basophils # 0.08 (0-0.4) x10^3/uL Sodium 131 L (137-145) mmol/L Potassium 3.8 (3.5-5.1) mmol/L Chloride 89 L (98-107) mmol/L Carbon Dioxide 39 H (22-30) mmol/L Anion Gap 6.5 (5-15) MEQ/L BUN 13 (7-17) mg/dL Creatinine 0.50 L (0.52-1.04) mg/dL Estimated GFR > 60.0 ML/MIN Glucose 113 H (74-106) mg/dL POC Glucometer (74 to 106) mg/dL Hemoglobin A1c (4.5-6.0) % Lactic Acid 0.9 (0.4-2.0) Calcium 8.6 (8.4-10.2) mg/dL Total Bilirubin 0.50 (0.2-1.3) mg/dL AST 29 (14-36) U/L ALT 22 (0-35) U/L Alkaline Phosphatase 103 (38-126) U/L Troponin I (0.000-0.034) ng/mL Serum Total Protein 7.4 (6.3-8.2) g/dL Albumin 3.8 (3.5-5.0) g/dL TSH 3rd Generation (0.47-4.68) mIU/L Urinalys Dipstick Clnc Urine Color (YELLOW) Urine Appearance (CLEAR) Urine pH (5-6) Ur Specific [place] (1.005-1.025) POC Urine Protein Conf (Negative) Urine Ketones (NEGATIVE) Urine Nitrite (NEGATIVE) Urine Bilirubin (NEGATIVE) Urine Urobilinogen (0-1) mg/dL Urine Leukocytes (NEGATIVE) Urine WBC (Auto) (0-5) /HPF Urine RBC (Auto) (0-2) /HPF U Epithel Cells (Auto) (FEW) /HPF Urine Bacteria (Auto) (NEGATIVE) /HPF Urine RBC (0-5) Tom/ul Urine Mucus (Auto) (NEGATIVE) /HPF Ur Culture Indicated? Urine Glucose (NEGATIVE) mg/dL Influenza Type A Ag (NEGATIVE) Influenza Type B Ag (NEGATIVE) RSV (PCR) (Negative) SARS-CoV-2 (PCR) (NEGATIVE) 05/02/22 05/02/22 05/02/22 Range/Units 13:16 13:31 15:02 WBC (4.0-10.5) x10^3/uL RBC (4.1-5.4) x10^6/uL Hgb (12.0-16.0) g/dL Hct (35-47) % MCV (78-100) fL MCH (26-32) pg MCHC (32-36) g/dL RDW (11.5-14.0) % Plt Count (150-450) x10^3/uL MPV (7.5-11.0) fL Gran % (36.0-66.0) % Immature Gran % (Auto) (0.00-0.4) % Nucleat RBC Rel Count (0.00-0.1) % Eos # (Auto) (0-0.5) x10^3/uL Immature Gran # (Auto) (0.00-0.03) x10^3u/L Absolute Lymphs (auto) (1.0-4.6) x10^3/uL Absolute Monos (auto) (0.0-1.3) x10^3/uL Absolute Nucleated RBC (0.00-0.01) x10^3u/L Lymphocytes % (24.0-44.0) % Monocytes % (0.0-12.0) % Eosinophils % (0.00-5.0) % Basophils % (0.0-0.4) % Absolute Granulocytes (1.4-6.9) x10^3/uL Basophils # (0-0.4) x10^3/uL Sodium (137-145) mmol/L Potassium (3.5-5.1) mmol/L Chloride (98-107) mmol/L Carbon Dioxide (22-30) mmol/L Anion Gap (5-15) MEQ/L BUN (7-17) mg/dL Creatinine (0.52-1.04) mg/dL Estimated GFR ML/MIN Glucose (74-106) mg/dL POC Glucometer (74 to 106) mg/dL Hemoglobin A1c (4.5-6.0) % Lactic Acid (0.4-2.0) Calcium (8.4-10.2) mg/dL Total Bilirubin (0.2-1.3) mg/dL AST (14-36) U/L ALT (0-35) U/L Alkaline Phosphatase (38-126) U/L Troponin I < 0.012 (0.000-0.034) ng/mL Serum Total Protein (6.3-8.2) g/dL Albumin (3.5-5.0) g/dL TSH 3rd Generation 2.850 (0.47-4.68) mIU/L Urinalys Dipstick Clnc MAIN LAB Urine Color YELLOW (YELLOW) Urine Appearance CLEAR (CLEAR) Urine pH 7.0 (5-6) Ur Specific [place] 1.025 (1.005-1.025) POC Urine Protein Conf NEGATIVE (Negative) Urine Ketones NEGATIVE (NEGATIVE) Urine Nitrite NEGATIVE (NEGATIVE) Urine Bilirubin NEGATIVE (NEGATIVE) Urine Urobilinogen 4 (0-1) mg/dL Urine Leukocytes NEGATIVE (NEGATIVE) Urine WBC (Auto) NONE SEEN (0-5) /HPF Urine RBC (Auto) 0-2 (0-2) /HPF U Epithel Cells (Auto) NONE (FEW) /HPF Urine Bacteria (Auto) NONE SEEN (NEGATIVE) /HPF Urine RBC NEGATIVE (0-5) Tom/ul Urine Mucus (Auto) SLIGHT (NEGATIVE) /HPF Ur Culture Indicated? NO Urine Glucose NEGATIVE (NEGATIVE) mg/dL Influenza Type A Ag (NEGATIVE) Influenza Type B Ag (NEGATIVE) RSV (PCR) (Negative) SARS-CoV-2 (PCR) (NEGATIVE) 05/02/22 05/02/22 05/02/22 Range/Units 15:40 18:17 18:56 WBC (4.0-10.5) x10^3/uL RBC (4.1-5.4) x10^6/uL Hgb (12.0-16.0) g/dL Hct (35-47) % MCV (78-100) fL MCH (26-32) pg MCHC (32-36) g/dL RDW (11.5-14.0) % Plt Count (150-450) x10^3/uL MPV (7.5-11.0) fL Gran % (36.0-66.0) % Immature Gran % (Auto) (0.00-0.4) % Nucleat RBC Rel Count (0.00-0.1) % Eos # (Auto) (0-0.5) x10^3/uL Immature Gran # (Auto) (0.00-0.03) x10^3u/L Absolute Lymphs (auto) (1.0-4.6) x10^3/uL Absolute Monos (auto) (0.0-1.3) x10^3/uL Absolute Nucleated RBC (0.00-0.01) x10^3u/L Lymphocytes % (24.0-44.0) % Monocytes % (0.0-12.0) % Eosinophils % (0.00-5.0) % Basophils % (0.0-0.4) % Absolute Granulocytes (1.4-6.9) x10^3/uL Basophils # (0-0.4) x10^3/uL Sodium (137-145) mmol/L Potassium (3.5-5.1) mmol/L Chloride (98-107) mmol/L Carbon Dioxide (22-30) mmol/L Anion Gap (5-15) MEQ/L BUN (7-17) mg/dL Creatinine (0.52-1.04) mg/dL Estimated GFR ML/MIN Glucose (74-106) mg/dL POC Glucometer (74 to 106) mg/dL Hemoglobin A1c 6.13 H (4.5-6.0) % Lactic Acid (0.4-2.0) Calcium (8.4-10.2) mg/dL Total Bilirubin (0.2-1.3) mg/dL AST (14-36) U/L ALT (0-35) U/L Alkaline Phosphatase (38-126) U/L Troponin I < 0.012 (0.000-0.034) ng/mL Serum Total Protein (6.3-8.2) g/dL Albumin (3.5-5.0) g/dL TSH 3rd Generation (0.47-4.68) mIU/L Urinalys Dipstick Clnc Urine Color (YELLOW) Urine Appearance (CLEAR) Urine pH (5-6) Ur Specific [place] (1.005-1.025) POC Urine Protein Conf (Negative) Urine Ketones (NEGATIVE) Urine Nitrite (NEGATIVE) Urine Bilirubin (NEGATIVE) Urine Urobilinogen (0-1) mg/dL Urine Leukocytes (NEGATIVE) Urine WBC (Auto) (0-5) /HPF Urine RBC (Auto) (0-2) /HPF U Epithel Cells (Auto) (FEW) /HPF Urine Bacteria (Auto) (NEGATIVE) /HPF Urine RBC (0-5) Tom/ul Urine Mucus (Auto) (NEGATIVE) /HPF Ur Culture Indicated? Urine Glucose (NEGATIVE) mg/dL Influenza Type A Ag NEGATIVE (NEGATIVE) Influenza Type B Ag NEGATIVE (NEGATIVE) RSV (PCR) NEGATIVE (Negative) SARS-CoV-2 (PCR) NEGATIVE (NEGATIVE) 05/02/22 05/02/22 05/03/22 Range/Units 21:04 22:30 04:30 WBC 6.7 (4.0-10.5) x10^3/uL RBC 3.97 L (4.1-5.4) x10^6/uL Hgb 12.4 (12.0-16.0) g/dL Hct 37.1 (35-47) % MCV 93.5 (78-100) fL MCH 31.2 (26-32) pg MCHC 33.4 (32-36) g/dL RDW 12.2 (11.5-14.0) % Plt Count 253 (150-450) x10^3/uL MPV 9.8 (7.5-11.0) fL Gran % 74.5 H (36.0-66.0) % Immature Gran % (Auto) 2.2 H (0.00-0.4) % Nucleat RBC Rel Count 0.0 (0.00-0.1) % Eos # (Auto) 0.43 (0-0.5) x10^3/uL Immature Gran # (Auto) 0.15 H (0.00-0.03) x10^3u/L Absolute Lymphs (auto) 0.72 L (1.0-4.6) x10^3/uL Absolute Monos (auto) 0.35 (0.0-1.3) x10^3/uL Absolute Nucleated RBC 0.00 (0.00-0.01) x10^3u/L Lymphocytes % 10.7 L (24.0-44.0) % Monocytes % 5.2 (0.0-12.0) % Eosinophils % 6.4 H (0.00-5.0) % Basophils % 1.0 (0.0-0.4) % Absolute Granulocytes 4.98 (1.4-6.9) x10^3/uL Basophils # 0.07 (0-0.4) x10^3/uL Sodium (137-145) mmol/L Potassium (3.5-5.1) mmol/L Chloride (98-107) mmol/L Carbon Dioxide (22-30) mmol/L Anion Gap (5-15) MEQ/L BUN (7-17) mg/dL Creatinine (0.52-1.04) mg/dL Estimated GFR ML/MIN Glucose (74-106) mg/dL POC Glucometer 190 H (74 to 106) mg/dL Hemoglobin A1c (4.5-6.0) % Lactic Acid (0.4-2.0) Calcium (8.4-10.2) mg/dL Total Bilirubin (0.2-1.3) mg/dL AST (14-36) U/L ALT (0-35) U/L Alkaline Phosphatase (38-126) U/L Troponin I < 0.012 (0.000-0.034) ng/mL Serum Total Protein (6.3-8.2) g/dL Albumin (3.5-5.0) g/dL TSH 3rd Generation (0.47-4.68) mIU/L Urinalys Dipstick Clnc Urine Color (YELLOW) Urine Appearance (CLEAR) Urine pH (5-6) Ur Specific [place] (1.005-1.025) POC Urine Protein Conf (Negative) Urine Ketones (NEGATIVE) Urine Nitrite (NEGATIVE) Urine Bilirubin (NEGATIVE) Urine Urobilinogen (0-1) mg/dL Urine Leukocytes (NEGATIVE) Urine WBC (Auto) (0-5) /HPF Urine RBC (Auto) (0-2) /HPF U Epithel Cells (Auto) (FEW) /HPF Urine Bacteria (Auto) (NEGATIVE) /HPF Urine RBC (0-5) Tom/ul Urine Mucus (Auto) (NEGATIVE) /HPF Ur Culture Indicated? Urine Glucose (NEGATIVE) mg/dL Influenza Type A Ag (NEGATIVE) Influenza Type B Ag (NEGATIVE) RSV (PCR) (Negative) SARS-CoV-2 (PCR) (NEGATIVE) 05/03/22 Range/Units 04:30 WBC (4.0-10.5) x10^3/uL RBC (4.1-5.4) x10^6/uL Hgb (12.0-16.0) g/dL Hct (35-47) % MCV (78-100) fL MCH (26-32) pg MCHC (32-36) g/dL RDW (11.5-14.0) % Plt Count (150-450) x10^3/uL MPV (7.5-11.0) fL Gran % (36.0-66.0) % Immature Gran % (Auto) (0.00-0.4) % Nucleat RBC Rel Count (0.00-0.1) % Eos # (Auto) (0-0.5) x10^3/uL Immature Gran # (Auto) (0.00-0.03) x10^3u/L Absolute Lymphs (auto) (1.0-4.6) x10^3/uL Absolute Monos (auto) (0.0-1.3) x10^3/uL Absolute Nucleated RBC (0.00-0.01) x10^3u/L Lymphocytes % (24.0-44.0) % Monocytes % (0.0-12.0) % Eosinophils % (0.00-5.0) % Basophils % (0.0-0.4) % Absolute Granulocytes (1.4-6.9) x10^3/uL Basophils # (0-0.4) x10^3/uL Sodium 132 L (137-145) mmol/L Potassium 3.8 (3.5-5.1) mmol/L Chloride 93 L (98-107) mmol/L Carbon Dioxide 36 H (22-30) mmol/L Anion Gap 6.8 (5-15) MEQ/L BUN 12 (7-17) mg/dL Creatinine 0.53 (0.52-1.04) mg/dL Estimated GFR > 60.0 ML/MIN Glucose 156 H (74-106) mg/dL POC Glucometer (74 to 106) mg/dL Hemoglobin A1c (4.5-6.0) % Lactic Acid (0.4-2.0) Calcium 8.5 (8.4-10.2) mg/dL Total Bilirubin 0.50 (0.2-1.3) mg/dL AST 27 (14-36) U/L ALT 22 (0-35) U/L Alkaline Phosphatase 91 (38-126) U/L Troponin I (0.000-0.034) ng/mL Serum Total Protein 6.7 (6.3-8.2) g/dL Albumin 3.4 L (3.5-5.0) g/dL TSH 3rd Generation (0.47-4.68) mIU/L Urinalys Dipstick Clnc Urine Color (YELLOW) Urine Appearance (CLEAR) Urine pH (5-6) Ur Specific [place] (1.005-1.025) POC Urine Protein Conf (Negative) Urine Ketones (NEGATIVE) Urine Nitrite (NEGATIVE) Urine Bilirubin (NEGATIVE) Urine Urobilinogen (0-1) mg/dL Urine Leukocytes (NEGATIVE) Urine WBC (Auto) (0-5) /HPF Urine RBC (Auto) (0-2) /HPF U Epithel Cells (Auto) (FEW) /HPF Urine Bacteria (Auto) (NEGATIVE) /HPF Urine RBC (0-5) Tom/ul Urine Mucus (Auto) (NEGATIVE) /HPF Ur Culture Indicated? Urine Glucose (NEGATIVE) mg/dL Influenza Type A Ag (NEGATIVE) Influenza Type B Ag (NEGATIVE) RSV (PCR) (Negative) SARS-CoV-2 (PCR) (NEGATIVE) Accuchecks Date 05/03/22 Time 07:50 - Radiology Impressions Radiology Exams & Impressions: Radiology Procedures Category Date Time Status CHEST 1 VIEW (PORTABLE) Stat Exams 05/02/22 13:12 Completed - Other Procedures and Tests Respiratory Therapy 05/02/22 20:11 Oxygen NASAL CANNULA 2 lpm Respiratory Therapy Assessment DAILY Assessment/Plan (1) Pneumonia Current Visit: Yes Status: Acute Qualifiers: Assessment & Plan: continue levaquin, labs are reassuring. of course pneumonia is still present on chest xray Code(s): J18.9 - PNEUMONIA, UNSPECIFIED ORGANISM (2) Nausea & vomiting Current Visit: Yes Status: Acute Assessment & Plan: check u/s gallbladder Code(s): R11.2 - NAUSEA WITH VOMITING, UNSPECIFIED (3) COPD exacerbation Current Visit: No Status: Acute Assessment & Plan: add po prednisone, disposition will be difficult as patient states she can't get to bedside commode on her own and but states "you can't make me go to a shelter" and refuses to consider rehab stay Code(s): J44.1 - CHRONIC OBSTRUCTIVE PULMONARY DISEASE W (ACUTE) EXACERBATION
[2022-05-03] MEDS: NORCO 7.5/325 MG TAB PO PRN ×3 (09:59→21:19)
[2022-05-03] MEDS: Lasix 40 MG PO SCH (10:00)
[2022-05-03] MEDS: ZOCOR 20MG PO SCH (10:00)
[2022-05-03] MEDS: ATARAX 25 MG PO PRN ×2 (10:00→21:19)
[2022-05-03] MEDS: Klor Con PO SCH ×2 (10:00→20:04)
[2022-05-03] MEDS: Cardizem CD PO SCH (10:00)
[2022-05-03] MEDS: SYNTHROID 112 MCG PO SCH (10:00)
[2022-05-03] MEDS: ZOLOFT 50 MG TABLET PO SCH (10:00)
[2022-05-03] MEDS: Levofloxacin 500MG/100ML D5W 500 MG/100 ML BAG IV SCH (10:00)
[2022-05-03] MEDS: DELTASONE 20 MG PO SCH (10:00)
[2022-05-03] MEDS ORDERED: NON-FORMULARY ITEM (Atorvastatin Calcium [Atorvastatin Calcium] 80 MG Tablet) PO SCH (10:00)
[2022-05-03] MEDS ORDERED: NON-FORMULARY ITEM (Metformin Hcl [Metformin Hcl Er] 750 MG Tab.Er.24h) PO SCH (10:00)
[2022-05-03] MEDS: Glucophage XR 500 MG PO SCH (10:24)
--- NOTE | 2022-05-03 14:09 | XRAY ---
Indication: Pain. Nausea and vomiting. Two-dimensional gallbladder sonogram performed. Comparison: None Gallbladder normally distended without gallstones, wall thickening, or pericholecystic fluid. Common bile duct measures 5.9 mm. No intrahepatic biliary distention. Remaining visualized liver, pancreas, and right kidney are sonographically unremarkable. Right kidney measures 10.9 cm in length. Impression: Negative gallbladder sonogram.
[2022-05-03] MEDS: REQUIP 2MG TAB PO SCH (20:03)
[2022-05-03] MEDS: HUMALOG SQ PRN (21:20)
[2022-05-04 05:23] LABS: Absolute Neutrophil Ct (ANC) 4.85 x10^3/uL (1.4-6.9); Basophil (Absolute #) 0.04 x10^3/uL (0-0.4); Eosinophil % 1.2 % (0.00-5.0); Eosinophil (Absolute #) 0.08 x10^3/uL (0-0.5); Hematocrit 37.6 % (35-47); Hemoglobin 12.5 g/dL (12.0-16.0); Lymphocyte (Absolute #) 1.07 x10^3/uL (1.0-4.6); Lymphocytes % 16.3 % (24.0-44.0); Mean Cell Volume 91.9 fL (78-100); Mean Corpuscular Hemoglobin 30.6 pg (26-32); Mean Corpuscular Hgb Concent. 33.2 g/dL (32-36); Mean Platelet Volume 9.2 fL (7.5-11.0); Monocyte (Absolute #) 0.37 x10^3/uL (0.0-1.3); Monocytes % 5.6 % (0.0-12.0); Platelet Count 269 x10^3/uL (150-450); Red Blood Count 4.09 x10^6/uL (4.1-5.4); Red Cell Distribution Width 12.2 % (11.5-14.0); White Blood Count 6.6 x10^3/uL (4.0-10.5)
[2022-05-04 05:50] LABS: ALBUMIN 3.5 g/dL (3.5-5.0); ALKALINE PHOSPHATASE 86 U/L (38-126); ANION GAP 7.8 MEQ/L (5-15); BLOOD UREA NITROGEN 12 mg/dL (7-17); CHLORIDE 92 mmol/L (98-107); Calcium 8.8 mg/dL (8.4-10.2); Carbon Dioxide 36 mmol/L (22-30); Creatinine 1 0.45 mg/dL (0.52-1.04); EST GLOMERULAR FILTRATION RATE > 60.0 ML/MIN; Glucose 134 mg/dL (74-106); SGOT/AST 26 U/L (14-36); SGPT/ALT 21 U/L (0-35); SODIUM 132 mmol/L (137-145); Total Protein 6.9 g/dL (6.3-8.2)
[2022-05-04] MEDS: NORCO 7.5/325 MG TAB PO PRN ×3 (05:53→19:54)
[2022-05-04] MEDS: ATARAX 25 MG PO PRN ×2 (05:54→14:10)
[2022-05-04] MEDS: Sodium Chloride 0.9% 10 ML FLUSH Syringe IV SCH ×3 (05:54→21:02)
[2022-05-04] MEDS: Glucophage XR 500 MG PO SCH (08:07)
--- NOTE | 2022-05-04 08:45 | PCM.NOTE ---
Date and Time: 05/04/22841 Subjective Assessment: feeling little better - Review of Systems Constitutional: No Fever, No Chills Eyes: No Symptoms Ears, Nose, & Throat: No Symptoms Respiratory: Cough, No Short Of Breath Cardiac: No Chest Pain, No Edema, No Syncope Abdominal/Gastrointestinal: No Abdominal Pain, No Nausea, No Vomiting, No Diarrhea Genitourinary Symptoms: No Dysuria Musculoskeletal: No Back Pain, No Neck Pain Skin: No Rash Neurological: No Dizziness, No Focal Weakness, No Sensory Changes Psychological: No Symptoms Endocrine: No Symptoms Hematologic/Lymphatic: No Symptoms Immunological/Allergic: No Symptoms Objective Exam General Appearance: no apparent distress, alert Neurologic Exam: alert, oriented x 3, cooperative, normal mood/affect, nml cerebellar function, sensation nml, No motor deficits Skin Exam: normal color, warm, dry Eye Exam: PERRL, EOMI, eyes nml inspection Ears, Nose, Throat Exam: normal ENT inspection, pharynx normal, moist mucous membranes Neck Exam: normal inspection, non-tender, supple, full range of motion Respiratory Exam: diminished breath sounds, rhonchi, No respiratory distress Cardiovascular Exam: regular rate/rhythm, normal heart sounds Gastrointestinal/Abdomen Exam: soft, No tenderness, No mass Extremity Exam: normal inspection, normal range of motion Back Exam: normal inspection, normal range of motion, No CVA tenderness, No vertebral tenderness Pelvic Exam: deferred Rectal Exam: deferred OBJECTIVE DATA Vital Signs: Vital Signs - 24 hr Temp Pulse Resp BP Pulse Ox 05/04/22 07:37 97.8 F 65 16 103/54 96 05/04/22 04:00 98.2 F 68 20 140/66 92 L 05/04/22 00:00 97.8 F 66 20 105/54 91 L 05/03/22 19:59 97.5 F 65 24 141/63 92 L 05/03/22 19:43 66 18 94 L 05/03/22 16:00 97.7 F 68 18 117/56 95 Pain Assessment - Last Documented Pain Intensity 5 Pain Scale Used 0-10 Pain Scale Intake and Output: Intake & Output 05/01/22 05/02/22 05/03/22 05/04/22 11:59 11:59 11:59 11:59 Intake Total 500 960 Output Total 750 Balance -250 960 Weight 79.2 kg Lab Results: Lab Results-Last 24 Hours 09/16/22 09/17/22 09/17/22 Range/Units 21:04 05:14 05:14 WBC 6.6 (4.0-10.5) x10^3/uL RBC 4.09 L (4.1-5.4) x10^6/uL Hgb 12.5 (12.0-16.0) g/dL Hct 37.6 (35-47) % MCV 91.9 (78-100) fL MCH 30.6 (26-32) pg MCHC 33.2 (32-36) g/dL RDW 12.2 (11.5-14.0) % Plt Count 269 (150-450) x10^3/uL MPV 9.2 (7.5-11.0) fL Gran % 74.0 H (36.0-66.0) % Immature Gran % (Auto) 2.3 H (0.00-0.4) % Nucleat RBC Rel Count 0.0 (0.00-0.1) % Eos # (Auto) 0.08 (0-0.5) x10^3/uL Immature Gran # (Auto) 0.15 H (0.00-0.03) x10^3u/L Absolute Lymphs (auto) 1.07 (1.0-4.6) x10^3/uL Absolute Monos (auto) 0.37 (0.0-1.3) x10^3/uL Absolute Nucleated RBC 0.00 (0.00-0.01) x10^3u/L Lymphocytes % 16.3 L (24.0-44.0) % Monocytes % 5.6 (0.0-12.0) % Eosinophils % 1.2 (0.00-5.0) % Basophils % 0.6 (0.0-0.4) % Absolute Granulocytes 4.85 (1.4-6.9) x10^3/uL Basophils # 0.04 (0-0.4) x10^3/uL Sodium 132 L (137-145) mmol/L Potassium 4.0 (3.5-5.1) mmol/L Chloride 92 L (98-107) mmol/L Carbon Dioxide 36 H (22-30) mmol/L Anion Gap 7.8 (5-15) MEQ/L BUN 12 (7-17) mg/dL Creatinine 0.45 L (0.52-1.04) mg/dL Estimated GFR > 60.0 ML/MIN Glucose 134 H (74-106) mg/dL POC Glucometer 283 H (74 to 106) mg/dL Calcium 8.8 (8.4-10.2) mg/dL Magnesium 2.0 (1.6-2.3) mg/dL Total Bilirubin 0.50 (0.2-1.3) mg/dL AST 26 (14-36) U/L ALT 21 (0-35) U/L Alkaline Phosphatase 86 (38-126) U/L Serum Total Protein 6.9 (6.3-8.2) g/dL Albumin 3.5 (3.5-5.0) g/dL 05/04/22 Range/Units 07:20 WBC (4.0-10.5) x10^3/uL RBC (4.1-5.4) x10^6/uL Hgb (12.0-16.0) g/dL Hct (35-47) % MCV (78-100) fL MCH (26-32) pg MCHC (32-36) g/dL RDW (11.5-14.0) % Plt Count (150-450) x10^3/uL MPV (7.5-11.0) fL Gran % (36.0-66.0) % Immature Gran % (Auto) (0.00-0.4) % Nucleat RBC Rel Count (0.00-0.1) % Eos # (Auto) (0-0.5) x10^3/uL Immature Gran # (Auto) (0.00-0.03) x10^3u/L Absolute Lymphs (auto) (1.0-4.6) x10^3/uL Absolute Monos (auto) (0.0-1.3) x10^3/uL Absolute Nucleated RBC (0.00-0.01) x10^3u/L Lymphocytes % (24.0-44.0) % Monocytes % (0.0-12.0) % Eosinophils % (0.00-5.0) % Basophils % (0.0-0.4) % Absolute Granulocytes (1.4-6.9) x10^3/uL Basophils # (0-0.4) x10^3/uL Sodium (137-145) mmol/L Potassium (3.5-5.1) mmol/L Chloride (98-107) mmol/L Carbon Dioxide (22-30) mmol/L Anion Gap (5-15) MEQ/L BUN (7-17) mg/dL Creatinine (0.52-1.04) mg/dL Estimated GFR ML/MIN Glucose (74-106) mg/dL POC Glucometer 215 H (74 to 106) mg/dL Calcium (8.4-10.2) mg/dL Magnesium (1.6-2.3) mg/dL Total Bilirubin (0.2-1.3) mg/dL AST (14-36) U/L ALT (0-35) U/L Alkaline Phosphatase (38-126) U/L Serum Total Protein (6.3-8.2) g/dL Albumin (3.5-5.0) g/dL Radiology Exams: Radiology Procedures Category Date Time Status CHEST 1 VIEW (PORTABLE) Stat Exams 05/02/22 13:12 Completed GALLBLADDER [US] Routine Exams 05/03/22 13:42 Completed US/GALLBLADDER Indication: Pain. Nausea and vomiting. Two-dimensional gallbladder sonogram performed. Comparison: None Gallbladder normally distended without gallstones, wall thickening, or pericholecystic fluid. Common bile duct measures 5.9 mm. No intrahepatic biliary distention. Remaining visualized liver, pancreas, and right kidney are sonographically unremarkable. Right kidney measures 10.9 cm in length. Impression: Negative gallbladder sonogram. 0031 RAD/CHEST 1 VIEW (PORTABLE) Indication: Weakness and short of breath. Pneumonia. Comparison: December 24, 2021 Portable chest unchanged again demonstrating bilateral mid to lower lung interstitial alveolar opacities, borderline cardiomegaly, left pacemaker, osteopenia, bony degenerative changes, and bilateral calcified breast implants. No new cardiopulmonary abnormalities. Multi-Disciplinary Progress Notes: Multi-Disciplinary Progress Notes 05/03/22 11:54 Case Management Note by Emerald Alberts PATIENT JUST DCD HOME FROM [facility] 05/01/22. SHE WAS SET UP WITH [facility] WITH NURSE/AID/PT/OT AT THAT TIME. SHE WAS ALSO SET UP HOME OXYGEN AT 2L/NC 24/ THRU [facility]. PATIENT ALREADY HAD MEALS ON WHEELS [employer]. PATIENT UNABLE TO AMBULATE IN THE ER. [facility] REPORTED PATIENT UNABLE TO AMBULATE TO [facility] WHEN THEY ARRIVED AND WAS STILL IN HER HOSPITAL GOWN WHEN THEY CAME IN. D/T THIS INFORMATION - THIS DEVELOPMENT TEAM LEAD APPROACHED PATIENT ABOUT GOING TO REHAB AT TIME OF DC FOR PT. PATIENT ADAMANTLY REFUSING. THIS WAS TO THE POINT THAT PATIENT WOULD NOT EVEN LISTEN TO ALL THE BENEFITS OF REHAB AND THE CONCERNS OF HER RETURNING HOME AND WAS ANGRY WITH THIS CASE MANGER FOR TRYING TO ENCOURAGE IT. PATIENT STATED " NO ONE REHABS AT REHAB". SHE THEN STATED SHE WOULD RATHER " AT HOME THAN GO TO THE NH". PATIENT REPORTS SHE DOES NOT KNOW HOW SHE WILL GET HOME SHE DOES NOT HAVE ANYONE TO COME GET HER. SHE WAS NOTIFIED THAT [employer] [facility] ONLY OPERATES M-F. SHE VERIFIED UNDERSTANDING AND STATED "ILL WALK IF I HAVE TO". SHE REPORTS SHE CAN CALL HER DAUGHTER BUT IT TOOK HER 6+ HRS TO RESPOND TO HER YEST. SHE REPORTS THEY ARE ESTRANGED THIS NURSE TRIED TO EXPLAIN THAT THE BEST RESOURCE I HAVE TO HELP HER IS THE REHAB STAY AND BESIDES THAT RESOURCES ARE LIMITED AND ARE NOT IMMEDIATE- SHE VERIFIED UNDERSTANDING PHYSICAL THERAPY WORKED WITH PATIENT AND STATED THAT DC WITH [facility] WAS APPROPRIATE FOR HER AT TIME OF DC. PATIENT HAS WALKER AT HOME ALREADY ACO WAS REFERRED DURING HER LAST VISIT- S/W MIGUEL SHE WAS NOTIFIED OF THE ABOVE. THEY WILL TRY TO CONTACT PATIENT WHILE STILL IN HOUSE. Initialized on 05/03/22 11:54 - END OF NOTE 05/03/22 10:06 Case Management Note by Emerald Alberts PATIENT HAS [facility]. THEY ARE AWARE SHE IS HERE. THEY WILL NEED NOTIFIED AT TIME OF DC AT [phone]. THEY WILL TRY TO ARRANGE A SAME DAY VISIT FOR THE PATIENT IF ABLE. THEY WILL NEED FAXED THE DC INSTRUCTIONS, DC MED LIST AND DC SUMMARY (IF AVAILABLE) TO [phone] Initialized on 05/03/22 10:06 - END OF NOTE Assessment/Plan (1) Pneumonia Current Visit: Yes Status: Acute Qualifiers: Pneumonia type: due to Pneumococcus Laterality: bilateral Lung location: lower lobe of lung Qualified Code(s): J13 - Pneumonia due to Streptococcus pneumoniae Assessment & Plan: Chief Complaint Diagnosis PNEUMONIA, GENERALIZED WEAKNESS Allergies Allergy/AdvReac Type Severity Reaction Status Date / Time Sulfa (Sulfonamide Allergy Severe Itching Verified 05/02/22 18:12 Antibiotics) pollen extracts Allergy Mild Verified 05/02/22 18:12 bacitracin Allergy Verified 05/02/22 18:12 [From Neosporin ([id number])] neomycin Allergy Verified 05/02/22 18:12 [From Neosporin ([id number])] polymyxin B Allergy Verified 05/02/22 18:12 [From Neosporin ([id number])] sulfamethoxazole AdvReac Verified 05/02/22 18:12 [From Bactrim] trimethoprim [From Bactrim] AdvReac Verified 05/02/22 18:12 Vital Signs (Last 24 hours) Temp Pulse Resp BP Pulse Ox 05/04/22 07:37 97.8 F 65 16 103/54 96 05/04/22 04:00 98.2 F 68 20 140/66 92 L 05/04/22 00:00 97.8 F 66 20 105/54 91 L 05/03/22 19:59 97.5 F 65 24 141/63 92 L 05/03/22 19:43 66 18 94 L 05/03/22 16:00 97.7 F 68 18 117/56 95 Current Medications Generic Name Dose Route Start Last Admin Trade Name Freq PRN Reason Stop Dose Admin Hydrocodone Bitart/Acetaminophen 1 tab 05/02/22 18:27 05/04/22 05:53 Hydrocodone /Apap 7.5/325 Mg 1 Each Tablet PO 05/07/22 18:26 1 tab QID PRN PRN Administration PAIN Albuterol Sulfate 2.5 mg 05/02/22 20:11 05/03/22 19:39 Albuterol Sulfate 2.5 Mg/3 Ml Neb IH 06/01/22 20:10 2.5 mg Q4H PRN PRN Administration SHORTNESS OF BREATH/WHEEZING Bisacodyl 10 mg 05/03/22 07:24 Bisacodyl 5 Mg Tablet.Ec PO 06/02/22 07:23 DAILY PRN PRN CONSTIPATION Diltiazem HCl 120 mg 05/03/22 10:00 05/03/22 10:00 Diltiazem Hcl Cd 120 Mg Cap.Sr.24h PO 06/02/22 09:59 120 mg DAILY JOCELYN Administration Furosemide 40 mg 05/03/22 10:00 05/03/22 10:00 Furosemide 40 Mg Tablet PO 06/02/22 09:59 40 mg DAILY JOCELYN Administration Hydroxyzine HCl 25 mg 05/03/22 09:03 05/04/22 05:54 Hydroxyzine Hcl 25 Mg Tablet PO 06/02/22 09:02 25 mg TID PRN PRN Administration ANXIETY Levofloxacin/Dextrose 500 mg in 100 mls @ 100 mls/hr 05/03/22 10:00 05/03/22 10:00 Levofloxacin 500mg/100ml D5w IV 06/02/22 09:59 100 mls/hr Q24H10 JOCELYN Administration Insulin Human Lispro 0 unit 05/02/22 18:24 05/03/22 21:20 Insulin Lispro 1 Unit SQ 06/01/22 18:23 4 unit UD PRN Administration HYPERGLYCEMIA Levothyroxine Sodium 112 mcg 05/03/22 10:00 05/03/22 10:00 Levothyroxine Sodium 112 Mcg Tablet PO 06/02/22 09:59 112 mcg DAILY JOCELYN Administration Metformin HCl 500 mg 05/03/22 08:00 05/04/22 08:07 Metformin Hcl Er 500 Mg Tab PO 06/02/22 07:59 500 mg BREAKFAST JOCELYN Administration Potassium Chloride 10 meq 05/03/22 10:00 05/03/22 20:04 Potassium Chloride Tab 10 Meq Tab PO 06/02/22 09:59 10 meq BID JOCELYN Administration Prednisone 40 mg 05/03/22 10:00 05/03/22 10:00 Prednisone 20 Mg Tablet PO 06/02/22 09:59 40 mg DAILY JOCELYN Administration Ropinirole HCl 2 mg 05/02/22 22:00 05/03/22 20:03 Ropinirole Hcl 2 Mg Tablet PO 06/01/22 21:59 2 mg HS JOCELYN Administration Sertraline HCl 50 mg 05/02/22 22:00 05/03/22 10:00 Sertraline Hcl 50 Mg Tab PO 06/01/22 21:59 50 mg DAILY JOCELYN Administration Simvastatin 40 mg 05/03/22 10:00 05/03/22 10:00 Simvastatin 20 Mg Tablet PO 06/02/22 09:59 40 mg DAILY JOCELYN Administration Sodium Chloride 10 ml 05/02/22 22:00 05/04/22 05:54 Normal Saline 10 Ml Flush IV 06/01/22 21:59 10 ml Q8HT JOCELYN Administration Discontinued Medications Generic Name Dose Route Start Last Admin Trade Name Aydee PRN Reason Stop Dose Admin Bisacodyl 10 mg 05/02/22 22:30 05/02/22 22:22 Bisacodyl 5 Mg Tablet.Ec PO 05/02/22 22:31 10 mg ONCE ONE Administration Sodium Chloride 1,000 mls @ 50 mls/hr 05/02/22 13:15 05/02/22 13:40 Sodium Chloride 0.9% 1000 Ml IV 06/01/22 13:14 50 mls/hr .Q20H JOCELYN Administration Sodium Chloride Confirm 05/02/22 13:40 Sodium Chloride 0.9% 1000 Ml Administered 05/02/22 13:41 Dose 1,000 mls @ ud .ROUTE .STK-MED ONE Sodium Chloride 1,000 mls @ 75 mls/hr 05/02/22 18:00 05/02/22 18:31 Sodium Chloride 0.9% 1000 Ml IV 06/01/22 17:59 Not Given .[id number] JOCELYN Intake & Output (Last 24 hours) 05/01/22 05/02/22 05/03/22 05/04/22 11:59 11:59 11:59 11:59 Intake Total 500 960 Output Total 750 Balance -250 960 Weight 79.2 kg Microbiology Results (Last 24 hours) 05/02/22 13:23 Blood Blood Culture Gram Stain - Pending 05/02/22 13:23 Blood Blood Culture - Preliminary NO GROWTH TO DATE 05/02/22 13:16 Blood Blood Culture Gram Stain - Pending 05/02/22 13:16 Blood Blood Culture - Preliminary NO GROWTH TO DATE Laboratory Results (Last 24 hours) 05/04/22 05/04/22 05/04/22 07:20 05:14 05:14 WBC 6.6 RBC 4.09 L Hgb 12.5 Hct 37.6 MCV 91.9 MCH 30.6 MCHC 33.2 RDW 12.2 Plt Count 269 MPV 9.2 Gran % 74.0 H Immature Gran % (Auto) 2.3 H Nucleat RBC Rel Count 0.0 Eos # (Auto) 0.08 Immature Gran # (Auto) 0.15 H Absolute Lymphs (auto) 1.07 Absolute Monos (auto) 0.37 Absolute Nucleated RBC 0.00 Lymphocytes % 16.3 L Monocytes % 5.6 Eosinophils % 1.2 Basophils % 0.6 Absolute Granulocytes 4.85 Basophils # 0.04 Sodium 132 L Potassium 4.0 Chloride 92 L Carbon Dioxide 36 H Anion Gap 7.8 BUN 12 Creatinine 0.45 L Estimated GFR > 60.0 Glucose 134 H POC Glucometer 215 H Calcium 8.8 Magnesium 2.0 Total Bilirubin 0.50 AST 26 ALT 21 Alkaline Phosphatase 86 Serum Total Protein 6.9 Albumin 3.5 05/03/22 21:04 WBC RBC Hgb Hct MCV MCH MCHC RDW Plt Count MPV Gran % Immature Gran % (Auto) Nucleat RBC Rel Count Eos # (Auto) Immature Gran # (Auto) Absolute Lymphs (auto) Absolute Monos (auto) Absolute Nucleated RBC Lymphocytes % Monocytes % Eosinophils % Basophils % Absolute Granulocytes Basophils # Sodium Potassium Chloride Carbon Dioxide Anion Gap BUN Creatinine Estimated GFR Glucose POC Glucometer 283 H Calcium Magnesium Total Bilirubin AST ALT Alkaline Phosphatase Serum Total Protein Albumin Orders (Last 24 hours) Category Date Time Status Consistent Carbohydrate Diet 1800 Calorie Diet 05/03/22 Lunch Active NPO 4 Hours prior to exam Diet 05/03/22 09:12 Completed GALLBLADDER [US] Routine Exams 05/03/22 13:42 Completed CBC W DIFF AM.LAB Lab 05/04/22 05:14 Completed CMP AM.LAB Lab 05/04/22 05:14 Completed MAGNESIUM AM.LAB Lab 05/04/22 05:14 Completed POCT GLUCOSE Stat Lab 05/03/22 21:04 Completed POCT GLUCOSE Stat Lab 05/04/22 07:20 Completed Diltiazem HCl Cd [Cardizem CD ] Med 05/03/22 10:00 Active 120 mg PO DAILY Furosemide 40 mg [Lasix 40 MG] Med 05/03/22 10:00 Active 40 mg PO DAILY Hydroxyzine HCl 25 mg [Atarax 25 mg] Med 05/03/22 09:03 Active 25 mg PO TID PRN PRN Levofloxacin [Levofloxacin 500MG/100ML D5W] Med 05/03/22 10:00 Active 500 mg in 100 ml IV Q24H10 Levothyroxine Sodium 112 Mcg [Synthroid 112 Mcg] Med 05/03/22 10:00 Active 112 mcg PO DAILY Metformin HCl Xr 500 mg [Glucophage XR 500 MG] Med 05/03/22 08:00 Active 500 mg PO BREAKFAST Potassium Chloride Tab* [Klor Con] Med 05/03/22 10:00 Active 10 meq PO BID Prednisone 20 mg [Deltasone 20 mg] Med 05/03/22 10:00 Active 40 mg PO DAILY Simvastatin 20Mg [Zocor 20Mg] Med 05/03/22 10:00 Active 40 mg PO DAILY PT Eval & Treat (MD Order) ONCE PT 05/03/22 10:12 Active Patient Care Notes (Last 24 hours) 05/04/22 00:43 Nursing Note by Katelin Castillo This nurse entered room to obtained midnight vitals on pt. Pt did not have her nasal cannula on, O2 sats were 72 %. nasal cannula placed back in nose and pt recovered back to 91%. Initialized on 05/04/22 00:43 - END OF NOTE 05/03/22 11:54 Case Management Note by Emerald Alberts PATIENT JUST DCD HOME FROM [facility] 05/01/22. SHE WAS SET UP WITH [facility] WITH NURSE/AID/PT/OT AT THAT TIME. SHE WAS ALSO SET UP HOME OXYGEN AT 2L/NC 10/03 THRU [facility]. PATIENT ALREADY HAD MEALS ON [employer]. PATIENT UNABLE TO AMBULATE IN THE ER. [facility] REPORTED PATIENT UNABLE TO AMBULATE TO [facility] WHEN THEY ARRIVED AND WAS STILL IN HER HOSPITAL GOWN WHEN THEY CAME IN. D/T THIS INFORMATION - THIS DEVELOPMENT TEAM LEAD APPROACHED PATIENT ABOUT GOING TO REHAB AT TIME OF DC FOR PT. PATIENT ADAMANTLY REFUSING. THIS WAS TO THE POINT THAT PATIENT WOULD NOT EVEN LISTEN TO ALL THE BENEFITS OF REHAB AND THE CONCERNS OF HER RETURNING HOME AND WAS ANGRY WITH THIS CASE MANGER FOR TRYING TO ENCOURAGE IT. PATIENT STATED " NO ONE REHABS AT REHAB". SHE THEN STATED SHE WOULD RATHER " AT HOME THAN GO TO THE NH". PATIENT REPORTS SHE DOES NOT KNOW HOW SHE WILL GET HOME SHE DOES NOT HAVE ANYONE TO COME GET HER. SHE WAS NOTIFIED THAT [employer] [facility] ONLY OPERATES M-F. SHE VERIFIED UNDERSTANDING AND STATED "ILL WALK IF I HAVE TO". SHE REPORTS SHE CAN CALL HER DAUGHTER BUT IT TOOK HER 6+ HRS TO RESPOND TO HER YEST. SHE REPORTS THEY ARE ESTRANGED THIS NURSE TRIED TO EXPLAIN THAT THE BEST RESOURCE I HAVE TO HELP HER IS THE REHAB STAY AND BESIDES THAT RESOURCES ARE LIMITED AND ARE NOT IMMEDIATE- SHE VERIFIED UNDERSTANDING PHYSICAL THERAPY WORKED WITH PATIENT AND STATED THAT DC WITH [facility] WAS APPROPRIATE FOR HER AT TIME OF DC. PATIENT HAS WALKER AT HOME ALREADY ACO WAS REFERRED DURING HER LAST VISIT- S/W MIGUEL SHE WAS NOTIFIED OF THE ABOVE. THEY WILL TRY TO CONTACT PATIENT WHILE STILL IN HOUSE. Initialized on 05/03/22 11:54 - END OF NOTE 05/03/22 10:06 Case Management Note by Emerald Alberts [facility]. THEY ARE AWARE SHE IS HERE. THEY WILL NEED NOTIFIED AT TIME OF DC AT [phone]. THEY WILL TRY TO ARRANGE A SAME DAY VISIT FOR THE PATIENT IF ABLE. THEY WILL NEED FAXED THE DC INSTRUCTIONS, DC MED LIST AND DC SUMMARY (IF AVAILABLE) TO [phone] Initialized on 05/03/22 10:06 - END OF NOTE Code(s): J18.9 - PNEUMONIA, UNSPECIFIED ORGANISM (2) Nausea & vomiting Current Visit: Yes Status: Resolved Code(s): R11.2 - NAUSEA WITH VOMITING, UNSPECIFIED (3) Pulmonary fibrosis Current Visit: No Status: Chronic Code(s): J84.10 - PULMONARY FIBROSIS, UNSPECIFIED
[2022-05-04] MEDS: Klor Con PO SCH ×2 (09:09→21:00)
[2022-05-04] MEDS: ZOLOFT 50 MG TABLET PO SCH (09:09)
[2022-05-04] MEDS: ZOCOR 20MG PO SCH (09:09)
[2022-05-04] MEDS: SYNTHROID 112 MCG PO SCH (09:09)
[2022-05-04] MEDS: Lasix 40 MG PO SCH (09:09)
[2022-05-04] MEDS: DELTASONE 20 MG PO SCH (09:09)
[2022-05-04] MEDS: Levofloxacin 500MG/100ML D5W 500 MG/100 ML BAG IV SCH (09:09)
[2022-05-04] MEDS: Cardizem CD PO SCH (09:09)
[2022-05-04] MEDS: PROVENTIL 2.5 MG/3 ML NEB IH PRN (13:55)
[2022-05-04] MEDS: HUMALOG SQ PRN ×2 (16:37→21:01)
[2022-05-04] MEDS: REQUIP 2MG TAB PO SCH (19:54)
[2022-05-05] MEDS: Sodium Chloride 0.9% 10 ML FLUSH Syringe IV SCH ×2 (06:12→14:37)
[2022-05-05] MEDS: NORCO 7.5/325 MG TAB PO PRN ×2 (06:54→13:45)
[2022-05-05] MEDS: Glucophage XR 500 MG PO SCH (07:56)
[2022-05-05] MEDS: Cardizem CD PO SCH (09:56)
[2022-05-05] MEDS: SYNTHROID 112 MCG PO SCH (09:56)
[2022-05-05] MEDS: DELTASONE 20 MG PO SCH (09:56)
[2022-05-05] MEDS: ZOLOFT 50 MG TABLET PO SCH (09:56)
[2022-05-05] MEDS: Klor Con PO SCH (09:56)
[2022-05-05] MEDS: Lasix 40 MG PO SCH (09:56)
[2022-05-05] MEDS: ZOCOR 20MG PO SCH (09:56)
[2022-05-05] MEDS: Levofloxacin 500MG/100ML D5W 500 MG/100 ML BAG IV SCH (09:57)
[2022-05-05 12:06] VITALS: BP 130/62; PULSE 68; O2SAT 95
--- NOTE | 2022-05-05 13:43 | PCM.DS ---
Discharge Summary Date of Admission: 05/02/22 17:48 Admitting Physician: PEPE MONTGOMERY Primary Care Provider: PEPE MONTGOMERY Allergies Allergies Sulfa (Sulfonamide Antibiotics) Allergy (Severe, Verified 05/02/22 18:12) Itching pollen extracts Allergy (Mild, Verified 05/02/22 18:12) bacitracin [From Neosporin ([id number]-ggs-[id number])] Allergy (Verified 05/02/22 18:12) neomycin [From Neosporin ([id number]-hej-[id number])] Allergy (Verified 05/02/22 18:12) polymyxin B [From Neosporin (fey-qss-gwvhd)] Allergy (Verified 05/02/22 18:12) sulfamethoxazole [From Bactrim] Adverse Reaction (Verified 05/02/22 18:12) trimethoprim [From Bactrim] Adverse Reaction (Verified 05/02/22 18:12) Hospital Summary - Hospital Course Hospital Course: Chief Complaint Diagnosis PNEUMONIA, GENERALIZED WEAKNESS Allergies Allergy/AdvReac Type Severity Reaction Status Date / Time Sulfa (Sulfonamide Allergy Severe Itching Verified 05/02/22 18:12 Antibiotics) pollen extracts Allergy Mild Verified 05/02/22 18:12 bacitracin Allergy Verified 05/02/22 18:12 [From Neosporin ([id number]-kcx-[id number])] neomycin Allergy Verified 05/02/22 18:12 [From Neosporin ([id number]-yon-cjrjh)] polymyxin B Allergy Verified 05/02/22 18:12 [From Neosporin (eos-myq-fvzef)] sulfamethoxazole AdvReac Verified 05/02/22 18:12 [From Bactrim] trimethoprim [From Bactrim] AdvReac Verified 05/02/22 18:12 Vital Signs (Last 24 hours) Temp Pulse Resp BP Pulse Ox 05/05/22 12:00 97.5 F 68 20 130/62 95 05/05/22 07:50 97.1 F 64 18 137/67 97 05/05/22 04:45 97.3 F 67 22 136/70 97 05/05/22 00:00 97.5 F 68 20 127/65 96 05/04/22 19:59 98 F 65 22 117/58 97 05/04/22 19:45 68 20 93 L 05/04/22 16:00 98.4 F 66 18 132/63 95 05/04/22 13:55 84 20 95 Current Medications Generic Name Dose Route Start Last Admin Trade Name Freq PRN Reason Stop Dose Admin Hydrocodone Bitart/Acetaminophen 1 tab 05/02/22 18:27 05/05/22 06:54 Hydrocodone /Apap 7.5/325 Mg 1 Each Tablet PO 05/07/22 18:26 1 tab QID PRN PRN Administration PAIN Albuterol Sulfate 2.5 mg 05/02/22 20:11 05/04/22 13:55 Albuterol Sulfate 2.5 Mg/3 Ml Neb IH 06/01/22 20:10 2.5 mg Q4H PRN PRN Administration SHORTNESS OF BREATH/WHEEZING Bisacodyl 10 mg 05/03/22 07:24 05/04/22 19:50 Bisacodyl 5 Mg Tablet.Ec PO 06/02/22 07:23 10 mg DAILY PRN PRN Administration CONSTIPATION Diltiazem HCl 120 mg 05/03/22 10:00 05/05/22 09:56 Diltiazem Hcl Cd 120 Mg Cap.Sr.24h PO 06/02/22 09:59 120 mg DAILY JOCELYN Administration Furosemide 40 mg 05/03/22 10:00 05/05/22 09:56 Furosemide 40 Mg Tablet PO 06/02/22 09:59 40 mg DAILY JOCELYN Administration Hydroxyzine HCl 25 mg 05/03/22 09:03 05/04/22 14:10 Hydroxyzine Hcl 25 Mg Tablet PO 06/02/22 09:02 25 mg TID PRN PRN Administration ANXIETY Levofloxacin/Dextrose 500 mg in 100 mls @ 100 mls/hr 05/03/22 10:00 05/05/22 09:57 Levofloxacin 500mg/100ml D5w IV 06/02/22 09:59 100 mls/hr Q24H10 JOCELYN Administration Insulin Human Lispro 0 unit 05/02/22 18:24 05/04/22 21:01 Insulin Lispro 1 Unit SQ 06/01/22 18:23 4 unit UD PRN Administration HYPERGLYCEMIA Levothyroxine Sodium 112 mcg 05/03/22 10:00 05/05/22 09:56 Levothyroxine Sodium 112 Mcg Tablet PO 06/02/22 09:59 112 mcg DAILY JOCELYN Administration Metformin HCl 500 mg 05/03/22 08:00 05/05/22 07:56 Metformin Hcl Er 500 Mg Tab PO 06/02/22 07:59 500 mg BREAKFAST JOCELYN Administration Potassium Chloride 10 meq 05/03/22 10:00 05/05/22 09:56 Potassium Chloride Tab 10 Meq Tab PO 06/02/22 09:59 10 meq BID JOCELYN Administration Prednisone 40 mg 05/03/22 10:00 05/05/22 09:56 Prednisone 20 Mg Tablet PO 06/02/22 09:59 40 mg DAILY JOCELYN Administration Ropinirole HCl 2 mg 05/02/22 22:00 05/04/22 19:54 Ropinirole Hcl 2 Mg Tablet PO 06/01/22 21:59 2 mg HS JOCELYN Administration Sertraline HCl 50 mg 05/02/22 22:00 05/05/22 09:56 Sertraline Hcl 50 Mg Tab PO 06/01/22 21:59 50 mg DAILY JOCELYN Administration Simvastatin 40 mg 05/03/22 10:00 05/05/22 09:56 Simvastatin 20 Mg Tablet PO 06/02/22 09:59 40 mg DAILY JOCELYN Administration Sodium Chloride 10 ml 05/02/22 22:00 05/05/22 06:12 Normal Saline 10 Ml Flush IV 06/01/22 21:59 10 ml Q8HT JOCELYN Administration Discontinued Medications Generic Name Dose Route Start Last Admin Trade Name Freq PRN Reason Stop Dose Admin Bisacodyl 10 mg 05/02/22 22:30 05/02/22 22:22 Bisacodyl 5 Mg Tablet.Ec PO 05/02/22 22:31 10 mg ONCE ONE Administration Sodium Chloride 1,000 mls @ 50 mls/hr 05/02/22 13:15 05/02/22 13:40 Sodium Chloride 0.9% 1000 Ml IV 06/01/22 13:14 50 mls/hr .Q20H JOCELYN Administration Sodium Chloride Confirm 05/02/22 13:40 Sodium Chloride 0.9% 1000 Ml Administered 05/02/22 13:41 Dose 1,000 mls @ ud .ROUTE .STK-MED ONE Sodium Chloride 1,000 mls @ 75 mls/hr 05/02/22 18:00 05/02/22 18:31 Sodium Chloride 0.9% 1000 Ml IV 06/01/22 17:59 Not Given .[id number] JOCELYN Intake & Output (Last 24 hours) 05/03/22 05/04/22 05/05/22 05/06/22 11:59 11:59 11:59 11:59 Intake Total 500 1440 1320 Output Total 750 Balance -250 1440 1320 Weight 79.2 kg Laboratory Results (Last 24 hours) 05/05/22 05/05/22 05/04/22 11:38 07:46 20:51 POC Glucometer 113 H 90 258 H 05/04/22 16:15 POC Glucometer 224 H Orders (Last 24 hours) Category Date Time Status POCT GLUCOSE Stat Lab 05/04/22 16:15 Completed POCT GLUCOSE Stat Lab 05/04/22 20:51 Completed POCT GLUCOSE Stat Lab 05/05/22 07:46 Completed POCT GLUCOSE Stat Lab 05/05/22 11:38 Completed - Vitals & Intake/Output Vital Signs: Vital Signs Temperature 97.5 F 05/05/22 12:00 Pulse Rate 68 05/05/22 12:00 Respiratory Rate 20 05/05/22 12:00 Blood Pressure 130/62 05/05/22 12:00 O2 Sat by Pulse Oximetry 95 05/05/22 12:00 Intake & Output: Intake & Output 05/03/22 05/04/22 05/05/22 05/06/22 11:59 11:59 11:59 11:59 Intake Total 500 1440 1320 Output Total 750 Balance -250 1440 1320 Weight 79.2 kg - Lab Result Diagrams: 05/04/22 05:14 05/04/22 05:14 Lab Results-Last 24 Hrs: Lab Results-Last 24 Hours 05/04/22 05/04/22 05/05/22 Range/Units 16:15 20:51 07:46 POC Glucometer 224 H 258 H 90 (74 to 106) mg/dL 05/05/22 Range/Units 11:38 POC Glucometer 113 H (74 to 106) mg/dL Micro Results-Entire Visit: Microbiology 05/02/22 13:23 Blood Culture - Preliminary Blood NO GROWTH TO DATE 05/02/22 13:16 Blood Culture - Preliminary Blood NO GROWTH TO DATE Accuchecks Date 05/05/22 Date 05/05/22 Date 05/05/22 Date 05/04/22 Date 05/04/22 Time 11:39 Time 11:45 Time 07:30 Time 21:02 Time 16:15 - Radiology Exams Ordered Rad Exams-Entire Visit: Radiology Procedures Category Date Time Status GALLBLADDER [US] Routine Exams 05/03/22 13:42 Completed - Procedures and Test Procedures and Tests throughout Hospitalization: Therapy Orders & Screens 05/02/22 18:12 RT Screen per Nursing Assess ONCE Comment: Protocol Order Physician Instructions: Greater than 3 points order RT Admission Screen Reason For Exam: Triggered on Admission Diagnosis: PNEUMONIA, GENERALIZED WEAKNESS Diagnosis: PNEUMONIA, GENERALIZED WEAKNESS Pneumonia: Yes Home O2: Yes Asthma: No CHF: No Home CPAP/BIPAP: No Home Nebs/MDI: No Total Points: 8 05/02/22 20:11 Oxygen NASAL CANNULA 2 lpm Comment: Diagnosis: PNEUMONIA, GENERALIZED WEAKNESS Respiratory Therapy Assessment DAILY Comment: Diagnosis: PNEUMONIA, GENERALIZED WEAKNESS 05/03/22 10:12 PT Eval & Treat (MD Order) ONCE Reason for Eval:: WEAKNESS Diagnosis: PNEUMONIA, GENERALIZED WEAKNESS Discharge Exam General Appearance: no apparent distress, alert Neurologic Exam: alert, oriented x 3, cooperative, normal mood/affect, nml cerebellar function, sensation nml, No motor deficits Eye Exam: PERRL, EOMI, eyes nml inspection Ears, Nose, Throat Exam: normal ENT inspection, pharynx normal, moist mucous membranes Neck Exam: normal inspection, non-tender, supple, full range of motion Respiratory Exam: normal breath sounds, lungs clear, No respiratory distress Cardiovascular Exam: regular rate/rhythm, normal heart sounds Gastrointestinal/Abdomen Exam: soft, No tenderness, No mass Pelvic Exam: deferred Rectal Exam: deferred Back Exam: normal inspection, normal range of motion, No CVA tenderness, No vertebral tenderness Extremity Exam: normal inspection, normal range of motion Skin Exam: normal color, warm, dry Final Diagnosis/Problem List - Final Discharge Diagnosis/Problem (1) Pneumonia Current Visit: Yes Status: Resolved Code(s): J18.9 - PNEUMONIA, UNSPECIFIED ORGANISM (2) Nausea & vomiting Current Visit: Yes Status: Resolved Code(s): R11.2 - NAUSEA WITH VOMITING, UNSPECIFIED (3) Pulmonary fibrosis Current Visit: Yes Status: Chronic Code(s): J84.10 - PULMONARY FIBROSIS, U NSPECIFIED - Discharge Discharge Date: 05/05/22 Disposition: Home, Self-Care Condition: Stable Prescriptions: Continue Atorvastatin Calcium 80 mg PO DAILY Levothyroxine Sodium [Euthyrox] 112 mcg PO DAILY Ropinirole 2Mg [Requip 2Mg Tab] 2 mg PO HS Metformin HCl [Metformin HCl ER] 500 mg PO DAILY Diltiazem HCl Cd [Cardizem CD ] 120 mg PO DAILY Hydrocodone/Acetaminophen [Hydrocodone-Acetamin 7.5-325] 1 tab PO QID Potassium Chloride Tab* [Klor Con] 10 meq PO BID #60 tablet Furosemide 40 mg [Lasix 40 MG] 40 mg PO DAILY #30 tablet Levofloxacin [Levofloxacin 500 MG Tablet] 500 mg PO QAM #5 tablet Sertraline HCl 50 mg [Zoloft 50 mg Tablet] 50 mg PO DAILY #30 tab Bisacodyl 10 mg PO DAILY PRN PRN #10 tablet PRN Reason: Constipation Additional Instructions: ANNEMARIE TIRADO was discharged on 05/05/22 from hospital At that time you were treated for Pneumonia and other different conditions. during your visit Laboratory, Radiology and/or other procedures may have been ordered. It is very important that you follow-up with your Primary Care Physician PEPE MONTGOMERY within the next 24-48 hours to review your Emergency Room visit and the final results of testing that was ordered. Some test results such as Urine Cultures, Blood Cultures, and other cultures if ordered will not be finalized for 24-48 hours. If you do not have a Primary Care Provider please call the medical records department at [phone] ext [phone] to obtain a copy of your results or you may sign into our patient portal to obtain these results by visiting us @ [email or web address] and completing the following steps: 1. Click on the Patient Portal link 2. Click the Patient Self Enrollment Link to complete the enrollment form and entering your 3. Once the enrollment form is completed you will receive an email with a temporary ID and password at the email address you provided. 4. Next choose a user name and password. Your user name must be at least 4 characters long and your password must be at least 4 characters long. 5. Choose a security question from the list and provide your answer to the question. If you already have signed into the Health Portal you may access your Health Care Information 10/03 by the following steps: 1. Login to our website @ [email or web address] 2. Enter your original user name and password. FAQS The [facility] Health Portal is an online tool that contains your Lab Results, Radiology Reports, Visit History, Discharge Instructions and Health Summary Lab and Radiology Results will not be available for 72 hours on the portal. The Portal is a secure site, passwords are encryted and URLs are re-written so they cannot be copied and pasted. You and authorized family members are the only ones who can access your Portal. Also there is a timeout feature that protects your information if you leave the Portal page open. If you have technical difficulty please use the Contact Us link on the page this will allow you to submit any questions you have regarding the Portal or you may contact the Medical Record Department at [phone] ext [phone]. Follow up with: PEPE MONTGOMERY MD [Primary Care Provider] - 7 Days
== END 2022-05-05 16:25 | disposition home or self-care (01) ==
LOC: ED 13:02 → MED SURG 17:48
PROVIDERS: ADMIT Family Medicine; ATTEND Family Medicine
DX: J18.9 Pneumonia, unspecified organism (principal); R11.2 Nausea with vomiting, unspecified; J84.10 Pulmonary fibrosis, unspecified; I11.0 Hypertensive heart disease with heart failure; I50.9 Heart failure, unspecified; E78.00 Pure hypercholesterolemia, unspecified; E11.9 Type 2 diabetes mellitus without complications; Z20.828 Contact with and (suspected) exposure to other viral communicable diseases; Z79.899 Other long term (current) drug therapy
CPT/HCPCS: 0241U; 36000; 36415; 71045; 76705; 80053; 81015; 82947; 83036; 83605; 83735; 84443; 84484; 85025; 87040; 93005; 93041; 94640; 94760; 96360; 96361; 97161; 99285; 93268; J1817; J1956; J7609; A9270-GY; G0378

== ENCOUNTER 2022-06-30 15:17 | Emergency (ER) | payer BC ==
[2022-06-30] MEDS ORDERED: TYLENOL EXTRA STRENGTH 500 MG PO PRN (15:28)
[2022-06-30] MEDS ORDERED: TYLENOL EXTRA STRENGTH 500 MG ONE (15:34)
--- NOTE | 2022-06-30 15:39 | ERPHSYRPT ---
- History of Present Illness Time Seen by Provider: 06/30/22 15:36 Source: patient Exam Limitations: no limitations Patient Subjective Stated Complaint: pt here for cough, fever, aches today. wears home o2 Triage Nursing Assessment: pt alert, resp easy, skin w.d.p. no edema noted, has productive cough, white sputum Physician History: pt here for cough, fever, aches today. wears home o2 started today. Timing/Duration: today Cough Quality/Degree: dry cough Possible Cause: no prior episodes Associated Symptoms: fever, chills, headache, muscle aches Allergies/Adverse Reactions: Sulfa (Sulfonamide Antibiotics) Allergy (Severe, Verified 06/30/22 15:18) Itching pollen extracts Allergy (Mild, Verified 06/30/22 15:18) bacitracin [From Neosporin (phv-inn-hcuis)] Allergy (Verified 06/30/22 15:18) neomycin [From Neosporin (inn-dqw-rbqva)] Allergy (Verified 06/30/22 15:18) polymyxin B [From Neosporin (alw-piq-rgwja)] Allergy (Verified 06/30/22 15:18) sulfamethoxazole [From Bactrim] Adverse Reaction (Verified 06/30/22 15:18) trimethoprim [From Bactrim] Adverse Reaction (Verified 06/30/22 15:18) Home Medications: Atorvastatin Calcium 80 mg PO DAILY 05/06/20 [History] Levothyroxine Sodium [Euthyrox] 112 mcg PO DAILY 05/06/20 [History] Ropinirole 2Mg [Requip 2Mg Tab] 2 mg PO HS 05/06/20 [History] Metformin HCl [Metformin HCl ER] 500 mg PO DAILY 03/08/21 [History] Diltiazem HCl Cd [Cardizem CD ] 120 mg PO DAILY 09/11/21 [History] Hydrocodone/Acetaminophen [Hydrocodone-Acetamin 7.5-325] 1 tab PO QID 12/08/21 [History] Hx Tetanus, Diphtheria Vaccination/Date Given: Yes Hx Influenza Vaccination/Date Given: No Hx Pneumococcal Vaccination/Date Given: No Immunizations Up to Date: Yes Travel Risk - International Travel Have you traveled outside of the country in past 3 weeks: No - Coronavirus Screening Are you exhibiting any of the following symptoms?: Yes Symptoms: Cough: New Onset Close contact with a COVID-19 positive Pt in past 14-21 Days: No - Vaccine Status Have you recieved a Covid-19 vaccination: No - Review of Systems Constitutional: Malaise, Weakness, No Fever, No Chills Eyes: No Symptoms Ears, Nose, & Throat: No Symptoms, Throat Pain Respiratory: Cough, No Dyspnea Cardiac: No Chest Pain, No Edema, No Syncope Abdominal/Gastrointestinal: No Abdominal Pain, No Nausea, No Vomiting, No Diarrhea Genitourinary Symptoms: No Dysuria Musculoskeletal: No Back Pain, No Neck Pain Skin: No Rash Neurological: No Dizziness, No Focal Weakness, No Sensory Changes Psychological: No Symptoms Endocrine: No Symptoms All Other Systems: Reviewed and Negative - Past Medical History Pertinent Past Medical History: Yes Neurological History: Migraines ENT History: No Pertinent History Cardiac History: Arrhythmia, Congestive Heart Failure, High Cholesterol, Hypertension Respiratory History: Bronchitis, CHF, Pneumonia Endocrine Medical History: Diabetes Type II, Hypothyroidism Musculoskeletal History: Arthritis GI Medical History: No Pertinent History History: No Pertinent History Psycho-Social History: Anxiety Female Reproductive Disorders: No Pertinent History Other Medical History: pulmunary fibrosis - Past Surgical History Past Surgical History: Yes Neuro Surgical History: No Pertinent History Cardiac: Pacemaker, Other Respiratory: No Pertinent History Gastrointestinal: No Pertinent History Genitourinary: No Pertinent History Musculoskeletal: No Pertinent History Female Surgical History: No Pertinent History Other Surgical History: Cardiac arrest during heart surgery, covid - Social History Smoking Status: Former smoker Exposure to second hand smoke: No Drug Use: none Patient Lives Alone: Yes Significant Family History: no pertinent family hx - Nursing Vital Signs Nursing Vital Signs: Initial Vital Signs Temperature 99.1 F 06/30/22 15:23 Pulse Rate 65 06/30/22 15:23 Respiratory Rate 18 06/30/22 15:23 Blood Pressure 152/78 06/30/22 15:23 O2 Sat by Pulse Oximetry 100 06/30/22 15:23 Pain Scale Pain Intensity 5 - Physical Exam General Appearance: no apparent distress, alert Eye Exam: PERRL/EOMI, eyes nml inspection Ears, Nose, Throat Exam: normal ENT inspection, TMs normal, pharynx normal, moist mucous membranes Neck Exam: normal inspection, non-tender, supple, full range of motion Respiratory Exam: normal breath sounds, lungs clear, No respiratory distress Cardiovascular Exam: regular rate/rhythm, normal heart sounds Gastrointestinal/Abdomen Exam: soft, No tenderness Back Exam: normal inspection, No CVA tenderness, No vertebral tenderness Extremity Exam: normal inspection, normal range of motion Neurologic Exam: alert, oriented x 3, cooperative, normal mood/affect, sensation nml, No motor deficits Skin Exam: normal color, warm, dry, No rash Lymphatic Exam: No adenopathy SpO2: 99 - Course Nursing assessment & vital signs reviewed: Yes - Radiology Exams Chest X-ray Interpretation: Reviewed by me, Negative, No Pneumonia Ordered Tests: Active Orders 24 hr Category Date Time Status CHEST 2 VIEWS (PA AND LAT) Stat Exams 06/30/22 17:14 Taken Medication Summary Generic Name Dose Route Start Last Admin Trade Name Freq PRN Reason Stop Dose Admin Acetaminophen 1,000 mg 06/30/22 15:28 06/30/22 15:35 Acetaminophen 500 Mg Tablet PO 07/30/22 15:27 1,000 mg Q4H PRN PRN Administration HEADACHE Lab/Rad Data: Laboratory Results 06/30/22 Range/Units 15:43 Influenza Type A Ag NEGATIVE (NEGATIVE) Influenza Type B Ag NEGATIVE (NEGATIVE) RSV (PCR) NEGATIVE (Negative) SARS-CoV-2 (PCR) NEGATIVE (NEGATIVE) - Progress Progress: improved Air Movement: good Blood Culture(s) Obtained: No Antibiotics given: No Counseled pt/family regarding: lab results, diagnosis, need for follow-up, rad results - Departure Departure Disposition: Home Clinical Impression: Viral syndrome, Bronchitis Condition: Stable Critical Care Time: No Referrals: PEPE MONTGOMERY MD [Primary Care Provider] - Follow up/PCP as directed Instructions: Cough, Adult (DC), Acute Bronchitis Additional Instructions: Discharge/Care Plan ANNEMARIE TIRADO was seen on 06/30/22 in the Emergency Room. The patient was counseled regarding Diagnosis,Lab results, Imaging studies, need for follow up and when to return to the Emergency Room. Prescriptions given: Discharge Note I have spoken with the patient and/or caregivers. I have explained the patient's condition, diagnosis and treatment plan based on the information available to me at this time. I have answered the patient's and/or caregiver's questions and addressed any concerns. The patient and/or caregivers have as good understanding of the patient's diagnosis, condition and treatment plan as can be expected at this point. The vital signs have been stable. The patient's condition is stable and appropriate for discharge from the emergency department. The patient will pursue further outpatient evaluation with the primary care physician or other designated or consulting physician as outlined in the discharge instructions. The patient and/or caregivers are agreeable to this plan of care and follow-up instructions have been explained in detail. The patient and/or caregivers have received these instruction. The patient/and or caregivers are aware that any significant change in condition or worsening of symptoms should prompt an immediate return to this or the closest emergency department or call 911. ANNEMARIE TIRADO was seen on 06/30/22 n the Emergency Room. At that time you were treated for an emergent condition, during your visit Laboratory, Radiology and/or other procedures may have been ordered. It is very important that you follow-up with your Primary Care Physician PEPE MONTGOMERY within the next 24- 48 hours to review your Emergency Room visit and the final results of testing that was ordered. Some test results such as Urine Cultures, Blood Cultures, and other cultures if ordered will not be finalized for 24-48 hours. If you do not have a Primary Care Provider please call the medical records department at [phone] ext [phone] to obtain a copy of your results or you may sign into our patient portal to obtain these results by visiting us @ [email or web address] and completing the following steps: 1. Click on the Patient Portal link 2. Click the Patient Self Enrollment Link to complete the enrollment form and entering your 3. Once the enrollment form is completed you will receive an email with a temporary ID and password at the email address you provided. 4. Next choose a user name and password. Your user name must be at least 4 characters long and your password must be at least 4 characters long. 5. Choose a security question from the list and provide your answer to the question. If you already have signed into the Health Portal you may access your Health Care Information 10/03 by the following steps: 1. Login to our website @ [email or web address] 2. Enter your original user name and password. FAQS The [facility] Health Portal is an online tool that contains your Lab Results, Radiology Reports, Visit History, Discharge Instructions and Health Summary Lab and Radiology Results will not be available for 72 hours on the portal. The Portal is a secure site, passwords are encryted and URLs are re-written so they cannot be copied and pasted. You and authorized family members are the only ones who can access your Portal. Also there is a timeout feature that protects your information if you leave the Portal page open. If you have technical difficulty please use the Contact Us link on the page this will allow you to submit any questions you have regarding the Portal or you may contact the Medical Record Department at [phone] ext [phone]. Prescriptions: Azithromycin [Azithromycin 250 mg Pack] 250 mg PO UD #6 tablet Methylprednisolone Packet [Medrol Dosepack] 4 mg PO UD #21 packet
[2022-06-30 16:15] LABS: INFLUENZA A NEGATIVE (NEGATIVE); INFLUENZA B NEGATIVE (NEGATIVE); RESPIRATORY SYNCTIAL VIRUS NEGATIVE (Negative); SARS-CoV-2 Xpert Express NEGATIVE (NEGATIVE)
[2022-06-30] MEDS ORDERED: Rocephin 1000 MG INJ IM ONE (17:24)
[2022-06-30] MEDS ORDERED: Rocephin 1000 MG INJ ONE (17:29)
[2022-06-30 17:50] VITALS: BP 140/98; PULSE 66; O2SAT 100
--- NOTE | 2022-06-30 18:16 | XRAY ---
Indication: Fever and cough. Comparison: May 02, 2022 PA/lateral chest again demonstrates cardiomegaly with left pacemaker, chronic lung markings, osteopenia, bony degenerative changes, and bilateral calcified breast implants. No new cardiopulmonary abnormalities.
== END 2022-06-30 17:51 | disposition home or self-care (01) ==
LOC: ED 15:17
DX: J40 Bronchitis, not specified as acute or chronic (principal); B34.9 Viral infection, unspecified; Z99.81 Dependence on supplemental oxygen; R05.1 Acute cough; R50.9 Fever, unspecified; E78.5 Hyperlipidemia, unspecified; I11.0 Hypertensive heart disease with heart failure; E11.9 Type 2 diabetes mellitus without complications; Z79.891 Long term (current) use of opiate analgesic; Z79.52 Long term (current) use of systemic steroids; Z79.899 Other long term (current) drug therapy; Z28.310 Unvaccinated for COVID-19
CPT/HCPCS: 0241U; 71046; 96372; 99283; J0696; A9270-GY

== ENCOUNTER 2022-07-26 10:27 | Emergency (ER) | payer BC ==
[2022-07-26 11:30] VITALS: BP 143/73; PULSE 65; O2SAT 100
--- NOTE | 2022-07-26 11:54 | ERPHSYRPT ---
- History of Present Illness Source: patient Exam Limitations: no limitations Patient Subjective Stated Complaint: pt reports a fall 3 weeks ago in which she injured her back, reports chronic back pain that is managed by pain specialist. states this injury has caused pain in a new location. pain is at the level of the bra line. Triage Nursing Assessment: pt is aox3, pupils perrl, afebrile, resps easy and non labored, cap refill < 3 seconds, pt skin pink warm dry. no obvious injury or deformity appreciated. Physician History: 72 yo wf cc of mid-thoracic pain s/p fall 3 wks ago at home after tripping. She has chronic lumbar pain and sees pain management. Pt was seen in [facility] before coming to ER and has a R posterior mildly displaced 6th rib fx. She denies any new trauma since the fall and denies head injury/KIRK/chest pain/abdominal pain/hip pain/upper extremity pain/lower extremity pain. Lumbar pain is chronic and not new. Pain 10 on scale and worse w movement. Timing/Duration: other (3 wks) Method of Injury: fall Quality: sharp Back Pain Location: T-spine Severity of Pain-Max: severe Severity of Pain-Current: severe Modifying Factors: Improves With: movement Associated Symptoms: denies symptoms Previous symptoms: no prior history Allergies/Adverse Reactions: Sulfa (Sulfonamide Antibiotics) Allergy (Severe, Verified 07/26/22 11:30) Itching pollen extracts Allergy (Mild, Verified 07/26/22 11:30) bacitracin [From Neosporin ([id number])] Allergy (Verified 07/26/22 11:30) neomycin [From Neosporin ([id number])] Allergy (Verified 07/26/22 11:30) polymyxin B [From Neosporin ([id number])] Allergy (Verified 07/26/22 11:30) sulfamethoxazole [From Bactrim] Adverse Reaction (Verified 07/26/22 11:30) trimethoprim [From Bactrim] Adverse Reaction (Verified 07/26/22 11:30) Home Medications: Atorvastatin Calcium 80 mg PO DAILY 05/06/20 [History] Levothyroxine Sodium [Euthyrox] 112 mcg PO DAILY 05/06/20 [History] Ropinirole 2Mg [Requip 2Mg Tab] 2 mg PO HS 05/06/20 [History] Metformin HCl [Metformin HCl ER] 500 mg PO DAILY 03/08/21 [History] Diltiazem HCl Cd [Cardizem CD ] 120 mg PO DAILY 09/11/21 [History] Hydrocodone/Acetaminophen [Hydrocodone-Acetamin 7.5-325] 1 tab PO QID 12/08/21 [History] Hx Tetanus, Diphtheria Vaccination/Date Given: No Hx Influenza Vaccination/Date Given: No Hx Pneumococcal Vaccination/Date Given: No Immunizations Up to Date: Yes Travel Risk - International Travel Have you traveled outside of the country in past 3 weeks: No - Coronavirus Screening Are you exhibiting any of the following symptoms?: No Close contact with a COVID-19 positive Pt in past 14-21 Days: No - Vaccine Status Have you recieved a Covid-19 vaccination: No - Review of Systems Constitutional: No Symptoms Eyes: No Symptoms Ears, Nose, & Throat: No Symptoms Respiratory: No Symptoms Cardiac: No Symptoms Abdominal/Gastrointestinal: No Symptoms Genitourinary Symptoms: No Symptoms Skin: No Symptoms Neurological: No Symptoms Psychological: No Symptoms Endocrine: No Symptoms Hematologic/Lymphatic: No Symptoms Immunological/Allergic: No Symptoms - Past Medical History Pertinent Past Medical History: Yes Neurological History: Migraines ENT History: No Pertinent History Cardiac History: Arrhythmia, Congestive Heart Failure, High Cholesterol, Hypertension Respiratory History: Bronchitis, CHF, Pneumonia Endocrine Medical History: Diabetes Type II, Hypothyroidism Musculoskeletal History: Arthritis GI Medical History: No Pertinent History History: No Pertinent History Psycho-Social History: Anxiety Female Reproductive Disorders: No Pertinent History Other Medical History: pulmunary fibrosis - Past Surgical History Past Surgical History: Yes Neuro Surgical History: No Pertinent History Cardiac: Pacemaker, Other Respiratory: No Pertinent History Gastrointestinal: No Pertinent History Genitourinary: No Pertinent History Musculoskeletal: No Pertinent History Female Surgical History: No Pertinent History Other Surgical History: Cardiac arrest during heart surgery, covid - Social History Smoking Status: Never smoker Exposure to second hand smoke: No Drug Use: none Patient Lives Alone: Yes Significant Family History: no pertinent family hx - Nursing Vital Signs Nursing Vital Signs: Initial Vital Signs Temperature 97.9 F 07/26/22 11:22 Pulse Rate 65 07/26/22 11:22 Respiratory Rate 24 07/26/22 11:22 Blood Pressure 143/73 07/26/22 11:22 O2 Sat by Pulse Oximetry 100 07/26/22 11:22 Pain Scale Pain Intensity 9 Mildly hypertensive - Physical Exam General Appearance: no apparent distress Eye Exam: PERRL/EOMI, eyes nml inspection Ears, Nose, Throat Exam: normal ENT inspection, TMs normal, pharynx normal, moist mucous membranes Neck Exam: normal inspection, non-tender, supple, full range of motion, No meningismus, No mass, No Brudzinski, No Kernig's Respiratory Exam: airway intact, crackles/rales (Faint rales at bases B) Cardiovascular Exam: regular rate/rhythm, normal heart sounds, normal peripheral pulses, capillary refill <2 sec, No murmur Gastrointestinal Exam: soft, normal bowel sounds, No tenderness Back Exam: vertebral tenderness (Mid T-spine TTP w R/L paraspinous TTP) Extremity Exam: normal inspection, normal range of motion, pelvis stable Peripheral Pulses: carotid (R): 2+, carotid (L): 2+ Neurologic Exam: alert, oriented x 3, cooperative, diagnostic medical sonographer II-XII nml as tested, normal mood/affect, sensation nml, No motor deficits, No sensory deficit Skin Exam: normal color, warm, dry Lymphatic Exam: No adenopathy SpO2 Interpretation: normal SpO2: 100 O2 Delivery: Room Air - Course Nursing assessment & vital signs reviewed: Yes Ordered Tests: Medication Summary Discontinued Medications Generic Name Dose Route Start Last Admin Trade Name Aydee PRN Reason Stop Dose Admin Ketorolac Tromethamine 15 mg 07/26/22 11:58 07/26/22 12:02 Ketorolac Tromethamine 30 Mg/Ml Inj IM 07/26/22 11:59 15 mg STAT ONE Administration Ketorolac Tromethamine Confirm 07/26/22 12:02 Ketorolac Tromethamine 30 Mg/Ml Inj Administered 07/26/22 12:03 Dose 30 mg .ROUTE .STK-MED ONE - Progress Progress: improved Progress Note: 07/26/22 11:59 15MG IM Toradol Counseled pt/family regarding: diagnosis, need for follow-up, rad results - Departure Departure Disposition: Home Clinical Impression: Rib fracture Condition: Stable Critical Care Time: No Referrals: PEPE MONTGOMERY MD [Primary Care Provider] - Follow up/PCP as directed Instructions: Rib Fracture (DC) Additional Instructions: Continue with home pain meds Follow up with your family MD and pain management Return to ER for increasing pain or temperature greater than 100.5
[2022-07-26] MEDS ORDERED: TORAdol 30 mg Injection IM ONE (11:58)
[2022-07-26] MEDS ORDERED: TORAdol 30 mg Injection ONE (12:02)
== END 2022-07-26 12:25 | disposition home or self-care (01) ==
LOC: ED 10:27
DX: S22.31XA Fracture of one rib, right side, initial encounter for closed fracture (principal); W01.0XXA Fall on same level from slipping, tripping and stumbling without subsequent striking against object, initial encounter; E78.5 Hyperlipidemia, unspecified; I11.0 Hypertensive heart disease with heart failure; E11.9 Type 2 diabetes mellitus without complications; Z79.891 Long term (current) use of opiate analgesic; Z79.84 Long term (current) use of oral hypoglycemic drugs; Z79.899 Other long term (current) drug therapy; Z28.310 Unvaccinated for COVID-19
CPT/HCPCS: 96372; 99282; J1885

== ENCOUNTER 2022-12-20 13:01 | Observation (INO) | payer BC ==
[2022-12-20] MEDS ORDERED: Sodium Chloride 0.9% 1000 ML 1,000 ML IV STA (13:05)
[2022-12-20] MEDS ORDERED: BENADRYL 50 MG/ML IV ONE (13:06)
[2022-12-20] MEDS ORDERED: TORAdol 30 mg Injection IV ONE (13:06)
[2022-12-20 13:23] LABS: Hematocrit 43.1 % (35-47); Hemoglobin 14.5 g/dL (12.0-16.0); Mean Cell Volume 89.2 fL (78-100); Mean Corpuscular Hgb Concent. 33.6 g/dL (32-36); Mean Platelet Volume 9.9 fL (7.5-11.0); Platelet Count 202 x10^3/uL (150-450); Red Blood Count 4.83 x10^6/uL (4.1-5.4); Red Cell Distribution Width 13.2 % (11.5-14.0); White Blood Count 22.6 x10^3/uL (4.0-10.5)
[2022-12-20 13:41] LABS: Lymphocytes 1 % (24-44); Monocyte 3 % (0.0-12.0); Neutrophils 96 % (36.0-66.0); Platelet Estimate NORMAL (NORMAL); Total Cells Counted 100; Toxic Granulation 1+
[2022-12-20 13:45] LABS: ISTAT CREA 0.6 mg/dL (0.6-1.3); ISTAT K 4.1 mmol/L (3.5-4.9); ISTAT iCA 1.09 mmol/L (1.12-1.32)
[2022-12-20 13:59] LABS: INFLUENZA A NEGATIVE (NEGATIVE); INFLUENZA B NEGATIVE (NEGATIVE); RESPIRATORY SYNCTIAL VIRUS NEGATIVE (NEGATIVE); SARS-CoV-2 Xpert Express NEGATIVE (NEGATIVE)
[2022-12-20 14:10] LABS: ISTAT cTNI 0.01 ng/mL (0.00-0.03)
[2022-12-20] MEDS ORDERED: BENADRYL 50 MG/ML ONE (14:58)
[2022-12-20] MEDS ORDERED: TORAdol 30 mg Injection ONE (14:58)
[2022-12-20] MEDS ORDERED: Sodium Chloride 0.9% 1000 ML 1,000 ML ONE (14:59)
[2022-12-20] MEDS ORDERED: Zofran 4 MG/2 ML VIAL IV ONE (16:00)
[2022-12-20] MEDS ORDERED: Zofran 4 MG/2 ML VIAL ONE ×2 (16:17→16:19)
--- NOTE | 2022-12-20 17:37 | XRAY ---
CLINICAL HISTORY:vomiting, malaise, SOB; COMPARISON:CT chest dated 04/26/2022; TECHNIQUES:Multiple thin sections of CT chest were acquired with IV contrast administration. In addition, coronal and sagittal images were also acquired; FINDINGS: Patchy consolidation with air bronchogram is seen in the posterior segment of the right upper lobe, limited by the Oblique fissure. Perifissural nodule is seen in the right middle lobe [id number] x 9.7 mm in size. There is subsegmental collapse of Inferior lingular segment of the upper and the left lower lung lobes. Groundglass attenuation with smooth interlobular septal thickening and fibrosis is seen in the Subpleural distribution of both upper, right middle and both lower lung lobes [Left lower lung lobe being affected more than the other lobes]. This is resulting in mild varicose bronchiectasis In both lungs with cystic bronchiolectasis noted in the left lower lung lobe. Bilateral breast implants are noted with calcified margins and intracapsular tear at multiple places. The breast implants Appear shrunken. Visualized lungs show thoracic spondylosis, Scoliosis of thoracic spine with convexity towards right side with partial Compression and anterior wedging of T8, T9 and T12 Vertebral bodies, further correlation with MRI of the thoracic spine is advised. A dual-chamber cardiac pacemaker is noted. Heart size is enlarged. No pleural effusion or pericardial effusion is seen. IMPRESSION: Patchy consolidation with air bronchograms in the right upper lobe, infective etiology. Perifissural nodule in the right middle lung. Subsegmental collapse of the left upper and lower lung lobes. Groundglass attenuation with interlobular septal thickening with fibrosis and subpleural distribution of both the lungs causing bronchiectasis, left lower lung lobe affected more than the other lobes. These findings are suggestive of chronic interstitial changes in the parenchyma. Bilateral breast implants, thoracic spondylosis with compression fractures of T8, T9 and T12 vertebral bodies [further MRI correlation is advised]. Cardiomegaly. In comparison with prior CT chest dated 04/26/2022, the right lung consolidation is a new finding. The compression fracture of T9 vertebral body is a new finding. The other findings appear grossly unchanged. Electronically Signed by: Elysia Luevano MD. ( 12/20/2022 16:24:14 [employer])
--- NOTE | 2022-12-20 17:45 | XRAY ---
CLINICAL HISTORY:vomiting, ab pain, malaise; COMPARISON:Prior CT abdomen and pelvis dated 12/07/2021; TECHNIQUES:Contiguous multislice CT of the abdomen and pelvis was performed in the axial plane with coronal and sagittal reconstructions after the administration of intravenous contrast; FINDINGS: The liver is normal in contour and attenuation. A tiny simple cyst is seen in segment 2 measuring 5 mm in diameter.. No evidence of intrahepatic biliary dilatation is seen. CBD and portal vein are normal. The gall bladder is regular in contour and attenuation. No evidence of calculi. The pancreas is normal in shape and contour. Peripancreatic planes appear normal. No evidence of calcification or pancreatic duct dilatation is seen. The spleen is normal in contour and attenuation. There is thickening of the body in both the limbs of the left adrenal gland. The right adrenal gland is normal. Both kidneys are normal in size, shape and attenuation. No calculi / No hydronephrosis.Multiple Hyper dense foci are seen in the bilateral renal medullary regions, which could be secondary to stasis of intravenous contrast Or medullary nephrocalcinosis. Stomach and bowel loops are normal.The appendix is not visualized. Aorta and IVC are normal. The urinary bladder is normal. The uterus is atrophic, anteverted and grossly unremarkable. Rectum and perirectal fat planes are normal. The bone window setting shows Lumbar spondylosis with grade 1 anterolisthesis of L5 over S1 with partial anterior wedging and compression of L1 and L3 vertebral bodies. IMPRESSION: A tiny simple cyst in segment 2 of the liver. Thickening of the left adrenal gland, which appears stable in comparison with prior CT. Hyperdense foci in both adrenal medullary regionscould be secondary to intravenous contrast stasis or medullary nephrocalcinosis. These changes are not present in the prior CT. Lumbar spondylosis with grade 1 anterolisthesis of L5 over S1 with partial anterior wedging and compression of L1 and L3 vertebral bodies which needs further correlation with an MRI of the lumbar spine. Electronically Signed by: Elysia Luevano MD. (12/20/2022 16:22:39 [employer])
[2022-12-20 18:06] LABS: ADD URINE CULTURE? YES (NO); Appearance Clear (Clear); Bacteria None Seen /HPF (None Seen); Bilirubin Small (Negative); Blood Trace (Negative); Epithelial Cells None Seen /HPF (None Seen); Glucose, Urine Negative (Negative); Hyaline Casts NONE SEEN /LPF (0-2); Ketones 40 (Negative); Leukocyte Esterase Negative (Negative); Nitrite Negative (Negative); Ph 5.5 (4.6-8.0); Protein,Urine Dip 300 (Negative); Specific Gravity >=1.030 (1.005-1.030); WBC 21-50 /HPF (0-5)
[2022-12-20] MEDS ORDERED: LEVOFLOXACIN 750MG/150ML D5W 750 MG/150 ML BAG IV ONE ×2 (18:41→19:13)
[2022-12-20] MEDS ORDERED: Zofran 4 MG/2 ML VIAL IV PRN (18:43)
[2022-12-20] MEDS ORDERED: MORPHINE SULFATE 4 MG INJ IV PRN (18:43)
[2022-12-20] MEDS ORDERED: Sodium Chloride 0.9% 1000 ML 1,000 ML IV SCH (18:45)
[2022-12-20] MEDS ORDERED: MORPHINE SULFATE 4 MG INJ IV ONE (18:51)
[2022-12-20] MEDS ORDERED: MORPHINE SULFATE 4 MG INJ ONE (19:17)
--- NOTE | 2022-12-20 20:03 | ERPHSYRPT ---
- History of Present Illness Time Seen by Provider: 12/20/22 13:32 Source: patient Exam Limitations: no limitations Patient Subjective Stated Complaint: Pt states "I have felt horrible for 5 days. I woke up today feeling the worst I have felt. My lower back hurts but I am having surgery next friday. But I have not eaten or drank much in the last 4 days." Triage Nursing Assessment: PT presneted Physician History: Patient is here with nausea and vomiting 3 to 4 days. Patient states that she has not been able to get up to use the bathroom, has not been able to get water. Patient gets her Meals on Wheels delivered and has been unable to get up to eat this food. Patient called EMS today and was brought in via ambulance. Patient states that she did recently have an increase in her home Ozempic. She states t hat she overall just feels generalized malaise. No focal abnormalities, chest pain, fever, chills. Normal p.o. intake Allergies/Adverse Reactions: Sulfa (Sulfonamide Antibiotics) Allergy (Severe, Verified 07/26/22 11:30) Itching pollen extracts Allergy (Mild, Verified 07/26/22 11:30) bacitracin [From Neosporin ([id number])] Allergy (Verified 07/26/22 11:30) neomycin [From Neosporin ([id number])] Allergy (Verified 07/26/22 11:30) polymyxin B [From Neosporin ([id number])] Allergy (Verified 07/26/22 11:30) sulfamethoxazole [From Bactrim] Adverse Reaction (Verified 07/26/22 11:30) trimethoprim [From Bactrim] Adverse Reaction (Verified 07/26/22 11:30) Home Medications: Atorvastatin Calcium 80 mg PO DAILY 05/06/20 [History] Levothyroxine Sodium [Euthyrox] 112 mcg PO DAILY 05/06/20 [History] Ropinirole 2Mg [Requip 2Mg Tab] 2 mg PO HS 05/06/20 [History] Metformin HCl [Metformin HCl ER] 500 mg PO DAILY 03/08/21 [History] Hydrocodone/Acetaminophen [Hydrocodone-Acetamin 7.5-325] 1 tab PO QID 12/08/21 [History] Semaglutide [Ozempic] 0.5 mg SQ WEEKLY 12/20/22 [History] Hx Tetanus, Diphtheria Vaccination/Date Given: No Hx Influenza Vaccination/Date Given: No Hx Pneumococcal Vaccination/Date Given: No Immunizations Up to Date: No Travel Risk - International Travel Have you traveled outside of the country in past 3 weeks: No - Coronavirus Screening Are you exhibiting any of the following symptoms?: No Close contact with a COVID-19 positive Pt in past 14-21 Days: No - Vaccine Status Have you recieved a Covid-19 vaccination: No - Review of Systems Constitutional: No Fever, No Chills Eyes: No Symptoms Ears, Nose, & Throat: No Symptoms Respiratory: No Cough, No Dyspnea Cardiac: No Chest Pain, No Edema, No Syncope Abdominal/Gastrointestinal: Nausea, Vomiting, No Abdominal Pain, No Diarrhea Genitourinary Symptoms: No Dysuria Musculoskeletal: No Back Pain, No Neck Pain Skin: No Rash Neurological: No Dizziness, No Focal Weakness, No Sensory Changes Psychological: No Symptoms Endocrine: No Symptoms All Other Systems: Reviewed and Negative - Past Medical History Pertinent Past Medical History: Yes Neurological History: Migraines ENT History: No Pertinent History Cardiac History: Arrhythmia, Congestive Heart Failure, High Cholesterol, Hypertension Respiratory History: Bronchitis, CHF, Pneumonia Endocrine Medical History: Diabetes Type II, Hypothyroidism Musculoskeletal History: Arthritis GI Medical History: No Pertinent History History: No Pertinent History Psycho-Social History: Anxiety Female Reproductive Disorders: No Pertinent History Other Medical History: pulmunary fibrosis - Past Surgical History Past Surgical History: Yes Neuro Surgical History: No Pertinent History Cardiac: Pacemaker, Other Respiratory: No Pertinent History Gastrointestinal: No Pertinent History Genitourinary: No Pertinent History Musculoskeletal: No Pertinent History Female Surgical History: No Pertinent History Other Surgical History: Cardiac arrest during heart surgery, covid - Social History Smoking Status: Former smoker Exposure to second hand smoke: No Drug Use: none Patient Lives Alone: Yes Significant Family History: no pertinent family hx - Nursing Vital Signs Nursing Vital Signs: Initial Vital Signs Temperature 98.5 F 12/20/22 13:04 Pulse Rate 66 12/20/22 13:04 Respiratory Rate 22 12/20/22 13:04 Blood Pressure 164/93 12/20/22 13:04 O2 Sat by Pulse Oximetry 98 12/20/22 13:04 Pain Scale Pain Intensity 7 - Physical Exam General Appearance: alert, other (Appears unwell. Is actively vomiting as I enter the room.) Eye Exam: PERRL/EOMI, eyes nml inspection Ears, Nose, Throat Exam: normal ENT inspection, pharynx normal, moist mucous membranes Neck Exam: normal inspection, non-tender, supple, full range of motion Respiratory Exam: normal breath sounds, lungs clear, No respiratory distress Cardiovascular Exam: regular rate/rhythm, normal heart sounds, normal peripheral pulses Gastrointestinal/Abdomen Exam: soft, normal bowel sounds, tenderness, other (Abdominal tenderness, rebound, guarding), No mass Back Exam: normal inspection, normal range of motion, No CVA tenderness, No vertebral tenderness Extremity Exam: normal inspection, normal range of motion, pelvis stable Neurologic Exam: alert, oriented x 3, cooperative, normal mood/affect, nml cerebellar function, nml station & gait, sensation nml, No motor deficits Skin Exam: normal color, warm, dry, No rash Lymphatic Exam: No adenopathy SpO2: 98 - Course Nursing assessment & vital signs reviewed: Yes EKG Interpreted by Me: Sinus Rhythm (EKG reviewed no obvious ST changes) Ordered Tests: Active Orders 24 hr Category Date Time Status Development Architect STAT Care 12/20/22 13:06 Active Code Status Order ROUTINE Care 12/20/22 18:43 Active EKG-ER Only STAT Care 12/20/22 13:05 Active IV Care Q6H Care 12/20/22 18:43 Active IV Insertion STAT Care 12/20/22 13:[address] in Observation ROUTINE Care 12/20/22 18:43 Active House Regular Diet Diet 12/21/22 Breakfast Active ABDOMEN AND PELVIS W CONTRAST [CT] Stat Exams 12/20/22 14:12 Completed CHEST 1 VIEW (PORTABLE) Routine Exams 12/20/22 13:53 Taken CHEST WITH CONTRAST [CT] Stat Exams 12/20/22 14:11 Completed BMP AM.LAB Lab 12/21/22 04:00 Ordered CBC W DIFF AM.LAB Lab 12/21/22 04:00 Ordered CBC W DIFF Stat Lab 12/20/22 13:21 Completed CULTURE,URINE Stat Lab 12/20/22 16:50 Received Manual Differential NC Stat Lab 12/20/22 13:21 Completed NT PRO BNPII Stat Lab 12/20/22 Completed TROPONIN Q4H Lab 12/20/22 17:10 Completed TROPONIN Q4H Lab 12/20/22 21:15 Ordered UA W/RFX UR CULTURE Stat Lab 12/20/22 16:50 Completed Medication Summary Generic Name Dose Route Start Last Admin Trade Name Aydee PRN Reason Stop Dose Admin Levofloxacin/Dextrose 750 mg in 150 mls @ 100 mls/hr 12/20/22 18:41 12/20/22 19:14 Levofloxacin 750mg/150ml D5w IV 12/20/22 20:10 100 mls/hr STAT ONE Administration Sodium Chloride 1,000 mls @ 125 mls/hr 12/20/22 18:45 Sodium Chloride 0.9% 1000 Ml IV 01/19/23 18:44 .Q8H JOCELYN Morphine Sulfate 4 mg 12/20/22 18:43 Morphine Sulfate 4 Mg/Ml Injection IV 12/25/22 18:42 Q4H PRN PRN PAIN Ondansetron HCl 4 mg 12/20/22 18:43 Ondansetron Hcl 4 Mg/2 Ml Vial IV 01/19/23 18:42 Q6H PRN PRN NAUSEA/VOMITING Discontinued Medications Generic Name Dose Route Start Last Admin Trade Name Aydee PRN Reason Stop Dose Admin Diphenhydramine HCl 25 mg 12/20/22 13:06 12/20/22 16:16 Diphenhydramine Hcl 50 Mg/Ml Vial IV 12/20/22 13:07 Not Given STAT ONE Diphenhydramine HCl Confirm 12/20/22 14:58 Diphenhydramine Hcl 50 Mg/Ml Vial Administered 12/20/22 14:59 Dose 50 mg .ROUTE .STK-MED ONE Droperidol 1.25 mg 12/20/22 13:06 12/20/22 16:16 Droperidol 5 Mg/2 Ml Vial IV 12/20/22 13:07 Not Given STAT ONE Droperidol Confirm 12/20/22 14:58 Droperidol 5 Mg/2 Ml Vial Administered 12/20/22 14:59 Dose 5 mg .ROUTE .STK-MED ONE Sodium Chloride 1,000 mls @ 999 mls/hr 12/20/22 13:05 12/20/22 16:21 Sodium Chloride 0.9% 1000 Ml IV 12/20/22 14:05 Infused .Q1H1M STA Infusion Sodium Chloride Confirm 12/20/22 14:59 Sodium Chloride 0.9% 1000 Ml Administered 12/20/22 15:00 Dose 1,000 mls @ ud .ROUTE .STK-MED ONE Levofloxacin/Dextrose Confirm 12/20/22 19:13 Levofloxacin 750mg/150ml D5w Administered 12/20/22 19:14 Dose 750 mg in 150 mls @ ud IV .STK-MED ONE Ketorolac Tromethamine 30 mg 12/20/22 13:06 12/20/22 16:20 Ketorolac Tromethamine 30 Mg/Ml Inj IV 12/20/22 13:07 30 mg STAT ONE Administration Ketorolac Tromethamine Confirm 12/20/22 14:58 Ketorolac Tromethamine 30 Mg/Ml Inj Administered 12/20/22 14:59 Dose 30 mg .ROUTE .STK-MED ONE Morphine Sulfate 4 mg 12/20/22 18:51 12/20/22 19:17 Morphine Sulfate 4 Mg/Ml Injection IV 12/20/22 18:52 4 mg STAT ONE Administration Ondansetron HCl 8 mg 12/20/22 16:00 12/20/22 16:19 Ondansetron Hcl 4 Mg/2 Ml Vial IV 12/20/22 16:01 8 mg STAT ONE Administration Ondansetron HCl Confirm 12/20/22 16:17 Ondansetron Hcl 4 Mg/2 Ml Vial Administered 12/20/22 16:18 Dose 4 mg .ROUTE .STK-MED ONE Ondansetron HCl Confirm 12/20/22 16:19 Ondansetron Hcl 4 Mg/2 Ml Vial Administered 12/20/22 16:20 Dose 4 mg .ROUTE .STK-MED ONE Lab/Rad Data: Laboratory Result Diagrams 12/20/22 13:21 12/20/22 13:21 Laboratory Results 12/20/22 12/20/22 12/20/22 Range/Units Unknown 17:10 16:50 WBC (4.0-10.5) x10^3/uL RBC (4.1-5.4) x10^6/uL Hgb (12.0-16.0) g/dL Hct (35-47) % MCV (78-100) fL MCH (26-32) pg MCHC (32-36) g/dL RDW (11.5-14.0) % Plt Count (150-450) x10^3/uL MPV (7.5-11.0) fL Segmented Neutrophils (36.0-66.0) % Lymphocytes (Manual) (24-44) % Monocytes (Manual) (0.0-12.0) % Toxic Granulation Platelet Estimate (NORMAL) RBC Morphology Sodium Sodium Direct (138-146) mmol/L Potassium (3.5-4.9) mmol/L Chloride (98-109) mmol/L Carbon Dioxide (24-29) mmol/L Anion Gap BUN Venous BUN (8-26) mg/dL Creatinine (0.6-1.3) mg/dL Estimated GFR Glucose (70-105) mg/dL Calcium Ionized Calcium (1.12-1.32) mmol/L Total Bilirubin AST ALT Alkaline Phosphatase Troponin (0.00-0.03) ng/mL Troponin I < 0.012 (0.000-0.034) ng/mL NT-Pro-B Natriuret Pep 2140 (<300) pg/mL Serum Total Protein Albumin Urine Color Dark Yellow A (Yellow) Urine Appearance Clear (Clear) Urine pH 5.5 (4.6-8.0) Ur Specific Beverly >=1.030 A (1.005-1.030) Urine Protein 300 A (Negative) Urine Glucose (UA) Negative (Negative) mg/dL Urine Ketones 40 A (Negative) Urine Blood Trace (Negative) Urine Nitrite Negative (Negative) Urine Bilirubin Small A (Negative) Urine Urobilinogen 2.0 A (0.2) mg/dL Ur Leukocyte Esterase Negative (Negative) U Hyaline Cast (Auto) NONE SEEN (0-2) /LPF Urine Microscopic RBC 3-5 (0-5) /HPF Urine Microscopic WBC 21-50 A (0-5) /HPF Ur Epithelial Cells None Seen (None Seen) /HPF Urine Bacteria None Seen (None Seen) /HPF Urine Culture Reflexed YES (NO) Influenza Type A Ag (NEGATIVE) Influenza Type B Ag (NEGATIVE) RSV (PCR) (NEGATIVE) SARS-CoV-2 (PCR) (NEGATIVE) 12/20/22 12/20/22 12/20/22 Range/Units 13:21 13:21 13:21 WBC 22.6 H (4.0-10.5) x10^3/uL RBC 4.83 (4.1-5.4) x10^6/uL Hgb 14.5 (12.0-16.0) g/dL Hct 43.1 (35-47) % MCV 89.2 (78-100) fL MCH 30.0 (26-32) pg MCHC 33.6 (32-36) g/dL RDW 13.2 (11.5-14.0) % Plt Count 202 (150-450) x10^3/uL MPV 9.9 (7.5-11.0) fL Segmented Neutrophils 96 H (36.0-66.0) % Lymphocytes (Manual) 1 L (24-44) % Monocytes (Manual) 3 (0.0-12.0) % Toxic Granulation 1+ Platelet Estimate NORMAL (NORMAL) RBC Morphology NORMAL Sodium Cancelled Sodium Direct 132 L (138-146) mmol/L Potassium 4.1 (3.5-4.9) mmol/L Chloride 96 L (98-109) mmol/L Carbon Dioxide 25 (24-29) mmol/L Anion Gap Cancelled BUN Cancelled Venous BUN 15 (8-26) mg/dL Creatinine 0.6 (0.6-1.3) mg/dL Estimated GFR Cancelled Glucose 156 H (70-105) mg/dL Calcium Cancelled Ionized Calcium 1.09 L (1.12-1.32) mmol/L Total Bilirubin Cancelled AST Cancelled ALT Cancelled Alkaline Phosphatase Cancelled Troponin 0.01 (0.00-0.03) ng/mL Troponin I (0.000-0.034) ng/mL NT-Pro-B Natriuret Pep (<300) pg/mL Serum Total Protein Cancelled Albumin Cancelled Urine Color (Yellow) Urine Appearance (Clear) Urine pH (4.6-8.0) Ur Specific Beverly (1.005-1.030) Urine Protein (Negative) Urine Glucose (UA) (Negative) mg/dL Urine Ketones (Negative) Urine Blood (Negative) Urine Nitrite (Negative) Urine Bilirubin (Negative) Urine Urobilinogen (0.2) mg/dL Ur Leukocyte Esterase (Negative) U Hyaline Cast (Auto) (0-2) /LPF Urine Microscopic RBC (0-5) /HPF Urine Microscopic WBC (0-5) /HPF Ur Epithelial Cells (None Seen) /HPF Urine Bacteria (None Seen) /HPF Urine Culture Reflexed (NO) Influenza Type A Ag NEGATIVE (NEGATIVE) Influenza Type B Ag NEGATIVE (NEGATIVE) RSV (PCR) NEGATIVE (NEGATIVE) SARS-CoV-2 (PCR) NEGATIVE (NEGATIVE) - Progress Progress: improved Progress Note: 12/20/22 20:01 differential diagnosis includes: PNA, STEMI, NSTEMI, other infection, musculoskeletal pain, pneumothorax -Basic labs obtained. Patient has no elevation of her white blood cell count. Leukocytosis. Renal function is normal. First troponin negative. RSV, flu, COVID-negative. -CT scan was obtained. This demonstrated pneumonia. Possibly aspiration pneumonia versus other pneumonia. Given nausea and vomiting, overall fatigue, failure to thrive I believe patient will need to be admitted to the hospital. Did discuss over the phone with on-call physician, Dr. Montgomery. He excepted the patient for admission. Plan for IV antibiotics starting in the emergency department, continued fluid hydration, close monitoring inpatient Discussed with Dr.: Riki Will see patient in: hospital (observation) Counseled pt/family regarding: lab results, diagnosis, need for follow-up, rad results Medical Desision Making - Discussion of managment Care discussed with:: hospitalist Reviewed:: Test results Agreed on:: place in obs - Diagnostic Testing Diagnostic test were ordered, analyzed, and reviewed by me: Yes Radiological Interpretation: Interpreted by me - Departure Departure Disposition: Observation Clinical Impression: Community acquired bacterial pneumonia, Nausea and vomiting Condition: Stable Critical Care Time: No Referrals: PEPE MONTGOMERY MD [Primary Care Provider] - Follow up/PCP as directed
--- NOTE | 2022-12-20 20:03 | XRAY ---
CLINICAL HISTORY:VOMITING; COMPARISON:05/02/2022; TECHNIQUES:Frontal view of the chest; FINDINGS: Cardiac pacemaker noted (interval unchanged finding). Interstitial prominence in both lung martino (interval unchanged findings) suggests pulmonary edema is mild to moderate. A consolidation with air bronchogram was seen in the right perihilar region (interval new findings) CT was advised for further evaluation. Both costophrenic angles are blunted suggesting mild pleural effusion with atelectasis, interval new finding. Bilateral breast implants noted (interval unchanged finding). IMPRESSION: Consolidation in the right upper lobe, perihilar region with air bronchogram can be pneumonic consolidation versus mass lesion. Advise clinical and CT correlation. This is an interval new finding. Both costophrenic angles are blunted suggesting mild pleural effusion with atelectasis, interval new finding. Rest of the findings are interval unchanged. Electronically Signed by: Elysia Luevano MD. (12/20/2022 19:00:45 [employer])
[2022-12-21] MEDS ORDERED: NON-FORMULARY ITEM SQ SCH (02:00)
[2022-12-21] MEDS ORDERED: DUONEB 0.5-3 MG/3 ml Neb IH SCH (03:00)
--- NOTE | 2022-12-21 03:27 | PCM.HP ---
History of Present Illness - Chief Complaint Chief Complaint: PNA Date: 12/21/22 History of Present Illness: Ms. Sebastian is a 72 year-old female with HTN, HLD, s/p PM, chart diagnosis of CHF, pulmonary fibrosis, bronchiectasis, chronic hypoxemic respiratory failure, and chronic anemia who presents with weakness, fevers, and cough. She admits to four days of symptoms, and upon arrival to [facility], her laboratory data revealed a sodium of 132 and WBC of 22.6K, while imaging revealed airspace disease. On my examination, she is on her baseline 2L of oxygen, comfortable, and denies current fevers, chills, nausea, vomiting, diarrhea, syncope, pres yncope, visual changes, orthopnea, PND, odynophagia, dysphagia, chest pain, shortness of breath, belly pain, dysuria, hematuria, melena, hematochezia, or neurological changes. All other systems were reviewed and were negative. - Review of Systems Constitutional: Other ( PER HPI) Medications & Allergies Home Medications: Home Medication List Levothyroxine Sodium [Euthyrox] 112 mcg PO DAILY 05/06/20 [History Confirmed 12/20/22] Ropinirole 2Mg [Requip 2Mg Tab] 2 mg PO HS 05/06/20 [History Confirmed 12/20/22] Semaglutide [Ozempic] 0.5 mg SQ WEEKLY 12/20/22 [History Confirmed 12/20/22] Hydrocodone/Acetaminophen [Hydrocodone-Acetamin 10-325 mg] 1 tab PO QID PRN 12/21/22 [History Confirmed 12/21/22] Allergies/Adverse Reactions: Allergies Allergy/AdvReac Type Severity Reaction Status Date / Time Sulfa (Sulfonamide Allergy Severe Itching Verified 07/26/22 11:30 Antibiotics) pollen extracts Allergy Mild Verified 07/26/22 11:30 bacitracin Allergy Verified 07/26/22 11:30 [From Neosporin ([id number])] neomycin Allergy Verified 07/26/22 11:30 [From Neosporin ([id number])] polymyxin B Allergy Verified 07/26/22 11:30 [From Neosporin ([id number])] sulfamethoxazole AdvReac Verified 07/26/22 11:30 [From Bactrim] trimethoprim [From Bactrim] AdvReac Verified 07/26/22 11:30 - Past Medical History Past Medical History: Yes Neurological History: No Pertinent History ENT History: No Pertinent History Cardiac History: High Cholesterol, Hypertension, Other Respiratory History: CHF, Pneumonia, Other Endocrine Medical History: Diabetes Type II, Hypothyroidism Musculoskelatal History: Arthritis, Osteoporosis, Other GI Medical History: Hemorrhoids History: No Pertinent History Pyscho-Social History: Anxiety, Depression Reproductive Disorders: Other Comment: pulmonary fibrosis, PPM, b/l breast implants, right foot does not touch floor when she walks - Female History Are you now?: No - Past Surgical History Past Surgical History: Yes Neuro Surgical History: No Pertinent History Cardiac History: Pacemaker Respiratory Surgery: No Pertinent History GI Surgical History: No Pertinent History Genitourinary Surgical Hx: No Pertinent History Musculskeletal Surgical Hx: No Pertinent History Female Surgical History: Breast Implant Other Surgical History: Cardiac arrest during heart surgery, covid - Social History Smoking Status: Former smoker Exposure to second hand smoke: No Alcohol: None Drug Use: none Significant Family History: no pertinent family hx - Physical Exam Vital Signs: Vital Signs - 24 hr Temp Pulse Resp BP BP Pulse Ox 12/20/22 23:54 96.9 F 64 18 123/57 100 12/20/22 23:53 96.8 F 65 16 101/51 96 12/20/22 23:06 65 16 96 12/20/22 21:48 96.8 F 65 16 101/51 12/20/22 20:49 96.8 F 65 16 101/51 99 12/20/22 20:03 98 12/20/22 19:00 65 17 99/52 98 12/20/22 17:00 104 H 24 135/68 98 12/20/22 16:37 71 19 131/61 98 12/20/22 16:36 65 27 H 76 L 12/20/22 16:03 65 20 96 12/20/22 13:04 98.5 F 66 22 164/93 98 General Appearance: no apparent distress Neurologic Exam: alert, oriented x 3 Eye Exam: PERRL/EOMI Ears, Nose, Throat Exam: normal ENT inspection Neck Exam: normal inspection Respiratory Exam: normal breath sounds Cardiovascular Exam: regular rate/rhythm Gastrointestinal/Abdomen Exam: soft, normal bowel sounds Pelvic Exam: not done Rectal Exam: deferred Back Exam: normal inspection Extremity Exam: normal inspection Skin Exam: normal color Results - Labs Lab/Micro Results: Lab Results-Last 24 Hours 12/20/22 12/20/22 12/20/22 Range/Units 13:21 13:21 13:21 WBC 22.6 H (4.0-10.5) x10^3/uL RBC 4.83 (4.1-5.4) x10^6/uL Hgb 14.5 (12.0-16.0) g/dL Hct 43.1 (35-47) % MCV 89.2 (78-100) fL MCH 30.0 (26-32) pg MCHC 33.6 (32-36) g/dL RDW 13.2 (11.5-14.0) % Plt Count 202 (150-450) x10^3/uL MPV 9.9 (7.5-11.0) fL Segmented Neutrophils 96 H (36.0-66.0) % Lymphocytes (Manual) 1 L (24-44) % Monocytes (Manual) 3 (0.0-12.0) % Toxic Granulation 1+ Platelet Estimate NORMAL (NORMAL) RBC Morphology NORMAL Sodium Cancelled Sodium Direct 132 L (138-146) mmol/L Potassium 4.1 (3.5-4.9) mmol/L Chloride 96 L (98-109) mmol/L Carbon Dioxide 25 (24-29) mmol/L Anion Gap Cancelled BUN Cancelled Venous BUN 15 (8-26) mg/dL Creatinine 0.6 (0.6-1.3) mg/dL Estimated GFR Cancelled Glucose 156 H (70-105) mg/dL Calcium Cancelled Ionized Calcium 1.09 L (1.12-1.32) mmol/L Total Bilirubin Cancelled AST Cancelled ALT Cancelled Alkaline Phosphatase Cancelled Troponin 0.01 (0.00-0.03) ng/mL Troponin I (0.000-0.034) ng/mL NT-Pro-B Natriuret Pep (<300) pg/mL Serum Total Protein Cancelled Albumin Cancelled Urine Color (Yellow) Urine Appearance (Clear) Urine pH (4.6-8.0) Ur Specific [place] (1.005-1.030) Urine Protein (Negative) Urine Glucose (UA) (Negative) mg/dL Urine Ketones (Negative) Urine Blood (Negative) Urine Nitrite (Negative) Urine Bilirubin (Negative) Urine Urobilinogen (0.2) mg/dL Ur Leukocyte Esterase (Negative) U Hyaline Cast (Auto) (0-2) /LPF Urine Microscopic RBC (0-5) /HPF Urine Microscopic WBC (0-5) /HPF Ur Epithelial Cells (None Seen) /HPF Urine Bacteria (None Seen) /HPF Urine Culture Reflexed (NO) Influenza Type A Ag NEGATIVE (NEGATIVE) Influenza Type B Ag NEGATIVE (NEGATIVE) RSV (PCR) NEGATIVE (NEGATIVE) SARS-CoV-2 (PCR) NEGATIVE (NEGATIVE) 12/20/22 12/20/22 12/20/22 Range/Units 16:50 17:10 21:40 WBC (4.0-10.5) x10^3/uL RBC (4.1-5.4) x10^6/uL Hgb (12.0-16.0) g/dL Hct (35-47) % MCV (78-100) fL MCH (26-32) pg MCHC (32-36) g/dL RDW (11.5-14.0) % Plt Count (150-450) x10^3/uL MPV (7.5-11.0) fL Segmented Neutrophils (36.0-66.0) % Lymphocytes (Manual) (24-44) % Monocytes (Manual) (0.0-12.0) % Toxic Granulation Platelet Estimate (NORMAL) RBC Morphology Sodium Sodium Direct (138-146) mmol/L Potassium (3.5-4.9) mmol/L Chloride (98-109) mmol/L Carbon Dioxide (24-29) mmol/L Anion Gap BUN Venous BUN (8-26) mg/dL Creatinine (0.6-1.3) mg/dL Estimated GFR Glucose (70-105) mg/dL Calcium Ionized Calcium (1.12-1.32) mmol/L Total Bilirubin AST ALT Alkaline Phosphatase Troponin (0.00-0.03) ng/mL Troponin I < 0.012 < 0.012 (0.000-0.034) ng/mL NT-Pro-B Natriuret Pep (<300) pg/mL Serum Total Protein Albumin Urine Color Dark Yellow A (Yellow) Urine Appearance Clear (Clear) Urine pH 5.5 (4.6-8.0) Ur Specific [place] >=1.030 A (1.005-1.030) Urine Protein 300 A (Negative) Urine Glucose (UA) Negative (Negative) mg/dL Urine Ketones 40 A (Negative) Urine Blood Trace (Negative) Urine Nitrite Negative (Negative) Urine Bilirubin Small A (Negative) Urine Urobilinogen 2.0 A (0.2) mg/dL Ur Leukocyte Esterase Negative (Negative) U Hyaline Cast (Auto) NONE SEEN (0-2) /LPF Urine Microscopic RBC 3-5 (0-5) /HPF Urine Microscopic WBC 21-50 A (0-5) /HPF Ur Epithelial Cells None Seen (None Seen) /HPF Urine Bacteria None Seen (None Seen) /HPF Urine Culture Reflexed YES (NO) Influenza Type A Ag (NEGATIVE) Influenza Type B Ag (NEGATIVE) RSV (PCR) (NEGATIVE) SARS-CoV-2 (PCR) (NEGATIVE) 12/20/22 Range/Units Unknown WBC (4.0-10.5) x10^3/uL RBC (4.1-5.4) x10^6/uL Hgb (12.0-16.0) g/dL Hct (35-47) % MCV (78-100) fL MCH (26-32) pg MCHC (32-36) g/dL RDW (11.5-14.0) % Plt Count (150-450) x10^3/uL MPV (7.5-11.0) fL Segmented Neutrophils (36.0-66.0) % Lymphocytes (Manual) (24-44) % Monocytes (Manual) (0.0-12.0) % Toxic Granulation Platelet Estimate (NORMAL) RBC Morphology Sodium Sodium Direct (138-146) mmol/L Potassium (3.5-4.9) mmol/L Chloride (98-109) mmol/L Carbon Dioxide (24-29) mmol/L Anion Gap BUN Venous BUN (8-26) mg/dL Creatinine (0.6-1.3) mg/dL Estimated GFR Glucose (70-105) mg/dL Calcium Ionized Calcium (1.12-1.32) mmol/L Total Bilirubin AST ALT Alkaline Phosphatase Troponin (0.00-0.03) ng/mL Troponin I (0.000-0.034) ng/mL NT-Pro-B Natriuret Pep 2140 (<300) pg/mL Serum Total Protein Albumin Urine Color (Yellow) Urine Appearance (Clear) Urine pH (4.6-8.0) Ur Specific [place] (1.005-1.030) Urine Protein (Negative) Urine Glucose (UA) (Negative) mg/dL Urine Ketones (Negative) Urine Blood (Negative) Urine Nitrite (Negative) Urine Bilirubin (Negative) Urine Urobilinogen (0.2) mg/dL Ur Leukocyte Esterase (Negative) U Hyaline Cast (Auto) (0-2) /LPF Urine Microscopic RBC (0-5) /HPF Urine Microscopic WBC (0-5) /HPF Ur Epithelial Cells (None Seen) /HPF Urine Bacteria (None Seen) /HPF Urine Culture Reflexed (NO) Influenza Type A Ag (NEGATIVE) Influenza Type B Ag (NEGATIVE) RSV (PCR) (NEGATIVE) SARS-CoV-2 (PCR) (NEGATIVE) - Radiology Impressions Radiology Exams & Impressions: Radiology Procedures Category Date Time Status ABDOMEN AND PELVIS W CONTRAST [CT] Stat Exams 12/20/22 14:12 Completed CHEST 1 VIEW (PORTABLE) Routine Exams 12/20/22 13:53 Completed CHEST WITH CONTRAST [CT] Stat Exams 12/20/22 14:11 Completed - Other Procedures and Tests Respiratory Therapy 12/20/22 23:41 Oxygen Nasal Cannula 3 lpm Respiratory Therapy Assessment DAILY Assessment/Plan (1) Pneumonia Current Visit: No Status: Resolved Qualifiers: Pneumonia type: due to unspecified organism Assessment & Plan: ASSESSMENT 1. Pneumonia 2. Hyponatremia 3. Acute Bronchiectasis + Pulmonary Fibrosis Exacerbation 4. T and L Spine Fractures 5. Status-Post Pacemaker 6. Hypertension 7. Hyperlipidemia 8. Chronic Hypoxemic Respiratory Failure PLAN 1. Broad Abx; COVID/Flu/RSV negative 2. Duonebs 3. Gentle fluids 4. Empiric IV steroids x 3 days with 3 week prednisone taper 5. Follow-up as outpatient for compression fractures Lovenox The entirety of this encounter was done via telemedicine Arturo Glover MD Pulmonary and Critical Care Medicine Code(s): J18.9 - PNEUMONIA, UNSPECIFIED ORGANISM Telemedicine Encounter - Telemedicine Encounter Telemedicine Encounter: The entirety of this encounter was performed via Telemedicine"
[2022-12-21] MEDS: solu-MEDROL IV SCH ×2 (03:54→16:30)
[2022-12-21] MEDS ORDERED: DUONEB 0.5-3 MG/3 ml Neb IH PRN (04:04)
[2022-12-21] MEDS: HYDROCODONE-ACETAMIN 10-325 MG PO PRN ×4 (04:37→21:04)
[2022-12-21] MEDS ORDERED: PIPERACILLIN/TAZOBACTAM IV ONE (05:34)
[2022-12-21] MEDS ORDERED: Sodium Chloride 100ML MINI-BAG PLUS 100 ML IV ONE (05:35)
[2022-12-21] MEDS: PIPERACILLIN/TAZOBACTAM 3.375 GM in Sodium Chloride 100ML MINI-BAG PLUS 100 ML IV SCH ×3 (06:14→18:15)
[2022-12-21 06:20] LABS: Absolute Neutrophil Ct (ANC) 11.84 x10^3/uL (1.4-6.9); BASOPHIL % 0.3 % (0.0-0.4); Basophil (Absolute #) 0.04 x10^3/uL (0-0.4); Eosinophil % 0.2 % (0.00-5.0); Eosinophil (Absolute #) 0.03 x10^3/uL (0-0.5); Hematocrit 37.7 % (35-47); Hemoglobin 12.5 g/dL (12.0-16.0); IMMATURE GRAN # 0.15 x10^3u/L (0.00-0.03); IMMATURE GRAN % 1.2 % (0.00-0.4); Lymphocytes % 4.6 % (24.0-44.0); Mean Cell Volume 90.2 fL (78-100); Mean Corpuscular Hemoglobin 29.9 pg (26-32); Mean Corpuscular Hgb Concent. 33.2 g/dL (32-36); Mean Platelet Volume 10.7 fL (7.5-11.0); Monocyte (Absolute #) 0.38 x10^3/uL (0.0-1.3); Monocytes % 2.9 % (0.0-12.0); Neutrophil % 90.8 % (36.0-66.0); Platelet Count 184 x10^3/uL (150-450); Red Blood Count 4.18 x10^6/uL (4.1-5.4); Red Cell Distribution Width 13.3 % (11.5-14.0)
[2022-12-21 06:48] LABS: BLOOD UREA NITROGEN 18 mg/dL (7-17); CHLORIDE 95 mmol/L (98-107); Calcium 8.5 mg/dL (8.4-10.2); Carbon Dioxide 27 mmol/L (22-30); Creatinine 1 0.58 mg/dL (0.52-1.04); EST GLOMERULAR FILTRATION RATE > 60.0 ML/MIN; Glucose 143 mg/dL (74-106); Potassium 3.6 mmol/L (3.5-5.1); SODIUM 132 mmol/L (137-145)
[2022-12-21] MEDS: SYNTHROID 112 MCG PO SCH (08:52)
[2022-12-21] MEDS ORDERED: MEDICATION INTERVENTION MC SCH (10:00)
[2022-12-21] MEDS: Zithromax 500 MG/ 250 ML NaCl Premix 500 MG/250 ML IVPB IV SCH (10:52)
[2022-12-21] MEDS: ENOXAPARIN SODIUM SQ SCH (11:00)
[2022-12-21 14:45] LABS: 027 TOX PROD PRESUMPTIVE NEGATIVE (NEGATIVE); TOXIGENIC C. DIFF ORG NEGATIVE (NEGATIVE)
[2022-12-21] MEDS ORDERED: Sterile H2O 10 ml IJ ONE (16:07)
[2022-12-21] MEDS ORDERED: Ambien 5 MG Tablet PO PRN (18:45)
[2022-12-21] MEDS ORDERED: REQUIP 2MG TAB PO SCH (22:00)
[2022-12-22] MEDS: PIPERACILLIN/TAZOBACTAM 3.375 GM in Sodium Chloride 100ML MINI-BAG PLUS 100 ML IV SCH ×3 (00:03→12:49)
[2022-12-22] MEDS ORDERED: Sterile H2O 10 ml IJ ONE (03:08)
[2022-12-22] MEDS: solu-MEDROL IV SCH (03:22)
[2022-12-22] MEDS: HYDROCODONE-ACETAMIN 10-325 MG PO PRN ×2 (05:53→12:14)
[2022-12-22 05:59] LABS: Absolute Neutrophil Ct (ANC) 7.46 x10^3/uL (1.4-6.9); BASOPHIL % 0.2 % (0.0-0.4); Basophil (Absolute #) 0.02 x10^3/uL (0-0.4); Eosinophil (Absolute #) 0 x10^3/uL (0-0.5); Hematocrit 40.4 % (35-47); Hemoglobin 13.2 g/dL (12.0-16.0); IMMATURE GRAN # 0.14 x10^3u/L (0.00-0.03); IMMATURE GRAN % 1.7 % (0.00-0.4); Lymphocyte (Absolute #) 0.47 x10^3/uL (1.0-4.6); Lymphocytes % 5.6 % (24.0-44.0); Mean Cell Volume 93.1 fL (78-100); Mean Corpuscular Hemoglobin 30.4 pg (26-32); Mean Corpuscular Hgb Concent. 32.7 g/dL (32-36); Mean Platelet Volume 10.1 fL (7.5-11.0); Monocyte (Absolute #) 0.29 x10^3/uL (0.0-1.3); Monocytes % 3.5 % (0.0-12.0); Platelet Count 217 x10^3/uL (150-450); Red Blood Count 4.34 x10^6/uL (4.1-5.4); Red Cell Distribution Width 13.2 % (11.5-14.0); White Blood Count 8.4 x10^3/uL (4.0-10.5)
[2022-12-22 06:08] LABS: ALBUMIN 3.6 g/dL (3.5-5.0); ALKALINE PHOSPHATASE 108 U/L (38-126); ANION GAP 12.9 MEQ/L (5-15); BLOOD UREA NITROGEN 17 mg/dL (7-17); CHLORIDE 101 mmol/L (98-107); Calcium 8.7 mg/dL (8.4-10.2); Carbon Dioxide 30 mmol/L (22-30); Creatinine 1 0.53 mg/dL (0.52-1.04); EST GLOMERULAR FILTRATION RATE > 60.0 ML/MIN; Glucose 177 mg/dL (74-106); MAGNESIUM 2.2 mg/dL (1.6-2.3); Potassium 4.3 mmol/L (3.5-5.1); SGOT/AST 33 U/L (14-36); SGPT/ALT 36 U/L (0-35); SODIUM 140 mmol/L (137-145); Total Protein 7.3 g/dL (6.3-8.2)
[2022-12-22] MEDS: SYNTHROID 112 MCG PO SCH (09:02)
[2022-12-22] MEDS: ENOXAPARIN SODIUM SQ SCH (09:03)
[2022-12-22 09:31] LABS: Slide Review 1 YES
--- NOTE | 2022-12-22 09:47 | PCM.DS ---
Discharge Summary Date of Admission: 12/20/22 20:45 Admitting Physician: PEPE MONTGOMERY Primary Care Provider: PEPE MONTGOMERY Allergies Allergies Sulfa (Sulfonamide Antibiotics) Allergy (Severe, Verified 07/26/22 11:30) Itching pollen extracts Allergy (Mild, Verified 07/26/22 11:30) bacitracin [From Neosporin ([id number])] Allergy (Verified 07/26/22 11:30) neomycin [From Neosporin ([id number]-opv-hrqnf)] Allergy (Verified 07/26/22 11:30) polymyxin B [From Neosporin ([id number])] Allergy (Verified 07/26/22 11:30) sulfamethoxazole [From Bactrim] Adverse Reaction (Verified 07/26/22 11:30) trimethoprim [From Bactrim] Adverse Reaction (Verified 07/26/22 11:30) Hospital Summary - Hospital Course Hospital Course: patient admitted with cough and dyspnea, treated for pneumonia. on baseline oxygen flow at home of 2-3L, currently on 3L and feels at her baseline. has nebs, supplies and everything she needs at home - Vitals & Intake/Output Vital Signs: Vital Signs Temperature 97.3 F 12/22/22 08:00 Pulse Rate 65 12/22/22 08:00 Respiratory Rate 20 12/22/22 08:00 Blood Pressure 114/55 12/22/22 08:00 O2 Sat by Pulse Oximetry 98 12/22/22 08:00 Intake & Output: Intake & Output 12/19/22 12/20/22 12/21/22 12/22/22 11:59 11:59 11:59 11:59 Intake Total 1012 1700 Output Total 350 Balance 1012 1350 Weight 76.3 kg - Lab Result Diagrams: 12/22/22 05:20 12/22/22 05:20 Lab Results-Last 24 Hrs: Lab Results-Last 24 Hours 12/21/22 12/21/22 12/21/22 Range/Units 05:00 11:33 16:17 WBC (4.0-10.5) x10^3/uL RBC (4.1-5.4) x10^6/uL Hgb (12.0-16.0) g/dL Hct (35-47) % MCV (78-100) fL MCH (26-32) pg MCHC (32-36) g/dL RDW (11.5-14.0) % Plt Count (150-450) x10^3/uL MPV (7.5-11.0) fL Gran % (36.0-66.0) % Immature Gran % (Auto) (0.00-0.4) % Nucleat RBC Rel Count (0.00-0.1) % Eos # (Auto) (0-0.5) x10^3/uL Immature Gran # (Auto) (0.00-0.03) x10^3u/L Absolute Lymphs (auto) (1.0-4.6) x10^3/uL Absolute Monos (auto) (0.0-1.3) x10^3/uL Absolute Nucleated RBC (0.00-0.01) x10^3u/L Lymphocytes % (24.0-44.0) % Monocytes % (0.0-12.0) % Eosinophils % (0.00-5.0) % Basophils % (0.0-0.4) % Absolute Granulocytes (1.4-6.9) x10^3/uL Basophils # (0-0.4) x10^3/uL Sodium (137-145) mmol/L Potassium (3.5-5.1) mmol/L Chloride (98-107) mmol/L Carbon Dioxide (22-30) mmol/L Anion Gap (5-15) MEQ/L BUN (7-17) mg/dL Creatinine (0.52-1.04) mg/dL Estimated GFR ML/MIN Glucose (74-106) mg/dL POC Glucometer 215 H 259 H (74 to 106) mg/dL Hemoglobin A1c 5.51 (4.5-6.0) % Calcium (8.4-10.2) mg/dL Magnesium (1.6-2.3) mg/dL Total Bilirubin (0.2-1.3) mg/dL AST (14-36) U/L ALT (0-35) U/L Alkaline Phosphatase (38-126) U/L Serum Total Protein (6.3-8.2) g/dL Albumin (3.5-5.0) g/dL C. difficile Screen (NEGATIVE) C.difficile 027-NAP1-B1 (NEGATIVE) Slides for Path Review 12/21/22 12/21/22 12/22/22 Range/Units 20:21 Unknown 05:20 WBC 8.4 (4.0-10.5) x10^3/uL RBC 4.34 (4.1-5.4) x10^6/uL Hgb 13.2 (12.0-16.0) g/dL Hct 40.4 (35-47) % MCV 93.1 (78-100) fL MCH 30.4 (26-32) pg MCHC 32.7 (32-36) g/dL RDW 13.2 (11.5-14.0) % Plt Count 217 (150-450) x10^3/uL MPV 10.1 (7.5-11.0) fL Gran % 89.0 H (36.0-66.0) % Immature Gran % (Auto) 1.7 H (0.00-0.4) % Nucleat RBC Rel Count 0.0 (0.00-0.1) % Eos # (Auto) 0 (0-0.5) x10^3/uL Immature Gran # (Auto) 0.14 H (0.00-0.03) x10^3u/L Absolute Lymphs (auto) 0.47 L (1.0-4.6) x10^3/uL Absolute Monos (auto) 0.29 (0.0-1.3) x10^3/uL Absolute Nucleated RBC 0.00 (0.00-0.01) x10^3u/L Lymphocytes % 5.6 L (24.0-44.0) % Monocytes % 3.5 (0.0-12.0) % Eosinophils % 0.0 (0.00-5.0) % Basophils % 0.2 (0.0-0.4) % Absolute Granulocytes 7.46 H (1.4-6.9) x10^3/uL Basophils # 0.02 (0-0.4) x10^3/uL Sodium (137-145) mmol/L Potassium (3.5-5.1) mmol/L Chloride (98-107) mmol/L Carbon Dioxide (22-30) mmol/L Anion Gap (5-15) MEQ/L BUN (7-17) mg/dL Creatinine (0.52-1.04) mg/dL Estimated GFR ML/MIN Glucose (74-106) mg/dL POC Glucometer 217 H (74 to 106) mg/dL Hemoglobin A1c (4.5-6.0) % Calcium (8.4-10.2) mg/dL Magnesium (1.6-2.3) mg/dL Total Bilirubin (0.2-1.3) mg/dL AST (14-36) U/L ALT (0-35) U/L Alkaline Phosphatase (38-126) U/L Serum Total Protein (6.3-8.2) g/dL Albumin (3.5-5.0) g/dL C. difficile Screen NEGATIVE (NEGATIVE) C.difficile 027-NAP1-B1 PRESUMPTIVE NEGATIVE (NEGATIVE) Slides for Path Review YES 12/22/22 12/22/22 Range/Units 05:20 07:16 WBC (4.0-10.5) x10^3/uL RBC (4.1-5.4) x10^6/uL Hgb (12.0-16.0) g/dL Hct (35-47) % MCV (78-100) fL MCH (26-32) pg MCHC (32-36) g/dL RDW (11.5-14.0) % Plt Count (150-450) x10^3/uL MPV (7.5-11.0) fL Gran % (36.0-66.0) % Immature Gran % (Auto) (0.00-0.4) % Nucleat RBC Rel Count (0.00-0.1) % Eos # (Auto) (0-0.5) x10^3/uL Immature Gran # (Auto) (0.00-0.03) x10^3u/L Absolute Lymphs (auto) (1.0-4.6) x10^3/uL Absolute Monos (auto) (0.0-1.3) x10^3/uL Absolute Nucleated RBC (0.00-0.01) x10^3u/L Lymphocytes % (24.0-44.0) % Monocytes % (0.0-12.0) % Eosinophils % (0.00-5.0) % Basophils % (0.0-0.4) % Absolute Granulocytes (1.4-6.9) x10^3/uL Basophils # (0-0.4) x10^3/uL Sodium 140 D (137-145) mmol/L Potassium 4.3 (3.5-5.1) mmol/L Chloride 101 (98-107) mmol/L Carbon Dioxide 30 (22-30) mmol/L Anion Gap 12.9 (5-15) MEQ/L BUN 17 (7-17) mg/dL Creatinine 0.53 (0.52-1.04) mg/dL Estimated GFR > 60.0 ML/MIN Glucose 177 H (74-106) mg/dL POC Glucometer 176 H (74 to 106) mg/dL Hemoglobin A1c (4.5-6.0) % Calcium 8.7 (8.4-10.2) mg/dL Magnesium 2.2 (1.6-2.3) mg/dL Total Bilirubin 0.50 (0.2-1.3) mg/dL AST 33 (14-36) U/L ALT 36 H (0-35) U/L Alkaline Phosphatase 108 (38-126) U/L Serum Total Protein 7.3 (6.3-8.2) g/dL Albumin 3.6 (3.5-5.0) g/dL C. difficile Screen (NEGATIVE) C.difficile 027-NAP1-B1 (NEGATIVE) Slides for Path Review Micro Results-Entire Visit: Microbiology 12/20/22 16:50 Urine Culture - Preliminary Clean Catch Midstream GRAM NEGATIVE ID AND SENSITIVITY PENDING Accuchecks Date 12/22/22 Date 12/21/22 Date 12/21/22 Time 08:00 Time 16:55 Time 12:23 - Radiology Exams Ordered Rad Exams-Entire Visit: Radiology Procedures Category Date Time Status ABDOMEN AND PELVIS W CONTRAST [CT] Stat Exams 12/20/22 14:12 Completed CHEST 1 VIEW (PORTABLE) Routine Exams 12/20/22 13:53 Completed CHEST WITH CONTRAST [CT] Stat Exams 12/20/22 14:11 Completed - Procedures and Test Procedures and Tests throughout Hospitalization: Therapy Orders & Screens 12/20/22 23:41 Oxygen Nasal Cannula 3 lpm Comment: Diagnosis: PNA Respiratory Therapy Assessment DAILY Comment: Diagnosis: PNA Discharge Exam General Appearance: no apparent distress Neurologic Exam: alert, oriented x 3 Respiratory Exam: diminished breath sounds, prolonged expirations Cardiovascular Exam: regular rate/rhythm, normal heart sounds Gastrointestinal/Abdomen Exam: soft, No tenderness, No mass Extremity Exam: normal inspection, normal range of motion Final Diagnosis/Problem List - Final Discharge Diagnosis/Problem (1) Community acquired bacterial pneumonia Current Visit: Yes Status: Acute Code(s): J15.9 - UNSPECIFIED BACTERIAL PNEUMONIA (2) Chronic hypoxemic respiratory failure Current Visit: Yes Status: Acute (3) COPD (chronic obstructive pulmonary disease) Current Visit: Yes Status: Acute (4) Diabetes mellitus type II, uncontrolled Current Visit: No Status: Chronic Code(s): FHS6706 - - Discharge Disposition: Home, Self-Care Condition: Stable Prescriptions: New Prednisone 20 mg [Deltasone 20 mg] 20 mg PO UD #18 tablet levoFLOXacin [Levofloxacin] 750 mg PO DAILY #5 tablet Continue Levothyroxine Sodium [Euthyrox] 112 mcg PO DAILY Ropinirole 2Mg [Requip 2Mg Tab] 2 mg PO HS Semaglutide [Ozempic] 0.5 mg SQ WEEKLY Hydrocodone/Acetaminophen [Hydrocodone-Acetamin 10-325 mg] 1 tab PO QID PRN PRN Reason: Pain Follow up with: PEPE MONTGOMERY MD [Primary Care Provider] -
[2022-12-22] MEDS ORDERED: solu-MEDROL 40 MG, Sterile H2O 10 ml 1 ML IV SCH ×2 (10:00)
[2022-12-22] MEDS: Zithromax 500 MG/ 250 ML NaCl Premix 500 MG/250 ML IVPB IV SCH (11:08)
[2022-12-22 12:22] VITALS: BP 129/61; PULSE 69; O2SAT 99
== END 2022-12-22 15:20 | disposition home or self-care (01) ==
LOC: ED 13:01 → MED SURG 20:45
PROVIDERS: ADMIT Family Medicine; ATTEND Family Medicine
DX: J15.9 Unspecified bacterial pneumonia (principal); J96.11 Chronic respiratory failure with hypoxia; J44.9 Chronic obstructive pulmonary disease, unspecified; E11.9 Type 2 diabetes mellitus without complications; I11.0 Hypertensive heart disease with heart failure; I50.9 Heart failure, unspecified; E78.5 Hyperlipidemia, unspecified; D64.9 Anemia, unspecified; E87.1 Hypo-osmolality and hyponatremia; Z79.899 Other long term (current) drug therapy; Z20.828 Contact with and (suspected) exposure to other viral communicable diseases; Z99.81 Dependence on supplemental oxygen; Z86.16 Personal history of COVID-19
CPT/HCPCS: 0241U; 36000; 36415; 71045; 71260; 74177; 80047; 80048; 80053; 81001; 82947; 83036; 83735; 83880; 84484; 85025; 87077; 87086; 87186; 87493; 87641; 93005; 93041; 93268; 94640; 94760; 94762; 96360; 96374; 96375; 99285; G0378; J0456; J1200; J1650; J1885; J1956; J2270; J2405; J2920; A9270-GY

== ENCOUNTER 2022-12-25 10:26 | Day surgery (SDC) | payer BC | END 2022-12-25 10:43 | disposition home or self-care (01) | LOC: SDC-PAIN 10:26 | PROVIDERS: ATTEND Psychiatry & Neurology Pain Medicine | DX: Z53.8 Procedure and treatment not carried out for other reasons (principal); M47.817 Spondylosis without myelopathy or radiculopathy, lumbosacral region; E11.9 Type 2 diabetes mellitus without complications | CPT/HCPCS: 82947 ==

== ENCOUNTER 2023-01-08 09:34 | Day surgery (SDC) | payer BC ==
[2023-01-08] MEDS ORDERED: Depo-Medrol 40 MG/ML IM ONE (09:35)
[2023-01-08] MEDS ORDERED: BUPIVACAINE 0.5% VIAL IJ ONE (09:35)
[2023-01-08] MEDS ORDERED: DIPRIVAN 200 MG/20 ML IV ONE (11:17)
--- NOTE | 2023-01-08 12:12 | XRAY ---
Indication: Bilateral L4-S1 MBB. Intraoperative fluoroscopy provided for 12 seconds. Single digital spot image submitted for interpretation demonstrates posterior needle tips projecting over the expected left and right L4-S1 nerve roots. Correlate with intraoperative findings/report.
[2023-01-08] MEDS ORDERED: Lactated Ringers 1,000 ML IV ONE (15:20)
== END 2023-01-08 11:40 | disposition home or self-care (01) ==
LOC: SDC-PAIN 09:34
PROVIDERS: ATTEND Psychiatry & Neurology Pain Medicine
DX: M47.816 Spondylosis without myelopathy or radiculopathy, lumbar region (principal); E11.9 Type 2 diabetes mellitus without complications; Z79.899 Other long term (current) drug therapy
CPT/HCPCS: 64493; 64494; 72020; 77002; 82947; J1030; J2704

== ENCOUNTER 2023-05-21 07:23 | Day surgery (SDC) | payer BC ==
[2023-05-21] MEDS ORDERED: LIDOCAINE HCL 1% 50 MG/5 ML VL PF IJ ONE (07:24)
[2023-05-21] MEDS ORDERED: Depo-Medrol 40 MG/ML IM ONE (07:24)
[2023-05-21] MEDS ORDERED: BUPIVACAINE 0.5% VIAL IJ ONE (07:24)
[2023-05-21] MEDS ORDERED: DIPRIVAN 200 MG/20 ML IV ONE (08:14)
[2023-05-21] MEDS ORDERED: Lactated Ringers 1,000 ML IV ONE (09:20)
--- NOTE | 2023-05-21 12:02 | XRAY ---
Indication: Left L4-S1 RFA. Intraoperative fluoroscopy provided for 25 seconds. 6 digital spot image submitted for interpretation demonstrates posterior needle tips projecting over the expected left L4-S1 nerve roots. Correlate with intraoperative findings/report.
--- NOTE | 2023-05-21 12:12 | XRAY ---
25 seconds of fluoroscopy was used in surgery for a left L4-S1 RFA.
== END 2023-05-21 08:56 | disposition home or self-care (01) ==
LOC: SDC-PAIN 07:23
PROVIDERS: ATTEND Psychiatry & Neurology Pain Medicine
DX: M47.816 Spondylosis without myelopathy or radiculopathy, lumbar region (principal); Z79.899 Other long term (current) drug therapy; E11.9 Type 2 diabetes mellitus without complications
CPT/HCPCS: 64635; 64636; 72100; 77002; 82947; 99100; J1030; J2001; J2704